=== PATIENT | female | born 1950 | race Caucasian/White ===

== ENCOUNTER → 2019-11-25 07:38 | Outpatient (BNVA) | payer MEDICARE, OTHER, SELFPAY | PROVIDERS: Visit Provider Nurse Practitioner Family | DX: R53.83 Other fatigue (principal); Z13.6 Encounter for screening for cardiovascular disorders | CPT/HCPCS: 80053; 80061; 82306; 82607; 84443; 85025 ==

== ENCOUNTER 2020-08-31 10:32 | Outpatient (CLI) | payer MEDICARE, OTHER, SELFPAY ==
--- NOTE | 2020-08-31 10:40 | MM_ITS ---
WS: [id number] Exam: [id number] Date/Time of Exam: 08/31/2020 10:48 AM Reason For Exam: SCREENING VIEWS: MLO and CC views both breasts. Comparison made with prior exam of 09/28/2016. Findings: There was no sign of mass, architectural distortion or suspicious calcification in either breast. 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
== END 2020-08-31 10:33 | disposition home or self-care (01) ==
LOC: RADSHAW 10:38
PROVIDERS: Visit Provider Nurse Practitioner Family
DX: Z12.31 Encounter for screening mammogram for malignant neoplasm of breast (principal)
CPT/HCPCS: 77067

== ENCOUNTER → 2020-12-23 08:35 | Outpatient (BNVA) | payer MEDICARE, OTHER, SELFPAY | PROVIDERS: PCP Nurse Practitioner Family; Visit Provider Nurse Practitioner Family | DX: I10 Essential (primary) hypertension (principal); E55.9 Vitamin D deficiency, unspecified | CPT/HCPCS: 80053; 80061; 82306; 82607; 84443; 85025 ==

== ENCOUNTER → 2021-08-30 15:38 | Outpatient (BNVA) | payer MEDICARE, OTHER, SELFPAY | PROVIDERS: PCP Family Medicine; Visit Provider Family Medicine | DX: M79.642 Pain in left hand (principal); R22.32 Localized swelling, mass and lump, left upper limb | CPT/HCPCS: 73120 ==

== ENCOUNTER → 2021-09-28 11:15 | Outpatient (BNVA) | payer MEDICARE, OTHER, SELFPAY | PROVIDERS: PCP Family Medicine; Visit Provider Nurse Practitioner Family | DX: Z20.822 Contact with and (suspected) exposure to COVID-19 (principal) | CPT/HCPCS: 87635 ==

== ENCOUNTER 2021-10-04 18:04 | Inpatient (IN) | payer MEDICARE, OTHER, SELFPAY ==
[2021-10-04 19:20] VITALS: BP 145/84; PULSE 60; RESP 24; TEMP 36.3; O2SAT 96; BMI 31.7
--- NOTE | 2021-10-04 19:29 | XRR_ITS ---
PROCEDURE INFORMATION: Exam: XR Chest Exam date and time: 10/04/2021 7:29 PM Age: 70 years old Clinical indication: Shortness of breath; Additional info: Syncope TECHNIQUE: Imaging protocol: XR of the chest. Views: 1 view. COMPARISON: CR Chest 1 [place] [id number] 02/27/2017 9:49 AM FINDINGS: Lungs: Unremarkable. No consolidation. Pleural spaces: Unremarkable. No pleural effusion. No pneumothorax. Heart/Mediastinum: Unremarkable. No cardiomegaly. Bones/joints: Unremarkable. XR/XR chest 1V portable [id number] IMPRESSION: No acute findings.
--- NOTE | 2021-10-04 19:29 | CTR_ITS ---
PROCEDURE INFORMATION: Exam: CT Head Without Contrast Exam date and time: 10/04/2021 7:29 PM Age: 70 years old Clinical indication: Syncope and collapse TECHNIQUE: Imaging protocol: Computed tomography of the head without contrast. Radiation optimization: All CT scans at this facility use at least one of these dose optimization techniques: automated exposure control; mA and/or kV adjustment per patient size (includes targeted exams where dose is matched to clinical indication); or iterative reconstruction. COMPARISON: No relevant prior studies available. RADIATION DOSE METRICS: Total DLP (mGy-cm): 904.66 FINDINGS: Brain: No hemorrhage. Mild diffuse cerebral atrophy and sequela of chronic small vessel ischemic disease. No mass effect. Cerebral ventricles: No ventriculomegaly. Paranasal sinuses: Mucosal retention cyst in the left frontal sinus. The rest of the paranasal sinuses are well pneumatized. Mastoid air cells: Visualized mastoid air cells are well aerated. Bones/joints: Unremarkable. No acute fracture. Soft tissues: Unremarkable. CT/CT head wo con* [id number] IMPRESSION: No acute intracranial abnormality.
--- NOTE | 2021-10-04 19:30 | ECG_ITS ---
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 Measurements Intervals [place] Rate: 71 P: 58 AL: 169 QRS: -35 QRSD: 86 T: 30 QT: 396 QTc: 431 Interpretive Statements SINUS RHYTHM LEFT AXIS DEVIATION [QRS AXIS < -30] LOW QRS VOLTAGE IN PRECORDIAL LEADS [QRS DEFLECTION < 1.0 mV IN CHEST LEADS] Compared to ECG 02/27/2017 09:52:45 Left-axis deviation now present Low QRS voltage now present Sinus bradycardia no longer present Electronically Signed On 10-05-2021 17:10:41 HEAD OF CYTOGENETICS by Kendal Stack M.D. [id number]
[2021-10-04 22:15] LABS: Basophils % 0.3 %; Eosinophils % 0.3 %; Hematocrit 41.2 % (37.0-47.0); Hemoglobin 14.1 g/dL (11.5-15.3); Lymphocytes # 1.1 10^3/uL (0.8-4.8); Lymphocytes % 15.8 %; Mean Corpuscular HGB Conc 34.2 g/dL (30.0-36.0); Mean Corpuscular Hemoglobin 30.1 pg (28.0-34.0); Mean Corpuscular Volume 87.8 fl (81-99); Mean Platelet Volume 9.1 fL (7.4-10.4); Monocytes # 0.5 10^3/uL (0.2-0.9); Monocytes % 6.7 %; Neutrophils # 5.27 10^3/uL (1.8-7.7); Neutrophils % 76.6 %; Nucleated Red Blood Cells % 0 %; Platelet Count 362 10^3/cmm (130-400); Red Blood Count 4.69 10^6/uL (4.1-5.3); Red Cell Distribution Width 13.7 % (12.1-15.1); White Blood Count 6.9 10^3/uL (4.0-10.0)
[2021-10-04 22:29] LABS: INR 0.89 (0.8-1.2)
[2021-10-04 22:45] VITALS: BP 196/103; PULSE 87; RESP 20; TEMP 36.2; O2SAT 98
[2021-10-04 22:46] LABS: Troponin(5th) Baseline 16 ng/L (0-10)
--- NOTE | 2021-10-04 22:47 | ED_ITS ---
HPI - Fall General: Chief Complaint: Fall Stated Complaint: Covid +,Passed out going down stairs Time Seen by Provider: 10/04/21 22:33 History of Present Illness: Patient is a 70-year-old female who comes to the ED after having a fall. Fall occurred just prior to arrival. Patient tested positive for COVID-19 on September 28. She has been having symptoms of nasal congestion for the past 2 to 3 weeks. She is also had a sore throat. Over the past several days she reports having more shortness of breath upon exertion and feeling lightheaded or about to pass out. Denies any cough or vomiting. Today she was walking out of her house to get into her car and she had to stop several times and sit down because she felt like she was about to pass out. When going down steps from her front porch she got to the final step and sat down for a minute. She then got up and states she had a syncopal episode and fell. She fell from the bottom step and landed on concrete patio. She has an abrasion to her forehead. Denies any neurological symptoms such as vision changes, numbness tingling to face or one side of her body. Denies any weakness to extremities. She is complaining of acid reflux epigastric pain. says she has had this kind of pain before and she has been given GI cocktails in the past that has helped. She does endorse having a decreased appetite for the past 3 days or so. She says she is only eaten crackers for the past several days. She has received 2 doses of the Moderna COVID-19 vaccine but has not got the booster yet. She reports having a lot of swelling to her arms and legs bilaterally that started within the last couple weeks. She states she does not normally have any edema in her lower legs. Associated symptoms-after fall: Reports lightheadedness; Denies abdominal pain, chest pain, headache(s), hematuria or neck pain Review of Systems Const: Reports: change in weight (Put on 20 pounds over the past couple weeks.), fatigue and malaise (especially upon exertion); Denies: fever(s) or chills Eyes: Denies: change in vision or eye discomfort ENMT: Reports: throat pain and nasal congestion; Denies: odynophagia or nasal discharge Card: Reports: edema (bilateral lower extremity edema), lightheadedness, pre- syncope and dyspnea on exertion; Denies: chest pain, palpitations, swelling of feet/ankles or orthopnea Resp: Denies: dyspnea, productive cough or non-productive cough GI: Reports: heartburn and constipation; Denies: abdominal pain, nausea, vomiting, diarrhea or hematochezia : Denies: flank pain, dysuria or hematuria Musc: Denies: neck pain, back pain or extremity swelling Skin/Breast: Denies: rash or new lesions Neuro: Denies: headache(s), numbness in extremities or weakness in extremities PFSH ED PFSH: Medical History Anemia Anxiety and depression Esophageal dysmotility Polycystic kidney Family History Father Cancer lung Sister Cancer 2 sisters; breast Mother Hypertension Social History Smoking and tobacco status: never smoked Second hand smoke exposure: No Alcohol intake: never Lives independently: Yes Household members: spouse Marital status: Current occupational status: retired History of recent travel: No Current gender identity: Female Physical Exam Const: COMMON NORMALS: patient oriented x3 and alert GENERAL APPEARANCE: cooperative and comfortable HENMT: COMMON NORMALS: normocephalic HEAD & SCALP: normocephalic, abrasion right frontal Head abrasion size: 0.5 cm and contusion right frontal Head contusion size: 1 cm; no Panda's sign and no raccoon eyes MOUTH: Normal oral and palatal mucosa present THROAT: posterior oropharynx normal and uvula midline Eye: COMMON NORMALS: Equal, round and reactive pupils present, EOMs intact bilaterally and conjunctivae normal CONJUNCTIVA: Yes conjunctivae normal PUPIL: Yes Equal, round and reactive pupils present Neck/C-Spine: COMMON NORMALS: supple GENERAL: Yes normal visual inspection Resp: COMMON NORMALS: normal respiratory effort, No retractions, No use of accessory muscles and clear to auscultation bilaterally AUSCULTATION: clear to auscultation bilaterally Cardio: COMMON NORMALS: regular rate, regular rhythm, S1 normal heart sound present, S2 normal heart sound present, No gallops present (Cardio), No clicks present (Cardio), No murmurs present (Cardio) and Peripheral pulses 2+ throughout RATE: regular rate RHYTHM: regular rhythm HEART SOUNDS: S1 normal heart sound present and S2 normal heart sound present PERIPHERAL PULSES: Peripheral pulses 2+ throughout GI: COMMON NORMALS: Normal to inspection, nondistended, normoactive bowel sounds present, Soft to palpation, non-tender and no masses PALPATION: Yes Soft to palpation : COMMON NORMALS: Yes no CVA tenderness BLADDER/KIDNEY EXAM: Yes no CVA tenderness Back/Pelvis: COMMON NORMALS: no CVA tenderness Extremity: GENERAL: Yes edema (Bilateral 1+ pitting edema to lower extremities) Neuro: COMMON NORMALS: patient oriented x3, CN's II-XII intact bilaterally, moves all extremities, no focal motor deficits and no sensory deficits noted SENSORIUM/ORIENTATION: Yes alert SENSORY EXAM: Yes extremities (intact) MOTOR EXAM: 5/5 motor strength present throughout Skin: GENERAL SKIN EXAM: dry skin Course Vital Signs: Vital signs: Vital Signs Temperature 97.2 F L 10/04/21 22:45 Pulse Rate 74 10/05/21 01:30 Respiratory Rate 20 H 10/04/21 22:45 Blood Pressure 147/86 10/05/21 01:30 Pulse Oximetry 98 10/04/21 22:45 MDM - Fall Medical Decision Making Patient is a 70-year-old female that comes to the ED after having a fall. Patient had a syncopal episode that caused fall. Patient was diagnosed with COVID-19. On September 28 but she has been having symptoms of nasal congestion for over 2 weeks. She says for the past 3 days she is had nausea, decreased appetite. For the past 3 days she is only eaten crackers. Says whenever she gets up and moves around she feels nauseous, weak and feels like she is going to pass out. Today she had a syncopal episode and she fell and hit pavement. She has an abrasion with contusion on her forehead. She has increased respirations here in the ED at 24/min but rest of vitals are stable. Physical exam including a neuro exam was benign. Sodium level was 117. Chest x-ray showed no acute findings. EKG showed normal sinus rhythm with no ST segment elevation or depression seen. Troponins negative. CT of head showed no acute findings. Due to patient's low sodium levels I talked with Dr. Montenegro about patient case and he recommended patient be admitted. Patient was started on a 0.5L IV NS while here in the ED. Dr. Conley was notified and patient was admitted. Lab Data I reviewed the patient's lab results. : 10/04/21 22:05 10/04/21 22:05 Radiology Impressions Chest X-Ray 10/04/21:29 IMPRESSION: No acute findings. Head CT 10/04/21:29 IMPRESSION: No acute intracranial abnormality. Laboratory Results WBC 6.9 10^3/uL (4.0-10.0) 10/04/21 22:05 RBC 4.69 10^6/uL (4.1-5.3) 10/04/21 22:05 Hgb 14.1 g/dL (11.5-15.3) 10/04/21 22:05 Hct 41.2 % (37.0-47.0) 10/04/21 22:05 MCV 87.8 fl (81-99) 10/04/21 22:05 MCH 30.1 pg (28.0-34.0) 10/04/21 22:05 MCHC 34.2 g/dL (30.0-36.0) 10/04/21 22:05 RDW 13.7 % (12.1-15.1) 10/04/21 22:05 Plt Count 362 10^3/cmm (130-400) 10/04/21 22:05 MPV 9.1 fL (7.4-10.4) 10/04/21 22:05 Neut % (Auto) 76.6 % 10/04/21 22: Lymph % (Auto) 15.8 % 10/04/21 22:05 [place] % (Auto) 6.7 % 10/04/21 22:05 Eos % (Auto) 0.3 % 10/04/21 22:05 Baso % (Auto) 0.3 % 10/04/21 22:05 Neut # (Auto) 5.27 10^3/uL (1.8-7.7) 10/04/21 22:05 Lymph # (Auto) 1.1 10^3/uL (0.8-4.8) 10/04/21 22:05 [place] # (Auto) 0.5 10^3/uL (0.2-0.9) 10/04/21 22:05 Eos # (Auto) 0.0 10^3/uL (0.0-0.8) 10/04/21 22:05 Baso # (Auto) 0.0 10^3/uL (0.0-0.1) 10/04/21 22:05 Nucleated RBC % (auto) 0 % 10/04/21 22:05 Nucleated RBCs # 0.0 /100WBC 10/04/21 22:05 PT 12.30 SECONDS (12.1-14.9) 10/04/21 22:05 INR 0.89 (0.8-1.2) 10/04/21 22:05 Sodium 117 mmol/L (136-145) L* 10/04/21 22:05 Potassium 4.7 mmol/L (3.5-5.1) 10/04/21 22:05 Chloride 88 mmol/L (98-107) L 10/04/21 22:05 Carbon Dioxide 23 mmol/L (22-29) 10/04/21 22:05 Anion Gap 10.7 (5-19) 10/04/21 22:05 BUN 8 mg/dL (8-23) 10/04/21 22:05 Creatinine 0.6 mg/dL (0.5-0.9) 10/04/21 22:05 GFR Calculation 98.8 mL/min (90-130) 10/04/21 22:05 Glucose 106 mg/dL (65-115) 10/04/21 22:05 Calculated Osmolality 243 mOsm/kg (285-295) L 10/04/21 22:05 Calcium 7.7 mg/dL (8.5-10.5) L 10/04/21 22:05 Total Bilirubin 0.3 mg/dL (0.15-1.2) 10/04/21 22:05 AST 30 U/L (0-32) 10/04/21 22:05 ALT 12 U/L (0-33) 10/04/21 22:05 Alkaline Phosphatase 136 IU/L (35-105) H 10/04/21 22:05 Troponin T Baseline 16 ng/L (0-10) H 10/04/21 22:05 Troponin T 120 Minute 14.50 ng/L (0-10) H 10/04/21 23:45 Delta Troponin T -1.50 ABS# (0-10) L 10/04/21 23:45 NT-Pro-B Natriuret Pep 656 pg/mL (0-125) H 10/04/21 22:05 Total Protein 4.8 g/dL (6.6-8.7) L 10/04/21 22:05 Albumin 2.2 g/dL (3.5-5.2) L 10/04/21 22:05 Globulin 2.6 g/dL (1.3-4.6) 10/04/21 22:05 Random Cortisol 15.92 ug/dL (2.47-19.5) 10/05/21 01:30 EKG Data EKG 1: EKG interpretation date: 10/04/21 Interpretation: Normal sinus rhythm, no ST segment elevation or depression seen. 71 bpm. Discharge Plan Discharge Clinical Impression: Hyponatremia Condition: Stable Prescriptions: No Action sucralfate 1 gram tablet See Rx Instructions .ROUTE .COMPLEX Qty: 270 3RF Dose Instruction: TAKE 1 TABLET BY MOUTH EVERY FOUR HOURS Rx Instructions: TAKE 1 TABLET BY MOUTH EVERY FOUR HOURS Dexilant 60 mg capsule,biphase delayed releas 60 mg PO DAILY 90 Days Qty: 90 3RF fluticasone propionate [Flonase Allergy Relief] 50 mcg/actuation spray,suspension 2 spray INTRANASAL DAILY Qty: 15.8 0RF Rx Instructions: administer into each nostril lactulose 10 gram/15 mL solution See Rx Instructions .ROUTE .COMPLEX Qty: 8100 3RF Dose Instruction: TAKE 20 GM (30 ML) THREE TIMES DAILY Rx Instructions: TAKE 20 GM (30 ML) THREE TIMES DAILY venlafaxine 150 mg capsule,extended release 24hr See Rx Instructions .ROUTE .COMPLEX Qty: 90 3RF Dose Instruction: TAKE 1 CAPSULE BY MOUTH EVERY DAY WITH THE 75MG (TOTAL OF 225MG) Rx Instructions: TAKE 1 CAPSULE BY MOUTH EVERY DAY WITH THE 75MG (TOTAL OF 225MG) venlafaxine 75 mg capsule,extended release 24hr See Rx Instructions .ROUTE .COMPLEX Qty: 90 3RF Dose Instruction: TAKE 1 CAPSULE BY MOUTH EVERY DAY WITH THE 150MG FOR A TOTAL OF 225MG DAILY Rx Instructions: TAKE 1 CAPSULE BY MOUTH EVERY DAY WITH THE 150MG FOR A TOTAL OF 225MG DAILY Referrals: Rajiv Francis DO [Primary Care Provider] - Coding Level of Care Code ED Outside Energy Sales Representatives for Chg 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
--- NOTE | 2021-10-04 22:47 | PC.NURSE ---
Addendum entered by Jessica Sheldon RN 10/04/21 23:59: noted with abrasions to forehead, nose, and left cheek. Original Note: patient received with c/o falling from standing today, states got a warm feeling and became light headed with exertion. states this feeling started 3 days ago and worse today. reports history of reflux that has been worse for 3 days. states congestion started 3 weeks ago and feels like there is phlegm that won't come up. speech clear sentences complete. states COVID test on Monday with recieved results on .
[2021-10-04 22:51] LABS: Alanine Aminotransferase 12 U/L (0-33); Albumin Level 2.2 g/dL (3.5-5.2); Alkaline Phosphatase 136 IU/L (35-105); Aspartate Amino Transferase 30 U/L (0-32); Blood Urea Nitrogen 8 mg/dL (8-23); Calcium 7.7 mg/dL (8.5-10.5); Carbon Dioxide 23 mmol/L (22-29); Chloride 88 mmol/L (98-107); Creatinine Clr Calc Pharmacy 68.5758; Globulin 2.6 g/dL (1.3-4.6); Glomerular Filtration Rate 98.8 mL/min (90-130); Glucose 106 mg/dL (65-115); NT Pro B Type Natriuretic Pept 656 pg/mL (0-125); Osmolality Calculated 243 mOsm/kg (285-295); Total Bilirubin 0.3 mg/dL (0.15-1.2); Total Protein 4.8 g/dL (6.6-8.7)
[2021-10-04 22:52] LABS: Anion Gap 10.7 (5-19); Potassium 4.7 mmol/L (3.5-5.1); Sodium 117 mmol/L (136-145)
[2021-10-04] MEDS: lidocaine 2% viscous 15 ML, aluminum-mag hydrox-simethicon 30 ML, sucralfate oral liq 1 GM PO (22:54)
[2021-10-04] MEDS: sodium chloride 0.9% 500 ML 999 ML IV (23:47)
[2021-10-05] VITALS (9 sets, daily range): BP systolic 112–170; BP diastolic 68–97; PULSE 60–90; RESP 16–20; TEMP 36.2–36.9; O2SAT 93–99; BMI 31.7
--- NOTE | 2021-10-05 00:32 | P.HP_ITS ---
Providers/Chief Complaint Primary Care Provider: Rajiv Francis DO Chief Complaint: Covid +,Passed out going down stairs History of Present Illness Nati Eli is a 70 year old female has medical history of GERD, esophageal dysmotility, anxiety and depression Came in with chief complaint of nasal congestion 2 to 3 weeks, sore throat throat, shortness of breath on exertion, As well as lightheadedness , epigastric abdominal tenderness, which she attributes to her chronic acid reflux problem. she also experienced fall today on her way to the hospital, she says that she felt lightheaded she was walking out of her house to get into her car and she had to stop several times and sit down because she felt like she was about to pass out.? When going down steps from her front porch she got to the final step and sat down for a mi nute.? She then got up and states she had a syncopal episode and fell.?She fell from the bottom step and landed on concrete patio.? She has an abrasion to her forehead.? Denies any neurological symptoms such as vision changes, numbness tingling to face or one side of her body.?Denies any weakness to extremities.?She reports having a lot of swelling to her arms and legs bilaterally that started within the last couple weeks. She was diagnosed with COVID-19 on September 28. She has received 2 doses of the Moderna COVID-19 vaccine but has not got the booster yet.? Upon arrival in the ER she was worked up for above-mentioned complaint. Pertinent imaging studies: CT head without contrast: No acute intracranial abnormality. XR chest: No acute findings. EKG : Sinus rhythm , borderline left axis deviation Review of Systems General: Reports: 10 or more systems reviewed and unremarkable except in HPI and below Narrative: 68-year-old currently not in acute distress being admitted for chest pain evaluation Const: Denies: diaphoresis Card: Denies: palpitations, edema, swelling of feet/ankles or leg pain with exertion Resp: Denies: productive cough, wheezing or pain on inspiration GI: Denies: diarrhea or constipation : Denies: flank pain Musc: Denies: back pain, extremity pain or extremity swelling Neuro: Reports: headache(s); Denies: difficulty walking or confusion Medications/Allergies Home Medications Medication Instructions Recorded Confirmed Last Taken Type fluticasone propionate 50 2 spray INTRANASAL DAILY #15.8 ml 07/01/20 09/28/21 Unknown Rx mcg/actuation nasal spray,suspension (Flonase Allergy Relief) lactulose 10 gram/15 mL oral See Rx Instructions .ROUTE 11/04/20 09/28/21 Unknown Rx solution .COMPLEX #8100 ml venlafaxine 150 mg See Rx Instructions .ROUTE 11/04/20 09/28/21 Unknown Rx capsule,extended release 24 hr .COMPLEX #90 cap venlafaxine 75 mg capsule,extended See Rx Instructions .ROUTE 11/04/20 09/28/21 Unknown Rx release 24 hr .COMPLEX #90 cap dexlansoprazole 60 mg 60 mg PO DAILY 90 Days #90 cap 06/21/21 09/28/21 Unknown Rx capsule,biphase delayed release (Dexilant) sucralfate 1 gram tablet See Rx Instructions .ROUTE 06/21/21 09/28/21 Unknown Rx .COMPLEX #270 tab Allergies Allergy/AdvReac Type Severity Reaction Status Date / Time iodine Allergy Unknown Unknown Verified 09/28/21 09:11 shellfish derived Allergy Unknown Unknown Verified 09/28/21 09:11 lisinopril AdvReac Intermediate COUGH Verified 09/28/21 09:11 PFSH Acute PFSH: Medical History Anemia Anxiety and depression Esophageal dysmotility Polycystic kidney Family History Father Cancer lung Sister Cancer 2 sisters; breast Mother Hypertension Social History Smoking and tobacco status: never smoked Second hand smoke exposure: No Alcohol intake: never Lives independently: Yes Household members: spouse Marital status: Current occupational status: retired History of recent travel: No Current gender identity: Female Vitals/I&O/Wt Last Vital Signs Temp 97.2 F L 10/04/21 22:45 Pulse 87 10/04/21 22:45 Resp 20 H 10/04/21 22:45 BP 196/103 10/04/21 22:45 Pulse Ox 98 10/04/21 22:45 Weight last 48 hrs Weight 83.915 kg Physical Exam Const: COMMON NORMALS: patient oriented x3 HENMT: COMMON NORMALS: hearing grossly normal bilaterally and external ears normal EXTERNAL EAR: Yes external ears normal Eye: COMMON NORMALS: no scleral icterus GENERAL EYE: appearance normal, both eyes and all related structures Chest: COMMONS NORMALS: normal inspection of the chest and normal palpation of entire chest wall CHEST: Yes Symmetrical chest wall rise Resp: COMMON NORMALS: normal respiratory effort, No retractions, No use of accessory muscles and clear to auscultation bilaterally EFFORT & INSPECTION: Yes symmetric chest movement AUSCULTATION: clear to auscultation bilaterally Cardio: COMMON NORMALS: regular rate, regular rhythm, S1 normal heart sound present, S2 normal heart sound present, No gallops present (Cardio), No murmurs present (Cardio), No rub (Cardio) and Peripheral pulses 2+ throughout RATE: regular rate RHYTHM: regular rhythm HEART SOUNDS: S1 normal heart sound present and S2 normal heart sound present PERIPHERAL PULSES: Peripheral pulses 2+ throughout GI: COMMON NORMALS: Normal to inspection, nondistended, normoactive bowel sounds present, Soft to palpation, non-tender, No hepatosplenomegaly present and no masses AUSCULTATION: Yes normoactive bowel sounds PALPATION: Yes Soft to palpation and Yes No hepatosplenomegaly present RECTAL EXAM: deferred Extremity: COMMON NORMALS: no clubbing, cyanosis or edema and no pedal edema Neuro: COMMON NORMALS: patient oriented x3 Data : 10/05/21 03:40 10/05/21 03:40 A&P Assessment and plan (1) Hyponatremia: Status: Acute (2) Chronic constipation: Status: Acute (3) Generalized anxiety disorder: Status: Acute (4) GERD with esophagitis: Status: Acute (5) Hypertension: Status: Acute Qualifiers: Hypertension type: essential hypertension Qualified Code(s): I10 - Esse ntial (primary) hypertension (6) Syncope: Status: Acute (7) COVID-19: Status: Acute Plan Assessment: Hyponatremia likely hypovolemic hyponatremia COVID-19 Hypertension Syncope secondary to positive orthostatic hypotension GERD with esophagitis GABE PLAN : Follow TSH, random cortisol, urinalysis, lipid panel, urine and serum osmolality. Continue IV hydration with normal saline at 125 cc an hour Monitor BMP every 4 hours Orthostatic vital check every 6 hours Fall precaution Continue Protonix Continue sucralfate Continue Zofran Lovenox for DVT prophylaxis I will continue to monitor for possible Covid pneumonia, currently she is saturating well on room air X-ray chest has failed to show any infiltrates. I will hold on remdesivir and dexamethasone. Consider 2D echo Continue telemetry monitoring Attestations Medical Necessity Statement*: Patient needs to be in hospital for management of symptomatic hyponatremia, syncope, COVID-19. Anticipated length of stay greater than 2 midnights Coding Level of Care Code Acute Human Resources Professional for [facility] 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 Diagnoses Hyponatremia E87.1 Chronic constipation K59.09 Generalized anxiety disorder F41.1 GERD with esophagitis K21.00 Hypertension I10 Hypertension type: essential hypertension Syncope R55 COVID-19 U07.1
--- NOTE | 2021-10-05 01:30 | ECG_ITS ---
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 Measurements Intervals [place] Rate: 66 P: 61 PA: 164 QRS: -30 QRSD: 90 T: 45 QT: 418 QTc: 439 Interpretive Statements SINUS RHYTHM BORDERLINE LEFT AXIS DEVIATION [QRS AXIS < -20] LOW QRS VOLTAGE IN PRECORDIAL LEADS [QRS DEFLECTION < 1.0 mV IN CHEST LEADS] Compared to ECG 10/04/2021 22:00:52 No significant changes Electronically Signed On 10-05-2021 17:13:05 MEDIA LAW FACULTY MEMBER by Kendal Stack M.D. [id number]
[2021-10-05 02:21] LABS: Cortisol Random 15.92 ug/dL (2.47-19.5)
[2021-10-05] MEDS: enoxaparin 40 mg/0.4 mL Syringe SUBCUT (03:34)
[2021-10-05 04:52] LABS: Basophils % 0.6 %; Eosinophils % 0.6 %; Hematocrit 37.5 % (37.0-47.0); Hemoglobin 12.8 g/dL (11.5-15.3); Lymphocytes # 1.2 10^3/uL (0.8-4.8); Lymphocytes % 21.4 %; Mean Corpuscular HGB Conc 34.1 g/dL (30.0-36.0); Mean Corpuscular Hemoglobin 30.1 pg (28.0-34.0); Mean Corpuscular Volume 88.2 fl (81-99); Mean Platelet Volume 12.1 fL (7.4-10.4); Monocytes # 0.5 10^3/uL (0.2-0.9); Monocytes % 9.6 %; Neutrophils # 3.66 10^3/uL (1.8-7.7); Neutrophils % 67.6 %; Nucleated Red Blood Cells % 0 %; Platelet Count 257 10^3/cmm (130-400); Red Blood Count 4.25 10^6/uL (4.1-5.3); Red Cell Distribution Width 13.8 % (12.1-15.1); White Blood Count 5.4 10^3/uL (4.0-10.0)
[2021-10-05 05:06] LABS: Blood Urea Nitrogen 9 mg/dL (8-23); Calcium 7.4 mg/dL (8.5-10.5); Carbon Dioxide 24 mmol/L (22-29); Chloride 90 mmol/L (98-107); Creatinine Clr Calc Pharmacy 68.5758; Glomerular Filtration Rate 98.8 mL/min (90-130); Glucose 121 mg/dL (65-115); Osmolality Calculated 246 mOsm/kg (285-295)
[2021-10-05 05:10] LABS: Anion Gap 8.6 (5-19); Potassium 4.6 mmol/L (3.5-5.1)
[2021-10-05 05:11] LABS: Sodium 118 mmol/L (136-145)
[2021-10-05] MEDS: sodium chloride 0.9% 1,000 ML 125 ML IV ×2 (05:11→13:22)
[2021-10-05] MEDS: sucralfate 1 gm/10 mL Oral Liq UDC PO (05:11)
[2021-10-05] MEDS: hyDRALAzine 25 mg Tablet 50 MG PO (05:39)
[2021-10-05 08:46] LABS: Sodium 121 mmol/L (136-145)
[2021-10-05] MEDS: pantoprazole 40 mg SDV IVP ×2 (09:56→21:12)
[2021-10-05] MEDS: acetaminophen 325 mg Tablet 650 MG PO (09:57)
[2021-10-05] MEDS: ondansetron 2 mg/ML SDV 2 mL 4 MG IVP (13:23)
[2021-10-05 14:45] LABS: Sodium 117 mmol/L (136-145)
--- NOTE | 2021-10-05 16:37 | PM.PN ---
Subjective Subjective: Interval history: Nauseated. Having upper abdominal discomfort, dyspepsia. At home takes PPI as well as sucralfate. Has had very poor oral intake for several days. Denies diarrhea. No trouble breathing. Vitals/I&O/Wt Last Vital Signs Temp 98.1 F 10/05/21 16:00 Pulse 79 10/05/21 16:00 Resp 16 10/05/21 16:00 BP 132/74 10/05/21 16:00 Pulse Ox 94 10/05/21 16:00 10/05/21 10/05/21 10/05/21 06:59 14:59 22:59 Intake Total 1740 / 1740 Balance 1740 / 1740 Weight last 48 hrs Weight 83.915 kg Weight 83.915 kg Physical Exam Const: COMMON NORMALS: no acute distress and patient oriented x3 HENMT: COMMON NORMALS: oropharynx normal Neck/C-Spine: COMMON NORMALS: no JVD Resp: COMMON NORMALS: normal respiratory effort and clear to auscultation bilaterally AUSCULTATION: clear to auscultation bilaterally Cardio: COMMON NORMALS: no JVD, regular rhythm, S1 normal heart sound present, S2 normal heart sound present and No murmurs present (Cardio) RHYTHM: regular rhythm HEART SOUNDS: S1 normal heart sound present and S2 normal heart sound present GI: COMMON NORMALS: Normal to inspection, nondistended, normoactive bowel sounds present and Soft to palpation PALPATION: Yes Soft to palpation and Yes Tenderness to palpation present (GI) Details: other (upper) Extremity: COMMON NORMALS: no joint enlargement and no pedal edema Neuro: COMMON NORMALS: patient oriented x3 and moves all extremities Skin: COMMON NORMALS: no rashes or lesions noted GENERAL SKIN EXAM: no rashes or lesions noted Data : 10/05/21 03:40 10/05/21 12:11 A&P Assessment and plan (1) Abdominal pain: Nausea and upper abdominal pain with long history of GERD, at home on Protonix, sucralfate. Schedule sucralfate. Increase Protonix to twice daily. Check lipase. Status: Acute (2) Hyponatremia: Suspected hypovolemic hyponatremia due to poor oral intake recently, her, lack of improvement with IV hydration. Stop sodium chloride infusion. Regular diet. Check urine studies. Check TSH. Serum cortisol checked, somewhat soft at 15.9. Cosyntropin stim test. Status: Acute (3) Chronic constipation: Status: Acute (4) Generalized anxiety disorder: Status: Acute (5) GERD with esophagitis: Status: Acute (6) Hypertension: Status: Acute Qualifiers: Hypertension type: essential hypertension Qualified Code(s): I10 - Essential (primary) hypertension (7) Syncope: Status: Acute (8) COVID-19: Status: Acute Attestations Medical Necessity Statement*: Continue admission for assessment management of persistent dyspepsia, nausea, poor oral intake, moderate COVID-19. Coding Level of Care Code Acute Department [employer] for g Fwd Diagnoses Hyponatremia E87.1 Chronic constipation K59.09 Generalized anxiety disorder F41.1 GERD with esophagitis K21.00 Hypertension I10 Hypertension type: essential hypertension Syncope R55 COVID-19 U07.1 Abdominal pain R10.9
[2021-10-05 18:12] LABS: Lipase 34 U/L (13-60)
[2021-10-05 18:24] LABS: Sodium 119 mmol/L (136-145)
[2021-10-05 18:25] LABS: Thyroid Stimulating Hormone 3.19 uIU/mL (0.27-4.20)
[2021-10-05] MEDS: sucralfate 1 gm Tablet PO ×2 (18:35→21:12)
[2021-10-05] MEDS: cosyntropin 0.25 mg SDV IVP (18:35)
[2021-10-05 20:30] LABS: Cosyntropin 30 Minute 19.39 mcg/dL
[2021-10-05 20:31] LABS: Cosyntropin Baseline 7.04 mcg/dL
[2021-10-05 20:40] LABS: Cosyntropin 1 Hour 21.73 mcg/dL
[2021-10-05 21:31] LABS: Sodium 118 mmol/L (136-145)
[2021-10-05] MEDS: diphenhydrAMINE 25 mg Capsule PO (21:58)
[2021-10-06] VITALS (8 sets, daily range): BP systolic 158–179; BP diastolic 74–96; PULSE 53–86; RESP 17–22; TEMP 36.4–36.6; O2SAT 96–98
[2021-10-06] MEDS: enoxaparin 40 mg/0.4 mL Syringe SUBCUT (03:44)
[2021-10-06 04:18] LABS: Urine Random Sodium < 10 mmol/L
[2021-10-06 06:04] LABS: Basophils % 0.5 %; Eosinophils % 0.5 %; Hematocrit 36.2 % (37.0-47.0); Hemoglobin 12.5 g/dL (11.5-15.3); Lymphocytes # 1.8 10^3/uL (0.8-4.8); Lymphocytes % 27.8 %; Mean Corpuscular HGB Conc 34.5 g/dL (30.0-36.0); Mean Corpuscular Hemoglobin 30.7 pg (28.0-34.0); Mean Corpuscular Volume 88.9 fl (81-99); Monocytes # 0.8 10^3/uL (0.2-0.9); Neutrophils # 3.89 10^3/uL (1.8-7.7); Nucleated Red Blood Cells % 0 %; Platelet Count 277 10^3/cmm (130-400); Red Blood Count 4.07 10^6/uL (4.1-5.3); Red Cell Distribution Width 13.8 % (12.1-15.1); White Blood Count 6.6 10^3/uL (4.0-10.0)
[2021-10-06] MEDS: sucralfate 1 gm Tablet PO ×4 (06:24→20:25)
[2021-10-06 06:39] LABS: Blood Urea Nitrogen 12 mg/dL (8-23); Carbon Dioxide 18 mmol/L (22-29); Chloride 93 mmol/L (98-107); Creatinine Clr Calc Pharmacy 68.5758; Glomerular Filtration Rate 98.8 mL/min (90-130); Glucose 101 mg/dL (65-115); Magnesium 2.3 mg/dL (1.7-2.3); Osmolality Calculated 244 mOsm/kg (285-295); Thyroid Stimulating Hormone 2.32 uIU/mL (0.27-4.20)
[2021-10-06 07:41] LABS: Sodium 117 mmol/L (136-145)
[2021-10-06 07:43] LABS: Anion Gap 11.3 (5-19); Potassium 5.3 mmol/L (3.5-5.1)
[2021-10-06] MEDS: pantoprazole 40 mg SDV IVP ×2 (09:45→21:59)
[2021-10-06] MEDS: sennosides-docusate Tablet 1 TAB PO (09:45)
[2021-10-06] MEDS: venlafaxine ER (24HR) 75 mg Capsule PO (09:45)
[2021-10-06] MEDS: venlafaxine ER (24HR) 150 mg Capsule PO (09:45)
[2021-10-06 11:05] LABS: Blood Urea Nitrogen 12 mg/dL (8-23); Calcium 8.2 mg/dL (8.5-10.5); Carbon Dioxide 21 mmol/L (22-29); Chloride 88 mmol/L (98-107); Creatinine Clr Calc Pharmacy 68.5758; Glomerular Filtration Rate 82.7 mL/min (90-130); Glucose 99 mg/dL (65-115); Osmolality Calculated 242 mOsm/kg (285-295)
[2021-10-06 11:09] LABS: Anion Gap 11.7 (5-19); Potassium 4.7 mmol/L (3.5-5.1)
[2021-10-06 11:10] LABS: Sodium 116 mmol/L (136-145)
[2021-10-06] MEDS: sodium chloride 3% 500 ML 10 ML IV (11:24)
[2021-10-06 11:43] LABS: Add Urine Microscopic? YES; Bilirubin Urine Neg (Negative); Blood Urine 2+ (Negative); Glucose Urine UA Norm (Normal); Ketones Urine Negative (Negative); Leukocyte Esterase Urine Negative (Negative); Nitrate Urine Negative (Negative); Protein Urine 3+ (Negative); Specific Gravity, Urine 1.015 (1.005-1.030); Urine Appearance Clear (CLEAR); Urine Color Dark Yellow (Yellow); Urobilinogen Urine Neg (Negative); pH Urine 5 (5-7)
[2021-10-06 11:45] LABS: Add Urine Culture? No; Amorphous Sediment Urine TRACE /hpf; Bacteria Urine TRACE /hpf; RBC Urine 0-4 /hpf (0-2); Renal Epithelial Cells Urine 2 /hpf; Squamous Epithelial Cell Urine 0-4 /hpf (0-5); WBC Urine RARE /hpf (0-5)
[2021-10-06] MEDS: ondansetron 2 mg/ML SDV 2 mL 4 MG IVP (12:40)
--- NOTE | 2021-10-06 14:01 | PM.PN ---
Subjective Subjective: Interval history: Having chills, malaise. No further vomiting. Not good appetite/oral intake. No diarrhea. He is not short of breath. Having some swelling on the exterior left side of her neck she can feel with her hand. Denies food sticking in her throat. Vitals/I&O/Wt Last Vital Signs Temp 97.9 F 10/06/21 12:00 Pulse 86 10/06/21 12:02 Resp 17 10/06/21 07:50 BP 177/89 10/06/21 12:00 Pulse Ox 98 10/06/21 12:02 10/05/21 10/06/21 10/06/21 22:59 06:59 14:59 Intake Total 960 / 2700 Output Total 200 / 200 Balance 960 / 2700 -200 / 2500 Weight last 48 hrs Weight 83.915 kg Weight 83.915 kg Physical Exam Const: COMMON NORMALS: no acute distress and patient oriented x3 HENMT: COMMON NORMALS: oropharynx normal Neck/C-Spine: COMMON NORMALS: no JVD OTHER: Possible mild lymphadenopathy anterolateral left neck. Do not appreciate mass or significant swelling. No stridor. Resp: COMMON NORMALS: normal respiratory effort and clear to auscultation bilaterally AUSCULTATION: clear to auscultation bilaterally Cardio: COMMON NORMALS: no JVD, regular rhythm, S1 normal heart sound present, S2 normal heart sound present and No murmurs present (Cardio) RHYTHM: regular rhythm HEART SOUNDS: S1 normal heart sound present and S2 normal heart sound present GI: COMMON NORMALS: Normal to inspection, nondistended, normoactive bowel sounds present and Soft to palpation PALPATION: Yes Soft to palpation and Yes Tenderness to palpation present (GI) Extremity: COMMON NORMALS: no joint enlargement and no pedal edema Neuro: COMMON NORMALS: patient oriented x3 and moves all extremities Skin: COMMON NORMALS: no rashes or lesions noted GENERAL SKIN EXAM: no rashes or lesions noted Data : 10/06/21 05:45 10/06/21 13:55 A&P Assessment and plan (1) Abdominal pain: So far no further vomiting. Poor oral intake. Persistent hyponatremia. Continue PPI. Sucralfate. Nausea and upper abdominal pain with long history of GERD, at home on Protonix, sucralfate. Lipase was normal. Status: Acute (2) Hyponatremia: Persistent severe hyponatremia. Start 3% saline at low rate. Follow levels. Despite initiation of 3% saline sodium with further decrease. Will request nephrology assistance. Suspected hypovolemic hyponatremia due to poor oral intake recently, her, lack of improvement with IV hydration. Stop sodium chloride infusion. Regular diet. Check urine studies. Normal TSH. Serum cortisol checked, somewhat soft at 15.9. Baseline cortisol with cosyntropin low at 7.4, but adequate response with rise up to 21. Status: Acute (3) Chronic constipation: Status: Acute (4) Generalized anxiety disorder: Status: Acute (5) GERD with esophagitis: Status: Acute (6) Hypertension: Status: Acute Qualifiers: Hypertension type: essential hypertension Qualified Code(s): I10 - Essential (primary) hypertension (7) Syncope: Status: Acute (8) COVID-19: Status: Acute Attestations Medical Necessity Statement*: Continue admission for assessment management of severe hyponatremia. 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
[2021-10-06 14:37] LABS: Blood Urea Nitrogen 13 mg/dL (8-23); Calcium 7.9 mg/dL (8.5-10.5); Carbon Dioxide 19 mmol/L (22-29); Chloride 92 mmol/L (98-107); Creatinine Clr Calc Pharmacy 68.5758; Glomerular Filtration Rate 98.8 mL/min (90-130); Glucose 126 mg/dL (65-115); Osmolality Calculated 246 mOsm/kg (285-295)
[2021-10-06 14:38] LABS: Anion Gap 10.4 (5-19); Potassium 4.4 mmol/L (3.5-5.1)
[2021-10-06 14:39] LABS: Sodium 117 mmol/L (136-145)
[2021-10-06 15:17] LABS: Osmolality Serum 257 mOsm/kg (278-305)
[2021-10-06 19:28] LABS: Anion Gap 11.5 (5-19); Blood Urea Nitrogen 14 mg/dL (8-23); Calcium 8.1 mg/dL (8.5-10.5); Carbon Dioxide 20 mmol/L (22-29); Chloride 88 mmol/L (98-107); Creatinine Clr Calc Pharmacy 68.5758; Glomerular Filtration Rate 82.7 mL/min (90-130); Glucose 97 mg/dL (65-115); Osmolality Calculated 240 mOsm/kg (285-295); Potassium 4.5 mmol/L (3.5-5.1)
[2021-10-06 19:30] LABS: Sodium 115 mmol/L (136-145)
[2021-10-06] MEDS: FUROsemide 40 mg Tablet PO (20:25)
--- NOTE | 2021-10-06 21:34 | P.CONIM_ITS ---
Providers/Reason For Consult Consulting Physician/Specialty*: clemencia lucero md / telenephrology Reason for Consult*: hyponatremia Requesting Physician: Dr. Jaramillo Attending Physician: Brett Engel Primary Care Provider: Rajiv Francis DO History of Present Illness History of Present Illness Nati Eli is a 70 year old female w/ COVID-19 PNA- feeling symptoms of cough, fevers, weakness for 3 weeks. DX COVID-19 + on 09-28-21. Admitted on 10-04-21 w/ pre-syncope. on admission found to have a na of 118 - started on ns at 125 ml/ hr. she did not improve and then started 3% saline at alow rate and lasix and renal; is called to consult. Review of Systems Narrative: weak lethargic, nausea. starting to drink urine. headaches, cough. no sob, + nausea, no abd pain, no diarrhea. develoiped some edema Medications/Allergies Home Medications Medication Instructions Recorded Confirmed Last Taken Type fluticasone propionate 50 2 spray INTRANASAL DAILY #15.8 ml 07/01/20 10/05/21 Unknown Rx mcg/actuation nasal spray,suspension (Flonase Allergy Relief) lactulose 10 gram/15 mL oral See Rx Instructions .ROUTE 11/04/20 10/05/21 Unknown Rx solution .COMPLEX #8100 ml venlafaxine 150 mg See Rx Instructions .ROUTE 11/04/20 10/05/21 Unknown Rx capsule,extended release 24 hr .COMPLEX #90 cap venlafaxine 75 mg capsule,extended See Rx Instructions .ROUTE 11/04/20 10/05/21 Unknown Rx release 24 hr .COMPLEX #90 cap dexlansoprazole 60 mg 60 mg PO DAILY 90 Days #90 cap 06/21/21 10/05/21 Unknown Rx capsule,biphase delayed release (Dexilant) docusate sodium 100 mg capsule 100 mg PO DAILY 10/05/21 10/05/21 Unknown History sucralfate 1 gram tablet 1 g PO Q6H PRN 10/05/21 10/05/21 Unknown History Allergies Allergy/AdvReac Type Severity Reaction Status Date / Time iodine Allergy Unknown Unknown Verified 09/28/21 09:11 shellfish derived Allergy Unknown Unknown Verified 09/28/21 09:11 lisinopril AdvReac Intermediate COUGH Verified 09/28/21 09:11 Current Medications Generic Name Dose Route Start Last Admin Trade Name Freq PRN Reason Stop Dose Admin Acetaminophen 650 mg 10/05/21 05:34 10/05/21 09:57 Acetaminophen 325 Mg Tablet PO 650 mg Q6H PRN Administration Mild/Mod Pain Or Temp >/= 101 Diphenhydramine HCl 25 mg 10/05/21 16:35 10/05/21 21:58 Diphenhydramine 25 Mg Capsule PO 25 mg Q6H PRN Administration ALLERGIES Enoxaparin Sodium 40 mg 10/05/21 00:30 10/06/21 03:44 Enoxaparin 40 Mg/0.4 Ml Syringe SUBCUT 40 mg Q24H SUNSHINE Administration Sodium Chloride 500 mls @ 10 mls/hr 10/06/21 08:30 10/06/21 11:24 Sodium Chloride 3% IV 10/08/21 10:29 10 mls/hr .Q24H SUNSHINE Administration Ondansetron HCl 4 mg 10/05/21 00:27 10/06/21 12:40 Ondansetron 2 Mg/Ml Sdv 2 Ml IVP 4 mg Q8H PRN Administration vomiting, or N/V if npo Pantoprazole Sodium 40 mg 10/05/21 21:00 10/06/21 09:45 Pantoprazole 40 Mg Sdv IVP 40 mg Q12H SUNSHINE Administration Senna/Docusate Sodium 1 tab 10/05/21 09:00 10/06/21 09:45 Sennosides-Docusate Tablet PO 1 tab DAILY SUNSHINE Administration Sucralfate 1 gm 10/05/21 04:31 10/05/21 05:11 Sucralfate 1 Gm/10 Ml Oral Liq Udc PO 1 gm Q4H PRN Administration episagtric pain Sucralfate 1 gm 10/05/21 17:00 10/06/21 20:25 Sucralfate 1 Gm Tablet PO 1 gm AC&BEDTIME SUNSHINE Administration Venlafaxine HCl 75 mg 10/06/21 09:00 10/06/21 09:45 Venlafaxine Er (24hr) 75 Mg Capsule PO 75 mg QD SUNSHINE Administration Venlafaxine HCl 150 mg 10/06/21 09:00 10/06/21 09:45 Venlafaxine Er (24hr) 150 Mg Capsule PO 150 mg QD SUNSHINE Administration PFSH Acute PFSH: Medical History Anemia Anxiety and depression Esophageal dysmotility Polycystic kidney Family History Father Cancer lung Sister Cancer 2 sisters; breast Mother Hypertension Social History Smoking and tobacco status: never smoked Second hand smoke exposure: No Alcohol intake: never Lives independently: Yes Household members: spouse Marital status: Current occupational status: retired History of recent travel: No Current gender identity: Female Vitals/I&O/Wt Last Vital Signs Temp 97.8 F 10/06/21 16:00 Pulse 62 10/06/21 16:00 Resp 22 H 10/06/21 16:00 BP 179/96 10/06/21 16:00 Pulse Ox 98 10/06/21 17:57 10/06/21 10/06/21 10/06/21 06:59 14:59 22:59 Intake Total 0 / 0 Output Total 200 / 200 Balance -200 / 2500 0 / 0 Weight last 48 hrs Weight 83.915 kg Physical Exam Narrative: EXAM NARRATIVE: bp elevated comfortable in bed, NARD heent- nc/at, eomi, anicteric neck supple lungs clear b/l heart - reg abd soft, nt, nd, + bs ext ankle edema neuro- a,a, o x 3 Data : 10/06/21 05:45 10/06/21 18:45 A&P Assessment and plan (1) Hyponatremia: 70 yr old female depression, GERD, htn 1. covid- 19 2. hyponatremia- low ur na- goes against SIADH -will repeat urine electrolytes -free water restrict -ns ivf -nl tsh and cosyntropin stim test -effexor can cause SIADH physiology -covid pna can cause hyponatremia pt was seen and examine dw/ RN- telehealth visit informed consent for telehealth visit obtained Status: Acute Plan as above Consult Attestations Medical Necessity Statement: covid-19, hyponatremia Time Spent in Patient Care: Greater than 35 minutes (>than 50% of time spent in counselling and/or direct pt care on unit) . 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
[2021-10-06] MEDS: sodium chloride 0.9% 1,000 ML 125 ML IV (22:33)
[2021-10-06 23:45] LABS: Potassium, Radom Urine 15 mmol/L
[2021-10-06 23:47] LABS: Uric Acid 4.2 mg/dL (2.4-5.7)
[2021-10-06 23:53] LABS: Urine Random Chloride 16 mmol/L; Urine Random Sodium < 10 mmol/L
[2021-10-07] VITALS (7 sets, daily range): BP systolic 129–219; BP diastolic 79–94; PULSE 59–71; RESP 16–20; TEMP 36.4–36.8; O2SAT 95–98
[2021-10-07 00:34] LABS: Alanine Aminotransferase 17 U/L (0-33); Albumin Level 1.9 g/dL (3.5-5.2); Alkaline Phosphatase 115 IU/L (35-105); Aspartate Amino Transferase 30 U/L (0-32); Blood Urea Nitrogen 16 mg/dL (8-23); Calcium 7.4 mg/dL (8.5-10.5); Carbon Dioxide 20 mmol/L (22-29); Chloride 88 mmol/L (98-107); Creatinine Clr Calc Pharmacy 68.5758; Globulin 2.4 g/dL (1.3-4.6); Glomerular Filtration Rate 82.7 mL/min (90-130); Glucose 97 mg/dL (65-115); Potassium 4.9 mmol/L (3.5-5.1); Total Bilirubin 0.2 mg/dL (0.15-1.2); Total Protein 4.3 g/dL (6.6-8.7)
[2021-10-07 00:45] LABS: Anion Gap 11.9 (5-19); Osmolality Calculated 241 mOsm/kg (285-295); Sodium 115 mmol/L (136-145)
[2021-10-07] MEDS: enoxaparin 40 mg/0.4 mL Syringe SUBCUT (00:55)
[2021-10-07] MEDS: hyDRALAzine 50 mg Tablet PO (04:09)
[2021-10-07 04:26] LABS: Basophils % 0.6 %; Eosinophils # 0.1 10^3/uL (0.0-0.8); Eosinophils % 1.7 %; Hematocrit 38.4 % (37.0-47.0); Hemoglobin 12.9 g/dL (11.5-15.3); Lymphocytes # 2.2 10^3/uL (0.8-4.8); Lymphocytes % 34.4 %; Mean Corpuscular HGB Conc 33.6 g/dL (30.0-36.0); Mean Corpuscular Hemoglobin 30.3 pg (28.0-34.0); Mean Corpuscular Volume 90.1 fl (81-99); Mean Platelet Volume 9.2 fL (7.4-10.4); Monocytes # 0.8 10^3/uL (0.2-0.9); Monocytes % 12.9 %; Neutrophils # 3.16 10^3/uL (1.8-7.7); Neutrophils % 50.2 %; Nucleated Red Blood Cells % 0 %; Platelet Count 267 10^3/cmm (130-400); Red Blood Count 4.26 10^6/uL (4.1-5.3); Red Cell Distribution Width 13.8 % (12.1-15.1); White Blood Count 6.3 10^3/uL (4.0-10.0)
[2021-10-07 04:57] LABS: Alanine Aminotransferase 19 U/L (0-33); Albumin Level 1.7 g/dL (3.5-5.2); Alkaline Phosphatase 109 IU/L (35-105); Anion Gap 12.5 (5-19); Aspartate Amino Transferase 30 U/L (0-32); Blood Urea Nitrogen 14 mg/dL (8-23); Carbon Dioxide 18 mmol/L (22-29); Chloride 89 mmol/L (98-107); Creatinine Clr Calc Pharmacy 68.5758; Globulin 3.1 g/dL (1.3-4.6); Glomerular Filtration Rate 82.7 mL/min (90-130); Glucose 82 mg/dL (65-115); Osmolality Calculated 240 mOsm/kg (285-295); Potassium 4.5 mmol/L (3.5-5.1); Total Bilirubin 0.2 mg/dL (0.15-1.2); Total Protein 4.8 g/dL (6.6-8.7)
[2021-10-07 04:59] LABS: Sodium 115 mmol/L (136-145)
[2021-10-07] MEDS: FUROsemide 10 mg/mL SDV 2mL 25 MG IVP (05:36)
[2021-10-07] MEDS: sucralfate 1 gm Tablet PO ×4 (06:40→21:41)
[2021-10-07] MEDS: sodium chloride 0.9% 1,000 ML 125 ML IV (06:43)
[2021-10-07 07:06] LABS: Urine Creatinine 59 mg/dL (28-217)
[2021-10-07] MEDS: venlafaxine ER (24HR) 150 mg Capsule PO (08:52)
[2021-10-07] MEDS: pantoprazole 40 mg SDV IVP ×2 (08:52→22:01)
[2021-10-07] MEDS: sennosides-docusate Tablet 1 TAB PO (08:52)
[2021-10-07] MEDS: venlafaxine ER (24HR) 75 mg Capsule PO (08:52)
--- NOTE | 2021-10-07 09:38 | PM.PN ---
Subjective Subjective: Interval history: feels better. improved MS. no n/v/f/c/laboy/d/sob Medications: Reviewed: Yes Medication Review Details: Current Medications Acetaminophen (Acetaminophen 325 Mg Tablet) 650 mg PO Q6H PRN PRN Reason: Mild/Mod Pain Or Temp >/= 101 Last Admin: 10/05/21 09:57 Dose: 650 mg Documented by: Diphenhydramine HCl (Diphenhydramine 25 Mg Capsule) 25 mg PO Q6H PRN PRN Reason: ALLERGIES Last Admin: 10/05/21 21:58 Dose: 25 mg Documented by: Enoxaparin Sodium (Enoxaparin 40 Mg/0.4 Ml Syringe) 40 mg SUBCUT Q24H [facility] Last Admin: 10/07/21 00:55 Dose: 40 mg Documented by: Sodium Chloride (Sodium Chloride 3%) 500 mls @ 50 mls/hr IV .Q10H [facility] Stop: 10/07/21 13:41 Last Admin: 10/06/21 11:24 Dose: 10 mls/hr Documented by: Ondansetron HCl (Ondansetron 2 Mg/Ml Sdv 2 Ml) 4 mg IVP Q8H PRN PRN Reason: vomiting, or N/V if npo Last Admin: 10/06/21 12:40 Dose: 4 mg Documented by: Pantoprazole Sodium (Pantoprazole 40 Mg Sdv) 40 mg IVP Q12H [facility] Last Admin: 10/07/21 08:52 Dose: 40 mg Documented by: Senna/Docusate Sodium (Sennosides-Docusate Tablet) 1 tab PO DAILY [facility] Last Admin: 10/07/21 08:52 Dose: 1 tab Documented by: Sucralfate (Sucralfate 1 Gm/10 Ml Oral Liq Udc) 1 gm PO Q4H PRN PRN Reason: episagtric pain Last Admin: 10/05/21 05:11 Dose: 1 gm Documented by: Sucralfate (Sucralfate 1 Gm Tablet) 1 gm PO AC&BEDTIME [facility] Last Admin: 10/07/21 06:40 Dose: 1 gm Documented by: Venlafaxine HCl (Venlafaxine Er (24hr) 75 Mg Capsule) 75 mg PO QD [facility] Last Admin: 10/07/21 08:52 Dose: 75 mg Documented by: Venlafaxine HCl (Venlafaxine Er (24hr) 150 Mg Capsule) 150 mg PO QD SUNSHINE Last Admin: 10/07/21 08:52 Dose: 150 mg Documented by: Vitals/I&O/Wt Last Vital Signs Temp 97.5 F L 10/07/21 07:48 Pulse 66 10/07/21 07:48 Resp 16 10/07/21 07:48 BP 166/83 10/07/21 07:48 Pulse Ox 96 10/07/21 07:48 10/06/21 10/07/21 10/07/21 22:59 06:59 14:59 Intake Total 180 / 180 1060 / 1240 200 / 200 Output Total 600 / 600 100 / 700 Balance -420 / -420 960 / 540 200 / 200 Physical Exam Narrative: EXAM NARRATIVE: bp elevated -improving comfortable in bed, NARD heent- nc/at, eomi, anicteric neck supple lungs clear b/l heart - reg abd soft, nt, nd, + bs ext ankle edema neuro- a,a, o x 3 Data : 10/07/21 04:14 10/07/21 04:14 A&P Assessment and plan (1) Hyponatremia: 70 yr old female depression, GERD, htn 1. covid- 19 2. hyponatremia- low ur na- goes against SIADH -free water restrict -her na is not improving w/ ns ivf -nl tsh and cosyntropin stim test -effexor can cause SIADH physiology -covid pna can cause hyponatremia -however, she has a low ur na -will give a few hrs 3% saline then ns ivf pt was seen and examine dw/ RN- telehealth visit time spent 30 min Status: Acute Plan as above Attestations Medical Necessity Statement*: hyponatremia Time Spent in Patient Care: 16 - 35 minutes (>than 50% of time spent in counselling and/or direct pt care on unit). Coding Level of Care Code Acute Instrument Designer for [facility] Diagnoses Hyponatremia E87.1
[2021-10-07 10:43] LABS: Add Urine Microscopic? YES; Bilirubin Urine Neg (Negative); Blood Urine 2+ (Negative); Glucose Urine UA Norm (Normal); Ketones Urine Negative (Negative); Leukocyte Esterase Urine Negative (Negative); Nitrate Urine Negative (Negative); Protein Urine 3+ (Negative); Urine Appearance Clear (CLEAR); Urine Color Yellow (Yellow); Urobilinogen Urine Norm (Negative); pH Urine 5 (5-7)
[2021-10-07 10:55] LABS: Add Urine Culture? No; Bacteria Urine TRACE /hpf; Hyaline Casts Urine 0-4 /lpf; Mucus Urine 1+ /hpf; RBC Urine 0-4 /hpf (0-2); Squamous Epithelial Cell Urine 0-4 /hpf (0-5); Triple Phosphate Crystal Urine 0-4 /hpf
[2021-10-07 13:04] LABS: Alanine Aminotransferase 21 U/L (0-33); Albumin Level 1.7 g/dL (3.5-5.2); Alkaline Phosphatase 109 IU/L (35-105); Anion Gap 10.8 (5-19); Aspartate Amino Transferase 39 U/L (0-32); Blood Urea Nitrogen 15 mg/dL (8-23); Calcium 7.3 mg/dL (8.5-10.5); Carbon Dioxide 22 mmol/L (22-29); Chloride 91 mmol/L (98-107); Creatinine Clr Calc Pharmacy 68.5758; Globulin 2.5 g/dL (1.3-4.6); Glomerular Filtration Rate 82.7 mL/min (90-130); Glucose 87 mg/dL (65-115); Osmolality Calculated 248 mOsm/kg (285-295); Potassium 4.8 mmol/L (3.5-5.1); Total Bilirubin 0.2 mg/dL (0.15-1.2); Total Protein 4.2 g/dL (6.6-8.7)
[2021-10-07 13:08] LABS: Sodium 119 mmol/L (136-145)
--- NOTE | 2021-10-07 18:10 | PM.PN ---
Subjective Subjective: Interval history: Today she reports no further nausea, no vomiting. Epigastric discomfort/pain. No trouble breathing. No chest pain or pressure. Vitals/I&O/Wt Last Vital Signs Temp 98.2 F 10/07/21 16:00 Pulse 71 10/07/21 16:00 Resp 16 10/07/21 16:00 BP 129/81 10/07/21 16:00 Pulse Ox 98 10/07/21 16:00 10/07/21 10/07/21 10/07/21 06:59 14:59 22:59 Intake Total 1060 / 1240 803.5 / 803.5 Output Total 100 / 700 100 / 100 Balance 960 / 540 703.5 / 703.5 Physical Exam Const: COMMON NORMALS: no acute distress and patient oriented x3 HENMT: COMMON NORMALS: oropharynx normal Neck/C-Spine: COMMON NORMALS: no JVD Resp: COMMON NORMALS: normal respiratory effort and clear to auscultation bilaterally AUSCULTATION: clear to auscultation bilaterally Cardio: COMMON NORMALS: no JVD, regular rhythm, S1 normal heart sound present, S2 normal heart sound present and No murmurs present (Cardio) RHYTHM: regular rhythm HEART SOUNDS: S1 normal heart sound present and S2 normal heart sound present GI: COMMON NORMALS: Normal to inspection, nondistended, normoactive bowel sounds present and Soft to palpation PALPATION: Yes Soft to palpation and Yes Tenderness to palpation present (GI) Extremity: COMMON NORMALS: no joint enlargement and no pedal edema Neuro: COMMON NORMALS: patient oriented x3 and moves all extremities Skin: COMMON NORMALS: no rashes or lesions noted GENERAL SKIN EXAM: no rashes or lesions noted Data : 10/07/21 04:14 10/07/21 12:17 A&P Assessment and plan (1) Hyponatremia: Appreciate nephrology assistance. Sodium initially and improving, this afternoon up to 119. For now holding off additional infusion. Discussed with her decrease in venlafaxine dose, she request to decrease to 150 mg. Reports this was an dose she was on in the past, did not do well below this dose. Dose decreased. Normal TSH. Serum cortisol checked, somewhat soft at 15.9. Baseline cortisol with cosyntropin low at 7.4, but adequate response with rise up to 21. Status: Acute (2) Abdominal pain: Vomiting, nausea resolved. Epigastric discomfort, discussed with her possible gastritis, PUD. Has had prior EGD. Reports persistent PAD. Discussed with her consideration of follow-up with gastroenterology to further assess for possible hypersecretion/ZE syndrome. Continue PPI. Sucralfate. Lipase was normal. Status: Acute (3) Chronic constipation: Status: Acute (4) Generalized anxiety disorder: Status: Acute (5) GERD with esophagitis: Status: Acute (6) Hypertension: Status: Acute Qualifiers: Hypertension type: essential hypertension Qualified Code(s): I10 - Essential (primary) hypertension (7) Syncope: Status: Acute (8) COVID-19: Nausea, vomiting resolved. No diarrhea. No respiratory complaints. Doing well on room air. Status: Acute Attestations Medical Necessity Statement*: Continue admission for assessment and management of severe hyponatremia. Coding Level of Care Code Acute Last Model Department Supervisor for [facility] Fwd Diagnoses Abdominal pain R10.9 Hyponatremia E87.1 Chronic constipation K59.09 Generalized anxiety disorder F41.1 GERD with esophagitis K21.00 Hypertension I10 Hypertension type: essential hypertension Syncope R55 COVID-19 U07.1
[2021-10-07 18:51] LABS: Alanine Aminotransferase 27 U/L (0-33); Alkaline Phosphatase 107 IU/L (35-105); Anion Gap 12.4 (5-19); Aspartate Amino Transferase 48 U/L (0-32); Blood Urea Nitrogen 16 mg/dL (8-23); Carbon Dioxide 21 mmol/L (22-29); Chloride 89 mmol/L (98-107); Creatinine Clr Calc Pharmacy 68.5758; Globulin 2.6 g/dL (1.3-4.6); Glomerular Filtration Rate 82.7 mL/min (90-130); Glucose 108 mg/dL (65-115); Osmolality Calculated 248 mOsm/kg (285-295); Potassium 4.4 mmol/L (3.5-5.1); Total Bilirubin 0.2 mg/dL (0.15-1.2); Total Protein 4.6 g/dL (6.6-8.7)
[2021-10-07 18:58] LABS: Sodium 118 mmol/L (136-145)
[2021-10-07] MEDS: sodium chloride 0.9% 1,000 ML 75 ML IV (20:39)
[2021-10-07] MEDS: cetirizine 10 mg Tablet PO (21:41)
[2021-10-08] VITALS (7 sets, daily range): BP systolic 127–179; BP diastolic 80–96; PULSE 58–73; RESP 16–19; TEMP 36.4–37.1; O2SAT 96–99
[2021-10-08] MEDS: enoxaparin 40 mg/0.4 mL Syringe SUBCUT (00:08)
[2021-10-08] MEDS: FUROsemide 10 mg/mL SDV 2mL 20 MG IVP ×2 (00:44→10:44)
[2021-10-08 01:04] LABS: Alanine Aminotransferase 28 U/L (0-33); Albumin Level 1.8 g/dL (3.5-5.2); Alkaline Phosphatase 108 IU/L (35-105); Anion Gap 9.5 (5-19); Aspartate Amino Transferase 47 U/L (0-32); Blood Urea Nitrogen 17 mg/dL (8-23); Calcium 7.2 mg/dL (8.5-10.5); Carbon Dioxide 21 mmol/L (22-29); Chloride 91 mmol/L (98-107); Creatinine Clr Calc Pharmacy 68.5758; Globulin 2.3 g/dL (1.3-4.6); Glomerular Filtration Rate 82.7 mL/min (90-130); Glucose 94 mg/dL (65-115); Osmolality Calculated 245 mOsm/kg (285-295); Potassium 4.5 mmol/L (3.5-5.1); Total Bilirubin 0.2 mg/dL (0.15-1.2); Total Protein 4.1 g/dL (6.6-8.7)
[2021-10-08 01:06] LABS: Sodium 117 mmol/L (136-145)
[2021-10-08] MEDS: sodium chloride 1 gm Tablet 2 GM PO ×4 (02:09→21:16)
[2021-10-08 03:51] LABS: Basophils % 0.7 %; Eosinophils # 0.2 10^3/uL (0.0-0.8); Eosinophils % 3.7 %; Hematocrit 39.7 % (37.0-47.0); Hemoglobin 13.4 g/dL (11.5-15.3); Lymphocytes # 1.8 10^3/uL (0.8-4.8); Lymphocytes % 31.6 %; Mean Corpuscular HGB Conc 33.8 g/dL (30.0-36.0); Mean Corpuscular Hemoglobin 30.5 pg (28.0-34.0); Mean Corpuscular Volume 90.4 fl (81-99); Mean Platelet Volume 9.2 fL (7.4-10.4); Monocytes # 0.7 10^3/uL (0.2-0.9); Monocytes % 12.4 %; Neutrophils # 2.91 10^3/uL (1.8-7.7); Neutrophils % 51.4 %; Nucleated Red Blood Cells % 0 %; Platelet Count 260 10^3/cmm (130-400); Red Blood Count 4.39 10^6/uL (4.1-5.3); Red Cell Distribution Width 13.9 % (12.1-15.1); White Blood Count 5.7 10^3/uL (4.0-10.0)
[2021-10-08 04:08] LABS: Alanine Aminotransferase 30 U/L (0-33); Alkaline Phosphatase 117 IU/L (35-105); Anion Gap 10.3 (5-19); Aspartate Amino Transferase 50 U/L (0-32); Blood Urea Nitrogen 16 mg/dL (8-23); Calcium 7.4 mg/dL (8.5-10.5); Carbon Dioxide 22 mmol/L (22-29); Chloride 93 mmol/L (98-107); Creatinine Clr Calc Pharmacy 68.5758; Globulin 2.5 g/dL (1.3-4.6); Glomerular Filtration Rate 82.7 mL/min (90-130); Glucose 92 mg/dL (65-115); Osmolality Calculated 253 mOsm/kg (285-295); Potassium 4.3 mmol/L (3.5-5.1); Sodium 121 mmol/L (136-145); Total Bilirubin 0.2 mg/dL (0.15-1.2); Total Protein 4.5 g/dL (6.6-8.7)
[2021-10-08] MEDS: sucralfate 1 gm Tablet PO ×4 (06:07→21:17)
[2021-10-08 08:57] LABS: Alanine Aminotransferase 28 U/L (0-33); Albumin Level 1.6 g/dL (3.5-5.2); Alkaline Phosphatase 95 IU/L (35-105); Aspartate Amino Transferase 42 U/L (0-32); Blood Urea Nitrogen 15 mg/dL (8-23); Carbon Dioxide 20 mmol/L (22-29); Chloride 93 mmol/L (98-107); Globulin 2.5 g/dL (1.3-4.6); Glomerular Filtration Rate 98.8 mL/min (90-130); Glucose 89 mg/dL (65-115); Osmolality Calculated 252 mOsm/kg (285-295); Sodium 121 mmol/L (136-145); Total Bilirubin 0.2 mg/dL (0.15-1.2); Total Protein 4.1 g/dL (6.6-8.7)
[2021-10-08 09:05] LABS: Anion Gap 12.6 (5-19); Potassium 4.6 mmol/L (3.5-5.1)
--- NOTE | 2021-10-08 10:02 | PM.PN ---
Subjective Subjective: Interval history: Ms. Eli feels relatively well today. No acute issues. Eating and drinking reasonably well. Initially presented with reflux. Also experienced a fall. Also had syncopal symptoms. Noted to be hyponatremic, sodium levels now slowly improving, did need 3% saline as well as Lasix. Currently on salt tablets. No extremity edema. On a fluid restriction of 1400 mL which she is adhering to, oral intake of solute be reasonable. Vitals/I&O/Wt Last Vital Signs Temp 97.5 F L 10/08/21 08:00 Pulse 72 10/08/21 08:00 Resp 18 10/08/21 08:00 BP 127/80 10/08/21 08:00 Pulse Ox 97 10/08/21 08:00 10/07/21 10/08/21 10/08/21 22:59 06:59 14:59 Intake Total 100 / 903.5 520 / 1423.5 600 / 600 Output Total 2100 / 2200 Balance 100 / 803.5 -1580 / -776.5 600 / 600 Weight last 48 hrs Weight 95.799 kg Physical Exam Narrative: EXAM NARRATIVE: Constitutional: Awake, comfortable HEENT: Wet mucosa, no jvp, non icteric Lungs: Bilaterally clear without discernible wheeze or rales in all lung zones CVS: S1 S2, no murmurs Abdo: Soft, BS ok Ext 4: Minimal edema, peripheral perfusion with no cyanosis Neurological: Grossly non-focal Data : 10/08/21 03:38 10/08/21 08:00 A&P Assessment and plan (1) Hyponatremia: Status: Acute Plan 1. Euvolemic hyponatremia Although urinary sodium is low, urine osmolality is likely to be isotonic/slightly hypotonic given the specific gravity levels that we see on basic urinalysis. Urine osmolality is formally pending. Likely to be dominantly secondary to the effects of causing SIADH. I have had a discussion with her, will switch Effexor for mirtazapine to see if this has a less contributing affect. Unfortunately all antidepressants are associated with hyponatremia, and we may have to taper this off slowly if hyponatremia becomes recalcitrant to therapy. Continue free water restriction Solute intake including high-protein diet is encouraged Continue to monitor sodium levels every 8 hours 2. Abdominal pain Symptoms seem to be resolving, on PPI, sucralfate, follow-up with GI. 3. Disposition She will be okay for discharge with a sodium level is in the high 120 range. Thank you for consultation, it is a pleasure to follow these cases with you Exam and interview performed with aid of bedside RN using telemedicine Time spent 20 min inc > 50% of time in face to face counseling Demarcus Gross MD [facility] [phone] Attestations Medical Necessity Statement*: Eval for electrolyte disorder Coding Level of Care Code Acute Time Clock Inspector for Ch[facility] Fwd Diagnoses Hyponatremia E87.1
[2021-10-08] MEDS: pantoprazole 40 mg SDV IVP ×2 (10:43→21:31)
[2021-10-08] MEDS: sennosides-docusate Tablet 1 TAB PO (10:45)
--- NOTE | 2021-10-08 13:28 | PC.SOCIAL ---
Pg 2 IMM Explained to pt Pg 2 IMM, via phone. No questions voiced. Provided pt a copy. Initialed, dated, & timed a copy & placed in chart.
[2021-10-08 14:10] LABS: Alanine Aminotransferase 39 U/L (0-33); Albumin Level 2.1 g/dL (3.5-5.2); Alkaline Phosphatase 118 IU/L (35-105); Blood Urea Nitrogen 17 mg/dL (8-23); Calcium 8.4 mg/dL (8.5-10.5); Carbon Dioxide 21 mmol/L (22-29); Chloride 91 mmol/L (98-107); Glomerular Filtration Rate 98.8 mL/min (90-130); Glucose 86 mg/dL (65-115); Osmolality Calculated 253 mOsm/kg (285-295); Sodium 121 mmol/L (136-145); Total Bilirubin 0.2 mg/dL (0.15-1.2); Total Protein 5.1 g/dL (6.6-8.7)
[2021-10-08 14:13] LABS: Anion Gap 13.9 (5-19); Aspartate Amino Transferase 57 U/L (0-32); Potassium 4.9 mmol/L (3.5-5.1)
[2021-10-08 17:58] LABS: Alanine Aminotransferase 33 U/L (0-33); Albumin Level 1.9 g/dL (3.5-5.2); Alkaline Phosphatase 108 IU/L (35-105); Anion Gap 11.7 (5-19); Aspartate Amino Transferase 52 U/L (0-32); Blood Urea Nitrogen 19 mg/dL (8-23); Calcium 7.3 mg/dL (8.5-10.5); Carbon Dioxide 22 mmol/L (22-29); Chloride 94 mmol/L (98-107); Globulin 2.2 g/dL (1.3-4.6); Glomerular Filtration Rate 82.7 mL/min (90-130); Glucose 106 mg/dL (65-115); Osmolality Calculated 259 mOsm/kg (285-295); Potassium 4.7 mmol/L (3.5-5.1); Sodium 123 mmol/L (136-145); Total Bilirubin 0.2 mg/dL (0.15-1.2); Total Protein 4.1 g/dL (6.6-8.7)
[2021-10-08] MEDS: mirtazapine 15 mg Tablet PO (21:16)
[2021-10-08] MEDS: cetirizine 10 mg Tablet PO (21:16)
--- NOTE | 2021-10-08 21:23 | P.PN_ITS ---
Subjective Subjective: Interval history: Denies nausea vomiting. Mild loose stool. Denies trouble breathing. No chest pain or pressure. Vitals/I&O/Wt Last Vital Signs Temp 97.7 F 10/08/21 20:00 Pulse 72 10/08/21 20:00 Resp 18 10/08/21 20:00 BP 138/83 10/08/21 20:00 Pulse Ox 96 10/08/21 20:00 10/08/21 10/08/21 10/08/21 06:59 14:59 22:59 Intake Total 520 / 1423.5 720 / 720 Output Total 2100 / 2200 450 / 450 350 / 800 Balance -1580 / -776.5 270 / 270 -350 / -80 Weight last 48 hrs Weight 95.799 kg Physical Exam Const: COMMON NORMALS: no acute distress and patient oriented x3 HENMT: COMMON NORMALS: oropharynx normal Neck/C-Spine: COMMON NORMALS: no JVD OTHER: Possible mild lymphadenopathy anterolateral left neck. Do not appreciate mass or significant swelling. No stridor. Resp: COMMON NORMALS: normal respiratory effort and clear to auscultation bilaterally AUSCULTATION: clear to auscultation bilaterally Cardio: COMMON NORMALS: no JVD, regular rhythm, S1 normal heart sound present, S2 normal heart sound present and No murmurs present (Cardio) RHYTHM: regular rhythm HEART SOUNDS: S1 normal heart sound present and S2 normal heart sound present GI: COMMON NORMALS: Normal to inspection, nondistended, normoactive bowel sounds present and Soft to palpation PALPATION: Yes Soft to palpation and Yes Tenderness to palpation present (GI) Extremity: COMMON NORMALS: no joint enlargement and no pedal edema Neuro: COMMON NORMALS: patient oriented x3 and moves all extremities Skin: COMMON NORMALS: no rashes or lesions noted GENERAL SKIN EXAM: no rashes or lesions noted Data : 10/08/21 03:38 10/08/21 17:16 A&P Assessment and plan (1) Hyponatremia: Hyponatremia gradually improving. Appreciate nephrology recommendations. Continue salt tablets. Water restriction. Regular diet. Mirtazapine substituted for venlafaxine. Continue to monitor sodium. Status: Acute (2) Abdominal pain: Vomiting, nausea resolved. Epigastric discomfort, discussed with her possible gastritis, PUD. Has had prior EGD. Reports persistent PAD. Discussed with her consideration of follow-up with gastroenterology to further assess for possible hypersecretion/ZE syndrome. Continue PPI. Sucralfate. Lipase was normal. Status: Acute (3) Chronic constipation: Status: Acute (4) Generalized anxiety disorder: Status: Acute (5) GERD with esophagitis: Status: Acute (6) Hypertension: Status: Acute Qualifiers: Hypertension type: essential hypertension Qualified Code(s): I10 - Essential (primary) hypertension (7) Syncope: Status: Acute (8) COVID-19: Nausea, vomiting resolved. No diarrhea. No respiratory complaints. Doing well on room air. Status: Acute Attestations Medical Necessity Statement*: Continue admission for assessment management of hyponatremia. Coding Level of Care Code Acute Supervisor [facility] for [facility] Diagnoses Hyponatremia E87.1 Abdominal pain R10.9 Chronic constipation K59.09 Generalized anxiety disorder F41.1 GERD with esophagitis K21.00 Hypertension I10 Hypertension type: essential hypertension Syncope R55 COVID-19 U07.1
[2021-10-08 22:53] LABS: Sodium 122 mmol/L (136-145)
[2021-10-09] VITALS (10 sets, daily range): BP systolic 117–179; BP diastolic 77–92; PULSE 50–76; RESP 16–20; TEMP 36.4–37; O2SAT 94–98
[2021-10-09] MEDS: enoxaparin 40 mg/0.4 mL Syringe SUBCUT (00:45)
[2021-10-09] MEDS: sucralfate 1 gm Tablet PO ×4 (06:40→20:35)
[2021-10-09 07:01] LABS: Alanine Aminotransferase 30 U/L (0-33); Albumin Level 1.7 g/dL (3.5-5.2); Alkaline Phosphatase 93 IU/L (35-105); Aspartate Amino Transferase 35 U/L (0-32); Blood Urea Nitrogen 17 mg/dL (8-23); Calcium 7.9 mg/dL (8.5-10.5); Carbon Dioxide 20 mmol/L (22-29); Chloride 98 mmol/L (98-107); Globulin 2.3 g/dL (1.3-4.6); Glomerular Filtration Rate 98.8 mL/min (90-130); Glucose 79 mg/dL (65-115); Osmolality Calculated 262 mOsm/kg (285-295); Sodium 126 mmol/L (136-145); Total Bilirubin 0.2 mg/dL (0.15-1.2)
[2021-10-09 07:26] LABS: Anion Gap 12.6 (5-19)
[2021-10-09 07:27] LABS: Potassium 4.6 mmol/L (3.5-5.1)
[2021-10-09] MEDS: pantoprazole 40 mg SDV IVP ×2 (08:18→22:06)
[2021-10-09] MEDS: sennosides-docusate Tablet 1 TAB PO (08:18)
[2021-10-09] MEDS: sodium chloride 1 gm Tablet 2 GM PO ×3 (08:18→20:35)
[2021-10-09] MEDS: FUROsemide 20 mg Tablet PO (10:16)
--- NOTE | 2021-10-09 10:57 | P.PN_ITS ---
Subjective Subjective: Interval history: Ms. Eli feels okay today, she is a little bit groggy. I gave her mirtazapine for the first time yesterday evening, and replacement of her Effexor well. No other acute issues. Eating and drinking okay. Tolerating the food, tolerating the fluid restriction. Did receive Lasix and salt tablets yesterday. Sodium noted to be increased to 126 this morning. Medications: Reviewed: Yes Medication Review Details: Current Medications Acetaminophen (Acetaminophen 325 Mg Tablet) 650 mg PO Q6H PRN PRN Reason: Mild/Mod Pain Or Temp >/= 101 Last Admin: 10/05/21 09:57 Dose: 650 mg Documented by: Diphenhydramine HCl (Diphenhydramine 25 Mg Capsule) 25 mg PO Q6H PRN PRN Reason: ALLERGIES Last Admin: 10/05/21 21:58 Dose: 25 mg Documented by: Enoxaparin Sodium (Enoxaparin 40 Mg/0.4 Ml Syringe) 40 mg SUBCUT Q24H [facility] Last Admin: 10/07/21 00:55 Dose: 40 mg Documented by: Sodium Chloride (Sodium Chloride 3%) 500 mls @ 50 mls/hr IV .Q10H [facility] Stop: 10/07/21 13:41 Last Admin: 10/06/21 11:24 Dose: 10 mls/hr Documented by: Ondansetron HCl (Ondansetron 2 Mg/Ml Sdv 2 Ml) 4 mg IVP Q8H PRN PRN Reason: vomiting, or N/V if npo Last Admin: 10/06/21 12:40 Dose: 4 mg Documented by: Pantoprazole Sodium (Pantoprazole 40 Mg Sdv) 40 mg IVP Q12H [facility] Last Admin: 10/07/21 08:52 Dose: 40 mg Documented by: Senna/Docusate Sodium (Sennosides-Docusate Tablet) 1 tab PO DAILY [facility] Last Admin: 10/07/21 08:52 Dose: 1 tab Documented by: Sucralfate (Sucralfate 1 Gm/10 Ml Oral Liq Udc) 1 gm PO Q4H PRN PRN Reason: episagtric pain Last Admin: 10/05/21 05:11 Dose: 1 gm Documented by: Sucralfate (Sucralfate 1 Gm Tablet) 1 gm PO AC&BEDTIME [facility] Last Admin: 10/07/21 06:40 Dose: 1 gm Documented by: Venlafaxine HCl (Venlafaxine Er (24hr) 75 Mg Capsule) 75 mg PO QD [facility] Last Admin: 10/07/21 08:52 Dose: 75 mg Documented by: Venlafaxine HCl (Venlafaxine Er (24hr) 150 Mg Capsule) 150 mg PO QD [facility] Last Admin: 10/07/21 08:52 Dose: 150 mg Documented by: Vitals/I&O/Wt Last Vital Signs Temp 98 F 10/09/21 08:00 Pulse 76 10/09/21 08:36 Resp 18 10/09/21 08:00 BP 163/92 10/09/21 08:00 Pulse Ox 94 10/09/21 08:36 10/08/21 10/09/21 10/09/21 22:59 06:59 14:59 Intake Total 360 / 1080 0 / 1080 Output Total 850 / 1300 900 / 2200 Balance -490 / -220 -900 / -1120 Weight last 48 hrs Weight 95.799 kg Physical Exam Narrative: EXAM NARRATIVE: Constitutional: Awake, comfortable HEENT: Wet mucosa, no jvp, non icteric Lungs: Bilaterally clear without discernible wheeze or rales in all lung zones CVS: S1 S2, no murmurs Abdo: Soft, BS ok Ext 4: Minimal edema, peripheral perfusion with no cyanosis Neurological: Grossly non-focal Data : 10/08/21 03:38 10/09/21 05:43 A&P Assessment and plan (1) Hyponatremia: Status: Acute Plan 1. Euvolemic hyponatremia Although urinary sodium is low, urine osmolality is likely to be isotonic/slightly hypotonic given the specific gravity levels that we see on basic urinalysis. 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 Effexor switched to Mirtazipine. Unfortunately all antidepressants are associated with hyponatremia, and we may have to taper this off slowly if hyponatremia becomes recalcitrant to therapy. Continue free water restriction Solute intake including high-protein diet is encouraged Cont salt tabs and daily lasix 2. Abdominal pain Symptoms seem to be resolving, on PPI, sucralfate, follow-up with GI. 3. 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
[2021-10-09 15:14] LABS: Sodium 126 mmol/L (136-145)
--- NOTE | 2021-10-09 18:01 | PM.PN ---
Subjective Subjective: Interval history: Denies headache or dizziness. No chest pain or pressure. No shortness of breath. No nausea or vomiting. Epigastric discomfort has resolved. Vitals/I&O/Wt Last Vital Signs Temp 98.1 F 10/09/21 15:14 Pulse 69 10/09/21 15:14 Resp 16 10/09/21 15:14 BP 117/80 10/09/21 15:14 Pulse Ox 97 10/09/21 15:14 10/09/21 10/09/21 10/09/21 06:59 14:59 22:59 Intake Total 0 / 1080 360 / 360 Output Total 900 / 2200 700 / 700 Balance -900 / -1120 -700 / -700 360 / -340 Weight last 48 hrs Weight 95.799 kg Physical Exam Const: COMMON NORMALS: no acute distress and patient oriented x3 HENMT: COMMON NORMALS: oropharynx normal Neck/C-Spine: COMMON NORMALS: no JVD OTHER: Possible mild lymphadenopathy anterolateral left neck. Do not appreciate mass or significant swelling. No stridor. Resp: COMMON NORMALS: normal respiratory effort and clear to auscultation bilaterally AUSCULTATION: clear to auscultation bilaterally Cardio: COMMON NORMALS: no JVD, regular rhythm, S1 normal heart sound present, S2 normal heart sound present and No murmurs present (Cardio) RHYTHM: regular rhythm HEART SOUNDS: S1 normal heart sound present and S2 normal heart sound present GI: COMMON NORMALS: Normal to inspection, nondistended, normoactive bowel sounds present and Soft to palpation PALPATION: Yes Soft to palpation and Yes Tenderness to palpation present (GI) Extremity: COMMON NORMALS: no joint enlargement and no pedal edema Neuro: COMMON NORMALS: patient oriented x3 and moves all extremities Skin: COMMON NORMALS: no rashes or lesions noted GENERAL SKIN EXAM: no rashes or lesions noted Data : 10/08/21 03:38 10/09/21 14:40 A&P Assessment and plan (1) Hyponatremia: Sodium gradually improving, but again 126. If improving further, may be able to discharge home. Was transitioned over to mirtazapine. Continue salt tablets. Discussed with her to continue water restriction as well. Reassess sodium. Regular diet. Status: Acute (2) Abdominal pain: Now resolved. Vomiting, nausea resolved. Epigastric discomfort, discussed with her possible gastritis, PUD. Has had prior EGD. Reports persistent PAD. Discussed with her consideration of follow-up with gastroenterology to further assess for possible hypersecretion/ZE syndrome. Continue PPI. Sucralfate. Lipase was normal. Status: Acute (3) Chronic constipation: Status: Acute (4) Generalized anxiety disorder: Status: Acute (5) GERD with esophagitis: Status: Acute (6) Hypertension: Status: Acute Qualifiers: Hypertension type: essential hypertension Qualified Code(s): I10 - Essential (primary) hypertension (7) Syncope: Status: Acute (8) COVID-19: Nausea, vomiting resolved. No diarrhea. No respiratory complaints. Doing well on room air. Status: Acute Attestations Medical Necessity Statement*: Continue admission for cyst management of hyponatremia. 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
[2021-10-09] MEDS: mirtazapine 15 mg Tablet 7.5 MG PO (20:35)
[2021-10-09] MEDS: cetirizine 10 mg Tablet PO (20:35)
[2021-10-09 22:14] LABS: Sodium 124 mmol/L (136-145)
[2021-10-10] VITALS: BP 143/73; PULSE 72; RESP 16; TEMP 36.8; O2SAT 98
[2021-10-10] MEDS: enoxaparin 40 mg/0.4 mL Syringe SUBCUT (00:25)
[2021-10-10 04:00] VITALS: BP 162/76; PULSE 54; RESP 16; TEMP 36.8; O2SAT 94
[2021-10-10 05:47] LABS: Alanine Aminotransferase 22 U/L (0-33); Albumin Level 1.6 g/dL (3.5-5.2); Alkaline Phosphatase 91 IU/L (35-105); Aspartate Amino Transferase 27 U/L (0-32); Blood Urea Nitrogen 24 mg/dL (8-23); Calcium 7.4 mg/dL (8.5-10.5); Carbon Dioxide 22 mmol/L (22-29); Chloride 101 mmol/L (98-107); Globulin 2.1 g/dL (1.3-4.6); Glomerular Filtration Rate 70.9 mL/min (90-130); Glucose 122 mg/dL (65-115); Osmolality Calculated 275 mOsm/kg (285-295); Sodium 130 mmol/L (136-145); Total Bilirubin 0.2 mg/dL (0.15-1.2); Total Protein 3.7 g/dL (6.6-8.7)
[2021-10-10 06:00] VITALS: PULSE 57
[2021-10-10] MEDS: sucralfate 1 gm Tablet PO (06:24)
[2021-10-10 08:00] VITALS: BP 172/92; PULSE 52; RESP 16; TEMP 36.6; O2SAT 98
[2021-10-10] MEDS: sodium chloride 1 gm Tablet 2 GM PO (08:24)
[2021-10-10] MEDS: FUROsemide 20 mg Tablet PO (08:24)
[2021-10-10] MEDS: sennosides-docusate Tablet 1 TAB PO (08:24)
[2021-10-10] MEDS: pantoprazole DR 40 mg Tablet PO (08:25)
--- NOTE | 2021-10-10 08:28 | PM.PN ---
Subjective Subjective: Interval history: Feels ok today with no acute issues. Sodium levels dipped last night but look good today. Mirtazipine worked well last night and she has minimal grogginess today Medications: Reviewed: Yes Medication Review Details: Current Medications Acetaminophen (Acetaminophen 325 Mg Tablet) 650 mg PO Q6H PRN PRN Reason: Mild/Mod Pain Or Temp >/= 101 Last Admin: 10/05/21 09:57 Dose: 650 mg Documented by: Diphenhydramine HCl (Diphenhydramine 25 Mg Capsule) 25 mg PO Q6H PRN PRN Reason: ALLERGIES Last Admin: 10/05/21 21:58 Dose: 25 mg Documented by: Enoxaparin Sodium (Enoxaparin 40 Mg/0.4 Ml Syringe) 40 mg SUBCUT Q24H [facility] Last Admin: 10/07/21 00:55 Dose: 40 mg Documented by: Sodium Chloride (Sodium Chloride 3%) 500 mls @ 50 mls/hr IV .Q10H [facility] Stop: 10/07/21 13:41 Last Admin: 10/06/21 11:24 Dose: 10 mls/hr Documented by: Ondansetron HCl (Ondansetron 2 Mg/Ml Sdv 2 Ml) 4 mg IVP Q8H PRN PRN Reason: vomiting, or N/V if npo Last Admin: 10/06/21 12:40 Dose: 4 mg Documented by: Pantoprazole Sodium (Pantoprazole 40 Mg Sdv) 40 mg IVP Q12H [facility] Last Admin: 10/07/21 08:52 Dose: 40 mg Documented by: Senna/Docusate Sodium (Sennosides-Docusate Tablet) 1 tab PO DAILY [facility] Last Admin: 10/07/21 08:52 Dose: 1 tab Documented by: Sucralfate (Sucralfate 1 Gm/10 Ml Oral Liq Udc) 1 gm PO Q4H PRN PRN Reason: episagtric pain Last Admin: 10/05/21 05:11 Dose: 1 gm Documented by: Sucralfate (Sucralfate 1 Gm Tablet) 1 gm PO AC&BEDTIME [facility] Last Admin: 10/07/21 06:40 Dose: 1 gm Documented by: Venlafaxine HCl (Venlafaxine Er (24hr) 75 Mg Capsule) 75 mg PO QD [facility] Last Admin: 10/07/21 08:52 Dose: 75 mg Documented by: Venlafaxine HCl (Venlafaxine Er (24hr) 150 Mg Capsule) 150 mg PO QD [facility] Last Admin: 10/07/21 08:52 Dose: 150 mg Documented by: Vitals/I&O/Wt Last Vital Signs Temp 97.8 F 10/10/21 08:00 Pulse 52 L 10/10/21 08:00 Resp 16 10/10/21 08:00 BP 172/92 10/10/21 08:00 Pulse Ox 98 10/10/21 08:00 10/09/21 10/10/21 10/10/21 22:59 06:59 14:59 Intake Total 480 / 480 360 / 840 Output Total 800 / 1500 Balance 480 / -220 -440 / -660 Physical Exam Narrative: EXAM NARRATIVE: Constitutional: Awake, comfortable HEENT: Wet mucosa, no jvp, non icteric Lungs: Bilaterally clear without discernible wheeze or rales in all lung zones CVS: S1 S2, no murmurs Abdo: Soft, BS ok Ext 4: Minimal edema, peripheral perfusion with no cyanosis Neurological: Grossly non-focal Data : 10/08/21 03:38 10/10/21 04:57 A&P Assessment and plan (1) Hyponatremia: Status: Acute Plan 1. Euvolemic hyponatremia Although urinary sodium is low, urine osmolality is likely to be isotonic/slightly hypotonic given the specific gravity levels that we see on basic urinalysis. 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 Effexor switched to Mirtazipine. Unfortunately all antidepressants are associated with hyponatremia, and we may have to taper this off slowly if hyponatremia becomes recalcitrant to therapy. Sodium levels ok for DC Cont to restrict fluids at home, salt tabs 2g tid, lasix daily, follow up labs in 1-[address] Woodall 2. Abdominal pain Symptoms seem to be resolving, on PPI, sucralfate, follow-up with GI. 3. 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
--- NOTE | 2021-10-10 11:05 | PC.SOCIAL ---
IMM update IMM updated with with patient. Verbalized an understanding. Initialled, dated, timed, and placed in chart.
[2021-10-10 12:00] VITALS: BP 163/99; PULSE 69; RESP 16; TEMP 36.9; O2SAT 99
--- NOTE | 2021-10-10 13:47 | P.DS_ITS ---
Discharge Providers Date of Admission: 10/05/21 06:09 Date of Discharge: October 10, 2021 Attending Provider at Admission: Jose Conley MD Attending Provider at Discharge: Brett Engel Primary Care Provider: Rajiv Francis DO Diagnoses at Discharge Discharge Diagnosis (1) Hyponatremia: Status: Acute Reason for Visit Reason for Visit: Covid +,Passed out going down stairs Hospital Course Hospital Course Neurology for history of PCKD, esophageal dysmotility, anemia, anxiety, depression, GERD, who was admitted for assessment management of severe hyponatremia, recently diagnosed with COVID-19 on 09/28, on presentation frequent and persistent nausea, epigastric pain, nasal congestion reporting also a syncopal episode preadmission. Troponin and EKG series were not suggestive of acute MT. Blood pressures initially orthostatic with more than 20 point decrease in systolic blood pressure, likely hypovolemic with poor oral intake. Sodium on presentation was 118. Initially suspected hypovolemic due to poor oral intake, nausea, epigastric pain. Possible gastritis, PUD, treated with Protonix, sucralfate, initially bowel rest, IV hydration. Sodium initially showing improvement, then will stop progression worsening of sodium down as low as 115. Transiently treated with 3% sodium, and transition to fluid restriction, sodium chloride tablets, with suspected SIADH component. Possibly SIADH secondary to venlafaxine, which she is switched over to mirtazapine at this time, however, if hyponatremia persists, may need to be tapered off antidepressants. Her oxygenation remained good, she is been doing well on room air entry with her breathing. She was ambulating in the room without any further issues with improving sodium and oral intake, with syncopal event most likely due to orthostatic blood pressure decline. Her nausea gradually resolved, epigastric discomfort is resolved. She continues on PPI, sucralfate. Please refer for endoscopic assessment once recovers from acute illness and COVID-19. Please follow-up sodium in office. She is asked to continue sodium chloride tablets, fluid restriction, and is referred for follow-up with nephrology. Subjective sensation of mild swelling on anterior left side of neck, possibly due to lymphadenopathy with acute viral illness. Please follow-up for resolution. Physical Exam Const: COMMON NORMALS: no acute distress and patient oriented x3 HENMT: COMMON NORMALS: oropharynx normal Neck/C-Spine: COMMON NORMALS: no JVD OTHER: Possible mild lymphadenopathy anterolateral left neck. Do not appreciate mass or significant swelling. No stridor. Resp: COMMON NORMALS: normal respiratory effort and clear to auscultation bilaterally AUSCULTATION: clear to auscultation bilaterally Cardio: COMMON NORMALS: no JVD, regular rhythm, S1 normal heart sound present, S2 normal heart sound present and No murmurs present (Cardio) RHYTHM: regular rhythm HEART SOUNDS: S1 normal heart sound present and S2 normal heart sound present GI: COMMON NORMALS: Normal to inspection, nondistended, normoactive bowel sounds present and Soft to palpation PALPATION: Yes Soft to palpation and Yes Tenderness to palpation present (GI) Extremity: COMMON NORMALS: no joint enlargement and no pedal edema Neuro: COMMON NORMALS: patient oriented x3 and moves all extremities Skin: COMMON NORMALS: no rashes or lesions noted GENERAL SKIN EXAM: no rashes or lesions noted Discharge Data Studies Completed and Pending Completed Studies During Hospitalization Category Date Time Status CT head wo con* [id number] Urgent Cat Scan 10/04/21 19:29 Completed XR chest 1V portable [id number] Urgent Exams 10/04/21 19:29 Completed Pending at discharge Category Date Time Status Comprehensive Metabolic Panel AM LABS Lab 10/11/21 04:00 Ordered Osmolality Urine Routine Lab 10/05/21 11:10 Received Osmolality Urine Routine Lab 10/07/21 10:00 Received Osmolality Urine Urgent Lab 10/06/21 23:15 Received Sodium Q8HWA Lab 10/10/21 14:00 Ordered Sodium Q8HWA Lab 10/10/21 22:00 Ordered Radiology Impressions Chest X-Ray 10/04/21 19:29 IMPRESSION: No acute findings. Head CT 10/04/21 19:29 IMPRESSION: No acute intracranial abnormality. Laboratory Results WBC 5.7 10^3/uL (4.0-10.0) 10/08/21 03:38 RBC 4.39 10^6/uL (4.1-5.3) 10/08/21 03:38 Hgb 13.4 g/dL (11.5-15.3) 10/08/21 03:38 Hct 39.7 % (37.0-47.0) 10/08/21 03:38 MCV 90.4 fl (81-99) 10/08/21 03:38 MCH 30.5 pg (28.0-34.0) 10/08/21 03:38 MCHC 33.8 g/dL (30.0-36.0) 10/08/21 03:38 RDW 13.9 % (12.1-15.1) 10/08/21 03:38 Plt Count 260 10^3/cmm (130-400) 10/08/21 03:38 MPV 9.2 fL (7.4-10.4) 10/08/21 03:38 Neut % (Auto) 51.4 % 10/08/21 03:38 Lymph % (Auto) 31.6 % 10/08/21 03:38 [place] % (Auto) 12.4 % 10/08/21 03:38 Eos % (Auto) 3.7 % 10/08/21 03:38 Baso % (Auto) 0.7 % 10/08/21 03:38 Neut # (Auto) 2.91 10^3/uL (1.8-7.7) 10/08/21 03:38 Lymph # (Auto) 1.8 10^3/uL (0.8-4.8) 10/08/21 03:38 [place] # (Auto) 0.7 10^3/uL (0.2-0.9) 10/08/21 03:38 Eos # (Auto) 0.2 10^3/uL (0.0-0.8) 10/08/21 03:38 Baso # (Auto) 0.0 10^3/uL (0.0-0.1) 10/08/21 03:38 Nucleated RBC % (auto) 0 % 10/08/21 03:38 Nucleated RBCs # 0.0 /100WBC 10/08/21 03:38 PT 12.30 SECONDS (12.1-14.9) 10/04/21 22:05 INR 0.89 (0.8-1.2) 10/04/21 22:05 Sodium 130 mmol/L (136-145) L 10/10/21 04:57 Potassium 5.0 mmol/L (3.5-5.1) 10/10/21 04:57 Chloride 101 mmol/L (98-107) 10/10/21 04:57 Carbon Dioxide 22 mmol/L (22-29) 10/10/21 04:57 Anion Gap 12.0 (5-19) 10/10/21 04:57 BUN 24 mg/dL (8-23) H 10/10/21 04:57 Creatinine 0.8 mg/dL (0.5-0.9) 10/10/21 04:57 GFR Calculation 70.9 mL/min (90-130) L 10/10/21 04:57 Glucose 122 mg/dL (65-115) H 10/10/21 04:57 Serum Osmolality 257 mOsm/kg (278-305) L 10/05/21 01:30 Calculated Osmolality 275 mOsm/kg (285-295) L 10/10/21 04:57 Uric Acid 4.2 mg/dL (2.4-5.7) 10/06/21 23:07 Uric Acid Cancelled 10/06/21 23:07 Calcium 7.4 mg/dL (8.5-10.5) L 10/10/21 04:57 Magnesium 2.3 mg/dL (1.7-2.3) 10/06/21 05:45 Total Bilirubin 0.2 mg/dL (0.15-1.2) 10/10/21 04:57 AST 27 U/L (0-32) 10/10/21 04:57 ALT 22 U/L (0-33) 10/10/21 04:57 Alkaline Phosphatase 91 IU/L (35-105) 10/10/21 04:57 Troponin T Baseline 16 ng/L (0-10) H 10/04/21 22:05 Troponin T 120 Minute 14.50 ng/L (0-10) H 10/04/21 23:45 Delta Troponin T -1.50 ABS# (0-10) L 10/04/21 23:45 Troponin T Hi Sens 6Hr 14.00 ng/L (0-10) H 10/05/21 03:40 Troponin T Hi Sens 6Hr Delta -2.00 ng/L (0-12) L 10/05/21 03:40 NT-Pro-B Natriuret Pep 656 pg/mL (0-125) H 10/04/21 22:05 Total Protein 3.7 g/dL (6.6-8.7) L 10/10/21 04:57 Albumin 1.6 g/dL (3.5-5.2) L 10/10/21 04:57 Globulin 2.1 g/dL (1.3-4.6) 10/10/21 04:57 Lipase 34 U/L (13-60) 10/05/21 16:34 TSH 2.32 uIU/mL (0.27-4.20) 10/06/21 05:45 Random Cortisol 15.92 ug/dL (2.47-19.5) 10/05/21 01:30 Cortisol Response 10/05/21 17:35 Urine Color Yellow (Yellow) 10/07/21 10:00 Urine Appearance Clear (CLEAR) 10/07/21 10:00 Urine pH 5 (5-7) 10/07/21 10:00 Ur Specific [place] 1.010 (1.005-1.030) 10/07/21 10:00 Urine Protein 3+ (Negative) H 10/07/21 10:00 Urine Glucose (UA) Norm (Normal) 10/07/21 10:00 Urine Ketones Negative (Negative) 10/07/21 10:00 Urine Blood 2+ (Negative) H 10/07/21 10:00 Urine Nitrate Negative (Negative) 10/07/21 10:00 Urine Bilirubin Neg (Negative) 10/07/21 10:00 Urine Urobilinogen Norm mg/dL (Negative) 10/07/21 10:00 Ur Leukocyte Esterase Negative (Negative) 10/07/21 10:00 Urine RBC 0-4 /hpf (0-2) H 10/07/21 10:00 Urine WBC None /hpf (0-5) 10/07/21 10:00 Ur Squamous Epith Cells 0-4 /hpf (0-5) H 10/07/21 10:00 Ur Renal Epithelial Cell 2 /hpf 10/06/21 11:10 Triple Phos Crystals 0-4 /hpf H 10/07/21 10:00 Amorphous Sediment Not Reportable 10/07/21 10:00 Urine Bacteria Trace /hpf (NONE) 10/07/21 10:00 Hyaline Casts 0-4 /lpf H 10/07/21 10:00 Fine Granular Casts 5-10 /lpf H 10/06/21 11:10 Urine Mucus 1+ /hpf 10/07/21 10:00 Ur Random Sodium < 10 mmol/L 10/06/21 23:15 Ur Random Potassium 15 mmol/L 10/06/21 23:15 Ur Random Chloride 16 mmol/L 10/06/21 23:15 Urine Creatinine 59 mg/dL (28-217) 10/06/21 23:15 Vitals Last Vital Signs Temp 98.5 F 10/10/21 12:00 Pulse 69 10/10/21 12:00 Resp 16 10/10/21 12:00 BP 163/99 10/10/21 12:00 Pulse Ox 99 10/10/21 12:00 Discharge Plan Discharge Patient Disposition: Home Condition: Stable Prescriptions: New sodium chloride 1 gram Tablet 2 g PO TID Qty: 90 0RF mirtazapine 15 mg Tablet 7.5 mg PO BEDTIME Qty: 45 0RF furosemide 20 mg Tablet 20 mg PO DAILY@0800 Qty: 30 0RF Continued Dexilant 60 mg capsule,biphase delayed releas 60 mg PO DAILY 90 Days Qty: 90 3RF fluticasone propionate [Flonase Allergy Relief] 50 mcg/actuation spray,suspension 2 spray INTRANASAL DAILY Qty: 15.8 0RF Rx Instructions: administer into each nostril lactulose 10 gram/15 mL solution See Rx Instructions .ROUTE .COMPLEX Qty: 8100 3RF Dose Instruction: TAKE 20 GM (30 ML) THREE TIMES DAILY Rx Instructions: TAKE 20 GM (30 ML) THREE TIMES DAILY sucralfate 1 gram tablet 1 g PO Q6H PRN (Reason: Stomach Upset) 0RF docusate sodium 100 mg Capsule 100 mg PO DAILY 0RF Discontinued venlafaxine 150 mg capsule,extended release 24hr See Rx Instructions .ROUTE .COMPLEX Qty: 90 3RF Dose Instruction: TAKE 1 CAPSULE BY MOUTH EVERY DAY WITH THE 75MG (TOTAL OF 225MG) Rx Instructions: TAKE 1 CAPSULE BY MOUTH EVERY DAY WITH THE 75MG (TOTAL OF 225MG) venlafaxine 75 mg capsule,extended release 24hr See Rx Instructions .ROUTE .COMPLEX Qty: 90 3RF Dose Instruction: TAKE 1 CAPSULE BY MOUTH EVERY DAY WITH THE 150MG FOR A TOTAL OF 225MG DAILY Rx Instructions: TAKE 1 CAPSULE BY MOUTH EVERY DAY WITH THE 150MG FOR A TOTAL OF 225MG DAILY Discharge Orders: Discharge Order (Routine); Ordered 10/10/21 Ordered By: Brett Engel Referrals: Rajiv Francis, DO [Primary Care Provider] - 4-7 days (Please call Dr. 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 Limit fluid to less than 1400 mL per 24 hours. Follow-up with your primary doctor as well as with the security intelligence analyst to reassess your sodium level and adjust treatment accordingly. Discussed with your primary doctor regarding persistent discomfort in your upper abdomen, discuss arrangement for upper endoscopic assessment to exclude malignancy and other more dangerous causes once you recover from COVID-19. Discussed with your primary doctor that your antidepressant medication was switched to mirtazapine with possibility that venlafaxine was contributing to low sodium. All antidepressants may contribute to low sodium, and so if low sodium is persistent, mirtazapine may need to be slowly weaned off as well. Discharge Attestations Time Spent in Discharge Care*: greater than 30 min Quality Metrics Clinical Quality Measures [ No reported AMI, CVA or VTE this stay] Coding Level of Care Code Acute [facility] [place] note Diagnoses Hyponatremia E87.1
[2021-10-10 15:32] VITALS: BP 163/99; PULSE 69; RESP 16; TEMP 36.9; O2SAT 99
[2021-10-11 14:39] LABS: Osmolality Urine 545 mOsm/kg (50-1200)
[2021-10-11 14:39] LABS: Osmolality Urine 554 mOsm/kg (50-1200)
[2021-10-11 14:39] LABS: Osmolality Urine 275 mOsm/kg (50-1200)
== END 2021-10-10 12:55 | disposition home or self-care (01) | DRG 643 ==
LOC: ER 10-05 03:58 → ER IP 10-05 06:09 → MEDSURG 10-05 06:50
PROVIDERS: Internal Medicine Nephrology; Admitting Provider Internal Medicine; Emergency Provider Emergency Medicine; PCP Family Medicine; Visit Provider Internal Medicine
DX: E22.2 Syndrome of inappropriate secretion of antidiuretic hormone (principal); U07.1 COVID-19; Q61.3 Polycystic kidney, unspecified; I95.1 Orthostatic hypotension; K22.4 Dyskinesia of esophagus; K59.09 Other constipation; K21.00 Gastro-esophageal reflux disease with esophagitis, without bleeding; K27.9 Peptic ulcer, site unspecified, unspecified as acute or chronic, without hemorrhage or perforation; F41.1 Generalized anxiety disorder; F32.A Depression, unspecified; I10 Essential (primary) hypertension; T43.215A Adverse effect of selective serotonin and norepinephrine reuptake inhibitors, initial encounter; Z91.81 History of falling; Z79.899 Other long term (current) drug therapy
CPT/HCPCS: 36415; 70450; 71045; 80048; 80053; 81001; 82436; 82533; 82570; 83690; 83735; 83880; 83930; 83935; 84133; 84295; 84300; 84443; 84484; 84550; 85025; 85610; 93005; 96361; 96372; 96374; 99285; C9113; J0834; J1650; J1940; J2405; J7030; J7040; J7131; Q3014

== ENCOUNTER 2021-10-17 11:43 | Inpatient (IN) | payer MEDICARE, OTHER, SELFPAY ==
[2021-10-17] VITALS (7 sets, daily range): BP systolic 138–153; BP diastolic 76–95; PULSE 64–79; RESP 16–18; TEMP 36.7–37.1; O2SAT 95–98; BMI 37.8
--- NOTE | 2021-10-17 11:47 | XRR_ITS ---
PROCEDURE INFORMATION: Exam: XR Chest Exam date and time: 10/17/2021 11:47 AM Age: 70 years old Clinical indication: Shortness of breath; Additional info: SOB TECHNIQUE: Imaging protocol: XR of the chest. Views: 1 view. COMPARISON: CR (CHEST, ) 10/04/2021 7:41 PM FINDINGS: Lungs: Unremarkable. No consolidation. Pleural spaces: Unremarkable. No pleural effusion. No pneumothorax. Heart/Mediastinum: Unremarkable. No cardiomegaly. Bones/joints: Unremarkable. XR/XR chest 1V portable [id number] IMPRESSION: No acute findings.
--- NOTE | 2021-10-17 11:49 | ED_ITS ---
HPI - General Adult General: Chief complaint: Urogenital-Female Stated complaint: DIFFICULTY URINATING Time Seen by Provider: 10/17/21 11:43 Source: patient and EMS Mode of arrival: EMS Limitations: no limitations History of Present Illness: 70-year-old female who was recently admitted here for hyponatremia she states she is started on Lasix and some fluid restriction. Patient was discharged last week she states that since then she feels like she is retaining fluid again and is concerned that her sodium is getting low. She denies any vomiting or diarrhea she denies any chest pain. States she saw her PCP a few days ago and increased her Lasix from 20 to 40 mg. She also feels like she has not been urinating much. Associated symptoms: Deny chest pain, dyspnea, headache(s), nausea, rash or vomiting Review of Systems Const: Denies: fever(s), chills, body aches or change in appetite Eyes: Denies: blurry vision or eye discomfort ENMT: Denies: throat pain or dental pain Card: Denies: chest pain Resp: Denies: dyspnea GI: Denies: abdominal pain, nausea, vomiting or diarrhea : Reports: difficulty voiding; Denies: dysuria Musc: Reports: extremity swelling; Denies: neck pain or back pain Skin/Breast: Denies: rash Neuro: Denies: headache(s) Psych: Denies: depression Jeffery/Lymph: Denies: easy bruising All/Imm: Denies: urticaria PFSH ED PFSH: Medical History Anemia Anxiety and depression Esophageal dysmotility Polycystic kidney Family History Father Cancer lung Sister Cancer 2 sisters; breast Mother Hypertension Social History Smoking and tobacco status: never smoked Second hand smoke exposure: No Alcohol intake: never Lives independently: Yes Household members: spouse Marital status: Current occupational status: retired History of recent travel: No Current gender identity: Female Physical Exam Const: COMMON NORMALS: no acute distress, patient oriented x3 and healthy appearing HENMT: COMMON NORMALS: normocephalic and atraumatic HEAD & SCALP: normocephalic and atraumatic Eye: COMMON NORMALS: Equal, round and reactive pupils present and EOMs intact bilaterally PUPIL: Yes Equal, round and reactive pupils present Neck/C-Spine: COMMON NORMALS: full ROM and supple Chest: COMMONS NORMALS: normal inspection of the chest and normal palpation of entire chest wall Resp: COMMON NORMALS: normal respiratory effort, No retractions, No use of accessory muscles and clear to auscultation bilaterally AUSCULTATION: clear to auscultation bilaterally Cardio: COMMON NORMALS: regular rate, regular rhythm and No murmurs present (Cardio) RATE: regular rate RHYTHM: regular rhythm GI: COMMON NORMALS: Normal to inspection, nondistended, normoactive bowel sounds present, Soft to palpation, non-tender and no masses PALPATION: Yes Soft to palpation Extremity: COMMON NORMALS: full ROM NARRATIVE EXTREMITY EXAM: 2+ edema Neuro: COMMON NORMALS: patient oriented x3, moves all extremities and no focal motor deficits Psych: COMMON NORMALS: mental status grossly normal, Normal thought process present and cooperative THOUGHT PROCESS: Normal thought process present Skin: COMMON NORMALS: no rashes or lesions noted and no wounds GENERAL SKIN EXAM: no rashes or lesions noted Course 2 Vital Signs: Vital signs: Vital Signs Pulse Rate 79 10/17/21 11:45 Respiratory Rate 18 10/17/21 11:45 Blood Pressure 138/95 10/17/21 11:45 Pulse Oximetry 97 10/17/21 11:45 [facility] - General Adult Medical Decision Making Patient presents here with increased edema she is also hyponatremic which is worsening from when she had her labs checked 1 week ago. Patient also has elevated creatinine currently from her baseline with acute kidney injury spoke to hospitalist and will admit at this time. Lab Data : 10/17/21 13:06 10/17/21 13:06 Radiology Impressions Chest X-Ray 10/17/21 11:47 IMPRESSION: No acute findings. Laboratory Results WBC 5.7 10^3/uL (4.0-10.0) 10/17/21 13:06 RBC 4.06 10^6/uL (4.1-5.3) L 10/17/21 13:06 Hgb 12.5 g/dL (11.5-15.3) 10/17/21 13:06 Hct 38.1 % (37.0-47.0) 10/17/21 13:06 MCV 93.8 fl (81-99) 10/17/21 13:06 MCH 30.8 pg (28.0-34.0) 10/17/21 13:06 MCHC 32.8 g/dL (30.0-36.0) 10/17/21 13:06 RDW 14.6 % (12.1-15.1) 10/17/21 13:06 Plt Count 293 10^3/cmm (130-400) 10/17/21 13:06 MPV 9.2 fL (7.4-10.4) 10/17/21 13:06 Neut % (Auto) 71.9 % 10/17/21 13:06 Lymph % (Auto) 20.3 % 10/17/21 13:06 [place] % (Auto) 5.7 % 10/17/21 13:06 Eos % (Auto) 1.2 % 10/17/21 13:06 Baso % (Auto) 0.7 % 10/17/21 13:06 Neut # (Auto) 4.07 10^3/uL (1.8-7.7) 10/17/21 13:06 Lymph # (Auto) 1.2 10^3/uL (0.8-4.8) 10/17/21 13:06 [place] # (Auto) 0.3 10^3/uL (0.2-0.9) 10/17/21 13:06 Eos # (Auto) 0.1 10^3/uL (0.0-0.8) 10/17/21 13:06 Baso # (Auto) 0.0 10^3/uL (0.0-0.1) 10/17/21 13:06 Nucleated RBC % (auto) 0 % 10/17/21 13:06 Nucleated RBCs # 0.0 /100WBC 10/17/21 13:06 Sodium 125 mmol/L (136-145) L 10/17/21 13:06 Potassium 4.8 mmol/L (3.5-5.1) 10/17/21 13:06 Chloride 99 mmol/L (98-107) 10/17/21 13:06 Carbon Dioxide 18 mmol/L (22-29) L 10/17/21 13:06 Anion Gap 12.8 (5-19) 10/17/21 13:06 BUN 51 mg/dL (8-23) H 10/17/21 13:06 Creatinine 2.4 mg/dL (0.5-0.9) H 10/17/21 13:06 GFR Calculation 20.0 mL/min (90-130) L 10/17/21 13:06 Glucose 92 mg/dL (65-115) 10/17/21 13:06 Calculated Osmolality 273 mOsm/kg (285-295) L 10/17/21 13:06 Calcium 8.3 mg/dL (8.5-10.5) L 10/17/21 13:06 Total Bilirubin 0.2 mg/dL (0.15-1.2) 10/17/21 13:06 AST 33 U/L (0-32) H 10/17/21 13:06 ALT 22 U/L (0-33) 10/17/21 13:06 Alkaline Phosphatase 103 IU/L (35-105) 10/17/21 13:06 NT-Pro-B Natriuret Pep 2335 pg/mL (0-125) H 10/17/21 13:06 Total Protein 5.3 g/dL (6.6-8.7) L 10/17/21 13:06 Albumin 1.9 g/dL (3.5-5.2) L 10/17/21 13:06 Globulin 3.4 g/dL (1.3-4.6) 10/17/21 13:06 Discharge Plan Discharge Patient Disposition: Admitted As Inpatient Clinical Impression: Hyponatremia, Acute kidney injury, Edema Condition: Stable Coding Level of Care Code 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
[2021-10-17 13:12] LABS: Basophils % 0.7 %; Eosinophils # 0.1 10^3/uL (0.0-0.8); Eosinophils % 1.2 %; Hematocrit 38.1 % (37.0-47.0); Hemoglobin 12.5 g/dL (11.5-15.3); Lymphocytes # 1.2 10^3/uL (0.8-4.8); Lymphocytes % 20.3 %; Mean Corpuscular HGB Conc 32.8 g/dL (30.0-36.0); Mean Corpuscular Hemoglobin 30.8 pg (28.0-34.0); Mean Corpuscular Volume 93.8 fl (81-99); Mean Platelet Volume 9.2 fL (7.4-10.4); Monocytes # 0.3 10^3/uL (0.2-0.9); Monocytes % 5.7 %; Neutrophils # 4.07 10^3/uL (1.8-7.7); Neutrophils % 71.9 %; Nucleated Red Blood Cells % 0 %; Platelet Count 293 10^3/cmm (130-400); Red Blood Count 4.06 10^6/uL (4.1-5.3); Red Cell Distribution Width 14.6 % (12.1-15.1); White Blood Count 5.7 10^3/uL (4.0-10.0)
[2021-10-17 13:44] LABS: Alanine Aminotransferase 22 U/L (0-33); Albumin Level 1.9 g/dL (3.5-5.2); Alkaline Phosphatase 103 IU/L (35-105); Anion Gap 12.8 (5-19); Aspartate Amino Transferase 33 U/L (0-32); Blood Urea Nitrogen 51 mg/dL (8-23); Calcium 8.3 mg/dL (8.5-10.5); Carbon Dioxide 18 mmol/L (22-29); Chloride 99 mmol/L (98-107); Globulin 3.4 g/dL (1.3-4.6); Glucose 92 mg/dL (65-115); NT Pro B Type Natriuretic Pept 2335 pg/mL (0-125); Osmolality Calculated 273 mOsm/kg (285-295); Potassium 4.8 mmol/L (3.5-5.1); Sodium 125 mmol/L (136-145); Total Bilirubin 0.2 mg/dL (0.15-1.2); Total Protein 5.3 g/dL (6.6-8.7)
--- NOTE | 2021-10-17 17:38 | CTR_ITS ---
PROCEDURE INFORMATION: Exam: CT Chest Without Contrast; Diagnostic Exam date and time: 10/17/2021 5:38 PM Age: 70 years old Clinical indication: Abdominal pain; Generalized; On breathing; Additional info: Arf, anasarca TECHNIQUE: Imaging protocol: Diagnostic computed tomography of the chest without contrast. Radiation optimization: All CT scans at this facility use at least one of these dose optimization techniques: automated exposure control; mA and/or kV adjustment per patient size (includes targeted exams where dose is matched to clinical indication); or iterative reconstruction. COMPARISON: CR (CHEST, ) 10/17/2021 12:05 PM RADIATION DOSE METRICS: Total DLP (mGy-cm): 2302.88 FINDINGS: Lungs: There is compressive atelectasis in the dependent portions of the lower lobes bilaterally. There is no consolidation. Pleural spaces: Moderate size simple bilateral dependent pleural effusions. Heart: There is mild coronary artery calcification. Heart size is normal. There is no pericardial effusion. Mediastinal space: The esophagus is distended above the hiatal hernia. Aorta: There is mild aortic atherosclerotic disease. Lymph nodes: There is no mediastinal or hilar lymphadenopathy. Diaphragm: There is a large sliding-type hiatal hernia. Bones/joints: Bones are unremarkable. Soft tissues: There is diffuse subcutaneous edema in the chest wall. PROCEDURE INFORMATION: Exam: CT Abdomen And Pelvis Without Contrast Exam date and time: 10/17/2021 5:38 PM Age: 70 years old Clinical indication: Abdominal pain; Generalized; On breathing; Additional info: Arf, anasarca TECHNIQUE: Imaging protocol: Computed tomography of the abdomen and pelvis without contrast. Radiation optimization: All CT scans at this facility use at least one of these dose optimization techniques: automated exposure control; mA and/or kV adjustment per patient size (includes targeted exams where dose is matched to clinical indication); or iterative reconstruction. COMPARISON: 1. CR (CHEST, ) 10/17/2021 12:[address] abdomen pelvis wo con [id number] 04/22/2016 10:53 AM RADIATION DOSE METRICS: Total DLP (mGy-cm): 2302.88 FINDINGS: Liver: The liver is normal. Gallbladder and bile ducts: The gallbladder is absent. Pancreas: There is marked atrophy of the pancreas. Spleen: The spleen is unremarkable. Adrenal glands: The adrenal glands are unremarkable. Kidneys and ureters: There are simple cysts in both kidneys. There is no hydronephrosis or stones. Stomach and bowel: The stomach is decompressed, preventing meaningful evaluation of wall thickness. The small bowel is nondilated. The colon is unremarkable. Appendix: The appendix is not visible. Intraperitoneal space: There is no intraperitoneal free air. Mild ascites. Vasculature: There is moderate aortic atherosclerotic disease. Lymph nodes: There is no lymphadenopathy in the retroperitoneum, mesentery, pelvis or inguinal regions. Urinary bladder: The urinary bladder is unremarkable. Reproductive: The uterus is unremarkable. There is no adnexal mass or large cyst. Bones/joints: There is mild degenerative disease in the lumbar spine. The pelvis and proximal femora are intact. Soft tissues: There is diffuse subcutaneous edema in the abdominal wall. There is a small multifocal fat containing ventral hernia. CT/CT chest abd pel wo con IMPRESSION: 1. Moderate size bilateral pleural effusions. 2. Anasarca. 3. Large hiatal hernia. IMPRESSION: 1. Mild ascites 2. Anasarca. 3. Incidental findings above. COMMENTS: Consistent with the [employer]'s Incidental Findings Committee white paper (J Am Eh Radiol 2018): Any incidental renal lesion less than 1 cm or classified as too small to characterize, or any incidental cystic renal lesion characterized as simple-appearing, is likely benign. No follow-up imaging is recommended for these lesions per consensus recommendations based on imaging criteria.
--- NOTE | 2021-10-17 17:46 | P.HP_ITS ---
Providers/Chief Complaint Admitting Physician: Gurmeet Brady MD Primary Care Provider: Rajiv Francis DO Chief Complaint: DIFFICULTY URINATING History of Present Illness Nati Eli is a 70 year old female with past medical history of CKD, esophageal dysmotility, anemia, anxiety, depression, GERD, recent COVID-19 on 09/28 who was last discharged from the hospital on 10/10 when she was diagnosed of SIADH and discharged on oral Lasix 20 mg along with salt tablets presented to the ER today because of feeling worse. Patient states since discharge she has been taking her medications as prescribed but she has been getting weak for the last 2 or 3 days along with no urine output for last 2 days. She states sometimes for 7 to 8 hours she goes through her day without being more than half a cup. States her appetite is poor and everything in the food tastes nasty. States last time some of her home medications were stopped and changed. She states Effexor was stopped and changed to mirtazapine. Has not been taking medicines as was told not to. Review of Systems General: Reports: 10 or more systems reviewed and unremarkable except in HPI and below Const: Denies: fever(s), chills, body aches, change in appetite, change in weight, malaise, night sweats, diaphoresis, change in sleep pattern, daytime sleepiness or snoring Eyes: Denies: change in vision, blurry vision, photophobia, eye discomfort or eye discharge ENMT: Denies: throat pain, enlarged tonsils, hoarseness, mouth pain, oral sores, dry mouth, tinnitus, nasal congestion or post nasal drip Card: Denies: chest pain, palpitations, irregular heart rhythm, edema, swelling of feet/ankles, lightheadedness, syncope, pre-syncope, dyspnea on exertion, orthopnea, leg pain with exertion or acrocyanosis Resp: Denies: dyspnea, productive cough, non-productive cough, wheezing, strid or, pain on inspiration, change in phlegm color, hemoptysis or chest congestion GI: Denies: abdominal pain, nausea, vomiting, hematemesis, coffee ground emesis, dysphagia, heartburn, diarrhea, constipation, bloating, GI cramping, change in bowel habits, pain on defecation, hematochezia or melena : Denies: flank pain, dysuria, urinary frequency, urinary urgency, urinary hesitancy, nocturia or hematuria Musc: Denies: neck pain, back pain, extremity pain, joint pain, joint swelling, joint redness, joint stiffness or limited range of motion Neuro: Denies: headache(s), numbness in extremities, weakness in extremities, sensory changes, lack of coordination, difficulty walking, frequent falls, dizziness, vertigo, confusion, Slurred speech present, difficulty communicating thoughts or seizure-like activity Psych: Denies: anxiety, depression, mood swings, panic attacks, hopelessness or irritability Endo: Denies: polyuria, polydipsia, tired all the time, cold intolerance, excessive sweating, flushing or heat intolerance Jeffery/Lymph: Denies: easy bruising or easy bleeding All/Imm: Denies: tongue swelling, facial swelling or acute wheezing Medications/Allergies Home Medications Medication Instructions Recorded Confirmed Last Taken Type lactulose 10 gram/15 mL oral See Rx Instructions .ROUTE 11/04/20 10/15/21 Unknown Rx solution .COMPLEX #8100 ml dexlansoprazole 60 mg 60 mg PO DAILY 90 Days #90 cap 06/21/21 10/15/21 Unknown Rx capsule,biphase delayed release (Dexilant) docusate sodium 100 mg capsule 100 mg PO DAILY 10/05/21 10/15/21 Unknown History sucralfate 1 gram tablet 1 g PO Q6H PRN 10/05/21 10/15/21 Unknown History mirtazapine 15 mg tablet 7.5 mg PO BEDTIME #45 tab 10/09/21 10/15/21 Unknown Rx sodium chloride 1 gram tablet 2 g PO TID #90 tab 10/09/21 10/15/21 Unknown Rx amoxicillin 875 mg-potassium 1 tab PO BID 7 Days #14 tab 10/13/21 10/15/21 Unknown Rx clavulanate 125 mg tablet (Augmentin) fluticasone propionate 50 2 spray INTRANASAL DAILY #15.8 ml 10/13/21 10/15/21 Unknown Rx mcg/actuation nasal spray,suspension (Flonase Allergy Relief) furosemide 20 mg tablet 40 mg PO DAILY@0800 #60 tab 10/15/21 10/15/21 Unknown Rx Allergies Allergy/AdvReac Type Severity Reaction Status Date / Time iodine Allergy Unknown Unknown Verified 10/15/21 09:53 shellfish derived Allergy Unknown Unknown Verified 10/15/21 09:53 lisinopril AdvReac Intermediate COUGH Verified 10/15/21 09:53 PFSH Acute PFSH: Medical History (Updated 10/17/21 @ 17:52 by Gurmeet Brady MD) Anemia Anxiety and depression Chronic constipation COVID-19 Esophageal dysmotility Generalized anxiety disorder GERD with esophagitis Hypertension Hyponatremia Polycystic kidney Family History Father Cancer lung Sister Cancer 2 sisters; breast Mother Hypertension Social History Smoking and tobacco status: never smoked Second hand smoke exposure: No Alcohol intake: never Lives independently: Yes Household members: spouse Marital status: Current occupational status: retired History of recent travel: No Current gender identity: Female Vitals/I&O/Wt Last Vital Signs Temp 98.8 F 10/17/21 15:01 Pulse 71 10/17/21 15:01 Resp 18 10/17/21 15:01 BP 138/95 10/17/21 15:01 Pulse Ox 98 10/17/21 15:01 Weight last 48 hrs Weight 99.79 kg Physical Exam Narrative: General: No acute distress, AO x3, pleasant, on room air HEENT: PERRLA, pupils bilaterally equal and reactive Chest: Bilateral bronchial breath sounds present, rhonchi all over the lung childers, equal good air entry bilaterally CVS: S1-S2 regular, no murmurs, no tachycardia, no gallops, no rubs Abdomen: Soft, nontender, no organomegaly, bowel sounds present Neuro: No focal deficits, no facial deformity, AO x3, power 5/5 in all limbs Data : 10/17/21 13:06 10/17/21 13:06 A&P Assessment and plan (1) Hyponatremia: Status: Acute (2) Acute kidney injury: Status: Acute (3) Anasarca: Status: Acute (4) Hypoalbuminemia: Status: Acute (5) Edema: Status: Acute (6) Anxiety and depression: Status: Acute Plan Hyponatremia: Was recently discharged 2 weeks ago with a diagnosis of SIADH secondary to medicine for anxiety and depression. Effexor was stopped. Continues to take oral salt tablets at home along with Lasix. Currently looks like a combination of SIADH along with dehydration. Check urine lites, urine creatinine, urine eosinophils, urinalysis. Normal saline at 75 cc/h. BMP every 6 hour. Cortez catheter. Acute kidney injury: Baseline creatinine normal. Currently 2.4. Patient is complaining of oliguria. Check CT chest abdomen pelvis without contrast. BMP and catheter as above. Urine studies as above. Edema/anasarca: Patient has hypoalbuminemia. Not sure of the cause. CT abdomen pelvis as above to look for liver pathology. Hepatitis panel. Anxiety and depression: Continue mirtazapine for now. GERD: Continue with Protonix and Carafate. CODE STATUS: Full code. Heparin for DVT prophylaxis. Regular diet with protein supplements. Attestations Medical Necessity Statement*: Admission for more than 2 midnights for management of hyponatremia, acute kidney injury Time Spent in Patient Care: Greater than 35 minutes Coding Level of Care Code Acute Director Of Consumer Marketing for [facility] Jeanine Diagnoses Hyponatremia E87.1 Acute kidney injury N17.9 Edema R60.9 Anxiety and depression F41.9; F32.9 Anasarca R60.1 Hypoalbuminemia E88.09
[2021-10-17 18:44] LABS: Hepatitis A Antibody IgM Non-Reactive (Nonreactive); Hepatitis B Core AB, Total Non-Reactive (Nonreactive); Hepatitis B Surface AB 4.7 (11.5-1000); Hepatitis B Surface Antigen Non-Reactive (Nonreactive); Hepatitis C Virus Antibody Non-Reactive (Nonreactive)
--- NOTE | 2021-10-17 19:39 | PC.NURSE ---
Called BP of 202/[address] Bee. Discussed 3+ pitting edema everywhere. New orders hold IV fluids for now. Labatelol 10mg IVP X's 1 now. Recheck BP in 30 minutes.
[2021-10-17] MEDS: labetalol 5 mg/mL SDV 20mL 10 MG IVP (19:47)
[2021-10-17] MEDS: famotidine 20 mg/2 mL INJ IVP (19:47)
[2021-10-17] MEDS: heparin 5,000 unit/mL INJ 1 mL 5000 UNIT SUBCUT (19:47)
[2021-10-17] MEDS: ferrous gluconate 324 mg Tablet PO (19:48)
[2021-10-17] MEDS: fluticasone nasal spray 16gm Btl 1 SPRAY NASAL (19:48)
[2021-10-17 19:56] LABS: Anion Gap 17.7 (5-19); Blood Urea Nitrogen 48 mg/dL (8-23); Calcium 7.4 mg/dL (8.5-10.5); Carbon Dioxide 16 mmol/L (22-29); Chloride 99 mmol/L (98-107); Glomerular Filtration Rate 16.7 mL/min (90-130); Glucose 88 mg/dL (65-115); Osmolality Calculated 278 mOsm/kg (285-295); Potassium 4.7 mmol/L (3.5-5.1); Sodium 128 mmol/L (136-145)
[2021-10-17] MEDS: sodium chloride 1 gm Tablet 2 GM PO (20:02)
[2021-10-17] MEDS: mirtazapine 15 mg Tablet 7.5 MG PO (20:02)
[2021-10-17] MEDS: sucralfate 1 gm/10 mL Oral Liq UDC PO (20:02)
--- NOTE | 2021-10-17 20:31 | PC.NURSE ---
Repeat BP after IVP Labatelol 153/[address] Bee. No new orders at this time.
[2021-10-17 20:57] LABS: Iron 53 ug/dL (37-145); Percent Saturation 59.5 % (20-50); Total Iron Binding Capacity 89 mcg/dl; Unsaturated Iron Binding 36 ug/dL (112-347)
[2021-10-17 21:00] LABS: Potassium, Radom Urine 34 mmol/L; Urine Creatinine 131 mg/dL (28-217)
[2021-10-17 21:04] LABS: Urine Random Chloride 13 mmol/L; Urine Random Sodium 14 mmol/L
[2021-10-17 21:11] LABS: Add Urine Microscopic? YES; Bilirubin Urine Neg (Negative); Blood Urine 2+ (Negative); Glucose Urine UA Norm (Normal); Ketones Urine Negative (Negative); Leukocyte Esterase Urine Negative (Negative); Nitrate Urine Negative (Negative); Protein Urine 3+ (Negative); Specific Gravity, Urine 1.015 (1.005-1.030); Urine Appearance Clear (CLEAR); Urine Color Yellow (Yellow); Urobilinogen Urine Norm (Negative); pH Urine 5 (5-7)
[2021-10-17 21:12] LABS: Add Urine Culture? No; Amorphous Sediment Urine 1+ /hpf; Bacteria Urine TRACE /hpf; Hyaline Casts Urine 0-4 /lpf; RBC Urine 0-4 /hpf (0-2); Squamous Epithelial Cell Urine 0-4 /hpf (0-5)
[2021-10-17 23:15] LABS: Eosinophil Urine No Eosinophils Seen; Urine Eosinophil Count 0 (0-0)
[2021-10-17 23:49] LABS: Anion Gap 13.7 (5-19); Blood Urea Nitrogen 54 mg/dL (8-23); Calcium 7.8 mg/dL (8.5-10.5); Carbon Dioxide 16 mmol/L (22-29); Chloride 102 mmol/L (98-107); Glomerular Filtration Rate 17.4 mL/min (90-130); Glucose 92 mg/dL (65-115); Osmolality Calculated 278 mOsm/kg (285-295); Potassium 4.7 mmol/L (3.5-5.1); Sodium 127 mmol/L (136-145)
[2021-10-18 04:00] VITALS: BP 146/72; PULSE 60; RESP 17; TEMP 36.7; O2SAT 93
[2021-10-18 06:00] LABS: Basophils % 0.7 %; Eosinophils # 0.1 10^3/uL (0.0-0.8); Eosinophils % 2.5 %; Hematocrit 32.6 % (37.0-47.0); Hemoglobin 10.6 g/dL (11.5-15.3); Lymphocytes # 1.6 10^3/uL (0.8-4.8); Lymphocytes % 29.1 %; Mean Corpuscular HGB Conc 32.5 g/dL (30.0-36.0); Mean Corpuscular Hemoglobin 30.5 pg (28.0-34.0); Mean Corpuscular Volume 93.7 fl (81-99); Mean Platelet Volume 10.2 fL (7.4-10.4); Monocytes # 0.5 10^3/uL (0.2-0.9); Monocytes % 9.8 %; Neutrophils # 3.16 10^3/uL (1.8-7.7); Neutrophils % 57.5 %; Nucleated Red Blood Cells % 0 %; Platelet Count 273 10^3/cmm (130-400); Red Blood Count 3.48 10^6/uL (4.1-5.3); Red Cell Distribution Width 14.8 % (12.1-15.1); White Blood Count 5.5 10^3/uL (4.0-10.0)
[2021-10-18 06:06] VITALS: PULSE 62
[2021-10-18] MEDS: famotidine 20 mg/2 mL INJ IVP ×2 (06:10→19:15)
[2021-10-18] MEDS: sucralfate 1 gm/10 mL Oral Liq UDC PO ×4 (06:10→22:38)
[2021-10-18] MEDS: heparin 5,000 unit/mL INJ 1 mL 5000 UNIT SUBCUT ×2 (06:10→17:29)
[2021-10-18 06:27] LABS: Alanine Aminotransferase 18 U/L (0-33); Albumin Level 1.7 g/dL (3.5-5.2); Alkaline Phosphatase 84 IU/L (35-105); Anion Gap 13.6 (5-19); Aspartate Amino Transferase 24 U/L (0-32); Blood Urea Nitrogen 54 mg/dL (8-23); Carbon Dioxide 17 mmol/L (22-29); Chloride 102 mmol/L (98-107); Chol HDL Ratio 7.07 mg/dL (0.0-4.40); Cholesterol 290 mg/dL (0-200); Globulin 2.6 g/dL (1.3-4.6); Glomerular Filtration Rate 16.7 mL/min (90-130); Glucose 79 mg/dL (65-115); HDL Cholesterol 41 mg/dL (60-100); LDL Cholesterol Calculated 215 mg/dL (50-129); Magnesium 2.6 mg/dL (1.7-2.3); Osmolality Calculated 280 mOsm/kg (285-295); Phosphorus 5.1 mg/dL (2.5-4.5); Potassium 4.6 mmol/L (3.5-5.1); Sodium 128 mmol/L (136-145); Total Bilirubin 0.2 mg/dL (0.15-1.2); Total Protein 4.3 g/dL (6.6-8.7); Triglycerides 172 mg/dL (0-150); VLDL Cholestrol Calculation 34 mg/dL (0-30)
[2021-10-18 06:29] LABS: Estmated Average Glucose 120; Hemoglobin A1C 5.8 % (4.0-6.0)
[2021-10-18 07:12] VITALS: BP 184/72; PULSE 62; RESP 14; TEMP 37.2; O2SAT 97
[2021-10-18 07:36] LABS: Slide Review Slide Review Perform
[2021-10-18] MEDS: sodium chloride 1 gm Tablet 2 GM PO ×2 (10:31→15:05)
[2021-10-18] MEDS: fluticasone nasal spray 16gm Btl 1 SPRAY NASAL ×2 (10:31→17:29)
[2021-10-18] MEDS: ferrous gluconate 324 mg Tablet PO ×2 (10:31→17:29)
--- NOTE | 2021-10-18 10:43 | PC.CHAP ---
Pastoral Care Encounter/Spiritual Assessment Type of Contact [] Declined fruit washer visit [] Patient/Family/Request visit [] Outpatient visit [] Follow-up visit [] Physician referral [] Code/Alert [x] Routine visit [] Staff referral [] Actively dying [x] Patient sleeping [] Family support [] [] Out of room [] Palliative care [] [] Receiving care in room [] Pre-surgical visit [] Trauma [] Long length of stay [] ICU visit [] Other: Relational/Emotional Strength [] Patient feels connected with others/family/visitors/staff [] Distress [] Loneliness/isolation [] Abandonment Spirituality of Patient [] Person of Padmini [] Attends Advent of their Padmini [] Believes in Prayer [] Reads Bible or Hoahaoism materials [] There are Spiritual issues to be addressed Meteorology Instructor Interventions [] Prayer [] Active listening [] Non-anxious presence [] Spiritual/emotional support [] Crisis/trauma care [] Spiritual counseling [] Bereavement support [] Provided bereavement packet [] Provided Bible/devotional materials [] Provided toy/stuffed animal, coloring book to patient or family member [] Provided Communion [] Anointing/[place] [] Salvation [] Completed spiritual assessment [] Other: Impact on Illness or Injury [] Angry [] Fearful [] Anxious [] Often cries [] Exhaustion [] Unable to work [] Unable to attend hinduism [] Unable to walk/stand [] Unable to read [] Unable to drive [] Unable to eat/drink [] Unable to sleep [] Unable to be with family [] Patient intubated [] Other: Summary Time spent with patient
[2021-10-18 12:00] VITALS: BP 136/81; PULSE 71; RESP 13; TEMP 36.6; O2SAT 96
[2021-10-18 12:04] LABS: Blood Urea Nitrogen 50 mg/dL (8-23); Calcium 7.4 mg/dL (8.5-10.5); Carbon Dioxide 18 mmol/L (22-29); Chloride 100 mmol/L (98-107); Glomerular Filtration Rate 15.4 mL/min (90-130); Glucose 98 mg/dL (65-115); Osmolality Calculated 281 mOsm/kg (285-295); Sodium 129 mmol/L (136-145)
[2021-10-18 12:06] LABS: Anion Gap 15.8 (5-19); Potassium 4.8 mmol/L (3.5-5.1)
--- NOTE | 2021-10-18 14:50 | PM.PN ---
Subjective Subjective: Has been feeling very tired. Continue taking medications including salt tablets and Lasix. Despite that had swelled up. Followed up with her primary provider with recommendation to increase Lasix dose as well as increase oral fluid intake. Reports edema of both upper and lower extremities. Very easy fatigability. Vitals/I&O/Wt Last Vital Signs Temp 97.9 F 10/18/21 12:00 Pulse 71 10/18/21 12:00 Resp 13 10/18/21 12:00 BP 136/81 10/18/21 12:00 Pulse Ox 96 10/18/21 12:00 10/17/21 10/18/21 10/18/21 22:59 06:59 14:59 Output Total 220 / 220 Balance -220 / -220 Weight last 48 hrs Weight 108.272 kg Weight 99.79 kg Physical Exam Const: COMMON NORMALS: no acute distress and patient oriented x3 OTHER: Appears to be lacking energy. HENMT: COMMON NORMALS: oropharynx normal Neck/C-Spine: COMMON NORMALS: no JVD Resp: COMMON NORMALS: normal respiratory effort and clear to auscultation bilaterally AUSCULTATION: clear to auscultation bilaterally Cardio: COMMON NORMALS: no JVD, regular rhythm, S1 normal heart sound present, S2 normal heart sound present and No murmurs present (Cardio) RHYTHM: regular rhythm HEART SOUNDS: S1 normal heart sound present and S2 normal heart sound present GI: COMMON NORMALS: Normal to inspection, nondistended, normoactive bowel sounds present, Soft to palpation and non-tender PALPATION: Yes Soft to palpation Extremity: COMMON NORMALS: no joint enlargement GENERAL: Yes edema (2+) Neuro: COMMON NORMALS: patient oriented x3 and moves all extremities Skin: COMMON NORMALS: no rashes or lesions noted GENERAL SKIN EXAM: no rashes or lesions noted Urinary Catheter Management: Cortez: Cath Placed During This Visit: yes Reason for Continuing Indwelling Catheter: Acute Urinary Retention or Obstruction Urinary Catheter Date of Insertion: 10/17/21 Urinary Catheter Time of Insertion: 18:30 Data : 10/18/21 05:11 10/18/21 11:25 A&P Assessment and plan (1) Acute kidney injury: Worsening renal function, creatinine up to 3. Also with concomitant anasarca. Recent COVID-19. Follow-up TTE due to concern for cardiomyopathy/CHF. No obstructive uropathy noted on CT. We will reenlist help of nephrology given complicated presentation. Urine studies were requested, but would be affected by diuretic, and urine urea. Unclear etiology. Has had recent COVID-19. Does not appear to have had any contrast imaging studies. Status: Acute (2) Anasarca: Follow-up TTE due to concern for cardiomyopathy due to anasarca despite continued diuretic, with new ALONSO Status: Acute (3) Hyponatremia: With mild gradual improvement, sodium up to 129. Continue regular diet, sodium chloride tablets. Lasix on hold for now. Status: Acute (4) Hypoalbuminemia: Status: Acute (5) Edema: Status: Acute (6) Anxiety and depression: On low-dose mirtazapine, continue for now. Status: Acute Plan GERD: Continue with Protonix and Carafate. CODE STATUS: Full code. Heparin for DVT prophylaxis. Regular diet with protein supplements. Attestations Medical Necessity Statement*: Continue admission for assessment management of worsening ALONSO, anasarca, persistent hyponatremia with recent COVID-19. Coding Level of Care Code Acute Lorry Weigher for Chg Fwd Diagnoses Hyponatremia E87.1 Acute kidney injury N17.9 Anasarca R60.1 Hypoalbuminemia E88.09 Edema R60.9 Anxiety and depression F41.9; F32.9
--- NOTE | 2021-10-18 15:19 | P.CONIM_ITS ---
Providers/Reason For Consult Consulting Physician/Specialty*: clemencia lucero, vidhya / telenephrology Reason for Consult*: ALONSO and hyponatremia Requesting Physician: Dr. Huang Attending Physician: Brett Engel Primary Care Provider: Rajiv Francis DO History of Present Illness History of Present Illness Nati Eli is a 70 year old female w/ recent admission w/ covid-19 pna and Hyponatremia. She was given saline and then 3% saline w/ lasix. she had a low ur na. it was felt that she had euvolemic hyponatremia- from covid and effexor. Her effexor was changed to mirtazapine. She was d/c home on lasix and salt tabs. Pt was admitted again yesterday w/ dec uop, alonso, weakness. Recently she was told to inc fluids and lasix. when i see her she c/o edema, SARGENT, orthopnea, weakness, edema, and dec uop. Review of Systems Narrative: weak, anxious, edema, sob, orthopnea. SARGENT Medications/Allergies Home Medications Medication Instructions Recorded Confirmed Last Taken Type dexlansoprazole 60 mg 60 mg PO DAILY 90 Days #90 cap 06/21/21 10/18/21 Unknown Rx capsule,biphase delayed release (Dexilant) docusate sodium 100 mg capsule 100 mg PO DAILY 10/05/21 10/18/21 Unknown History sucralfate 1 gram tablet 1 g PO Q6H PRN 10/05/21 10/18/21 Unknown History mirtazapine 15 mg tablet 7.5 mg PO BEDTIME #45 tab 10/09/21 10/18/21 Unknown Rx sodium chloride 1 gram tablet 2 g PO TID #90 tab 10/09/21 10/18/21 Unknown Rx amoxicillin 875 mg-potassium 1 tab PO BID 7 Days #14 tab 10/13/21 10/18/21 Unknown Rx clavulanate 125 mg tablet (Augmentin) fluticasone propionate 50 2 spray INTRANASAL DAILY #15.8 ml 10/13/21 10/18/21 Unknown Rx mcg/actuation nasal spray,suspension (Flonase Allergy Relief) furosemide 20 mg tablet 40 mg PO DAILY@0800 #60 tab 10/15/21 10/18/21 Unknown Rx lactulose 10 gram/15 mL oral 30 ml PO TID PRN 10/18/21 10/18/21 Unknown History solution Allergies Allergy/AdvReac Type Severity Reaction Status Date / Time iodine Allergy Unknown Unknown Verified 10/15/21 09:53 shellfish derived Allergy Unknown Unknown Verified 10/15/21 09:53 lisinopril AdvReac Intermediate COUGH Verified 10/15/21 09:53 Current Medications Generic Name Dose Route Start Last Admin Trade Name Freq PRN Reason Stop Dose Admin Famotidine 20 mg 10/17/21 18:00 10/18/21 06:10 Famotidine 20 Mg/2 Ml Inj IVP 20 mg Q12H SUNSHINE Administration Ferrous Gluconate 324 mg 10/17/21 18:00 10/18/21 10:31 Ferrous Gluconate 324 Mg Tablet PO 324 mg BIDWM SUNSHINE Administration Fluticasone Propionate 1 spray 10/17/21 18:00 10/18/21 10:31 Fluticasone Nasal [place] 16gm Btl NASAL 1 spray BID SUNSHINE Administration Heparin Sodium (Porcine) 5,000 unit 10/17/21 18:00 10/18/21 06:10 Heparin 5,000 Unit/Ml Inj 1 Ml SUBCUT 5,000 unit Q12H SUNSHINE Administration Lactulose 10 gm 10/18/21 09:00 10/18/21 10:35 Lactulose Oral Liq 20 Gm/30 Ml Udc PO Not Given DAILY SUNSHINE Protocol Mirtazapine 7.5 mg 10/17/21 21:00 10/17/21 20:02 Mirtazapine 15 Mg Tablet PO 7.5 mg BEDTIME SUNSHINE Administration Sodium Chloride 2 gm 10/17/21 21:00 10/18/21 15:05 Sodium Chloride 1 Gm Tablet PO 2 gm TID SUNSHINE Administration Sucralfate 1 gm 10/17/21 21:00 10/18/21 10:52 Sucralfate 1 Gm/10 Ml Oral Liq Udc PO 1 gm AC&BEDTIME SUNSHINE Administration PFSH Acute PFSH: Medical History (Updated 10/17/21 @ 17:52 by Gurmeet Brady MD) Anemia Anxiety and depression Chronic constipation COVID-19 Esophageal dysmotility Generalized anxiety disorder GERD with esophagitis Hypertension Hyponatremia Polycystic kidney Family History Father Cancer lung Sister Cancer 2 sisters; breast Mother Hypertension Social History Smoking and tobacco status: never smoked Second hand smoke exposure: No Alcohol intake: never Lives independently: Yes Household members: spouse Marital status: Current occupational status: retired History of recent travel: No Current gender identity: Female Vitals/I&O/Wt Last Vital Signs Temp 97.9 F 10/18/21 12:00 Pulse 71 10/18/21 12:00 Resp 13 10/18/21 12:00 BP 136/81 10/18/21 12:00 Pulse Ox 96 10/18/21 12:00 10/18/21 10/18/21 10/18/21 06:59 14:59 22:59 Output Total 220 / 220 Balance -220 / -220 Weight last 48 hrs Weight 108.272 kg Weight 99.79 kg Physical Exam Narrative: swollen in bed, NAD heent- nc/at, eomi, anicteric neck supple lungs dull bases b/l heart reg abd soft, nt, + ascites ext b/l edfema neuro- a,a, o x 3 Urinary Catheter Management: Cortez: Cath Placed During This Visit: yes Reason for Continuing Indwelling Catheter: Acute Urinary Retention or Obstruction Urinary Catheter Date of Insertion: 10/17/21 Urinary Catheter Time of Insertion: 18:30 Data : 10/18/21 05:11 10/18/21 11:25 A&P Assessment and plan (1) Acute kidney injury: 70 yr old female recent COVID-19, hyponatremia. pt now here w/ edema and ALONSO 1. ALONSO - no hydronephrosis on CT scan -u.a w/ 3+ protein, 5-10 granular casts -send renal-pulm serologies SIFE/ UIFE -quantify proteinuria -start lasix -check tsh 2. chronic hyponatremia- ur na remains low at 14. ur osm was 275 on 10/07/21- i am concerned for CRS -check echo -d/c salt tabs -free water restrict 3. Pleural effusions- may benefit from thoracentesis seen and examined w/ RN- telehealth visit time spent 50 + minutes Status: Acute Plan as above- diuresis Consult Attestations Time Spent in Patient Care: Greater than 35 minutes (>than 50% of time spent in counselling and/or direct pt care on unit) . 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
--- NOTE | 2021-10-18 15:31 | USCV_ITS ---
Nati Eli Age: 70 Gender: F : 1950 Exam Date: 10/18/2021 16:03 Ordering Phys: Iglesia Colbert MD Technologist: PATRICA [place] [facility] [place]: BILATERAL lower extremity edema. No hx DVT. HISTORY: BILATERAL lower extremity edema. No hx DVT. PROCEDURES: The venous duplex Doppler examination of both lower extremities was performed in the standard fashion. The following venous structures were evaluated: common femoral vein, profunda vein, proximal portion of the greater saphenous vein, superficial femoral vein, and the popliteal vein. In addition, the posterior tibial veins and the peroneal veins were evaluated. Serial compression, augmentation maneuvers, and spectral FINDINGS: Normal 2-D Doppler and augmentation and compressibility throughout the lower extremity venous structures. Additional imaging through the proximal calf veins also reveals no thrombus. Limited evaluation of the greater saphenous vein is patent with no thrombus. CONCLUSIONS No DVT bilateral lower extremities. Dr. Zuri Mcgill DO (Electronically Signed) Final Date: 19 October 2021 07:43 S
[2021-10-18] MEDS: FUROsemide 10 mg/mL SDV 4mL 40 MG IVP (16:56)
[2021-10-18 17:03] LABS: Anion Gap 17.3 (5-19); Blood Urea Nitrogen 51 mg/dL (8-23); Calcium 7.1 mg/dL (8.5-10.5); Carbon Dioxide 14 mmol/L (22-29); Chloride 99 mmol/L (98-107); Glomerular Filtration Rate 14.3 mL/min (90-130); Glucose 97 mg/dL (65-115); Osmolality Calculated 274 mOsm/kg (285-295); Potassium 5.3 mmol/L (3.5-5.1); Sodium 125 mmol/L (136-145)
[2021-10-18 17:34] LABS: Complement C3 114 mg/dL (90-180)
--- NOTE | 2021-10-18 17:38 | USCV_ITS ---
Nati Eli Age: 70 Gender: F : 1950 Exam Date: 10/18/2021 06:19 Ordering Phys: Gurmeet Brady MD Technologist: Exam Location: [facility] – [place] Indication: CHF BP: 142 / 73 HR: 64 Rhythm: Sinus Technical Quality: Adequate MEASUREMENTS (Male / Female) Normal Values 2D ECHO LV Diastolic Diameter PLAX 3.6 cm 4.2 - 5.9 / 3.9 - 5.3 cm LV Systolic Diameter PLAX 2.1 cm IVS Diastolic Thickness 1.1 cm 0.6 - 1.0 / 0.6 - 0.9 cm IVS Systolic Thickness 2.0 cm LVPW Diastolic Thickness 1.1 cm 0.6 - 1.0 / 0.6 - 0.9 cm LVPW Systolic Thickness 1.8 cm LVOT Diameter 2.0 cm LV Ejection Fraction 2D Teich 73.4 % LV Ejection Fraction MOD 2C 74.1 % LV Ejection Fraction 2C AL 74.7 % LA Diameter 3.6 cm LA Width 5.9 cm LA Height 5.6 cm RA Width 4.6 cm RA Height 5.0 cm Aorta at Sinotubular Diameter 2.6 cm M-MODE LV Diastolic Diameter MM 5.3 cm 4.2 - 5.9 / 3.9 - 5.3 cm LV Systolic Diameter MM 3.6 cm LV Ejection Fraction MM Teich 59.4 % IVS Diastolic Thickness MM 1.3 cm 0.6 - 1.0 / 0.6 - 0.9 cm IVS Systolic Thickness MM 1.9 cm LVPW Diastolic Thickness MM 1.1 cm 0.6 - 1.0 / 0.6 - 0.9 cm LVPW Systolic Thickness MM 2.0 cm RV Diastolic Diameter MM 0.8 cm Aortic Annulus Diameter 3.6 cm LA Ao Ratio MM 1.2 MV E Point Septal Separation 0.8 cm DOPPLER AV Peak Velocity 140.0 cm/s LVOT Peak Velocity 119.0 cm/s AV Area Cont Eq vti 2.3 cm squared AV Area Cont Eq pk 2.8 cm squared MV Area PHT 2.8 cm squared Mitral E to A Ratio 0.6 MV E' Velocity 50.6 cm/s Mitral E to MV E' Ratio 10.9 Mitral E to LV E' Lateral Ratio 11.4 Mitral E to LV E' Septal Ratio 10.6 TR Peak Velocity 181.3 cm/s TR Peak Gradient 13.1 mmHg TV Peak E Velocity 73.0 cm/s Right Atrial Pressure 3.0 mmHg Pulmonary Artery Systolic Pressu 16.1 mmHg FINDINGS Left Ventricle Normal left ventricular size and systolic function with no regional wall motion abnormalities. Left ventricular ejection fraction is estimated at 70-75 %. Grade I diastolic dysfunction (abnormal relaxation filling pattern), normal to mildly elevated filling pressures. Right Ventricle Normal right ventricular size and systolic function. Right ventricular systolic pressure 20 mmHg. Right Atrium Normal right atrial size. Left Atrium Mildly increased left atrial size. Mitral Valve Mild mitral annular calcification. No mitral valve stenosis. No mitral valve regurgitation. Aortic Valve Aortic valve not well visualized. No aortic valve stenosis. No aortic valve regurgitation. Tricuspid Valve Tricuspid valve not well visualized. Pulmonic Valve Pulmonic valve not well visualized. Trace pulmonary valve regurgitation. Pericardium No pericardial effusion. Aorta Normal size aortic root. CONCLUSIONS 1. Normal left ventricular size and systolic function with no regional wall motion abnormalities. Left ventricular ejection fraction is estimated at 70-75 %. Grade I diastolic dysfunction (abnormal relaxation filling pattern), normal to mildly elevated filling pressures. 2. Mildly increased left atrial size. 3. No significant valvular abnormality. 4. No prior similar studies to compare. Kendal Stack MD (Electronically Signed) Final Date: 18 October 2021 19:11 S
[2021-10-18 18:11] LABS: Thyroid Stimulating Hormone 1.96 uIU/mL (0.27-4.20)
[2021-10-18 19:12] LABS: Uric Acid 7.9 mg/dL (2.4-5.7)
[2021-10-18 19:13] LABS: Creatine Phosphokinase 168 U/L (26-192)
[2021-10-18 20:00] VITALS: BP 162/86; PULSE 72; RESP 17; TEMP 37.6; O2SAT 96
[2021-10-18] MEDS: mirtazapine 15 mg Tablet 7.5 MG PO (22:38)
[2021-10-18 23:40] LABS: Anion Gap 14.9 (5-19); Blood Urea Nitrogen 52 mg/dL (8-23); Calcium 7.1 mg/dL (8.5-10.5); Carbon Dioxide 17 mmol/L (22-29); Chloride 102 mmol/L (98-107); Glomerular Filtration Rate 14.3 mL/min (90-130); Glucose 102 mg/dL (65-115); Osmolality Calculated 282 mOsm/kg (285-295); Potassium 4.9 mmol/L (3.5-5.1); Sodium 129 mmol/L (136-145)
[2021-10-19] VITALS (10 sets, daily range): BP systolic 134–190; BP diastolic 75–102; PULSE 61–84; RESP 16–18; TEMP 36.4–37.2; O2SAT 94–97
[2021-10-19] MEDS: heparin 5,000 unit/mL INJ 1 mL 5000 UNIT SUBCUT ×2 (05:20→18:24)
[2021-10-19] MEDS: famotidine 20 mg/2 mL INJ IVP ×2 (05:20→18:27)
[2021-10-19 06:33] LABS: Basophils % 0.7 %; Eosinophils # 0.3 10^3/uL (0.0-0.8); Eosinophils % 5.9 %; Hematocrit 33.8 % (37.0-47.0); Hemoglobin 10.4 g/dL (11.5-15.3); Lymphocytes # 1.8 10^3/uL (0.8-4.8); Lymphocytes % 31.1 %; Mean Corpuscular HGB Conc 30.8 g/dL (30.0-36.0); Mean Corpuscular Hemoglobin 30.1 pg (28.0-34.0); Mean Platelet Volume 9.3 fL (7.4-10.4); Monocytes # 0.5 10^3/uL (0.2-0.9); Monocytes % 9.4 %; Neutrophils # 2.97 10^3/uL (1.8-7.7); Neutrophils % 52.7 %; Nucleated Red Blood Cells % 0 %; Platelet Count 292 10^3/cmm (130-400); Red Blood Count 3.45 10^6/uL (4.1-5.3); Red Cell Distribution Width 14.9 % (12.1-15.1); White Blood Count 5.6 10^3/uL (4.0-10.0)
[2021-10-19 06:48] LABS: Alanine Aminotransferase 15 U/L (0-33); Albumin Level 1.7 g/dL (3.5-5.2); Alkaline Phosphatase 76 IU/L (35-105); Anion Gap 14.8 (5-19); Aspartate Amino Transferase 19 U/L (0-32); Blood Urea Nitrogen 52 mg/dL (8-23); Calcium 7.1 mg/dL (8.5-10.5); Carbon Dioxide 17 mmol/L (22-29); Chloride 102 mmol/L (98-107); Globulin 2.5 g/dL (1.3-4.6); Glomerular Filtration Rate 13.8 mL/min (90-130); Glucose 91 mg/dL (65-115); Magnesium 2.8 mg/dL (1.7-2.3); Osmolality Calculated 282 mOsm/kg (285-295); Phosphorus 5.6 mg/dL (2.5-4.5); Potassium 4.8 mmol/L (3.5-5.1); Sodium 129 mmol/L (136-145); Total Bilirubin 0.2 mg/dL (0.15-1.2); Total Protein 4.2 g/dL (6.6-8.7)
[2021-10-19 06:56] LABS: Creatinine Clr Calc Pharmacy 18.8144
[2021-10-19 07:49] LABS: Slide Review Slide Review Perform
[2021-10-19] MEDS: sucralfate 1 gm/10 mL Oral Liq UDC PO ×4 (08:07→20:44)
[2021-10-19] MEDS: ferrous gluconate 324 mg Tablet PO ×2 (08:07→18:24)
[2021-10-19] MEDS: fluticasone nasal spray 16gm Btl 1 SPRAY NASAL ×2 (08:07→18:24)
--- NOTE | 2021-10-19 09:02 | PM.PN ---
Subjective Subjective: cough, dec edema, + sob. no n/v/f/c/laboy/d Medications: Reviewed: Yes Medication Review Details: Current Medications Acetaminophen (Acetaminophen 325 Mg Tablet) 650 mg PO Q6H PRN PRN Reason: Mild/Mod Pain Or Temp >/= 101 Bisacodyl (Bisacodyl 10 Mg Supp) 10 mg [place] ONCE PRN; Protocol PRN Reason: Constipation (see protocol) Calcium Carbonate (Calcium Carbonate 500 Mg Chew Tablet) 1,000 mg PO Q4H PRN PRN Reason: DYSPEPSI Famotidine (Famotidine 20 Mg/2 Ml Inj) 20 mg IVP Q12H SUNSHINE Last Admin: 10/19/21 05:20 Dose: 20 mg Documented by: Ferrous Gluconate (Ferrous Gluconate 324 Mg Tablet) 324 mg PO BIDWM SUNSHINE Last Admin: 10/19/21 08:07 Dose: 324 mg Documented by: Fluticasone Propionate (Fluticasone Nasal [place] 16gm Btl) 1 spray NASAL BID SUNSHINE Last Admin: 10/19/21 08:07 Dose: 1 spray Documented by: Furosemide (Furosemide 10 Mg/Ml Sdv 10ml) 60 mg IVP Q12H SUNSHINE Heparin Sodium (Porcine) (Heparin 5,000 Unit/Ml Inj 1 Ml) 5,000 unit SUBCUT Q12H SUNSHINE Last Admin: 10/19/21 05:20 Dose: 5,000 unit Documented by: Lactulose (Lactulose Oral Liq 20 Gm/30 Ml Udc) 10 gm PO DAILY SUNSHINE; Protocol Last Admin: 10/19/21 08:14 Dose: Not Given Documented by: Magnesium Hydroxide (Magnesium Hydroxide 30 Ml Udc) 30 ml PO DAILY PRN; Protocol PRN Reason: Constipation (see protocol) Mirtazapine (Mirtazapine 15 Mg Tablet) 7.5 mg PO BEDTIME SUNSHINE Last Admin: 10/18/21 22:38 Dose: 7.5 mg Documented by: Ondansetron HCl (Ondansetron 2 Mg/Ml Sdv 2 Ml) 4 mg IVP Q8H PRN PRN Reason: vomiting, or N/V if npo Sucralfate (Sucralfate 1 Gm/10 Ml Oral Liq Udc) 1 gm PO AC&BEDTIME SUNSHINE Last Admin: 10/19/21 08:07 Dose: 1 gm Documented by: Vitals/I&O/Wt Last Vital Signs Temp 98.1 F 10/19/21 08:00 Pulse 68 10/19/21 08:00 Resp 18 10/19/21 08:00 BP 186/93 10/19/21 08:00 Pulse Ox 97 10/19/21 08:00 Weight last 48 hrs Weight 105.778 kg Weight 108.272 kg Weight 99.79 kg Physical Exam Narrative: swollen in bed, sob bp elevated heent- nc/at, eomi, anicteric neck supple lungs dull bases, wheezes and crackles b/l heart reg abd soft, nt, + ascites ext b/l edema neuro- a,a, o x 3 Urinary Catheter Management: Cortez: Cath Placed During This Visit: yes Reason for Continuing Indwelling Catheter: Acute Urinary Retention or Obstruction Urinary Catheter Date of Insertion: 10/17/21 Urinary Catheter Time of Insertion: 18:30 Data : 10/19/21 06:21 10/19/21 06:21 A&P Assessment and plan (1) Acute kidney injury: 70 yr old female recent COVID-19, hyponatremia. pt now here w/ edema and ALONSO 1. ALONSO - no hydronephrosis on CT scan -u.a w/ 3+ protein, 5-10 granular casts -cr stabilized -send renal-pulm serologies SIFE/ UIFE -quantify proteinuria -inc lasix to bid -check tsh -albumin 1.7. ldl 215, 3+ proteinuria -likely nephrotic -echo does not explain edema -may benefit from a renal bx 2. chronic hyponatremia- ur na remains low at 14. ur osm was 275 on 10/07/21- i am concerned for CRS -free water restrict 3. Pleural effusions- may benefit from thoracentesis 4. echo- EF 70-65%, grade 1 diastolic dysfunction RVSP 20 5. met acidosis- monitor w/ lasix seen and examined w/ RN- telehealth visit 6, hypocalcemia- check vit d time spent 30 minutes Status: Acute Plan as above- diuresis Attestations Medical Necessity Statement*: alonso, nephrotic syndrome Time Spent in Patient Care: 16 - 35 minutes (>than 50% of time spent in counselling and/or direct pt care on unit). 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
[2021-10-19] MEDS: FUROsemide 10 mg/mL SDV 10mL 60 MG IVP ×2 (10:26→20:56)
--- NOTE | 2021-10-19 17:29 | P.PN_ITS ---
Subjective Subjective: Feeling generally weak and rundown. Today having some cough. Vitals/I&O/Wt Last Vital Signs Temp 98.0 F 10/19/21 15:30 Pulse 65 10/19/21 15:30 Resp 16 10/19/21 15:30 BP 178/89 10/19/21 15:30 Pulse Ox 94 10/19/21 15:30 10/19/21 10/19/21 10/19/21 06:59 14:59 22:59 Intake Total 600 / 600 Balance 600 / 600 Weight last 48 hrs Weight 105.778 kg Weight 108.272 kg Physical Exam Const: COMMON NORMALS: no acute distress and patient oriented x3 OTHER: Appears to be lacking energy. HENMT: COMMON NORMALS: oropharynx normal Neck/C-Spine: COMMON NORMALS: no JVD Resp: COMMON NORMALS: normal respiratory effort and clear to auscultation bilaterally AUSCULTATION: clear to auscultation bilaterally Cardio: COMMON NORMALS: no JVD, regular rhythm, S1 normal heart sound present, S2 normal heart sound present and No murmurs present (Cardio) RHYTHM: regular rhythm HEART SOUNDS: S1 normal heart sound present and S2 normal heart sound present GI: COMMON NORMALS: Normal to inspection, nondistended, normoactive bowel sounds present, Soft to palpation and non-tender PALPATION: Yes Soft to palpation Extremity: COMMON NORMALS: no joint enlargement and no pedal edema GENERAL: Yes edema (2+) Neuro: COMMON NORMALS: patient oriented x3 and moves all extremities Skin: COMMON NORMALS: no rashes or lesions noted GENERAL SKIN EXAM: no rashes or lesions noted Urinary Catheter Management: Cortez: Cath Placed During This Visit: yes Reason for Continuing Indwelling Catheter: Acute Urinary Retention or Obstruction Urinary Catheter Date of Insertion: 10/17/21 Urinary Catheter Time of Insertion: 18:30 Data : 10/19/21 06:21 10/19/21 06:21 A&P Assessment and plan (1) Acute kidney injury: Creatinine without improvement. Appreciate nephrology assessment. Reassess renal function. Diuretic challenge in progress. Nephrology considering renal biopsy. TTE with normal EF. No obstructive uropathy noted on CT. Urine studies were requested, but would be affected by diuretic, and urine urea. Unclear etiology. Has had recent COVID-19. Does not appear to have had any contrast imaging studies. Status: Acute (2) Anasarca: Follow-up TTE due to concern for cardiomyopathy due to anasarca despite continued diuretic, with new ALONSO Status: Acute (3) Hyponatremia: With mild gradual improvement, sodium up to 129. Diuretic challenge. Continue regular diet. Status: Acute (4) Hypoalbuminemia: Encourage oral intake. Regular diet. Add protein shakes. Status: Acute (5) Edema: Anasarca. Diuretic challenge. Fluid restriction. Normal ejection fraction on TTE. Nephro work-up as above. Status: Acute (6) Anxiety and depression: On low-dose mirtazapine, continue for now. Status: Acute Plan GERD: Continue with Protonix and Carafate. CODE STATUS: Full code. Heparin for DVT prophylaxis. Regular diet with protein supplements. Attestations Medical Necessity Statement*: Continue admission for assessment management of acute kidney injury, anasarca, hyponatremia. 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
[2021-10-19 19:04] LABS: Total Volume Urine 725 ml
[2021-10-19 19:05] LABS: Creatinine 24 Hour Urine 623.5 mg/dL (601-1689); Urine Creatinine 86 mg/dL (28-217)
[2021-10-19 19:36] LABS: Urea Nitrogen,Urine Random 349 mg/dL
[2021-10-19] MEDS: ipratropium-albuterol 3 mL Neb INHALATION (20:20)
[2021-10-19] MEDS: mirtazapine 15 mg Tablet 7.5 MG PO (20:44)
[2021-10-20] VITALS (7 sets, daily range): BP systolic 159–210; BP diastolic 75–100; PULSE 61–80; RESP 13–18; TEMP 36.6–37.1; O2SAT 93–97
[2021-10-20 05:14] LABS: Basophils # 0.1 10^3/uL (0.0-0.1); Eosinophils # 0.3 10^3/uL (0.0-0.8); Eosinophils % 5.3 %; Hematocrit 34.1 % (37.0-47.0); Hemoglobin 10.6 g/dL (11.5-15.3); Lymphocytes # 1.8 10^3/uL (0.8-4.8); Lymphocytes % 28.1 %; Mean Corpuscular HGB Conc 31.1 g/dL (30.0-36.0); Mean Corpuscular Hemoglobin 30.1 pg (28.0-34.0); Mean Corpuscular Volume 96.9 fl (81-99); Mean Platelet Volume 9.5 fL (7.4-10.4); Monocytes # 0.6 10^3/uL (0.2-0.9); Monocytes % 9.1 %; Neutrophils # 3.53 10^3/uL (1.8-7.7); Neutrophils % 56.2 %; Nucleated Red Blood Cells % 0 %; Platelet Count 330 10^3/cmm (130-400); Red Blood Count 3.52 10^6/uL (4.1-5.3); Red Cell Distribution Width 14.9 % (12.1-15.1); White Blood Count 6.3 10^3/uL (4.0-10.0)
[2021-10-20 05:33] LABS: Alanine Aminotransferase 14 U/L (0-33); Albumin Level 1.6 g/dL (3.5-5.2); Alkaline Phosphatase 79 IU/L (35-105); Anion Gap 13.7 (5-19); Aspartate Amino Transferase 17 U/L (0-32); Blood Urea Nitrogen 60 mg/dL (8-23); Calcium 7.8 mg/dL (8.5-10.5); Carbon Dioxide 17 mmol/L (22-29); Chloride 102 mmol/L (98-107); Globulin 2.7 g/dL (1.3-4.6); Glomerular Filtration Rate 12.5 mL/min (90-130); Glucose 95 mg/dL (65-115); Magnesium 2.8 mg/dL (1.7-2.3); Osmolality Calculated 283 mOsm/kg (285-295); Potassium 4.7 mmol/L (3.5-5.1); Sodium 128 mmol/L (136-145); Total Bilirubin 0.2 mg/dL (0.15-1.2); Total Protein 4.3 g/dL (6.6-8.7)
[2021-10-20 05:35] LABS: Slide Review Slide Review Perform
[2021-10-20] MEDS: heparin 5,000 unit/mL INJ 1 mL 5000 UNIT SUBCUT (05:40)
[2021-10-20] MEDS: famotidine 20 mg/2 mL INJ IVP (05:42)
[2021-10-20] MEDS: sucralfate 1 gm/10 mL Oral Liq UDC PO (06:25)
[2021-10-20] MEDS: ferrous gluconate 324 mg Tablet PO (08:18)
[2021-10-20] MEDS: FUROsemide 10 mg/mL SDV 10mL 60 MG IVP (08:19)
[2021-10-20] MEDS: fluticasone nasal spray 16gm Btl 1 SPRAY NASAL (08:20)
--- NOTE | 2021-10-20 08:34 | PC.NURSE ---
Dr. Engel notified of BP.
[2021-10-20] MEDS: ipratropium-albuterol 3 mL Neb INHALATION (08:47)
--- NOTE | 2021-10-20 09:06 | P.PN_ITS ---
Subjective Subjective: feels better. still has edema. breathing improved. no n/v/f/c/laboy/d Medications: Reviewed: Yes Medication Review Details: Current Medications Acetaminophen (Acetaminophen 325 Mg Tablet) 650 mg PO Q6H PRN PRN Reason: Mild/Mod Pain Or Temp >/= 101 Albuterol/Ipratropium (Ipratropium-Albuterol 3 Ml Neb) 3 ml INHALATION Q6H.RESPIRATORY [facility] Last Admin: 10/20/21 08:47 Dose: 3 ml Documented by: Albuterol/Ipratropium (Ipratropium-Albuterol 3 Ml Neb) 3 ml INHALATION Q4H PRN PRN Reason: SHORTNESS OF BREATH Bisacodyl (Bisacodyl 10 Mg Supp) 10 mg [place] ONCE PRN; Protocol PRN Reason: Constipation (see protocol) Calcium Carbonate (Calcium Carbonate 500 Mg Chew Tablet) 1,000 mg PO Q4H PRN PRN Reason: DYSPEPSI Famotidine (Famotidine 20 Mg Tablet) 20 mg PO BID [facility] Ferrous Gluconate (Ferrous Gluconate 324 Mg Tablet) 324 mg PO BIDWM [facility] Last Admin: 10/20/21 08:18 Dose: 324 mg Documented by: Fluticasone Propionate (Fluticasone Nasal [place] 16gm Btl) 1 spray NASAL BID [facility] Last Admin: 10/20/21 08:20 Dose: 1 spray Documented by: Furosemide (Furosemide 10 Mg/Ml Sdv 10ml) 60 mg IVP DAILY [facility] Last Admin: 10/20/21 08:19 Dose: 60 mg Documented by: Heparin Sodium (Porcine) (Heparin 5,000 Unit/Ml Inj 1 Ml) 5,000 unit SUBCUT Q12H [facility]SHINE Last Admin: 10/20/21 05:40 Dose: 5,000 unit Documented by: Lactulose (Lactulose Oral Liq 20 Gm/30 Ml Udc) 10 gm PO DAILY SUNSHINE; Protocol Last Admin: 10/20/21 08:19 Dose: Not Given Documented by: Magnesium Hydroxide (Magnesium Hydroxide 30 Ml Udc) 30 ml PO DAILY PRN; Protocol PRN Reason: Constipation (see protocol) Mirtazapine (Mirtazapine 15 Mg Tablet) 7.5 mg PO BEDTIME [facility] Last Admin: 10/19/21 20:44 Dose: 7.5 mg Documented by: Ondansetron HCl (Ondansetron 2 Mg/Ml Sdv 2 Ml) 4 mg IVP Q8H PRN PRN Reason: vomiting, or N/V if npo Sucralfate (Sucralfate 1 Gm/10 Ml Oral Liq Udc) 1 gm PO AC&BEDTIME SUNSHINE Last Admin: 10/20/21 06:25 Dose: 1 gm Documented by: Vitals/I&O/Wt Last Vital Signs Temp 98.4 F 10/20/21 08:00 Pulse 80 10/20/21 08:47 Resp 18 10/20/21 08:47 BP 210/100 10/20/21 08:00 Pulse Ox 93 10/20/21 08:47 10/19/21 10/20/21 10/20/21 22:59 06:59 14:59 Intake Total 240 / 840 480 / 1320 Output Total 800 / 800 450 / 1250 Balance -560 / 40 30 / 70 Weight last 48 hrs Weight 105.959 kg Weight 105.778 kg Physical Exam Narrative: comfortable in bed, NARD bp elevated heent- nc/at, eomi, anicteric neck supple lungs dull bases, wheezes and crackles b/l heart reg abd soft, nt, + ascites ext b/l edema neuro- a,a, o x 3 Urinary Catheter Management: [place]ez: Cath Placed During This Visit: yes Reason for Continuing Indwelling Catheter: Acute Urinary Retention or Obstruction Urinary Catheter Date of Insertion: 10/17/21 Urinary Catheter Time of Insertion: 18:30 Data : 10/20/21 04:06 10/20/21 04:06 A&P Assessment and plan (1) Acute kidney injury: 70 yr old female recent COVID-19, hyponatremia. pt now here w/ edema and ALONSO 1. ALONSO - no hydronephrosis on CT scan -u.a w/ 3+ protein, 5-10 granular casts -cr anselmo w/ diuresis- dec lasix to daily -send renal-pulm serologies SIFE/ UIFE -quantify proteinuria - normal tsh -albumin 1.7. ldl 215, 3+ proteinuria -likely nephrotic -echo does not explain edema -would arrange a renal bx if possible - I spoke to Dr. Woodall who agrees that she would benefit from a renal biopsy- He rounds at [facility] -start solumedrol 500 mgm iv d x 3 -pcp prophylaxis w/ bactrim -GI prophyaxis- protonix 2. chronic hyponatremia- ur na remains low at 14. ur osm was 275 on 10/07/21- i am concerned for CRS -free water restrict 3. Pleural effusions- may benefit from thoracentesis 4. echo- EF 70%, grade 1 diastolic dysfunction RVSP 20 5. met acidosis- monitor w/ lasix seen and examined w/ RN- telehealth visit 6, hypocalcemia- check vit d time spent >30 minutes Status: Acute Plan as above- diuresis and steroids- consider transfer Attestations Medical Necessity Statement*: lasix, steroids, protonix Time Spent in Patient Care: 16 - 35 minutes (>than 50% of time spent in counselling and/or direct pt care on unit) . Coding Level of Care Code Acute Bottom Liner for Amira Solorzano Diagnoses Acute kidney injury N17.9
[2021-10-20 10:57] LABS: Total Volume, Urine 725 mL
[2021-10-20] MEDS: hyDRALAzine 20 mg/mL INJ 1 mL 5 MG IVP (11:51)
[2021-10-20] MEDS: pantoprazole DR 40 mg Tablet PO (11:51)
[2021-10-20 12:20] LABS: Urine Total Protein > 200.0 mg/24HR (0-150)
--- NOTE | 2021-10-20 12:29 | PC.SOCIAL ---
IMM Update pg 2 of IMM updated and refused w/ patient. Copy provided and Copy placed in chart.
[2021-10-20 12:46] LABS: SARS Covid-2 Antigen Negative (Negative)
--- NOTE | 2021-10-20 13:21 | PM.TDS ---
Transfer Summary Providers Date of Admission: 10/17/21 13:54 Date of Discharge/Transfer: 10/20/21 Attending Provider at Admission: Gurmeet Brady MD Attending Provider at Transfer: Brett Engel Primary Care Provider: Rajiv Francis DO Transfer Plans: Anticipated date of transfer: 10/20/21. Diagnoses at Discharge Discharge Diagnosis (1) Acute kidney injury: Status: Acute (2) Anasarca: Status: Acute (3) Hyponatremia: Status: Acute (4) Hypoalbuminemia: Status: Acute (5) Edema: Status: Acute (6) Anxiety and depression: Status: Acute Reason for Visit Reason for Visit DIFFICULTY URINATING Hospital Course Hospital Course Pleasant 70-year-old lady with history of CKD, esophageal dysmotility, anemia, anxiety and depression, GERD, recent COVID-19 on 09/28, hospitalized recently 10/05-10/10 due to nausea, epigastric pain, hyponatremia with sodium as low as 115, gradually improved to 130 at discharge, 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 Dyspepsia improved with PPI, antiemetics, sucralfate. Was tolerating oral intake. Asked to follow-up with primary provider for arrangements for upper endoscopy. Sodium improved with p.o. sodium chloride, Lasix, fluid restriction, referred for follow-up with nephrology, however, return to the hospital on 10/17 with persistent malaise, generalized weakness, with new ALONSO, creatinine 2.4, with some worsening and hyponatremia again down to 125. After discharge she was developing progressive edema/anasarca for which Lasix dose was increased on visit to primary provider's office. Since admission creatinine has been worsening progressively, today up to 3.6. Sluggish response to diuretics. So far etiology of the worsening renal function has been unclear. No obstructive uropathy noted on noncontrast CT on presentation. Echocardiogram with normal ejection fraction, grade 1 diastolic dysfunction. No DVT on duplex of lower extremities. Seen by nephrology, noted with 3+ protein in urine, 5-10 granular casts. With likely nephrotic proteinuria. SPEP and UPEP were requested. As our free light chains. Complement. Anti-GBM antibodies and anti-ADELINE 2R antibodies requested as well. Kidney biopsy is recommended by nephrology. This is not available at this facility, and so arrangements are made for transfer for additional assessment and management. She is currently accepted at in [place] after discussion with hospitalist there. Physical Exam Const: COMMON NORMALS: no acute distress and patient oriented x3 OTHER: Appears to be lacking energy. HENMT: COMMON NORMALS: oropharynx normal Neck/C-Spine: COMMON NORMALS: no JVD Resp: COMMON NORMALS: normal respiratory effort and clear to auscultation bilaterally AUSCULTATION: clear to auscultation bilaterally Cardio: COMMON NORMALS: no JVD, regular rhythm, S1 normal heart sound present, S2 normal heart sound present and No murmurs present (Cardio) RHYTHM: regular rhythm HEART SOUNDS: S1 normal heart sound present and S2 normal heart sound present GI: COMMON NORMALS: Normal to inspection, nondistended, normoactive bowel sounds present, Soft to palpation and non-tender PALPATION: Yes Soft to palpation Extremity: COMMON NORMALS: no joint enlargement and no pedal edema GENERAL: Yes edema (2+) Neuro: COMMON NORMALS: patient oriented x3 and moves all extremities Skin: COMMON NORMALS: no rashes or lesions noted GENERAL SKIN EXAM: no rashes or lesions noted Urinary Catheter Management: [place]: Cath Placed During This Visit: yes Reason for Continuing Indwelling Catheter: Acute Urinary Retention or Obstruction Urinary Catheter Date of Insertion: 10/17/21 Urinary Catheter Time of Insertion: 18:30 TS Data Studies Completed and Pending Pending at discharge Category Date Time Status ALCIDES Screen w/ Reflex Routine Lab 10/18/21 16:23 Received ANCA [Anti-Neutrophil Cytoplasmic AB] Routine Lab 10/18/21 16:23 Received Complete Blood Count w/Auto AM LABS Lab 10/21/21 04:00 Ordered Comprehensive Metabolic Panel AM LABS Lab 10/21/21 04:00 Ordered Glomerular Basement AB IGG Routine Lab 10/18/21 16:23 Received KAPPA/LAMBDA LIGHT FREE SERUM Routine Lab 10/18/21 16:23 Received Magnesium AM LABS Lab 10/21/21 04:00 Ordered Miscellaneous Test Routine Lab 10/20/21 11:25 Ordered Phosphorus AM LABS Lab 10/21/21 04:00 Ordered Protein Electrophoresis, 24 HR Routine Lab 10/19/21 18:00 Received Total Protein Electrophoresis Routine Lab 10/18/21 16:23 Received Urine Protein Electrop Random Routine Lab 10/19/21 18:00 Received Vitamin D 1,25 Dihydroxy Routine Lab 10/19/21 09:13 Received Labs from last 24 hours 10/20/21 10/20/21 10/20/21 12:05 04:06 04:06 WBC 6.3 RBC 3.52 L Hgb 10.6 L Hct 34.1 L MCV 96.9 MCH 30.1 MCHC 31.1 RDW 14.9 Plt Count 330 MPV 9.5 Neut % (Auto) 56.2 Lymph % (Auto) 28.1 [place] % (Auto) 9.1 Eos % (Auto) 5.3 Baso % (Auto) 1.0 Neut # (Auto) 3.53 Lymph # (Auto) 1.8 [place] # (Auto) 0.6 Eos # (Auto) 0.3 Baso # (Auto) 0.1 Nucleated RBC % (auto) 0 Nucleated RBCs # 0.0 Sodium 128 L Potassium 4.7 Chloride 102 Carbon Dioxide 17 L Anion Gap 13.7 BUN 60 H Creatinine 3.6 H GFR Calculation 12.5 L Glucose 95 Calculated Osmolality 283 L Calcium 7.8 L Phosphorus 5.0 H Magnesium 2.8 H Total Bilirubin 0.2 AST 17 ALT 14 Alkaline Phosphatase 79 Total Protein 4.3 L Albumin 1.6 L Globulin 2.7 Fmhwv-8-Nom[place]osns Ldkak-7-Ycfovxltb Beta Globulins Gamma Globulins Ur Random Creatinine Ur Random Albumin U Random Total Protein Ur Random Urea Nitrogn Urine Total Volume Urine Creatinine Ur Creatinine 24 Hour Ur Total Protein 24 Hr Protein/Creatinin Ratio Protein/Creat Ratio 24h Urine Total Protein Urine Albumin U Random d-2-Btmevhrp % U Random f-1-Twqfdcrp % U Random Beta Globulin U Random Gamma Glob U Abnormal Prot Band 1 U Abnormal Prot Band 2 U Abnormal Prot Band 3 Urine PEP Interpret SARS-CoV-2 Ag (Rapid) Negative 10/19/21 10/19/21 10/19/21 18:00 18:00 18:00 WBC RBC Hgb Hct MCV MCH MCHC RDW Plt Count MPV Neut % (Auto) Lymph % (Auto) [place] % (Auto) Eos % (Auto) Baso % (Auto) Neut # (Auto) Lymph # (Auto) [place] # (Auto) Eos # (Auto) Baso # (Auto) Nucleated RBC % (auto) Nucleated RBCs # Sodium Potassium Chloride Carbon Dioxide Anion Gap BUN Creatinine GFR Calculation Glucose Calculated Osmolality Calcium Phosphorus Magnesium Total Bilirubin AST ALT Alkaline Phosphatase Total Protein Albumin Globulin Qoyti-0-Wzarnsyup Pending Ewqqs-3-Jrgqtjrqt Pending Beta Globulins Pending Gamma Globulins Pending Ur Random Creatinine Pending Ur Random Albumin Pending U Random Total Protein Pending Ur Random Urea Nitrogn Urine Total Volume 725 Urine Creatinine Ur Creatinine 24 Hour Pending Ur Total Protein 24 Hr Pending 1450.0 H Protein/Creatinin Ratio Pending Pending Protein/Creat Ratio 24h Pending Pending Urine Total Protein > 200.0 H Urine Albumin Pending U Random j-2-Fxzgumdd % Pending U Random r-2-Yuqagben % Pending U Random Beta Globulin Pending U Random Gamma Glob Pending U Abnormal Prot Band 1 Pending Pending U Abnormal Prot Band 2 Pending Pending U Abnormal Prot Band 3 Pending Pending Urine PEP Interpret Pending Pending SARS-CoV-2 Ag (Rapid) 10/19/21 10/19/21 18:00 18:00 WBC RBC Hgb Hct MCV MCH MCHC RDW Plt Count MPV Neut % (Auto) Lymph % (Auto) [place] % (Auto) Eos % (Auto) Baso % (Auto) Neut # (Auto) Lymph # (Auto) [place] # (Auto) Eos # (Auto) Baso # (Auto) Nucleated RBC % (auto) Nucleated RBCs # Sodium Potassium Chloride Carbon Dioxide Anion Gap BUN Creatinine GFR Calculation Glucose Calculated Osmolality Calcium Phosphorus Magnesium Total Bilirubin AST ALT Alkaline Phosphatase Total Protein Albumin Globulin Jhgqv-0-Llhmdpprg Tvmbn-9-Fmkhzwewj Beta Globulins Gamma Globulins Ur Random Creatinine Ur Random Albumin U Random Total Protein Ur Random Urea Nitrogn 349 Urine Total Volume 725 Urine Creatinine 86 Ur Creatinine 24 Hour 623.5 Ur Total Protein 24 Hr Protein/Creatinin Ratio Protein/Creat Ratio 24h Urine Total Protein Urine Albumin U Random e-7-Nlcjtxzi % U Random p-8-Fmhltctk % U Random Beta Globulin U Random Gamma Glob U Abnormal Prot Band 1 U Abnormal Prot Band 2 U Abnormal Prot Band 3 Urine PEP Interpret SARS-CoV-2 Ag (Rapid) Completed Studies During Hospitalization Category Date Time Status CT chest abd pel wo con Stat Cat Scan 10/17/21 17:38 Completed XR chest 1V portable [id number] Urgent Exams 10/17/21 11:47 [place] [id number] Urgent Ultrasound 10/18/21 15:31 Completed CV. echo complete* [id number] Routine Ultrasound 10/18/21 17:38 Completed Laboratory Last Values WBC 6.3 10^3/uL (4.0-10.0) 10/20/21 04:06 RBC 3.52 10^6/uL (4.1-5.3) L 10/20/21 04:06 Hgb 10.6 g/dL (11.5-15.3) L 10/20/21 04:06 Hct 34.1 % (37.0-47.0) L 10/20/21 04:06 MCV 96.9 fl (81-99) 10/20/21 04:06 MCH 30.1 pg (28.0-34.0) 10/20/21 04:06 MCHC 31.1 g/dL (30.0-36.0) 10/20/21 04:06 RDW 14.9 % (12.1-15.1) 10/20/21 04:06 Plt Count 330 10^3/cmm (130-400) 10/20/21 04:06 MPV 9.5 fL (7.4-10.4) 10/20/21 04:06 Neut % (Auto) 56.2 % 10/20/21 04:06 Lymph % (Auto) 28.1 % 10/20/21 04:06 [place] % (Auto) 9.1 % 10/20/21 04:06 Eos % (Auto) 5.3 % 10/20/21 04:06 Baso % (Auto) 1.0 % 10/20/21 04:06 Neut # (Auto) 3.53 10^3/uL (1.8-7.7) 10/20/21 04:06 Lymph # (Auto) 1.8 10^3/uL (0.8-4.8) 10/20/21 04:06 [place] # (Auto) 0.6 10^3/uL (0.2-0.9) 10/20/21 04:06 Eos # (Auto) 0.3 10^3/uL (0.0-0.8) 10/20/21 04:06 Baso # (Auto) 0.1 10^3/uL (0.0-0.1) 10/20/21 04:06 Nucleated RBC % (auto) 0 % 10/20/21 04:06 Nucleated RBCs # 0.0 /100WBC 10/20/21 04:06 Sodium 128 mmol/L (136-145) L 10/20/21 04:06 Potassium 4.7 mmol/L (3.5-5.1) 10/20/21 04:06 Chloride 102 mmol/L (98-107) 10/20/21 04:06 Carbon Dioxide 17 mmol/L (22-29) L 10/20/21 04:06 Anion Gap 13.7 (5-19) 10/20/21 04:06 BUN 60 mg/dL (8-23) H 10/20/21 04:06 Creatinine 3.6 mg/dL (0.5-0.9) H 10/20/21 04:06 GFR Calculation 12.5 mL/min (90-130) L 10/20/21 04:06 Glucose 95 mg/dL (65-115) 10/20/21 04:06 Estimat Average Glucose 120 10/18/21 05:11 Hemoglobin A1c 5.8 % (4.0-6.0) 10/18/21 05:11 Calculated Osmolality 283 mOsm/kg (285-295) L 10/20/21 04:06 Uric Acid 7.9 mg/dL (2.4-5.7) H 10/18/21 16:23 Calcium 7.8 mg/dL (8.5-10.5) L 10/20/21 04:06 Phosphorus 5.0 mg/dL (2.5-4.5) H 10/20/21 04:06 Magnesium 2.8 mg/dL (1.7-2.3) H 10/20/21 04:06 Iron 53 ug/dL (37-145) 10/17/21 19:23 TIBC 89 mcg/dl 10/17/21 19:23 % Saturation 59.5 % (20-50) H 10/17/21 19:23 Unsat Iron Binding 36 ug/dL (112-347) L 10/17/21 19:23 Total Bilirubin 0.2 mg/dL (0.15-1.2) 10/20/21 04:06 AST 17 U/L (0-32) 10/20/21 04:06 ALT 14 U/L (0-33) 10/20/21 04:06 Alkaline Phosphatase 79 IU/L (35-105) 10/20/21 04:06 Creatine Kinase 168 U/L (26-192) 10/18/21 16:23 NT-Pro-B Natriuret Pep 2335 pg/mL (0-125) H 10/17/21 13:06 Total Protein 4.3 g/dL (6.6-8.7) L 10/20/21 04:06 Albumin 1.6 g/dL (3.5-5.2) L 10/20/21 04:06 Globulin 2.7 g/dL (1.3-4.6) 10/20/21 04:06 Triglycerides 172 mg/dL (0-150) H 10/18/21 05:11 Cholesterol 290 mg/dL (0-200) H 10/18/21 05:11 LDL Cholesterol, Calc 215 mg/dL (50-129) H 10/18/21 05:11 Total VLDL Cholesterol 34 mg/dL (0-30) H 10/18/21 05:11 HDL Cholesterol 41 mg/dL (60-100) L 10/18/21 05:11 Cholesterol/HDL Ratio 7.07 mg/dL (0.0-4.40) H 10/18/21 05:11 TSH 1.96 uIU/mL (0.27-4.20) 10/18/21 16:23 Urine Color Yellow (Yellow) 10/17/21 20:10 Urine Appearance Clear (CLEAR) 10/17/21 20:10 Urine pH 5 (5-7) 10/17/21 20:10 Ur Specific Adolphus 1.015 (1.005-1.030) 10/17/21 20:10 Urine Protein 3+ (Negative) H 10/17/21 20:10 Urine Glucose (UA) Norm (Normal) 10/17/21 20:10 Urine Ketones Negative (Negative) 10/17/21 20:10 Urine Blood 2+ (Negative) H 10/17/21 20:10 Urine Nitrate Negative (Negative) 10/17/21 20:10 Urine Bilirubin Neg (Negative) 10/17/21 20:10 Urine Urobilinogen Norm mg/dL (Negative) 10/17/21 20:10 Ur Leukocyte Esterase Negative (Negative) 10/17/21 20:10 Urine RBC 0-4 /hpf (0-2) H 10/17/21 20:10 Urine WBC 5-10 /hpf (0-5) H 10/17/21 20:10 Ur Eosinophil Smear 0 (0-0) 10/17/21 20:10 Ur Squamous Epith Cells 0-4 /hpf (0-5) H 10/17/21 20:10 Amorphous Sediment 1+ /hpf 10/17/21 20:10 Urine Bacteria Trace /hpf (NONE) 10/17/21 20:10 Hyaline Casts 0-4 /lpf H 10/17/21 20:10 Fine Granular Casts 5-10 /lpf H 10/17/21 20:10 Urine Eosinophils No eosinophils seen 10/17/21 20:10 Ur Random Sodium 14 mmol/L 10/17/21 20:10 Ur Random Potassium 34 mmol/L 10/17/21 20:10 Ur Random Chloride 13 mmol/L 10/17/21 20:10 Ur Random Urea Nitrogn 349 mg/dL 10/19/21 18:00 Urine Total Volume 725 mL 10/19/21 18:00 Urine Total Volume 725 ml 10/19/21 18:00 Urine Creatinine 86 mg/dL (28-217) 10/19/21 18:00 Ur Creatinine 24 Hour 623.5 mg/dL (601-1689) 10/19/21 18:00 Ur Total Protein 24 Hr 1450.0 mg/dL (0-150) H 10/19/21 18:00 Urine Total Protein > 200.0 mg/24HR (0-150) H 10/19/21 18:00 Complement C3 114 mg/dL (90-180) 10/18/21 16:23 Complement C4 25 mg/dL (10-40) 10/18/21 16:23 Hepatitis A IgM Ab Non-reactive (Nonreactive) 10/17/21 13:06 Hep Bs Antigen Non-reactive (Nonreactive) 10/17/21 13:06 Hep Bs Antibody 4.7 (11.5-1000) L 10/17/21 13:06 Hep B Core Total Ab Non-reactive (Nonreactive) 10/17/21 13:06 Hepatitis C Antibody Non-reactive (Nonreactive) 10/17/21 13:06 SARS-CoV-2 Ag (Rapid) Negative (Negative) 10/20/21 12:05 Radiology Impressions Chest X-Ray 10/17/21 11:47 IMPRESSION: No acute findings. Chest/Abdomen/Pelvis CT 10/17/21 17:38 IMPRESSION: 1. Moderate size bilateral pleural effusions. 2. Anasarca. 3. Large hiatal hernia. IMPRESSION: 1. Mild ascites 2. Anasarca. 3. Incidental findings above. COMMENTS: Consistent with the [place] [employer]'s Incidental Findings Committee white paper (J Am Eh Radiol 2018): Any incidental renal lesion less than 1 cm or classified as too small to characterize, or any incidental cystic renal lesion characterized as simple-appearing, is likely benign. No follow-up imaging is recommended for these lesions per consensus recommendations based on imaging criteria. Recent Clincial Data Last Vital Signs Temp 98.7 F 10/20/21 11:50 Pulse 66 10/20/21 11:50 Resp 18 10/20/21 11:50 BP 174/85 10/20/21 11:50 Pulse Ox 96 10/20/21 11:50 Vital Signs Temp Pulse Resp BP Pulse Ox 10/20/21 11:50 98.7 F 66 18 174/85 96 10/20/21 08:47 80 18 93 10/20/21 08:00 98.4 F 69 13 210/100 93 10/20/21 04:00 98.4 F 65 18 180/79 96 Intake & Output/Weight 10/18/21 10/19/21 10/20/21 10/21/21 06:59 06:59 06:59 06:59 Intake Total 1320 / 1320 258 / 258 Output Total 220 / 220 1250 / 1250 Balance -220 / -220 70 / 70 258 / 258 Weight 108.272 kg 105.778 kg 105.959 kg Vitals Last Vital Signs Temp 98.7 F 10/20/21 11:50 Pulse 66 10/20/21 11:50 Resp 18 10/20/21 11:50 BP 174/85 10/20/21 11:50 Pulse Ox 96 10/20/21 11:50 TS Medications Medications Acetaminophen (Acetaminophen 325 Mg Tablet) 650 mg PO Q6H PRN PRN Reason: Mild/Mod Pain Or Temp >/= 101 Albuterol/Ipratropium (Ipratropium-Albuterol 3 Ml Neb) 3 ml INHALATION Q6H.RESPIRATORY SUNSHINE Last Admin: 10/20/21 08:47 Dose: 3 ml Documented by: Albuterol/Ipratropium (Ipratropium-Albuterol 3 Ml Neb) 3 ml INHALATION Q4H PRN PRN Reason: SHORTNESS OF BREATH Bisacodyl (Bisacodyl 10 Mg Supp) 10 mg LA ONCE PRN; Protocol PRN Reason: Constipation (see protocol) Calcium Carbonate (Calcium Carbonate 500 Mg Chew Tablet) 1,000 mg PO Q4H PRN PRN Reason: DYSPEPSI Ferrous Gluconate (Ferrous Gluconate 324 Mg Tablet) 324 mg PO BIDWM SUNSHINE Last Admin: 10/20/21 08:18 Dose: 324 mg Documented by: Fluticasone Propionate (Fluticasone Nasal [place] 16gm Btl) 1 spray NASAL BID [facility] Last Admin: 10/20/21 08:20 Dose: 1 spray Documented by: Furosemide (Furosemide 10 Mg/Ml Sdv 10ml) 60 mg IVP DAILY [facility] Last Admin: 10/20/21 08:19 Dose: 60 mg Documented by: Heparin Sodium (Porcine) (Heparin 5,000 Unit/Ml Inj 1 Ml) 5,000 unit SUBCUT Q12H [facility] Last Admin: 10/20/21 05:40 Dose: 5,000 unit Documented by: Methylprednisolone Sodium Succinate 500 mg/ Sodium Chloride 258 mls @ 258 mls/hr IV DAILY SUNSHINE Stop: 10/22/21 10:29 Last Infusion: 10/20/21 12:58 Dose: Infused Documented by: Lactulose (Lactulose Oral Liq 20 Gm/30 Ml Udc) 10 gm PO DAILY SUNSHINE; Protocol Last Admin: 10/20/21 08:19 Dose: Not Given Documented by: Magnesium Hydroxide (Magnesium Hydroxide 30 Ml Udc) 30 ml PO DAILY PRN; Protocol PRN Reason: Constipation (see protocol) Mirtazapine (Mirtazapine 15 Mg Tablet) 7.5 mg PO BEDTIME SUNSHINE Last Admin: 10/19/21 20:44 Dose: 7.5 mg Documented by: Ondansetron HCl (Ondansetron 2 Mg/Ml Sdv 2 Ml) 4 mg IVP Q8H PRN PRN Reason: vomiting, or N/V if npo Pantoprazole Sodium (Pantoprazole Dr 40 Mg Tablet) 40 mg PO DAILY SUNSHINE Last Admin: 10/20/21 11:51 Dose: 40 mg Documented by: Trimethoprim/Sulfamethoxazole (Sulfamethoxazole-Trimeth Ds 160-800 Mg Tablet) 1 tab PO QMWF SUNSHINE; Protocol Discontinued Medications Famotidine (Famotidine 20 Mg/2 Ml Inj) 20 mg IVP Q12H [facility] Last Admin: 10/20/21 05:42 Dose: 20 mg Documented by: Famotidine (Famotidine 20 Mg Tablet) 20 mg PO BID SUNSHINE Furosemide (Furosemide 10 Mg/Ml Sdv 4ml) 40 mg IVP Q24H [facility] Last Admin: 10/18/21 16:56 Dose: 40 mg Documented by: Furosemide (Furosemide 10 Mg/Ml Sdv 10ml) 60 mg IVP Q12H [facility] Last Admin: 10/19/21 20:56 Dose: 60 mg Documented by: Hydralazine HCl (Hydralazine 20 Mg/Ml Inj 1 Ml) 5 mg IVP ONCE ONE Stop: 10/20/21 10:30 Last Admin: 10/20/21 11:51 Dose: 5 mg Documented by: Sodium Chloride (Sodium Chloride 0.9%) 1,000 mls @ 75 mls/hr IV .[id number] [facility] Last Admin: 10/17/21 19:41 Dose: Not Given Documented by: Labetalol HCl (Labetalol 5 Mg/Ml Sdv 20ml) 10 mg IVP ONCE ONE Stop: 10/17/21 19:38 Last Admin: 10/17/21 19:47 Dose: 10 mg Documented by: Sodium Chloride (Sodium Chloride 1 Gm Tablet) 2 gm PO TID [facility] Last Admin: 10/18/21 15:05 Dose: 2 gm Documented by: Sucralfate (Sucralfate 1 Gm/10 Ml Oral Liq Udc) 1 gm PO AC&BEDTIME [facility] Last Admin: 10/20/21 06:25 Dose: 1 gm Documented by: Allergies iodine Allergy (Unknown, Verified 10/15/21 09:53) Unknown shellfish derived Allergy (Unknown, Verified 10/15/21 09:53) Unknown lisinopril Adverse Reaction (Intermediate, Verified 10/15/21 09:53) COUGH Home Medications dexlansoprazole 60 mg capsule,biphase delayed release (Dexilant) 60 mg PO DAILY 90 Days #90 cap 06/21/21 [Rx Confirmed 10/18/21] docusate sodium 100 mg capsule 100 mg PO DAILY 10/05/21 [History Confirmed 10/18/21] sucralfate 1 gram tablet 1 g PO Q6H PRN 10/05/21 [History Confirmed 10/18/21] mirtazapine 15 mg tablet 7.5 mg PO BEDTIME #45 tab 10/09/21 [Rx Confirmed 10/18/21] sodium chloride 1 gram tablet 2 g PO TID #90 tab 10/09/21 [Rx Confirmed 10/18/21] amoxicillin 875 mg-potassium clavulanate 125 mg tablet (Augmentin) 1 tab PO BID 7 Days #14 tab 10/13/21 [Rx Confirmed 10/18/21] fluticasone propionate 50 mcg/actuation nasal spray,suspension (Flonase Allergy Relief) 2 spray INTRANASAL DAILY #15.8 ml 10/13/21 [Rx Confirmed 10/18/21] furosemide 20 mg tablet 40 mg PO DAILY@0800 #60 tab 10/15/21 [Rx Confirmed 10/18/21] lactulose 10 gram/15 mL oral solution 30 ml PO TID PRN 10/18/21 [History Confirmed 10/18/21] Discharge Plan Discharge Patient Disposition: Xfer Short-Term Hosp Condition: Stable Prescriptions: No Action Dexilant 60 mg capsule,biphase delayed releas 60 mg PO DAILY 90 Days Qty: 90 3RF furosemide 20 mg tablet 40 mg PO DAILY@0800 Qty: 60 0RF fluticasone propionate [Flonase Allergy Relief] 50 mcg/actuation spray,suspension 2 spray INTRANASAL DAILY Qty: 15.8 0RF Rx Instructions: administer into each nostril amoxicillin-pot clavulanate [Augmentin] 875-125 mg tablet 1 tab PO BID 7 Days Qty: 14 0RF sucralfate 1 gram tablet 1 g PO Q6H PRN (Reason: Stomach Upset) 0RF docusate sodium 100 mg Capsule 100 mg PO DAILY 0RF sodium chloride 1 gram Tablet 2 g PO TID Qty: 90 0RF mirtazapine 15 mg Tablet 7.5 mg PO BEDTIME Qty: 45 0RF lactulose 10 gram/15 mL solution 30 ml PO TID PRN (Reason: Constipation) 0RF Referrals: Rajiv Francis DO [Primary Care Provider] - Transfer Attestations Time Spent in Transfer Care: other Quality Metrics Clinical Quality Measures [ No reported AMI, CVA or VTE this stay] Coding Level of Care Code Acute Store Stock Associate for Chg Fwd Diagnoses Acute kidney injury N17.9 Anasarca R60.1 Hyponatremia E87.1 Hypoalbuminemia E88.09 Edema R60.9 Anxiety and depression F41.9; F32.9
--- NOTE | 2021-10-20 13:22 | PC.NURSE ---
Report called to [facility] at [facility].
[2021-10-20 15:37] LABS: KAPPA LIGHT CHAIN, FREE, SERUM 140.1 mg/L (3.3-19.4); KAPPA/LAMBDA LIGHT CHAINS FREE 1.37 (0.26-1.65); LAMBDA LIGHT CHAIN, FREE, SERU 102.1 mg/L (5.7-26.3)
[2021-10-20 15:52] LABS: Anti-Nuclear Antibody Screen NEGATIVE (NEGATIVE)
[2021-10-21 02:17] LABS: PROTEIN, TOTAL 3.8 g/dL (6.1-8.1)
[2021-10-21 12:08] LABS: ALBUMIN 1.7 g/dL (3.8-4.8); ALPHA 1 GLOBULIN 0.3 g/dL (0.2-0.3); ALPHA 2 GLOBULIN 0.8 g/dL (0.5-0.9); BETA 1 GLOBULIN 0.2 g/dL (0.4-0.6); BETA 2 GLOBULIN 0.3 g/dL (0.2-0.5); GAMMA GLOBULIN 0.6 g/dL (0.8-1.7)
[2021-10-21 16:38] LABS: Creatinine, Random Urine 62 mg/dL (20-275); Protein, Total, Random 796 mg/dL (5-24); Protein/Creatinine Ratio 12.839 (0.021-0.161); Protein/Creatinine Ratio 12839 mg/g creat (21-161)
[2021-10-22 09:18] LABS: Vit D 1,25 (Oh)2, Total 11 pg/mL (18-72); Vit D2 1,25 (Oh)2 <8 pg/mL; Vit D3 1,25 (Oh)2 11 pg/mL
[2021-10-22 13:18] LABS: Albumin,Urine Random 45 %; Alpha-1-Globulins Urine Random 15 %; Alpha-2-Globulins Urine Random 10 %; Beta-Globulin,Urine Random 16 %; Gamma Globulin,Urine Random 14 %
[2021-10-22 16:04] LABS: PROTEIN, TOTAL, 24 HR UR 7062 mg/24 h (<150); Protein/Creatinine Ratio 11.735 (< OR = 0.114); Protein/Creatinine Ratio 11735 mg/g creat (< OR = 114)
[2021-10-23 13:03] LABS: Glomerular Bsmt Membrane IGG <1.0 AI
[2021-10-25 16:23] LABS: ALBUMIN 50 %; ALPHA-1-GLOBULINS 8 %; ALPHA-2-GLOBULINS 12 %; BETA GLOBULINS 15 %; GAMMA GLOBULINS 15 %
[2021-10-26 14:52] LABS: ANCA Screen NEGATIVE (NEGATIVE)
== END 2021-10-20 14:33 | disposition short-term general hospital (02) | DRG 683 ==
LOC: ER 13:55 → ER IP 14:07 → MEDSURG 16:39
PROVIDERS: Internal Medicine Nephrology; Admitting Provider Student in an Organized Health Care Education/Training Program; Emergency Provider Emergency Medicine; PCP Family Medicine; Visit Provider Internal Medicine
DX: N17.9 Acute kidney failure, unspecified (principal); Q61.3 Polycystic kidney, unspecified; I42.9 Cardiomyopathy, unspecified; D63.1 Anemia in chronic kidney disease; N18.9 Chronic kidney disease, unspecified; F41.8 Other specified anxiety disorders; K22.4 Dyskinesia of esophagus; K21.9 Gastro-esophageal reflux disease without esophagitis; Z86.16 Personal history of COVID-19; E86.0 Dehydration; Z87.01 Personal history of pneumonia (recurrent); R80.9 Proteinuria, unspecified
CPT/HCPCS: 36415; 51702; 71045; 71250; 74176; 80048; 80053; 80061; 81001; 82436; 82550; 82570; 82652; 83036; 83516; 83520; 83540; 83550; 83735; 83880; 83883; 84100; 84133; 84155; 84156; 84165; 84166; 84300; 84443; 84540; 84550; 85025; 85999; 86038; 86160; 86705; 86706; 86709; 86803; 87340; 87426; 93306; 93970; 94640; 94664; 96372; 96374; 99285; J0360; J1644; J1940; J2930; J3490; J7050; Q3014

== ENCOUNTER 2021-11-29 13:47 | Observation (INO) | payer MEDICARE, OTHER, SELFPAY ==
[2021-11-29 14:15] VITALS: BP 101/69; PULSE 78; RESP 18; TEMP 37.1; O2SAT 99; BMI 33.7
--- NOTE | 2021-11-29 14:52 | ED_ITS ---
HPI - Recheck/Abnormal Lab/Rx General: Chief Complaint: Recheck/Abnormal Lab/Rx Stated Complaint: Dr. Francis sent pt over Time Seen by Provider: 11/29/21 14:20 PFSH ED PFSH: Medical History (Updated 10/21/21 @ 00:01 by ) Anemia Anxiety and depression Chronic constipation COVID-19 Esophageal dysmotility Generalized anxiety disorder GERD with esophagitis Hypertension Hyponatremia Polycystic kidney Family History Father Cancer lung Sister Cancer 2 sisters; breast Mother Hypertension Social History Smoking and tobacco status: never smoked Second hand smoke exposure: No Alcohol intake: never Lives independently: Yes Household members: spouse Marital status: Current occupational status: retired History of recent travel: No Current gender identity: Female Course Vital Signs: Vital signs: Vital Signs Temperature 98.8 F 11/29/21 14:15 Pulse Rate 78 11/29/21 14:15 Respiratory Rate 18 11/29/21 14:15 Blood Pressure 101/69 11/29/21 14:15 Pulse Oximetry 99 11/29/21 14:15 Discharge Plan Discharge Condition: Stable Prescriptions: No Action Dexilant 60 mg capsule,biphase delayed releas 60 mg PO DAILY 90 Days Qty: 90 3RF furosemide 20 mg tablet 40 mg PO DAILY@0800 Qty: 60 0RF fluticasone propionate [Flonase Allergy Relief] 50 mcg/actuation spray,suspension 2 spray INTRANASAL DAILY Qty: 15.8 0RF Rx Instructions: administer into each nostril amoxicillin-pot clavulanate [Augmentin] 875-125 mg tablet 1 tab PO BID 7 Days Qty: 14 0RF sucralfate 1 gram tablet 1 g PO Q6H PRN (Reason: Stomach Upset) 0RF docusate sodium 100 mg Capsule 100 mg PO DAILY 0RF sodium chloride 1 gram Tablet 2 g PO TID Qty: 90 0RF mirtazapine 15 mg Tablet 7.5 mg PO BEDTIME Qty: 45 0RF lactulose 10 gram/15 mL solution 30 ml PO TID PRN (Reason: Constipation) 0RF Referrals: Rajiv Francis DO [Primary Care Provider] - Coding Level of Care Code ED Painting Machine Operator for Chg Fwd
--- NOTE | 2021-11-29 14:53 | ED_ITS ---
HPI - General Adult General: Chief complaint: Recheck/Abnormal Lab/Rx Stated complaint: Dr. Francis sent pt over Time Seen by Provider: 11/29/21 14:20 History of Present Illness: Patient is a 71-year-old female with a history of COVID pneumonia, recent CKD currently on Bumex 6 mg daily presenting to the emergency room for concerns of hypokalemia from routine blood work. Patient was seen and evaluated by Dr. Francis recently for routine outpatient blood work. Patient was found to have a potassium of 2.0 was told to come to the emergency room. Patient tells me that since her bout with COVID in September, patient has had kidney injury. At the [facility], patient was started on 6 mg of Bumex daily for significant weight gain. Over the last week weeks, patient has lost about 40 pounds. Patient is currently taking 60 mg of prednisone daily. Patient reports mild shortness of breath and mild abdominal distention. Patient tells me that her legs are still swollen. Patient is able to urinate without any difficulty. Onset: Unknown Duration: ongoing Location:home Severity:moderate Associated symptoms: Reports dyspnea; Deny chest pain, nausea, rash, palpitations or vomiting Review of Systems Const: Denies: fever(s) or chills Eyes: Denies: change in vision ENMT: Denies: mouth pain Card: Denies: chest pain or palpitations Resp: Reports: dyspnea; Denies: non-productive cough GI: Denies: abdominal pain, nausea, vomiting or diarrhea : Denies: dysuria Musc: Reports: other (+leg swelling b/l); Denies: extremity pain Skin/Breast: Denies: rash or new lesions Neuro: Denies: weakness in extremities Psych: Reports: other (Normal mood) Jeffery/Lymph: Denies: easy bruising PFSH ED PFSH: Medical History Anemia Anxiety and depression Chronic constipation COVID-19 Esophageal dysmotility Generalized anxiety disorder GERD with esophagitis Hypertension Hyponatremia Polycystic kidney Family History Father Cancer lung Sister Cancer 2 sisters; breast Mother Hypertension Social History Smoking and tobacco status: never smoked Second hand smoke exposure: No Alcohol intake: never Lives independently: Yes Household members: spouse Marital status: Current occupational status: retired History of recent travel: No Current gender identity: Female Physical Exam Const: COMMON NORMALS: alert HENMT: COMMON NORMALS: atraumatic HEAD & SCALP: atraumatic MOUTH: moist mucous membranes not abnormal Eye: COMMON NORMALS: EOMs intact bilaterally and conjunctivae normal CONJUNCTIVA: Yes conjunctivae normal Neck/C-Spine: COMMON NORMALS: full ROM and supple Resp: COMMON NORMALS: normal respiratory effort and clear to auscultation bilaterally AUSCULTATION: clear to auscultation bilaterally Cardio: COMMON NORMALS: regular rate RATE: regular rate GI: COMMON NORMALS: Soft to palpation and non-tender PALPATION: Yes Soft to palpation OTHER: +Abdominal distension, no focal TTP. NO guarding rebound, guarding, rigidity. No CVA tenderness to percussion. Neg Hearn/Neg McBurney's point tenderness, no suprabupic tenderness to palpation. Extremity: COMMON NORMALS: full ROM OTHER: 3+ lower extremity swellings Neuro: SENSORIUM/ORIENTATION: Yes alert MOTOR EXAM: No Abnormal motor s trength present and Other motor observations present (no focal motor deficits) Psych: COMMON NORMALS: speech normal SPEECH: Yes normal speech MOOD & AFFECT: Yes euthymic mood Course Vital Signs: Vital signs: Vital Signs Temperature 98.8 F 11/29/21 14:15 Pulse Rate 65 11/29/21 17:47 Respiratory Rate 18 11/29/21 17:47 Blood Pressure 142/77 11/29/21 17:47 Pulse Oximetry 93 11/29/21 17:47 [facility] - General Adult Medical Decision Making 71-year-old female with history chronic kidney issues on Bumex 6 mg daily presenting to the emergency room for evaluation of hypokalemia. On exam, patient is noted to have abdominal stage, 3+ lower extremity edema. Creatinine 1.5 which is an improvement from baseline of 2.8. Patient is found to have a potassium of 2.3 initially. After 40 mEq p.o. potassium x2, 20 mEq IV, patient continues to have a potassium 2.7. Magnesium noted to be 1.6, s/p 2g of magnesium sulfate. Patient will be admitted to hospital for management of hypokalemia secondary to bumex use. Disposition: admission Lab Data : 11/29/21 15:15 11/29/21 17:22 Laboratory Results WBC 10.2 10^3/uL (4.0-10.0) H 11/29/21 15:15 RBC 3.33 10^6/uL (4.1-5.3) L 11/29/21 15:15 Hgb 10.2 g/dL (11.5-15.3) L 11/29/21 15:15 Hct 31.3 % (37.0-47.0) L 11/29/21 15:15 MCV 94.0 fl (81-99) 11/29/21 15:15 MCH 30.6 pg (28.0-34.0) 11/29/21 15:15 MCHC 32.6 g/dL (30.0-36.0) 11/29/21 15:15 RDW 15.3 % (12.1-15.1) H 11/29/21 15:15 Plt Count 135 10^3/cmm (130-400) 11/29/21 15:15 MPV 9.8 fL (7.4-10.4) 11/29/21 15:15 Neut % (Auto) 68.9 % 11/29/21 15:15 Lymph % (Auto) 22.9 % 11/29/21 15:15 [place] % (Auto) 7.4 % 11/29/21 15:15 Eos % (Auto) 0.2 % 11/29/21 15:15 Baso % (Auto) 0.2 % 11/29/21 15:15 Neut # (Auto) 7.03 10^3/uL (1.8-7.7) 11/29/21 15:15 Lymph # (Auto) 2.3 10^3/uL (0.8-4.8) 11/29/21 15:15 [place] # (Auto) 0.8 10^3/uL (0.2-0.9) 11/29/21 15:15 Eos # (Auto) 0.0 10^3/uL (0.0-0.8) 11/29/21 15:15 Baso # (Auto) 0.0 10^3/uL (0.0-0.1) 11/29/21 15:15 Nucleated RBC % (auto) 0 % 11/29/21 15:15 Nucleated RBCs # 0.0 /100WBC 11/29/21 15:15 Sodium 130 mmol/L (136-145) L 11/29/21 17:22 Potassium 2.7 mmol/L (3.5-5.1) L* 11/29/21 17:22 Chloride 86 mmol/L (98-107) L 11/29/21 17:22 Carbon Dioxide 39 mmol/L (22-29) H 11/29/21 17:22 Anion Gap 7.7 (5-19) 11/29/21 17:22 BUN 13 mg/dL (8-23) 11/29/21 17:22 Creatinine 0.9 mg/dL (0.5-0.9) 11/29/21 17:22 GFR Calculation Not Reportable 11/29/21 17:22 Glucose 90 mg/dL (65-115) 11/29/21 17:22 Calculated Osmolality 270 mOsm/kg (285-295) L 11/29/21 17:22 Calcium 8.1 mg/dL (8.5-10.5) L 11/29/21 17:22 Magnesium 1.5 mg/dL (1.7-2.3) L 11/29/21 15:15 Total Bilirubin 0.3 mg/dL (0.15-1.2) 11/29/21 15:15 AST 15 U/L (0-32) 11/29/21 15:15 ALT 16 U/L (0-33) 11/29/21 15:15 Alkaline Phosphatase 87 IU/L (35-105) 11/29/21 15:15 Total Protein 4.7 g/dL (6.6-8.7) L 11/29/21 15:15 Albumin 2.4 g/dL (3.5-5.2) L 11/29/21 15:15 Globulin 2.3 g/dL (1.3-4.6) 11/29/21 15:15 Lipase 40 U/L (13-60) 11/29/21 15:15 Discharge Plan Discharge Clinical Impression: Hypokalemia, Hypomagnesemia Condition: Stable Prescriptions: No Action sucralfate 1 gram tablet 1 g PO QID 0RF docusate sodium 100 mg Capsule 100 mg PO BID 0RF lactulose 10 gram/15 mL solution 30 ml PO BID 0RF prednisone 20 mg tablet 60 mg PO DAILY@12 0RF Tylenol Ex Str Rapid Release 500 mg Tablet 500 mg PO Q6H PRN (Reason: Pain) 0RF bumetanide 1 mg tablet 3 mg PO BID 0RF Flonase Allergy Relief 50 mcg/actuation spray,suspension 2 spray INTRANASAL DAILY PRN (Reason: Allergy Symptoms) 0RF Rx Instructions: administer into each nostril Dexilant 60 mg capsule,biphase delayed releas 60 mg PO QAM 0RF Referrals: Rajiv Francis DO [Primary Care Provider] - Discharge Diet: Advance as tolerated Discharge Activity: Increase activity as tolerated Coding Level of Care Code ED Risk Management Internship for Chg 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
--- NOTE | 2021-11-29 14:59 | ECG_ITS ---
[facility] Test Date: 2021-11-29 Pat Name: Nati Eli Department: Room: Gender: Female Sales Order Clerk: : 1950 Requested By: Milagros Doan Order Number: [id number] Lars MD: Matthew Kinsey M.D. Measurements Intervals [place] Rate: 72 P: 42 KS: 133 QRS: 10 QRSD: 94 T: 71 QT: 383 QTc: 421 Interpretive Statements SINUS RHYTHM WITH OCCASIONAL ECTOPIC PREMATURE COMPLEXES MODERATE ST DEPRESSION [0.05+ mV ST DEPRESSION] Compared to ECG 10/05/2021 01:21:22 ST (T wave) deviation now present Electronically Signed On 11-29-2021 22:01:37 CDT by Matthew Kinsey M.D. [email or web address]
--- NOTE | 2021-11-29 15:03 | PC.PHAR ---
pt states she takes care of her own medications-pt states she dced mirtazapine 15mg take 7.5mg hs ext med history shows last filled 10/10/21 90d/s-pt states she is not taking nifedipine er 60mg bid ext med history shows last filled 11/08/21 30d/s pt states she doesnt need that medication states her bp since being out of the hospital has been low-pt states she is still taking bumetanide 1mg take 3mg po bid rx filled on 11/03/21 3d/s-pt states she is no longer taking lasix-notes are made in the pharmacy comments-
[2021-11-29 15:26] LABS: Basophils % 0.2 %; Eosinophils % 0.2 %; Hematocrit 31.3 % (37.0-47.0); Hemoglobin 10.2 g/dL (11.5-15.3); Lymphocytes # 2.3 10^3/uL (0.8-4.8); Lymphocytes % 22.9 %; Mean Corpuscular HGB Conc 32.6 g/dL (30.0-36.0); Mean Corpuscular Hemoglobin 30.6 pg (28.0-34.0); Mean Platelet Volume 9.8 fL (7.4-10.4); Monocytes # 0.8 10^3/uL (0.2-0.9); Monocytes % 7.4 %; Neutrophils # 7.03 10^3/uL (1.8-7.7); Neutrophils % 68.9 %; Nucleated Red Blood Cells % 0 %; Platelet Count 135 10^3/cmm (130-400); Red Blood Count 3.33 10^6/uL (4.1-5.3); Red Cell Distribution Width 15.3 % (12.1-15.1); White Blood Count 10.2 10^3/uL (4.0-10.0)
[2021-11-29 15:45] LABS: Alanine Aminotransferase 16 U/L (0-33); Albumin Level 2.4 g/dL (3.5-5.2); Alkaline Phosphatase 87 IU/L (35-105); Anion Gap 11.3 (5-19); Aspartate Amino Transferase 15 U/L (0-32); Blood Urea Nitrogen 12 mg/dL (8-23); Calcium 8.3 mg/dL (8.5-10.5); Carbon Dioxide 37 mmol/L (22-29); Chloride 85 mmol/L (98-107); Globulin 2.3 g/dL (1.3-4.6); Glucose 92 mg/dL (65-115); Lipase 40 U/L (13-60); Magnesium 1.5 mg/dL (1.7-2.3); Osmolality Calculated 271 mOsm/kg (285-295); Sodium 131 mmol/L (136-145); Total Bilirubin 0.3 mg/dL (0.15-1.2); Total Protein 4.7 g/dL (6.6-8.7)
[2021-11-29 15:53] LABS: Potassium 2.3 mmol/L (3.5-5.1)
[2021-11-29] MEDS: magnesium sulfate premix 2 GM/50 ML PIGGYBACK IV ×2 (16:24→23:20)
[2021-11-29] MEDS: potassium chloride ER 20 mEq Tablet 40 MEQ PO ×2 (16:24)
[2021-11-29 17:47] VITALS: BP 142/77; PULSE 65; RESP 18; O2SAT 93
[2021-11-29 18:04] LABS: Anion Gap 7.7 (5-19); Blood Urea Nitrogen 13 mg/dL (8-23); Calcium 8.1 mg/dL (8.5-10.5); Carbon Dioxide 39 mmol/L (22-29); Chloride 86 mmol/L (98-107); Glucose 90 mg/dL (65-115); Osmolality Calculated 270 mOsm/kg (285-295); Sodium 130 mmol/L (136-145)
[2021-11-29 18:07] LABS: Potassium 2.7 mmol/L (3.5-5.1)
[2021-11-29 19:33] VITALS: BP 155/89; PULSE 73; RESP 21; O2SAT 96
--- NOTE | 2021-11-29 20:27 | PM.HP ---
Providers/Chief Complaint Admitting Physician: Brett Engel Primary Care Provider: Rajiv Francis DO Chief Complaint: Dr. Francis sent pt over History of Present Illness Pleasant 71-year-old lady directed to the hospital from primary care provider's office due to hyperkalemia. With recent admission here in transfer to [facility] on 10/20, at that time was admitted due to COVID-19, also with hyponatremia, as well as diffuse edema, and new ALONSO, with progressive anasarca, with no obstructive uropathy noted on CT, normal ejection fraction, with noted proteinuria, thought to be nephrotic, was transferred for additional assessment to [facility], , where she states was additionally assessed and monitored. She states acute injury attributed to COVID-19, was started on Bumex, prednisone 60 mg daily, and states that her edema has been gradually improving. In ER today she is found to have potassium as low as 2.3, hypomagnesemia, with hypokalemia persistent despite attempted replacement with IV infusion of potassium, as well as 80 mg by mouth. Magnesium was replaced as well. Recheck potassium was 2.7. Observation hospital was requested for additional electrolyte replacement and reassessment. She reports otherwise been doing well, although has been having some heartburn. She states her daughter noticed that she was having a midline hernia, which she feels may have contributed to her symptoms. He states at times hernia would become swollen and hard. She denies vomiting. She has been having constipation, last bowel movement last week, although says that is not unusual for her. Review of Systems Const: Denies: fever(s), chills, body aches or malaise Eyes: Denies: change in vision or eye redness ENMT: Denies: throat pain, oral sores or ear or mastoid pain Card: Reports: edema; Denies: chest pain, pre-syncope or dyspnea on exertion Resp: Denies: dyspnea, productive cough, change in phlegm color or hemoptysis GI: Reports: heartburn and constipation; Denies: abdominal pain, nausea, vomiting, diarrhea, hematochezia or melena : Denies: flank pain, urinary frequency or hematuria Musc: Denies: back pain, joint swelling or joint redness Skin/Breast: Denies: rash, sores or new lesions Neuro: Denies: headache(s), numbness in extremities, weakness in extremities, dizziness, confusion or seizure-like activity Endo: Denies: polyuria or polydipsia Jeffery/Lymph: Denies: easy bleeding or purpura All/Imm: Denies: urticaria, throat swelling or tongue swelling Medications/Allergies Home Medications Medication Instructions Recorded Confirmed Last Taken Type docusate sodium 100 mg capsule 100 mg PO BID 10/05/21 11/29/21 11/29/21 09:00 History sucralfate 1 gram tablet 1 g PO QID 10/05/21 11/29/21 11/29/21 09:00 History lactulose 10 gram/15 mL oral 30 ml PO BID 10/18/21 11/29/21 11/29/21 09:00 History solution acetaminophen 500 mg tablet 500 mg PO Q6H PRN 11/29/21 11/29/21 11/29/21 10:30 History bumetanide 1 mg tablet 3 mg PO BID 11/29/21 11/29/21 11/29/21 09:30 History dexlansoprazole 60 mg 60 mg PO QAM 11/29/21 11/29/21 11/29/21 09:00 History capsule,biphase delayed release (Dexilant) fluticasone propionate 50 2 spray INTRANASAL DAILY PRN 11/29/21 11/29/21 Unknown History mcg/actuation nasal spray,suspension (Flonase Allergy Relief) prednisone 20 mg tablet 60 mg PO DAILY@12 11/29/21 11/29/21 11/28/21 History Allergies Allergy/AdvReac Type Severity Reaction Status Date / Time iodine Allergy Unknown Unknown Verified 11/29/21 15:07 shellfish derived Allergy Unknown Unknown Verified 11/29/21 15:07 NSAIDS (Non-Steroidal Allergy Unknown Verified 11/29/21 15:07 Anti-Inflamma lisinopril AdvReac Intermediate COUGH Verified 11/29/21 15:07 PFSH Acute PFSH: Medical History Anemia Anxiety and depression Chronic constipation COVID-19 Esophageal dysmotility Generalized anxiety disorder GERD with esophagitis Hypertension Hyponatremia Polycystic kidney Family History Father Cancer lung Sister Cancer 2 sisters; breast Mother Hypertension Social History Smoking and tobacco status: never smoked Second hand smoke exposure: No Alcohol intake: never Lives independently: Yes Household members: spouse Marital status: Current occupational status: retired History of recent travel: No Current gender identity: Female Vitals/I&O/Wt Last Vital Signs Temp 98.8 F 11/29/21 14:15 Pulse 73 11/29/21 19:33 Resp 21 H 11/29/21 19:33 BP 155/89 11/29/21 19:33 Pulse Ox 96 11/29/21 19:33 Weight last 48 hrs Weight 86.545 kg Physical Exam Const: COMMON NORMALS: no acute distress and patient oriented x3 HENMT: COMMON NORMALS: oropharynx normal Neck/C-Spine: COMMON NORMALS: no JVD Resp: COMMON NORMALS: normal respiratory effort and clear to auscultation bilaterally AUSCULTATION: clear to auscultation bilaterally Cardio: COMMON NORMALS: no JVD, regular rhythm, S1 normal heart sound present, S2 normal heart sound present and No murmurs present (Cardio) RHYTHM: regular rhythm HEART SOUNDS: S1 normal heart sound present and S2 normal heart sound present GI: COMMON NORMALS: Normal to inspection, nondistended, normoactive bowel sounds present, Soft to palpation and non-tender PALPATION: Yes Soft to palpation and Yes Other GI palpation findings present (If midline hearnia was present it has become reduced) Extremity: COMMON NORMALS: no joint enlargement GENERAL: Yes edema (3+) Neuro: COMMON NORMALS: patient oriented x3 and moves all extremities Skin: COMMON NORMALS: no rashes or lesions noted GENERAL SKIN EXAM: no rashes or lesions noted Data : 11/29/21 15:15 11/29/21 17:22 A&P Assessment and plan (1) Hypokalemia: Received a dose of IV potassium chloride as well as 80 mEq of oral potassium. Recheck potassium was 2.7. Will recheck potassium and magnesium later tonight, and in the morning. Would benefit from continued potassium replacement with Bumex at discharge. Follow-up levels with PCP as well. Status: Acute (2) Hypomagnesemia: Received replacement. Recheck. Status: Acute (3) Anasarca: She reports gradual improvement with Bumex with diuresis. Status: Acute (4) Acute kidney injury: Recently acute kidney injury for which was transferred over to [facility], but in order to request records. She states she was told kidney injury was induced by Covid, was not sure about the details. Was started on prednisone and Bumex. Continue. Status: Acute (5) Abdominal hernia: States that she sometimes gets midline abdominal hernia which becomes swollen hard. Recently has been having indigestion, and states her daughter felt a hernia. On palpation I cannot appreciate any incarcerated hernia, if she did have 1 it may have reduced. She will let us know if her changes in symptoms. Consider follow-up with surgery. Status: Acute Plan Recent COVID-19 Recent hyponatremia History of esophageal dysmotility GERD Anxiety and depression HTN Attestations Medical Necessity Statement*: Place in observation for assessment management of electrolyte abnormalities, additional replacement and reassessment. Coding Level of Care Code Acute Fish Hatchery Worker for Amira Solorzano Diagnoses Hypokalemia E87.6 Hypomagnesemia E83.42 Anasarca R60.1 Acute kidney injury N17.9 Abdominal hernia K46.9
[2021-11-29 20:35] VITALS: BP 151/78; PULSE 68; RESP 16; O2SAT 97
[2021-11-29 20:50] VITALS: BP 122/73; PULSE 75; RESP 18; TEMP 36.7; O2SAT 95
[2021-11-29] MEDS: heparin 5,000 unit/mL INJ 1 mL 5000 UNIT SUBCUT (22:18)
[2021-11-29] MEDS: sucralfate 1 gm Tablet PO (22:18)
[2021-11-29 22:19] LABS: Magnesium 1.7 mg/dL (1.7-2.3)
[2021-11-29 22:25] LABS: Potassium 2.9 mmol/L (3.5-5.1)
[2021-11-29 22:43] VITALS: BMI 32.7
[2021-11-29 23:18] VITALS: BP 106/74; PULSE 70; RESP 17; TEMP 36.4; O2SAT 97
[2021-11-30] MEDS: efferdent effervescent 1 EACH DENTAL (00:13)
[2021-11-30 03:22] VITALS: BP 138/80; PULSE 80; RESP 17; TEMP 37.1; O2SAT 94
[2021-11-30 05:47] LABS: Basophils % 0.3 %; Eosinophils % 0.1 %; Hematocrit 32.8 % (37.0-47.0); Hemoglobin 10.8 g/dL (11.5-15.3); Lymphocytes # 2.5 10^3/uL (0.8-4.8); Lymphocytes % 24.1 %; Mean Corpuscular HGB Conc 32.9 g/dL (30.0-36.0); Mean Corpuscular Hemoglobin 31.3 pg (28.0-34.0); Mean Corpuscular Volume 95.1 fl (81-99); Mean Platelet Volume 9.4 fL (7.4-10.4); Monocytes # 0.8 10^3/uL (0.2-0.9); Monocytes % 7.9 %; Neutrophils # 6.95 10^3/uL (1.8-7.7); Neutrophils % 67.1 %; Nucleated Red Blood Cells % 0 %; Platelet Count 126 10^3/cmm (130-400); Red Blood Count 3.45 10^6/uL (4.1-5.3); Red Cell Distribution Width 15.9 % (12.1-15.1); White Blood Count 10.4 10^3/uL (4.0-10.0)
[2021-11-30 06:12] LABS: Anion Gap 13.1 (5-19); Blood Urea Nitrogen 12 mg/dL (8-23); Calcium 8.4 mg/dL (8.5-10.5); Carbon Dioxide 32 mmol/L (22-29); Chloride 91 mmol/L (98-107); Glucose 85 mg/dL (65-115); Magnesium 2.1 mg/dL (1.7-2.3); Osmolality Calculated 275 mOsm/kg (285-295); Potassium 3.1 mmol/L (3.5-5.1); Sodium 133 mmol/L (136-145)
[2021-11-30] MEDS: heparin 5,000 unit/mL INJ 1 mL 5000 UNIT SUBCUT ×2 (06:21→12:24)
[2021-11-30] MEDS: lactulose oral liq 20 gm/30 mL UDC 30 GM PO (07:59)
[2021-11-30 08:00] VITALS: BP 104/70; PULSE 84; RESP 16; TEMP 37.4; O2SAT 94
[2021-11-30] MEDS: docusate sodium 100 mg Capsule PO (08:00)
[2021-11-30] MEDS: sucralfate 1 gm Tablet PO ×3 (08:01→17:34)
[2021-11-30] MEDS: bumetanide 1 mg Tablet 3 MG PO (09:30)
--- NOTE | 2021-11-30 09:44 | PC.NURSE ---
0910: Dr. Hua rounded on patient and discussed plan of care. Bumex 3 mg was held this am d/t BP of 104/70 during medication administration. Discussed with Dr. Hua at bedside to recheck BP manually and administer Bumex if indicated and start Potassium, give Potassium PO, and potential d/c this afternoon. Patient verbalizes understanding. I elevated BLE in an attempt to alleviate 4+ pitting edema to BLE. I instructed patient to call if she was needing to get up and it was difficult to get out of bed. She verbalizes understanding. 0925: Manual BP 122/70. Checked with Dr. Hua and he gave the okay to administer 3 mg of Bumex as ordered. Bumex and Potassium administered. Will continue to assess BLE edema and fluid/electrolyte status.
--- NOTE | 2021-11-30 09:58 | PC.CHAP ---
Pastoral Care Encounter/Spiritual Assessment Type of Contact [] Declined edge grinder machine visit [] Patient/Family/Request visit [] Outpatient visit [] Follow-up visit [] Physician referral [] Code/Alert [x] Routine visit [] Staff referral [] Actively dying [] Patient sleeping [] Family support [] [] Out of room [] Palliative care [] [] Receiving care in room [] Pre-surgical visit [] Trauma [] Long length of stay [] ICU visit [] Other: Relational/Emotional Strength [x] Patient feels connected with others/family/visitors/staff [] Distress [] Loneliness/isolation [] Abandonment Spirituality of Patient [x] Person of Padmini [x] Attends Scientology of their Padmini [x] Believes in Prayer [] Reads Bible or Orthodoxy materials [] There are Spiritual issues to be addressed Tilting Saw Operator Interventions [x] Prayer [x] Active listening [x] Non-anxious presence [x] Spiritual/emotional support [] Crisis/trauma care [] Spiritual counseling [] Bereavement support [] Provided bereavement packet [] Provided Bible/devotional materials [] Provided toy/stuffed animal, coloring book to patient or family member [] Provided Communion [] Anointing/[place] [] Salvation [x] Completed spiritual assessment [] Other: Impact on Illness or Injury [] Angry [] Fearful [] Anxious [] Often cries [] Exhaustion [] Unable to work [] Unable to attend pentecostalism [] Unable to walk/stand [] Unable to read [] Unable to drive [] Unable to eat/drink [] Unable to sleep [] Unable to be with family [] Patient intubated [] Other: Summary Nurse was in room changing IV bag but instructed Tilting Saw Operator to go ahead with visit. Pt views self as having a second opportunity at life. Recently she had to go to [facility] and she did not believe she would be coming home. She did, believing God gave her additional time. This currently hospital stays she views as a temporary set back. She has several children, four grandchildren and 4 great grandchildren. She has a varied Zoroastrianism background but is currently attending a Taoism orthodoxy in [place]. Time spent with patient 15m
--- NOTE | 2021-11-30 11:33 | PC.NURSE ---
1100: I was informed by housekeeping that a bed bug was discovered in patient's room. Kimberly Wong CNA and I presented to the patient's room and I informed her of the discovery. She verbalizes understanding and denies every knowingly having bed bugs and denies the presence of bites. We assisted her to the bathroom and started a shower for her per protocol, removed all clothing and double-bagged it, removed all bedding and double-bagged it in yellow bags, and housekeeping cleaned the bed. I spoke with patient about moving to a different room, and she declines at this time since she will be d/c'ing from here later today. Spoke with Nolan Chiu with [facility] and informed him and he verbalizes understanding. Room will be closed after patient is d/c'd for further decontamination.
[2021-11-30] MEDS: potassium chloride ER 20 mEq Tablet 40 MEQ PO ×2 (12:22→17:33)
[2021-11-30] MEDS: predniSONE 20 mg Tablet 60 MG PO (12:24)
--- NOTE | 2021-11-30 12:46 | PM.DCS ---
Discharge Providers Date of Admission: 11/29/21 18:23 Date of Discharge: November 30, 2021 Attending Provider at Admission: Brett Engel Attending Provider at Discharge: Lee Hua MD Primary Care Provider: Rajiv Francis DO Diagnoses at Discharge Discharge Diagnosis (1) Hypokalemia: Status: Acute (2) Hypomagnesemia: Status: Acute (3) Anasarca: Status: Acute (4) Acute kidney injury: Status: Acute (5) Abdominal hernia: Status: Acute Reason for Visit Reason for Visit: Dr. Francis sent pt over Hospital Course Hospital Course Pleasant 71-year-old lady directed to the hospital from primary care provider's office due to hyperkalemia.? With recent admission here in transfer to [facility] on 10/20, at that time was admitted due to COVID-19, also with hyponatremia, as well as diffuse edema, and new ALONSO, with progressive anasarca, with no obstructive uropathy noted on CT, normal ejection fraction, with noted proteinuria, thought to be nephrotic, was transferred for additional assessment to [facility], where she states was additionally assessed and monitored.? She states acute injury attributed to COVID-19, was started on Bumex, prednisone 60 mg daily, and states that her edema has been gradually improving. She was sent in by Dr. Can's office due to concerns for hypokalemia In ER today she is found to have potassium as low as 2.3, hypomagnesemia. Patient received several IV and oral courses of potassium placement along with magnesium replacement. The morning of 11/30/2021, her potassium was 3.1, she was given another 40 mEq of IV KCl, along with 40 mg p.o. with her Bumex. I have discharged her on Klor-Con 40 mEq twice daily along with her home Bumex therapy. Follow-up with primary care provider 48 hours for recheck potassium levels. In addition I have discharged her on Mag-Tab once a day, recheck magnesium levels in 48 hours. She continues to have bilateral lower extremity edema, 2+ pitting edema, however significantly improved, she tells me she lost over 40 pounds in the last few months due to significant diuresis, continue home Bumex follow-up with primary care provider in 48 hours recheck creatinine Physical Exam Const: COMMON NORMALS: no acute distress and patient oriented x3 Resp: COMMON NORMALS: normal respiratory effort, No retractions, No use of accessory muscles and clear to auscultation bilaterally AUSCULTATION: clear to auscultation bilaterally Cardio: COMMON NORMALS: regular rate, regular rhythm, S1 normal heart sound present and S2 normal heart sound present RATE: regular rate RHYTHM: regular rhythm HEART SOUNDS: S1 normal heart sound present and S2 normal heart sound present GI: COMMON NORMALS: Normal to inspection, nondistended, normoactive bowel sounds present, Soft to palpation, non-tender and No hepatosplenomegaly present PALPATION: Yes Soft to palpation and Yes No hepatosplenomegaly present Extremity: COMMON NORMALS: no pedal edema Neuro: COMMON NORMALS: patient oriented x3 Psych: COMMON NORMALS: mental status grossly normal Discharge Data Studies Completed and Pending Pending at discharge Category Date Time Status Basic Metabolic Panel AM LABS Lab 12/01/21 04:00 Ordered Basic Metabolic Panel AM LABS Lab 12/02/21 04:00 Ordered Complete Blood Count w/Auto AM LABS Lab 12/01/21 04:00 Ordered Complete Blood Count w/Auto AM LABS Lab 12/02/21 04:00 Ordered Laboratory Results WBC 10.4 10^3/uL (4.0-10.0) H 11/30/21 05:38 RBC 3.45 10^6/uL (4.1-5.3) L 11/30/21 05:38 Hgb 10.8 g/dL (11.5-15.3) L 11/30/21 05:38 Hct 32.8 % (37.0-47.0) L 11/30/21 05:38 MCV 95.1 fl (81-99) 11/30/21 05:38 MCH 31.3 pg (28.0-34.0) 11/30/21 05:38 MCHC 32.9 g/dL (30.0-36.0) 11/30/21 05:38 RDW 15.9 % (12.1-15.1) H 11/30/21 05:38 Plt Count 126 10^3/cmm (130-400) L 11/30/21 05:38 MPV 9.4 fL (7.4-10.4) 11/30/21 05:38 Neut % (Auto) 67.1 % 11/30/21 05:38 Lymph % (Auto) 24.1 % 11/30/21 05:38 [place] % (Auto) 7.9 % 11/30/21 05:38 Eos % (Auto) 0.1 % 11/30/21 05:38 Baso % (Auto) 0.3 % 11/30/21 05:38 Neut # (Auto) 6.95 10^3/uL (1.8-7.7) 11/30/21 05:38 Lymph # (Auto) 2.5 10^3/uL (0.8-4.8) 11/30/21 05:38 [place] # (Auto) 0.8 10^3/uL (0.2-0.9) 11/30/21 05:38 Eos # (Auto) 0.0 10^3/uL (0.0-0.8) 11/30/21 05:38 Baso # (Auto) 0.0 10^3/uL (0.0-0.1) 11/30/21 05:38 Nucleated RBC % (auto) 0 % 11/30/21 05:38 Nucleated RBCs # 0.0 /100WBC 11/30/21 05:38 Sodium 133 mmol/L (136-145) L 11/30/21 05:38 Potassium 3.1 mmol/L (3.5-5.1) L 11/30/21 05:38 Chloride 91 mmol/L (98-107) L 11/30/21 05:38 Carbon Dioxide 32 mmol/L (22-29) H 11/30/21 05:38 Anion Gap 13.1 (5-19) 11/30/21 05:38 BUN 12 mg/dL (8-23) 11/30/21 05:38 Creatinine 0.9 mg/dL (0.5-0.9) 11/30/21 05:38 GFR Calculation Not Reportable 11/30/21 05:38 Glucose 85 mg/dL (65-115) 11/30/21 05:38 Calculated Osmolality 275 mOsm/kg (285-295) L 11/30/21 05:38 Calcium 8.4 mg/dL (8.5-10.5) L 11/30/21 05:38 Magnesium 2.1 mg/dL (1.7-2.3) 11/30/21 05:38 Total Bilirubin 0.3 mg/dL (0.15-1.2) 11/29/21 15:15 AST 15 U/L (0-32) 11/29/21 15:15 ALT 16 U/L (0-33) 11/29/21 15:15 Alkaline Phosphatase 87 IU/L (35-105) 11/29/21 15:15 Total Protein 4.7 g/dL (6.6-8.7) L 11/29/21 15:15 Albumin 2.4 g/dL (3.5-5.2) L 11/29/21 15:15 Globulin 2.3 g/dL (1.3-4.6) 11/29/21 15:15 Lipase 40 U/L (13-60) 11/29/21 15:15 Vitals Last Vital Signs Temp 99.3 F 11/30/21 08:00 Pulse 84 11/30/21 08:00 Resp 16 11/30/21 08:00 BP 104/70 11/30/21 08:00 Pulse Ox 94 11/30/21 08:00 Discharge Plan Discharge Patient Disposition: Home Condition: Stable Prescriptions: New magnesium L-lactate [Magtab] 84 mg tablet extended release 84 mg PO DAILY 30 Days Qty: 30 0RF potassium chloride [Klor-Con M20] 20 mEq tablet,ER particles/crystals 40 meq PO BID 30 Days Qty: 120 0RF Rx Instructions: with bumex Continued sucralfate 1 gram tablet 1 g PO QID 0RF docusate sodium 100 mg Capsule 100 mg PO BID 0RF lactulose 10 gram/15 mL solution 30 ml PO BID 0RF prednisone 20 mg tablet 60 mg PO DAILY@12 0RF Tylenol Ex Str Rapid Release 500 mg Tablet 500 mg PO Q6H PRN (Reason: Pain) 0RF bumetanide 1 mg tablet 3 mg PO BID 0RF Flonase Allergy Relief 50 mcg/actuation spray,suspension 2 spray INTRANASAL DAILY PRN (Reason: Allergy Symptoms) 0RF Rx Instructions: administer into each nostril Dexilant 60 mg capsule,biphase delayed releas 60 mg PO QAM 0RF Discharge Orders: Discharge Order (Routine); Ordered 11/30/21 Ordered By: Lee Hua Referrals: Rajiv Francis, [Primary Care Provider] - Discharge Diet: Advance as tolerated Discharge Activity: Increase activity as tolerated Patient Instructions: Opioid Safety Activity Restrictions/Additional Instructions: -Please take potassium replacement 40 mEq twice daily with Bumex -Continue to restrict fluid intake to less than 1200 mL -Follow-up with primary care provider in 48 hours for recheck potassium levels Discharge Attestations Time Spent in Discharge Care*: less than 30 min Quality Metrics Clinical Quality Measures [ No reported AMI, CVA or VTE this stay] Coding Level of Care Code Acute Chg [facility] note Diagnoses Hypokalemia E87.6 Hypomagnesemia E83.42 Anasarca R60.1 Acute kidney injury N17.9 Abdominal hernia K46.9
[2021-11-30 16:06] LABS: Alanine Aminotransferase 14 U/L (0-33); Albumin Level 2.2 g/dL (3.5-5.2); Alkaline Phosphatase 95 IU/L (35-105); Blood Urea Nitrogen 12 mg/dL (8-23); Calcium 8.1 mg/dL (8.5-10.5); Carbon Dioxide 29 mmol/L (22-29); Chloride 88 mmol/L (98-107); Globulin 2.5 g/dL (1.3-4.6); Glucose 223 mg/dL (65-115); Magnesium 1.8 mg/dL (1.7-2.3); Osmolality Calculated 279 mOsm/kg (285-295); Sodium 131 mmol/L (136-145); Total Bilirubin 0.4 mg/dL (0.15-1.2); Total Protein 4.7 g/dL (6.6-8.7)
[2021-11-30 16:26] LABS: Anion Gap 17.4 (5-19); Aspartate Amino Transferase 14 U/L (0-32); Potassium 3.4 mmol/L (3.5-5.1)
[2021-11-30] MEDS: magnesium lactate 84 mg Tablet PO (17:34)
[2021-11-30 18:38] VITALS: BP 104/70; PULSE 84; RESP 16; TEMP 37.4; O2SAT 94
== END 2021-11-30 18:05 | disposition home or self-care (01) ==
LOC: ER 18:36 → ER IP 19:07 → MEDSURG 20:19
PROVIDERS: Admitting Provider Internal Medicine; Emergency Provider Emergency Medicine; PCP Family Medicine; Visit Provider Family Medicine
DX: E87.6 Hypokalemia (principal); E83.42 Hypomagnesemia; R60.1 Generalized edema; N17.9 Acute kidney failure, unspecified; K46.9 Unspecified abdominal hernia without obstruction or gangrene; Z86.16 Personal history of COVID-19; Z79.52 Long term (current) use of systemic steroids
CPT/HCPCS: 36415; 80048; 80053; 83690; 83735; 84132; 85025; 93005; 96365; 96366; 96367; 96372; 99285; G0378; J1644; J3475; J3480; J7512

== ENCOUNTER → 2021-12-07 10:53 | Outpatient (BNVA) | payer MEDICARE, OTHER, SELFPAY | PROVIDERS: PCP Family Medicine; Visit Provider Family Medicine | DX: N05.0 Unspecified nephritic syndrome with minor glomerular abnormality (principal); R60.1 Generalized edema; E87.1 Hypo-osmolality and hyponatremia; R60.9 Edema, unspecified; E88.09 Other disorders of plasma-protein metabolism, not elsewhere classified | CPT/HCPCS: 80048; 83735 ==

== ENCOUNTER → 2021-12-20 11:30 | Outpatient (BNVA) | payer MEDICARE, OTHER, SELFPAY | PROVIDERS: PCP Family Medicine; Visit Provider Family Medicine | DX: E87.1 Hypo-osmolality and hyponatremia (principal); E87.6 Hypokalemia; N05.0 Unspecified nephritic syndrome with minor glomerular abnormality | CPT/HCPCS: 80048 ==

== ENCOUNTER 2021-12-28 13:51 | Outpatient (CLI) | payer MEDICARE, OTHER, SELFPAY ==
[2021-11-29 10:25] LABS: Anion Gap 10.5 (5-19); Blood Urea Nitrogen 13 mg/dL (8-23); Calcium 8.2 mg/dL (8.5-10.5); Carbon Dioxide 37 mmol/L (22-29); Chloride 89 mmol/L (98-107); Glucose 92 mg/dL (65-115); Osmolality Calculated 278 mOsm/kg (285-295); Sodium 134 mmol/L (136-145)
[2021-11-29 12:55] LABS: Potassium 2.5 mmol/L (3.5-5.1)
[2021-12-28 15:29] LABS: Albumin Level 3.4 g/dL (3.5-5.2); Anion Gap 16.1 (5-19); Blood Urea Nitrogen 13 mg/dL (8-23); Calcium 8.6 mg/dL (8.5-10.5); Carbon Dioxide 25 mmol/L (22-29); Chloride 96 mmol/L (98-107); Glucose 182 mg/dL (65-115); Phosphorus 3.6 mg/dL (2.5-4.5); Potassium 4.1 mmol/L (3.5-5.1); Sodium 133 mmol/L (136-145)
[2021-12-28 15:45] LABS: Urine Creatinine 16 mg/dL (28-217)
[2021-12-28 15:51] LABS: Total Protein, Random Urine 14.5 mg/dL (0.0-20.0)
== END 2021-12-28 13:52 | disposition home or self-care (01) ==
LOC: LAB 13:54
PROVIDERS: Family Medicine Adult Medicine; PCP Family Medicine; Visit Provider Family Medicine
DX: N17.0 Acute kidney failure with tubular necrosis (principal)
CPT/HCPCS: 36415; 80048; 80069; 82570; 84156

== ENCOUNTER 2022-01-26 09:42 | Outpatient (CLI) | payer MEDICARE, OTHER, SELFPAY ==
[2022-01-26 11:05] LABS: Albumin Level 3.4 g/dL (3.5-5.2); Anion Gap 14.5 (5-19); Blood Urea Nitrogen 11 mg/dL (8-23); Calcium 9.2 mg/dL (8.5-10.5); Carbon Dioxide 26 mmol/L (22-29); Chloride 95 mmol/L (98-107); Glucose 84 mg/dL (65-115); Phosphorus 3.3 mg/dL (2.5-4.5); Potassium 4.5 mmol/L (3.5-5.1); Sodium 131 mmol/L (136-145)
[2022-01-26 12:09] LABS: Creatinine Urine, Random 40 mg/dL (28-217)
== END 2022-01-26 09:43 | disposition home or self-care (01) ==
LOC: LAB 09:48
PROVIDERS: PCP Family Medicine; Visit Provider Nurse Practitioner Family
DX: N05.0 Unspecified nephritic syndrome with minor glomerular abnormality (principal)
CPT/HCPCS: 80069; 82575

== ENCOUNTER 2022-02-08 10:07 | Outpatient (CLI) | payer MEDICARE, OTHER, SELFPAY ==
[2022-02-08 11:06] LABS: Urine Creatinine 7 mg/dL (28-217)
[2022-02-08 11:12] LABS: Total Protein, Random Urine 49.2 mg/dL (0.0-20.0)
== END 2022-02-08 10:08 | disposition home or self-care (01) ==
PROVIDERS: PCP Family Medicine; Visit Provider Nurse Practitioner Family
DX: N05.0 Unspecified nephritic syndrome with minor glomerular abnormality (principal)
CPT/HCPCS: 82570; 84156

== ENCOUNTER 2022-03-08 11:27 | Outpatient (CLI) | payer MEDICARE, OTHER, MEDICAID, SELFPAY ==
[2022-03-08 12:46] LABS: Urine Creatinine 9 mg/dL (28-217); Urine Protein Random 11 mg/dL
== END 2022-03-08 11:28 | disposition home or self-care (01) ==
LOC: LAB 11:41
PROVIDERS: PCP Family Medicine; Visit Provider Nurse Practitioner Family
DX: N05.0 Unspecified nephritic syndrome with minor glomerular abnormality (principal)
CPT/HCPCS: 82570; 84156

== ENCOUNTER 2022-03-29 10:08 | Outpatient (RCR) | payer MEDICARE, MEDICAID, SELFPAY ==
[2022-03-15 10:37] LABS: Urine Creatinine 54 mg/dL (28-217)
[2022-03-15 10:43] LABS: Total Protein, Random Urine 22.8 mg/dL (0.0-20.0)
[2022-03-22 10:29] LABS: Creatinine Urine, Random 68 mg/dL (28-217); Microalbum Creatinine Ratio Ur 162 mg/dL (0-20); Microalbumin Random Urine 11 ug/dL (0-20)
[2022-03-29 10:52] LABS: Urine Creatinine 100 mg/dL (28-217)
[2022-03-29 10:58] LABS: Total Protein, Random Urine 37.8 mg/dL (0.0-20.0)
== END 2022-04-03 23:59 | disposition home or self-care (01) ==
LOC: LAB 10:08
PROVIDERS: PCP Family Medicine; Visit Provider Nurse Practitioner Family
DX: N05.0 Unspecified nephritic syndrome with minor glomerular abnormality (principal)
CPT/HCPCS: 82044; 82570; 84156

== ENCOUNTER 2022-04-05 11:49 | Outpatient (CLI) | payer MEDICARE, MEDICAID, SELFPAY ==
[2022-04-05 12:47] LABS: Creatinine Urine, Random 204 mg/dL (28-217)
== END 2022-04-05 11:50 | disposition home or self-care (01) ==
LOC: LAB 11:51
PROVIDERS: PCP Family Medicine; Visit Provider Nurse Practitioner Family
DX: N05.0 Unspecified nephritic syndrome with minor glomerular abnormality (principal)
CPT/HCPCS: 82575; 84156

== ENCOUNTER → 2022-04-07 13:59 | Outpatient (BNVA) | payer MEDICARE, MEDICAID, SELFPAY | PROVIDERS: PCP Family Medicine; Visit Provider Family Medicine | DX: N05.0 Unspecified nephritic syndrome with minor glomerular abnormality (principal); E83.42 Hypomagnesemia; E87.6 Hypokalemia; E87.1 Hypo-osmolality and hyponatremia | CPT/HCPCS: 80053; 83735 ==

== ENCOUNTER 2022-04-12 10:22 | Outpatient (CLI) | payer MEDICARE, MEDICAID, SELFPAY ==
[2022-04-12 11:39] LABS: Creatinine Urine, Random 25 mg/dL (28-217); Microalbumin Random Urine 29 ug/dL (0-20)
[2022-04-12 11:41] LABS: Microalbum Creatinine Ratio Ur 1160 mg/dL (0-20)
== END 2022-04-12 10:23 | disposition home or self-care (01) ==
PROVIDERS: PCP Family Medicine; Visit Provider Nurse Practitioner Family
DX: N05.0 Unspecified nephritic syndrome with minor glomerular abnormality (principal)
CPT/HCPCS: 82044

== ENCOUNTER 2022-05-03 10:32 | Outpatient (RCR) | payer MEDICARE, MEDICAID, SELFPAY ==
[2022-04-19 12:07] LABS: Urine Creatinine 27 mg/dL (28-217)
[2022-04-19 12:12] LABS: Total Protein, Random Urine 20.3 mg/dL (0.0-20.0)
[2022-04-26 14:00] LABS: Creatinine Urine, Random 35 mg/dL (28-217)
[2022-04-26 14:05] LABS: Urine Creatinine 35 mg/dL (28-217)
[2022-04-26 14:07] LABS: Urine Protein Random 28 mg/dL
[2022-05-03 11:17] LABS: Urine Creatinine 15 mg/dL (28-217)
== END 2022-05-04 23:59 | disposition home or self-care (01) ==
LOC: LAB 10:32
PROVIDERS: PCP Family Medicine; Visit Provider Nurse Practitioner Family
DX: N05.0 Unspecified nephritic syndrome with minor glomerular abnormality (principal)
CPT/HCPCS: 36415; 82570; 82575; 84156

== ENCOUNTER 2022-05-17 11:06 | Outpatient (RCR) | payer MEDICARE, MEDICAID, SELFPAY ==
[2022-05-10 12:16] LABS: Creatinine Urine, Random 32 mg/dL (28-217)
[2022-05-17 12:12] LABS: Creatinine Urine, Random 39 mg/dL (28-217)
== END 2022-06-03 23:59 | disposition home or self-care (01) ==
LOC: LAB 11:06
PROVIDERS: PCP Family Medicine; Visit Provider Nurse Practitioner Family
DX: N05.0 Unspecified nephritic syndrome with minor glomerular abnormality (principal)
CPT/HCPCS: 82575

== ENCOUNTER 2022-06-10 12:42 | Outpatient (RCR) | payer MEDICARE, MEDICAID, SELFPAY ==
[2022-06-10 13:44] LABS: Urine Creatinine 30 mg/dL (28-217)
[2022-06-10 13:50] LABS: Total Protein, Random Urine 140.4 mg/dL (0.0-20.0)
[2022-06-10 14:21] LABS: Albumin Level 2.8 g/dL (3.5-5.2); Anion Gap 14.8 (5-19); Blood Urea Nitrogen 14 mg/dL (8-23); Calcium 8.6 mg/dL (8.5-10.5); Carbon Dioxide 27 mmol/L (22-29); Chloride 95 mmol/L (98-107); Glucose 140 mg/dL (65-115); Phosphorus 3.4 mg/dL (2.5-4.5); Potassium 4.8 mmol/L (3.5-5.1); Sodium 132 mmol/L (136-145)
== END 2022-07-04 23:59 | disposition home or self-care (01) ==
LOC: LAB 12:42
PROVIDERS: PCP Family Medicine; Visit Provider Nurse Practitioner Family
DX: N05.0 Unspecified nephritic syndrome with minor glomerular abnormality (principal)
CPT/HCPCS: 80069; 82570; 84156

== ENCOUNTER 2022-08-19 12:09 | Outpatient (CLI) | payer MEDICARE, MEDICAID, SELFPAY ==
[2022-08-19 13:40] LABS: Creatinine Urine, Random 93 mg/dL (28-217); Total Protein, Random Urine 18.5 mg/dL (0.0-20.0)
== END 2022-08-19 12:10 | disposition home or self-care (01) ==
LOC: LAB 12:15
PROVIDERS: PCP Family Medicine; Visit Provider Nurse Practitioner Family
DX: N05.0 Unspecified nephritic syndrome with minor glomerular abnormality (principal)
CPT/HCPCS: 82575; 84156

== ENCOUNTER 2022-08-20 09:47 | Inpatient (IN) | payer MEDICARE, MEDICAID, SELFPAY ==
[2022-08-20] VITALS (18 sets, daily range): BP systolic 86–206; BP diastolic 51–99; PULSE 41–72; RESP 13–23; TEMP 36.5–36.8; O2SAT 94–99; BMI 29.7
--- NOTE | 2022-08-20 10:04 | XRR_ITS ---
PROCEDURE INFORMATION: Exam: XR Chest Exam date and time: 08/20/2022 10:08 AM Age: 71 years old Clinical indication: Cough and dyspnea; Additional info: Dyspnea/cough TECHNIQUE: Imaging protocol: Radiologic exam of the chest. Views: 1 view. COMPARISON: [place] [id number] 10/17/2021 6:01 PM FINDINGS: Lungs: See Heart/Mediastinum finding. Pleural spaces: Unremarkable. No pleural effusion. No pneumothorax. Heart/Mediastinum: Heart is significantly enlarged and increased in size from previous exam. There is pulmonary vascular redistribution indicating elevated central venous pressure. There is a large retrocardiac masslike density presumed represent a large hiatal hernia that is increased in size from previous exam. Bones/joints: Unremarkable for age. XR/XR chest 1V portable [id number] IMPRESSION: 1. Cardiomegaly with elevated central venous pressure progressed from earlier study. 2. Enlarging retrocardiac mass presumed part due to large hiatal hernia.
--- NOTE | 2022-08-20 10:04 | ECG_ITS ---
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1950 Requested By: Saurabh Cid Order Number: [id number] Reading MD: Gabriel Darling Measurements Intervals [place] Rate: 52 P: 19 OK: 140 QRS: -16 QRSD: 97 T: -6 QT: 418 QTc: 392 Interpretive Statements SINUS BRADYCARDIA LEFT VENTRICULAR HYPERTROPHY AND ST-T CHANGE [VOLTAGE CRITERIA PLUS ST/T ABNORMALITY] ANTERIOR MYOCARDIAL INFARCTION , PROBABLY RECENT [40+ ms Q WAVE AND/OR ST/T ABNORMALITY IN V3/V4] AMI Compared to ECG 08/20/2022 10:07:03 No significant changes Electronically Signed On 08-21-2022 15:27:09 PAPER BAG MAKER by Gabriel Darling [id number]
--- NOTE | 2022-08-20 10:07 | ECG_ITS ---
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1950 Requested By: Saurabh Cid Order Number: [id number] Reading MD: Gabriel Darling Measurements Intervals [place] Rate: 46 P: 51 VT: 139 QRS: -24 QRSD: 89 T: -10 QT: 423 QTc: 373 Interpretive Statements SINUS BRADYCARDIA LOW QRS VOLTAGE IN PRECORDIAL LEADS [QRS DEFLECTION < 1.0 mV IN CHEST LEADS] LEFT VENTRICULAR HYPERTROPHY AND ST-T CHANGE [VOLTAGE CRITERIA PLUS ST/T ABNORMALITY] ANTERIOR MYOCARDIAL INFARCTION , PROBABLY RECENT [40+ ms Q WAVE AND/OR ST/T ABNORMALITY IN V3/V4] ACUTE AL Compared to ECG 11/29/2021 15:14:48 Low QRS voltage now present Left ventricular hypertrophy now present Myocardial infarct finding now present Electronically Signed On 08-21-2022 15:28:14 CHAR DUST CLEANER AND SALVAGER by Gabriel Darling [id number]
--- NOTE | 2022-08-20 10:07 | ED_ITS ---
HPI - Chest Pain General: Chief Complaint: Chest Pain Stated Complaint: chest discomfort Time Seen by Provider: 08/20/22 10:03 Source: patient Mode of arrival: ambulatory History of Present Illness: 71-year-old female presents emergency room with a history of chest pain. She has had chest pain since yesterday afternoon. In talking to her she focuses on her reflux symptoms. She has no history of known coronary disease no previous evaluation angiography or stress testing. She did have an echocardiogram done over the unremarkable. She states she has had this in the past has used GI cocktails to get relief but also at other times has had discomfort that she is taken nitro for with relief of chest pain. The pain has been continuous since yesterday and radiates into her left arm she has not noticed anything that makes it better or worse at this time she has not used any nitro or GI cocktail she did use Carafate and omeprazole in addition to the Dexilant she takes daily she had no relief with that. He denies any associated shortness of breath with it addition to the radiation to the arm she has some radiation into her back. MD complaint: chest pain Onset (ago): day(s) (1) Timing of current episode: constant Prior episodes: Yes Onset: during rest Pain location: substernal Pain radiation: left arm and back Severity: mild Quality: tightness, aching and heaviness Relieving factors: nothing Exacerbating factors: nothing Associated symptoms: Deny abdominal pain, dyspnea, fever(s), nausea or vomiting Treatment prior to arrival: other (Carafate) Review of Systems Const: Denies: fever(s), chills, body aches, change in appetite, fatigue or malaise ENMT: Denies: throat pain, ear or mastoid pain, nasal discharge or nasal congestion Card: Denies: chest pain, edema, dyspnea on exertion or orthopnea Resp: Denies: dyspnea, productive cough or non-productive cough GI: Denies: abdominal pain, nausea, vomiting, hematemesis, coffee ground emesis, diarrhea, constipation, bloating, hematochezia or melena : Denies: flank pain, difficulty voiding, dysuria, urinary frequency or urinary urgency Skin/Breast: Denies: rash or pruritus PFS ED PFSH: Medical History Anemia Anxiety and depression Chronic constipation COVID-19 Esophageal dysmotility Generalized anxiety disorder GERD with esophagitis Hypertension Hyponatremia Polycystic kidney Uncontrolled hypertension Family History Father Cancer lung Sister Cancer 2 sisters; breast Mother Hypertension Social History Smoking and tobacco status: never smoked Second hand smoke exposure: No Alcohol intake: never Lives independently: Yes Household members: spouse Marital status: Current occupational status: retired History of recent travel: No Current gender identity: Female Female Reproductive History: Spontaneous abortions: No Physical Exam Const: GENERAL APPEARANCE: cooperative and comfortable ORIENTATION/CONSCIOU SNESS: Yes awake, Yes oriented to person, Yes oriented to place and Yes oriented to time HENMT: COMMON NORMALS: normocephalic, atraumatic and hearing grossly normal bilaterally HEAD & SCALP: normocephalic and atraumatic Resp: COMMON NORMALS: normal respiratory effort, No retractions, No use of accessory muscles and clear to auscultation bilaterally AUSCULTATION: clear to auscultation bilaterally Cardio: COMMON NORMALS: regular rate, regular rhythm and No murmurs present (Cardio) RATE: regular rate RHYTHM: regular rhythm GI: COMMON NORMALS: Soft to palpation and No hepatosplenomegaly present AUSCULTATION: Yes normoactive bowel sounds PALPATION: Yes Soft to palpation, No Tenderness to palpation present (GI), No Guarding due to palpation present (GI) and Yes No hepatosplenomegaly present Extremity: COMMON NORMALS: normal to inspection, capillary refill normal, no clubbing, cyanosis or edema, no calf tenderness and no pedal edema Neuro: SENSORIUM/ORIENTATION: Yes oriented to person, Yes oriented to place and Yes oriented to time Skin: COMMON NORMALS: no rashes or lesions noted GENERAL SKIN EXAM: no rashes or lesions noted Course Vital Signs: Vital signs: Vital Signs Temperature 97.7 F 08/20/22 13:59 Pulse Rate 53 L 08/20/22 15:07 Respiratory Rate 16 08/20/22 13:59 Blood Pressure 124/99 08/20/22 13:59 Pulse Oximetry 97 08/20/22 15:07 Oxygen Delivery Me thod 08/20/22 15:07 MDM - Chest Pain Medical Decision Making EKG shows changes from EKG in October of this year there is T wave inversion in V3 through 6. There is no ST depression. There are some slight ST elevation in 3 and aVF. There is also inversion of T waves in 3 and aVF that is new. T wave in lead II is still upright. After reviewing EKG and talking to the patient presented the EKG to on-call cardiology he felt that may possibly represent a STEMI and recommended that we make it a STEMI alert which was done. Patient was given Plavix heparin and aspirin. He also been given a GI cocktail and reports improvement of symptoms. Patient given Plavix heparin and aspirin. First troponin is in excess of 3000. Patient care transferred to Dr. Lorin Lujan who is taking her to the [facility]. Medical Records I reviewed the patient's medical records. Lab Data I reviewed the patient's lab results. 08/20/22 10:40 08/20/22 10:40 Radiology Impressions Chest X-Ray 08/20/22 10:04 IMPRESSION: 1. Cardiomegaly with elevated central venous pressure progressed from earlier study. 2. Enlarging retrocardiac mass presumed part due to large hiatal hernia. Laboratory Results WBC 10.4 10^3/uL (4.0-10.0) H 08/20/22 10:40 RBC 4.29 10^6/uL (4.1-5.3) 08/20/22 10:40 Hgb 11.5 g/dL (11.5-15.3) 08/20/22 10:40 Hct 36.8 % (37.0-47.0) L 08/20/22 10:40 MCV 85.8 fl (81-99) 08/20/22 10:40 MCH 26.8 pg (28.0-34.0) L 08/20/22 10:40 MCHC 31.3 g/dL (30.0-36.0) 08/20/22 10:40 RDW 16.3 % (12.1-15.1) H 08/20/22 10:40 Plt Count 266 10^3/cmm (130-400) 08/20/22 10:40 MPV 9.1 fL (7.4-10.4) 08/20/22 10:40 Neut % (Auto) 60.6 % 08/20/22 10:40 Lymph % (Auto) 28.3 % 08/20/22 10:40 [place] % (Auto) 9.3 % 08/20/22 10:40 Eos % (Auto) 0.8 % 08/20/22 10:40 Baso % (Auto) 0.4 % 08/20/22 10:40 Neut # (Auto) 6.29 10^3/uL (1.8-7.7) 08/20/22 10:40 Lymph # (Auto) 2.9 10^3/uL (0.8-4.8) 08/20/22 10:40 [place] # (Auto) 1.0 10^3/uL (0.2-0.9) H 08/20/22 10:40 Eos # (Auto) 0.1 10^3/uL (0.0-0.8) 08/20/22 10:40 Baso # (Auto) 0.0 10^3/uL (0.0-0.1) 08/20/22 10:40 Nucleated RBC % (auto) 0 % 08/20/22 10:40 Nucleated RBCs # 0.0 /100WBC 08/20/22 10:40 Sodium 133 mmol/L (136-145) L 08/20/22 10:40 Potassium 4.2 mmol/L (3.5-5.1) 08/20/22 10:40 Chloride 99 mmol/L (98-107) 08/20/22 10:40 Carbon Dioxide 27 mmol/L (22-29) 08/20/22 10:40 Anion Gap 13.2 (5-19) 08/20/22 10:40 BUN 13 mg/dL (8-23) 08/20/22 10:40 Creatinine 0.9 mg/dL (0.5-0.9) 08/20/22 10:40 GFR Calculation Not Reportable 08/20/22 10:40 Glucose 87 mg/dL (65-115) 08/20/22 10:40 Calculated Osmolality 275 mOsm/kg (285-295) L 08/20/22 10:40 Calcium 9.8 mg/dL (8.5-10.5) 08/20/22 10:40 Total Bilirubin 0.4 mg/dL (0.15-1.2) 08/20/22 10:40 AST 101 U/L (0-32) H 08/20/22 10:40 ALT 20 U/L (0-33) 08/20/22 10:40 Alkaline Phosphatase 61 U/L (35-105) 08/20/22 10:40 Troponin T Baseline 3230 ng/L (0-10) H* 08/20/22 10:40 Total Protein 7.0 g/dL (6.6-8.7) 08/20/22 10:40 Albumin 4.1 g/dL (3.5-5.2) 08/20/22 10:40 Globulin 3.2 g/dL (1.3-4.6) 08/20/22 10:40 Discharge Plan Discharge Patient Disposition: Admitted As Inpatient Admit Provider: Gabriel Darling Clinical Impression: ST elevation myocardial infarction (STEMI) Condition: Stable Coding Level of Care Code ED Hydroelectric Component Machinist for Amira Solorzano
[2022-08-20] MEDS: lidocaine 2% viscous 15 ML, aluminum-mag hydrox-simethicon 30 ML, sucralfate oral liq 1 GM PO (10:20)
--- NOTE | 2022-08-20 10:25 | XACV_ITS ---
Exam Room: [facility] Ht: 163 cm Wt: 79 kg BSA: 1.91 m2 Gender: Female : 1950 Exam Priority: Routine Procedure(s): Procedure Description: Diagnostic procedure Procedure Description: PCI procedure Procedure Description: Left Heart Catheterization Procedure Description: Left ventriculography Procedure Description: Drug Eluting Coronary Stent Procedure Description: PTCA Procedure Description: Coronary Angiography Diagnostic Cath Status: Emergency Diagnostic Findings * Acute inferior ST elevation myocardial infarction with Q waves present symptoms onset greater than 24 hours. * Mildly dilated left ventricle with severe inferior wall hypokinesis. Visually estimated ejection fraction 50 to 55%. * Left main 10 to 20% luminal irregularities gives rise to the LAD and the circumflex. Normal anatomic takeoff engaged using a NanoPack 4 diagnostic catheter. * LAD with proximal and mid 30-40%. Diagonal branch #1 moderate size vessel with mid to distal 60 to 70% stenosis. Small caliber vessel in this location not ideal for considerations of revascularization. * Circumflex with 20 to 30% luminal irregularities. * RCA with proximal 30 to 40% disease. Mid severely calcified 60 to 70% stenosis. Mid to distal hazy luminal filling defect consistent with potential ruptured plaque and thrombus nonocclusive. PDA with ostial and proximal 90% disease. ADELINE with mid 30 to 40% disease. Large dominant vessel engaged using a TIG 4 diagnostic catheter.. PCI Status: Emergency PCI Indication: STEMI - Stable (> 12 hrs Sx) Interventional Findings * Percutaneous intervention of the RCA PDA ostial and proximal 90% calcified stenosis was performed with a 6 Uzbek JR4 guide, 0.014 inch run-through wire, balloon angioplasty with 2.0 x 20 mm balloon, stenting with 2.25 x 22 mm resolute drug-eluting stent. The ostium of the PDA was slightly missed by the drug-eluting stent however there was less than 30% residual stenosis PETROS-3 flow no evidence of complication dissection perforation or distal embolization. No further intervention of the PDA was performed at this setting. * Percutaneous intervention of the distal RCA calcified ruptured plaque with luminal filling defect and thrombus was performed with the same equipment as noted above and placement of a 3.5 x 38 mm resolute drug-eluting stent. Completion angiography revealed less than 10 to 20% residual stenosis no evidence of complication dissection perforation or distal embolization. No further intervention of the RCA was performed at this time. Proximal and mid RCA disease was left untreated at this time. If the patient remains symptomatic consider staged intervention at a later date. Recommendations * Uninterrupted dual antiplatelet therapy minimum 3 months post drug-eluting stent placement. The patient remains symptomatic consider staged intervention of the 60 to 70% calcified mid RCA disease. * Referred to cardiac rehab. Interventional RX Recommendation: medical therapy and/or counseling Diagnostic RX Recommendation: PCI w/o planned CABG Anticoagulation: Heparin Pressures Phase:Rest AO : 223 / 79 ( 127 ) @ 11:13:00 AM 225 / 80 ( 127 ) @ 11:14:00 AM 124 / 62 ( 87 ) @ 11:15:00 AM 138 / 69 ( 98 ) @ 11:21:00 AM 141 / 69 ( 99 ) @ 11:21:00 AM 161 / 75 ( 110 ) @ 11:28:00 AM LV : 126 / -1 / 62 @ 11:19:00 AM 148 / -6 / 16 @ 11:20:00 AM 160 / -10 / 19 @ 11:21:00 AM Valves Phase:DefaultPhase AV : 20.0 @ 12:38:28 PM AV Mean Gradient: 20.0 @ 12:38:28 PM Clinical Evaluation EBL: 5mL-10mL Procedural Details Identified patient by full name and date of as verbalized by the patient/guarantor. Admit Source: Emergency department. Immediate Pre-Procedure Time Out. Procedure started. Lidocaine 1% infiltrated to the right radial. Arterial access obtained. Does the consent match the physician's order: N/A Emergent; Informed Consent not obtained due to time critical life threat. Accurate & Complete Informed Consent: N/A Emergent; Informed Consent not obtained due to time critical life threat. Inpatient/Outpatient History & Physical on Chart: N/A Emergent; Informed Consent not obtained due to time critical life threat. If H&P is completed, is and addenduem needed: N/A Emergent; Informed Consent not obtained due to time critical life threat; If yes, is the addendum complete: N/A Emergent; Informed Consent not obtained due to time critical life threat. Visualize and Verify Site with Patient/Guarantor: N/A. Relevant Radiology Images available: N/A Emergent; Informed Consent not obtained due to time critical life threat. Pre-op teaching completed and patient verbalized understanding. The risks, benefits, and alternatives of sedation and/or procedure were discussed by physician. The patient agrees to continue. A 5 comoran JL3.5 catheter in over wire. Multiple views taken of left coronary artery. Catheter removed over the standard wire. A 5 comoran JL5 catheter in over wire. EDP Sample taken: LV 126/-2,62; HR: 68 BPM; SpO2: 100%. EDP Sample taken: LV 148/-7,16; HR: 60 BPM; SpO2: 100%. Pullback taken: LV Off; AO Off; Mean: , Peak to Peak: , SEP: ; HR: 54 BPM; SpO2: 100%. ACT drawn. Results 108 seconds. Therapeutic limits - pre-heparin administration 90-150 seconds and monitoring heparin during a vascular procedure >250 seconds. Aortogram performed in [place] @ 12 mL/second for a total of 25 mL. Pullback taken: LV 160/-11,19; AO 138/69(98); Mean: 20mmHg, Peak to Peak: 20mmHg, SEP: 21sec/min; HR: 63 BPM; SpO2: 100%. Catheter removed over the standard wire. 6 comoran JR 5 guide catheter was inserted over the wire. Multiple views taken of right coronary artery. Runthrough guidewire was advanced through the guide catheter to lesion in the PDA. Inflation number : 1 A AB MINI TREK 2.00X20 RX BALLOON was prepped and advanced across the R PDA , then inflated to 0 FERCHO for 0:07 seconds. ABORTED. Inflation number: 2 The AB MINI TREK 2.00X20 RX BALLOON was reinflated across the R PDA, to 11 FERCHO for 0:30 seconds. Results checked. Balloon out. Inflation Number : 3 A MDT R JEFF 2.25X22 ERNIE -Lot Number# [id number] exp thad 12/17/2024 was prepped and advanced across the R PDA. The stent was deployed at 13 FERCHO for 1:31 seconds. Stent balloon out over wire. Results checked. [place] [address] [place] Darling notified with no further orders. Intact stent out over the wire. Guidliner inserted. Stent inserted to lesion in the distal RCA. Stent inserted to lesion in the distal RCA. Inflation Number : 1 A MDT R JEFF 3.5X38 ERNIE -Lot Number# [id number] exp date 03/07/2025was prepped and advanced across the Dist RCA. The stent was deployed at 13 FERCHO for 1:31 seconds. Results checked. Stent balloon and wire out. Guide catheter out. Results checked. ACT drawn. Results 132 seconds. Therapeutic limits - pre-heparin administration 90-150 seconds and monitoring heparin during a vascular procedure >250 seconds. A TR Band was successful obtaining hemostatsis at the Right Radial artery insertion site. Non system delay. Contrast Allergy and pt decison to use restroom first. Post Procedure: Pulses reassessed and unchanged. PERRLA. Strong, equal hand manager mutual fund bilaterally. No VTE prophylaxis required. Medication's Wasted: Lidocaine 1% = 3 mL. Medication's Wasted: Nitro = 49.6 mg. Medication's Wasted: Other = fentanyl 5 mcg. Medication's Wasted: Heparin = 1000 units. Total IV fluids: 60 mL. Post-op diagnosis: stemi. Complications: none. Estimated blood loss: 5mL-10mL. Responsiveness - Normal response to verbal stimuli; alert and oriented, PERRLA. Airway - Unaffected, no intervention required; spontaneous ventilation. Circulation: W/N/L, pulses unchanged. Nausea/Vomiting: No. Procedure completed. Patient transferred by bed to E.D. Patient transferred by wheelchair to ICU. Vital chart was stopped. Access Site Site: Right Radial artery Sheath Size: 6 Fr Hemostasis Method: TR Band Hemostasis Success: Successful Procedure Medications Start: 11:10 AM Stop: 11:10 AM Medication: Versed 1 mg and Fentanyl 25 mcg Amount: 1 Route: I.V. Start: 11:14 AM Stop: 11:14 AM Medication: Verapamil Amount: 2.5 mg Route: I.A. Start: 11:14 AM Stop: 11:14 AM Medication: Nitrogylcerin Amount: 400 mcg Route: I.A. Start: 11:14 AM Stop: :14 AM Medication: Versed 1 mg and Fentanyl 25 mcg Amount: 1 Route: I.V. Start: 11:22 AM Stop: 11:22 AM Medication: Heparin Amount: 3000 units Route: I.V. Start: 11:55 AM Stop: 11:55 AM Medication: Nitrogylcerin Amount: 200 mcg Route: I.A. Start: 11:55 AM Stop: 11:55 AM Medication: Heparin Amount: 2000 units Route: I.V. I, the attending physician, have reviewed and verified all procedure medications. Yes, all medications given per verbal order Cardiac Arrest: No Report Signatures Finalized by Gabriel Darling MD on 08/21/2022 12:42 PM
[2022-08-20] MEDS: aspirin 81 mg Chew Tablet 324 MG PO (10:28)
[2022-08-20] MEDS: nitroglycerin 1 gm/inch oint Pkt 1 INCH TOPICAL (10:28)
[2022-08-20] MEDS: heparin 5,000 unit/mL INJ 1 mL 4000 UNIT IVP (10:32)
[2022-08-20] MEDS: clopidogrel 300 mg Tablet 600 MG PO (10:32)
[2022-08-20 10:46] LABS: Basophils % 0.4 %; Eosinophils # 0.1 10^3/uL (0.0-0.8); Eosinophils % 0.8 %; Hematocrit 36.8 % (37.0-47.0); Hemoglobin 11.5 g/dL (11.5-15.3); Lymphocytes # 2.9 10^3/uL (0.8-4.8); Lymphocytes % 28.3 %; Mean Corpuscular HGB Conc 31.3 g/dL (30.0-36.0); Mean Corpuscular Hemoglobin 26.8 pg (28.0-34.0); Mean Corpuscular Volume 85.8 fl (81-99); Mean Platelet Volume 9.1 fL (7.4-10.4); Monocytes % 9.3 %; Neutrophils # 6.29 10^3/uL (1.8-7.7); Neutrophils % 60.6 %; Nucleated Red Blood Cells % 0 %; Platelet Count 266 10^3/cmm (130-400); Red Blood Count 4.29 10^6/uL (4.1-5.3); Red Cell Distribution Width 16.3 % (12.1-15.1); White Blood Count 10.4 10^3/uL (4.0-10.0)
[2022-08-20 11:07] LABS: Albumin Level 4.1 g/dL (3.5-5.2); Alkaline Phosphatase 61 U/L (35-105); Potassium 4.2 mmol/L (3.5-5.1); Sodium 133 mmol/L (136-145)
[2022-08-20 11:19] LABS: Troponin(5th) Baseline 3230 ng/L (0-10)
[2022-08-20 11:20] LABS: Alanine Aminotransferase 20 U/L (0-33); Anion Gap 13.2 (5-19); Aspartate Amino Transferase 101 U/L (0-32); Blood Urea Nitrogen 13 mg/dL (8-23); Calcium 9.8 mg/dL (8.5-10.5); Carbon Dioxide 27 mmol/L (22-29); Chloride 99 mmol/L (98-107); Globulin 3.2 g/dL (1.3-4.6); Glucose 87 mg/dL (65-115); Total Bilirubin 0.4 mg/dL (0.15-1.2)
[2022-08-20 11:26] LABS: Osmolality Calculated 275 mOsm/kg (285-295)
--- NOTE | 2022-08-20 12:07 | PM.HP ---
Providers/Chief Complaint Admitting Physician: Phong/Cardiology Primary Care Provider: Rajiv Francis DO Chief Complaint: chest discomfort History of Present Illness Nati Eli is a 71 year old female no prior cardiac history. Has been experience a lot of indigestion as of lately. For least 24 hours prior to admission she had been experiencing indigestion symptoms along with substernal chest discomfort ever in the right side radiating to her back. She presented to the emergency room for evaluation. There was a delay in receiving care as the patient is a lengthy historian. EKG suggestive of an acute inferior myocardial infarction. This was confirmed with the cardiology review. STEMI protocol was activated. Patient was brought to the cardiac Bonderizer Operator. On route she mentioned she had a shellfish allergy. This caused a nonsystem delay in her care. IV Solu-Medrol and Benadryl were administered. Additionally the patient stated she had to go to the bathroom. This caused another delay in receiving care. Review of Systems Const: Denies: fever(s), chills or body aches Eyes: Denies: blurry vision or eye discomfort ENMT: Reports: nasal discharge, post nasal drip and sinus pain; Denies: throat pain, ear or mastoid pain or nasal congestion Card: Reports: chest pain; Denies: syncope Resp: Denies: dyspnea, productive cough, non-productive cough or wheezing GI: Denies: abdominal pain, nausea, vomiting or diarrhea Skin/Breast: Denies: rash, pruritus or sores Medications/Allergies Home Medications Medication Instructions Recorded Confirmed Last Taken Type docusate sodium 100 mg capsule 100 mg PO BID 10/05/21 07/25/22 11/29/21 09:00 History acetaminophen 500 mg tablet 500 mg PO Q6H PRN Pain 11/29/21 07/25/22 11/29/21 10:30 History fluticasone propionate 50 2 spray intranasal DAILY PRN 11/29/21 07/25/22 Unknown History mcg/actuation nasal Allergy Symptoms spray,suspension (Flonase Allergy Relief) clonidine HCl 0.1 mg tablet 0.05 mg PO BID #60 tabs 05/31/22 07/25/22 Unknown Rx magnesium L-lactate 84 mg See Rx Instructions .Route 06/30/22 07/25/22 Unknown Rx tablet,extended release (Magtab) .COMPLEX #30 tabs bumetanide 1 mg tablet 1 mg PO DAILY #90 tabs 07/06/22 07/25/22 Unknown Rx sucralfate 1 gram tablet 1 g PO QID #360 tabs 07/06/22 07/25/22 Unknown Rx lactulose 10 gram/15 mL oral See Rx Instructions .Route 07/11/22 07/25/22 Unknown Rx solution .COMPLEX #237 mL doxycycline hyclate 100 mg capsule 100 mg PO BID 5 days #10 caps 07/23/22 07/25/22 Unknown Rx prednisone 20 mg tablet 55 mg PO DAILY 07/23/22 07/25/22 Unknown History azithromycin 250 mg tablet See Rx Instructions PO .COMPLEX #6 07/25/22 07/25/22 Unknown Rx tabs dexlansoprazole 60 mg 60 mg PO QAM #30 caps 08/01/22 Unknown Rx capsule,biphase delayed release (Dexilant) losartan 50 mg tablet See Rx Instructions .Route 08/01/22 Unknown Rx .COMPLEX #30 tabs potassium chloride 20 mEq 20 meq PO DAILY #90 tabs 08/01/22 Unknown Rx tablet,extended release(part/cryst) (Klor-Con M) Allergies Allergy/AdvReac Type Severity Reaction Status Date / Time iodine Allergy Unknown Unknown Verified 07/25/22 11:32 Iodine and Iodide Containing Allergy Unknown ALGY-Hives Unverified 07/25/22 11:32 Produc [Iodine and Iodide Containing Products] shellfish derived Allergy Unknown Unknown Verified 07/25/22 11:32 doxycycline Allergy severe Verified 07/25/22 11:37 dizziness NSAIDS (Non-Steroidal Allergy Unknown Verified 07/25/22 11:32 Anti-Inflamma lisinopril AdvReac Intermediate COUGH Verified 07/25/22 11:32 PFSH Acute PFSH: Medical History Anemia Anxiety and depression Chronic constipation COVID-19 Esophageal dysmotility Generalized anxiety disorder GERD with esophagitis Hypertension Hyponatremia Polycystic kidney Uncontrolled hypertension Family History Father Cancer lung Sister Cancer 2 sisters; breast Mother Hypertension Social History Smoking and tobacco status: never smoked Second hand smoke exposure: No Alcohol intake: never Lives independently: Yes Household members: spouse Marital status: Current occupational status: retired History of recent travel: No Current gender identity: Female Female Reproductive History: Spontaneous abortions: No Vitals/I&O/Wt Last Vital Signs Temp 98.0 F 08/20/22 09:51 Pulse 56 L 08/20/22 10:16 Resp 16 08/20/22 10:16 BP 155/77 08/20/22 10:16 Pulse Ox 99 08/20/22 10:16 O2 Del Method 08/20/22 09:51 Weight last 48 hrs Weight 173 lb 3.2 oz Physical Exam Const: COMMON NORMALS: no acute distress and patient oriented x3 Resp: COMMON NORMALS: normal respiratory effort, No retractions, No use of accessory muscles and clear to auscultation bilaterally AUSCULTATION: clear to auscultation bilaterally Cardio: COMMON NORMALS: regular rate, regular rhythm, S1 normal heart sound present and S2 normal heart sound present RATE: regular rate RHYTHM: regular rhythm HEART SOUNDS: S1 normal heart sound present and S2 normal heart sound present GI: COMMON NORMALS: Normal to inspection, nondistended, normoactive bowel sounds present, Soft to palpation, non-tender and No hepatosplenomegaly present PALPATION: Yes Soft to palpation and Yes No hepatosplenomegaly present Extremity: NARRATIVE EXTREMITY EXAM: Below the knee edema Neuro: COMMON NORMALS: patient oriented x3 Psych: COMMON NORMALS: mental status grossly normal Data 08/20/22 10:40 08/20/22 10:40 A&P Assessment and plan (1) Acute inferior myocardial infarction: Plan Patient is agreeable with recommendation to proceed with emergent cardiac catheterization and possible percutaneous revascularization. She accepts the periprocedural 1 to 3% risk of bleeding infection stroke heart attack renal failure need for emergent surgery and and is aware backup cardiothoracic surgery nephrology and vascular surgery either in [place] or [place] or [place]. Based on results further recommendations will be made. Attestations Medical Necessity Statement*: Patient is being admitted for an acute inferior myocardial infarction as an inpatient. Expectation is for 2 midnight stay. However for recovery is accelerated she may be able to be discharged after 1 midnight stay. Coding Level of Care Code Acute Ssrs Report Developer for Amira Solorzano Diagnoses Acute inferior myocardial infarction I21.19
[2022-08-20] MEDS: sodium chloride 0.9% 1,000 ML 100 ML IV ×2 (12:40→21:31)
[2022-08-20 13:37] LABS: Troponin 5 2HR 3416 ng/L (0-10); Troponin 5 2HR Delta 186 ABS# (0-10)
--- NOTE | 2022-08-20 14:39 | ECG_ITS ---
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: : 1950 Requested By: Saurabh Cid Order Number: [id number] Reading MD: Gabriel Darling Measurements Intervals [place] Rate: 51 P: 23 [place]: 150 QRS: -26 QRSD: 94 T: -37 QT: 462 QTc: 428 Interpretive Statements SINUS BRADYCARDIA POSSIBLE LEFT ATRIAL ENLARGEMENT [-0.1mV P-WAVE IN V1/V2] POSSIBLE LEFT VENTRICULAR HYPERTROPHY [VOLTAGE CRITERIA PLUS LAE OR QRS WIDENING] ANTERIOR MYOCARDIAL INFARCTION , PROBABLY RECENT [40+ ms Q WAVE AND/OR ST/T ABNORMALITY IN V3/V4] Compared to ECG 08/20/2022 10:41:55 Evolutionary changes present for inferior acute MT s/p PCI RCA Electronically Signed On 08-21-2022 15:48:31 CHARRER by Gabriel Darling [id number]
--- NOTE | 2022-08-20 16:08 | ECG_ITS ---
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 Compared to ECG 08/20/2022 14:39:59 Myocardial infarct finding no longer present Electronically Signed On 08-21-2022 15:44:19 MICROFILM MACHINE OPERATOR by Gabriel Darling [id number]
[2022-08-20] MEDS: enoxaparin 40 mg/0.4 mL Syringe SUBCUT (16:22)
[2022-08-20 17:14] LABS: Troponin 5 6HR 3552 ng/L (0-10); Troponin 5 6HR Delta 322 ng/L (0-12)
[2022-08-20] MEDS: metoprolol tartrate 50 mg Tablet PO (17:52)
--- NOTE | 2022-08-20 19:03 | PC.NURSE ---
Right TR band removed at 1539 with no complications. Pulses remained throughout placement and are currently 3+. Clear bandage in place with no bleeding noted at this time. Patient remains in SB/SR and continues to deny pain. Dr. Darling notified of home meds via telephone and notes he will address these in the morning.
[2022-08-20] MEDS: alum-mag-hydroxide-sime 30 mL UDC PO ×2 (19:23→23:06)
[2022-08-21] VITALS (14 sets, daily range): BP systolic 110–162; BP diastolic 60–94; PULSE 40–69; RESP 13–21; TEMP 36.6–36.9; O2SAT 94–98
[2022-08-21 04:51] LABS: Basophils % 0.1 %; Hematocrit 30.4 % (37.0-47.0); Hemoglobin 9.5 g/dL (11.5-15.3); Lymphocytes # 2.4 10^3/uL (0.8-4.8); Lymphocytes % 21.8 %; Mean Corpuscular HGB Conc 31.3 g/dL (30.0-36.0); Mean Corpuscular Hemoglobin 26.8 pg (28.0-34.0); Mean Corpuscular Volume 85.6 fl (81-99); Mean Platelet Volume 9.2 fL (7.4-10.4); Monocytes # 0.9 10^3/uL (0.2-0.9); Monocytes % 8.4 %; Neutrophils % 69.1 %; Nucleated Red Blood Cells % 0 %; Platelet Count 235 10^3/cmm (130-400); Red Blood Count 3.55 10^6/uL (4.1-5.3); Red Cell Distribution Width 16.3 % (12.1-15.1)
[2022-08-21 05:17] LABS: Anion Gap 10.3 (5-19); Blood Urea Nitrogen 15 mg/dL (8-23); Calcium 8.5 mg/dL (8.5-10.5); Carbon Dioxide 25 mmol/L (22-29); Chloride 102 mmol/L (98-107); Glucose 82 mg/dL (65-115); Osmolality Calculated 276 mOsm/kg (285-295); Potassium 4.3 mmol/L (3.5-5.1); Sodium 133 mmol/L (136-145)
[2022-08-21] MEDS: sodium chloride 0.9% 1,000 ML 100 ML IV (07:01)
[2022-08-21] MEDS: metoprolol tartrate 50 mg Tablet PO ×2 (08:36→14:05)
[2022-08-21] MEDS: aspirin 81 mg EC Tablet PO (08:36)
[2022-08-21] MEDS: clopidogrel 75 mg Tablet PO (08:36)
--- NOTE | 2022-08-21 10:00 | ECG_ITS ---
[facility] Test Date: 2022-08-21 Pat Name: Nati Eli Department: Room: ICU01 Gender: Female Keyboard Operator: : 1950 Requested By: Gabriel Darling Order Number: [id number] Reading MD: Gabriel Darling Measurements Intervals [place] Rate: 46 P: 58 [place]: 155 QRS: -19 QRSD: 88 T: -49 QT: 476 QTc: 418 Interpretive Statements SINUS BRADYCARDIA MODERATE T-WAVE ABNORMALITY, CONSIDER LATERAL ISCHEMIA [-0.1+ mV T-WAVE IN I/aVL/V5/V6] MODERATE T-WAVE ABNORMALITY, CONSIDER INFERIOR ISCHEMIA [-0.1+ mV T-WAVE IN II/aVF] Inferior infarct with evolutionary changes post cath PCI. Compared to ECG 08/20/2022 17:45:21 Myocardial infarct finding now present. Electronically Signed On 08-21-2022 15:37:59 LAYUP WORKER by Gabriel Darling [id number]
--- NOTE | 2022-08-21 12:45 | PM.DCS ---
Discharge Providers Date of Admission: 08/20/22 12:07 Date of Discharge: August 21, 2022 Attending Provider at Admission: Gabriel Darling MD Attending Provider at Discharge: Gabriel Darling MD Consults: None Primary Care Provider: Rajiv Francis DO Diagnoses at Discharge Discharge Diagnosis (1) Acute inferior myocardial infarction: Details from hospital stay: Patient presented to the emergency room with greater than 24 hours of symptoms of indigestion-like complaints and substernal chest discomfort and back discomfort. EKG showed ST elevation in inferior leads. Patient created a non system delay related to decision making process and desire to utilize the bathroom before getting on the cath table. Diagnostic cardiac cath was performed. PCI of the RCA and the RCA PDA was performed. Following day the patient's symptoms improved significantly with exception of her indigestion-like symptoms which still persist. She states she is feeling much better and wished to go home. She was discharged home in stable condition on medical therapy. She is been instructed to follow-up with cardiology in 2 to 4 weeks. Status: Acute Reason for Visit Reason for Visit: chest discomfort Brief History: See above Hospital Course Hospital Course Uneventful Physical Exam Const: COMMON NORMALS: no acute distress and patient oriented x3 HENMT: COMMON NORMALS: normocephalic HEAD & SCALP: normocephalic Eye: COMMON NORMALS: Equal, round and reactive pupils present PUPIL: Yes Equal, round and reactive pupils present Resp: COMMON NORMALS: normal respiratory effort Cardio: COMMON NORMALS: regular rate RATE: regular rate Extremity: COMMON NORMALS: normal to inspection Neuro: COMMON NORMALS: patient oriented x3, CN's II-XII intact bilaterally, moves all extremities and no focal motor deficits Psych: COMMON NORMALS: mental status grossly normal Skin: NARRATIVE SKIN EXAM: Right radial access site with good hemostasis and no evidence of vascular complication or compromise and palpable pulse Discharge Data Studies Completed and Pending Completed Studies During Hospitalization Category Date Time Status THERAPEUTIC RECREATION ASSISTANT request for service Stat Exams 08/20/22 10:25 Ordered XR chest 1V portable [id number] Stat Exams 08/20/22 10:04 Completed Radiology Impressions Chest X-Ray 08/20/22 10:04 IMPRESSION: 1. Cardiomegaly with elevated central venous pressure progressed from earlier study. 2. Enlarging retrocardiac mass presumed part due to large hiatal hernia. Laboratory Results WBC 11.0 10^3/uL (4.0-10.0) H 08/21/22 04:28 RBC 3.55 10^6/uL (4.1-5.3) L 08/21/22 04:28 Hgb 9.5 g/dL (11.5-15.3) L 08/21/22 04:28 Hct 30.4 % (37.0-47.0) L 08/21/22 04:28 MCV 85.6 fl (81-99) 08/21/22 04:28 MCH 26.8 pg (28.0-34.0) L 08/21/22 04:28 MCHC 31.3 g/dL (30.0-36.0) 08/21/22 04:28 RDW 16.3 % (12.1-15.1) H 08/21/22 04:28 Plt Count 235 10^3/cmm (130-400) 08/21/22 04:28 MPV 9.2 fL (7.4-10.4) 08/21/22 04:28 Neut % (Auto) 69.1 % 08/21/22 04:28 Lymph % (Auto) 21.8 % 08/21/22 04:28 Louisa % (Auto) 8.4 % 08/21/22 04:28 Eos % (Auto) 0.0 % 08/21/22 04:28 Baso % (Auto) 0.1 % 08/21/22 04:28 Neut # (Auto) 7.60 10^3/uL (1.8-7.7) 08/21/22 04:28 Lymph # (Auto) 2.4 10^3/uL (0.8-4.8) 08/21/22 04:28 Louisa # (Auto) 0.9 10^3/uL (0.2-0.9) 08/21/22 04:28 Eos # (Auto) 0.0 10^3/uL (0.0-0.8) 08/21/22 04:28 Baso # (Auto) 0.0 10^3/uL (0.0-0.1) 08/21/22 04:28 Nucleated RBC % (auto) 0 % 08/21/22 04:28 Nucleated RBCs # 0.0 /100WBC 08/21/22 04:28 Sodium 133 mmol/L (136-145) L 08/21/22 04:28 Potassium 4.3 mmol/L (3.5-5.1) 08/21/22 04:28 Chloride 102 mmol/L (98-107) 08/21/22 04:28 Carbon Dioxide 25 mmol/L (22-29) 08/21/22 04:28 Anion Gap 10.3 (5-19) 08/21/22 04:28 BUN 15 mg/dL (8-23) 08/21/22 04:28 Creatinine 0.7 mg/dL (0.5-0.9) 08/21/22 04:28 GFR Calculation Not Reportable 08/21/22 04:28 Glucose 82 mg/dL (65-115) 08/21/22 04:28 Calculated Osmolality 276 mOsm/kg (285-295) L 08/21/22 04:28 Calcium 8.5 mg/dL (8.5-10.5) 08/21/22 04:28 Total Bilirubin 0.4 mg/dL (0.15-1.2) 08/20/22 10:40 AST 101 U/L (0-32) H 08/20/22 10:40 ALT 20 U/L (0-33) 08/20/22 10:40 Alkaline Phosphatase 61 U/L (35-105) 08/20/22 10:40 Troponin T Baseline 3230 ng/L (0-10) H* 08/20/22 10:40 Troponin T 120 Minute 3416 ng/L (0-10) H 08/20/22 12:45 Delta Troponin T 186 ABS# (0-10) H* 08/20/22 12:45 Troponin T Hi Sens 6Hr 3552 ng/L (0-10) H 08/20/22 16:30 Troponin T Hi Sens 6Hr Delta 322 ng/L (0-12) H* 08/20/22 16:30 Total Protein 7.0 g/dL (6.6-8.7) 08/20/22 10:40 Albumin 4.1 g/dL (3.5-5.2) 08/20/22 10:40 Globulin 3.2 g/dL (1.3-4.6) 08/20/22 10:40 Procedures Performed Cardiac cath August 20, 2022. See fully dictated report Vitals Last Vital Signs Temp 97.9 F 08/21/22 08:00 Pulse 51 L 08/21/22 11:00 Resp 17 08/21/22 11:00 BP 119/70 08/21/22 12:00 Pulse Ox 98 08/21/22 11:00 O2 Del Method 08/21/22 09:26 Discharge Plan Discharge Patient Disposition: Home Condition: Stable Prescriptions: New atorvastatin 40 mg Tablet 40 mg PO BEDTIME Qty: 30 11RF clopidogrel 75 mg Tablet 75 mg PO DAILY Qty: 30 11RF metoprolol tartrate 50 mg Tablet 50 mg PO BID Qty: 60 11RF nitroglycerin 0.4 mg Tablet, Sublingual 0.4 mg sublingual Q5M PRN (Reason: Chest Pain) Qty: 25 11RF aspirin [Children's Aspirin] 81 mg tablet,chewable 81 mg PO DAILY Qty: 100 3RF Continued sucralfate 1 gram tablet 1 g PO QID Qty: 360 0RF bumetanide 1 mg tablet 1 mg PO DAILY Qty: 90 2RF prednisone 20 mg tablet 35 mg PO DAILY dexlansoprazole [Dexilant] 60 mg capsule,biphase delayed releas 60 mg PO QAM Qty: 30 3RF Klor-Con M20 20 mEq tablet,ER particles/crystals 20 meq PO DAILY Qty: 90 1RF Rx Instructions: with bumex docusate sodium 100 mg Capsule 100 mg PO BID acetaminophen 500 mg Tablet 500 mg PO Q6H PRN (Reason: Pain) losartan 50 mg tablet 50 mg PO DAILY lactulose 10 gram/15 mL solution 30 ml PO BID PRN (Reason: Constipation) Discharge Orders: Discharge Order (Routine); Ordered 08/21/22 Ordered By: Gabriel Darling Referrals: Rajiv Francis DO [Primary Care Provider] - Patient Instructions: Opioid Safety Discharge Attestations Time Spent in Discharge Care*: greater than 30 min Quality Metrics Clinical Quality Measures [ Acute Myocardial Infaction { Clinical Trial Participant: No; Contraindication to aspirin: None; Aspirin prescribed; Contraindication to statin: None; Statin prescribed;}] Coding Level of Care Code Acute Chg FW DC note Diagnoses Acute inferior myocardial infarction I21.19
[2022-08-21] MEDS: enoxaparin 40 mg/0.4 mL Syringe SUBCUT (14:05)
--- NOTE | 2022-08-21 14:27 | PC.NURSE ---
Pt was discharged to personal vehicle at 1400 via wheelchair on room air. All discharge instructions in hand.
== END 2022-08-21 14:00 | disposition home or self-care (01) | DRG 247 ==
LOC: ER 10:27 → CCL 10:54 → ICU 12:23
PROVIDERS: Admitting Provider Internal Medicine Cardiovascular Disease; Emergency Provider Family Medicine; PCP Family Medicine; Visit Provider Internal Medicine Cardiovascular Disease
PROC: 027135Z Dilation of Coronary Artery, Two Arteries with Two Drug-eluting Intraluminal Devices, Percutaneous Approach (ICD-10-PCS; principal; 2022-08-20 11:00)
PROC: 027135Z Dilation of Coronary Artery, Two Arteries with Two Drug-eluting Intraluminal Devices, Percutaneous Approach (ICD-10-PCS; 2022-08-20 11:00)
DX: I21.19 ST elevation (STEMI) myocardial infarction involving other coronary artery of inferior wall (principal); I25.10 Atherosclerotic heart disease of native coronary artery without angina pectoris; I10 Essential (primary) hypertension; K21.9 Gastro-esophageal reflux disease without esophagitis
CPT/HCPCS: 36415; 71045; 80048; 80053; 82575; 84156; 84484; 85025; 85347; 93005; 93458; 96365; 96372; 96374; 99152; 99153; 99285; C1725; C1769; C1874; C1887; C1894; C9600; J0461; J1200; J1644; J1650; J2250; J2930; J3010; J3490; J7030; Q9967

== ENCOUNTER 2022-08-30 10:34 | Outpatient (CLI) | payer MEDICARE, MEDICAID, SELFPAY ==
[2022-08-30 11:20] LABS: Urine Creatinine 65 mg/dL (28-217)
[2022-08-30 11:25] LABS: Total Protein, Random Urine 16.8 mg/dL (0.0-20.0)
== END 2022-08-30 10:35 | disposition home or self-care (01) ==
LOC: LAB 10:40
PROVIDERS: PCP Family Medicine; Visit Provider Nurse Practitioner Family
DX: N05.0 Unspecified nephritic syndrome with minor glomerular abnormality (principal)
CPT/HCPCS: 82570; 84156

== ENCOUNTER → 2022-09-08 11:40 | Outpatient (BNVA) | payer MEDICARE, MEDICAID, SELFPAY | PROVIDERS: PCP Family Medicine; Visit Provider Family Medicine | DX: N05.0 Unspecified nephritic syndrome with minor glomerular abnormality (principal) | CPT/HCPCS: 82043 ==

== ENCOUNTER → 2022-09-14 11:56 | Outpatient (BNVA) | payer MEDICARE, MEDICAID, SELFPAY | PROVIDERS: PCP Family Medicine; Visit Provider Internal Medicine | DX: I25.10 Atherosclerotic heart disease of native coronary artery without angina pectoris (principal); I10 Essential (primary) hypertension | CPT/HCPCS: 99214 ==

== ENCOUNTER 2022-09-23 02:25 | Emergency (ER) | payer MEDICARE, MEDICAID, SELFPAY ==
--- NOTE | 2022-09-23 02:26 | XRR_ITS ---
PROCEDURE INFORMATION: Exam: XR Chest Exam date and time: 09/23/2022 2:41 AM Age: 71 years old Clinical indication: Chest pressure; Prior surgery; Surgery type: Coronary stents; Patient HX: C/O chest pain; Additional info: Cp TECHNIQUE: Imaging protocol: Radiologic exam of the chest. Views: 1 view. COMPARISON: CR (CHEST, ) 20/08/2022 10:08 FINDINGS: Lungs: Unremarkable. No consolidation. Pleural spaces: Unremarkable. No pleural effusion. No pneumothorax. Heart/Mediastinum: The heart is quite large. Moderate-sized hiatal hernia. Vasculature: Advanced diffuse vascular calcification noted. Bones/joints: Unremarkable. XR/XR chest 1V portable [id number] IMPRESSION: 1. No acute finding. Lung base opacities and effusions have markedly improved from 10/17/2021. 2. Large heart and moderate-sized hiatal hernia.
[2022-09-23 02:27] VITALS: BP 191/91; PULSE 54; TEMP 37.2; O2SAT 96; BMI 29.2
--- NOTE | 2022-09-23 02:31 | ECG_ITS ---
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 Measurements Intervals [place] Rate: 51 P: 44 IN: 176 QRS: 3 QRSD: 90 T: -48 QT: 453 QTc: 419 Interpretive Statements SINUS BRADYCARDIA POSSIBLE LEFT ATRIAL ENLARGEMENT [-0.1mV P-WAVE IN V1/V2] POSSIBLE ANTERIOR MYOCARDIAL INFARCTION , OF INDETERMINATE AGE [30 ms Q WAVE IN V3/V4, OR R < 0.2 mV IN V4] MODERATE T-WAVE ABNORMALITY, CONSIDER LATERAL ISCHEMIA [-0.1+ mV T-WAVE IN I/aVL/V5/V6] MODERATE T-WAVE ABNORMALITY, CONSIDER INFERIOR ISCHEMIA [-0.1+ mV T-WAVE IN II/aVF] Compared to ECG 08/21/2022 09:23:46 No significant changes Electronically Signed On 09-23-2022 14:39:18 PHARMACY TECH CUSTOMER SERVICE by Matthew Kinsey M.D. [email or web address] [email or web address]/store/[id number] f
--- NOTE | 2022-09-23 02:34 | ED_ITS ---
HPI - Chest Pain General: Chief Complaint: Chest Pain Stated Complaint: CP Time Seen by Provider: 09/23/22 02:25 Source: patient and EMS Mode of arrival: EMS Limitations: no limitations History of Present Illness: 71-year-old female has had a history of a heart attack in August she states that tonight she started having some chest pain at midnight states is very sharp pain she took 1 nitro and then the pain is resolved she is been pain-free for roughly an hour denies any pain currently denies any shortness of breath denies any nausea. Associated symptoms: Deny abdominal pain, dyspnea, fever(s), nausea or vomiting Review of Systems Const: Denies: fever(s), chills, body aches or change in appetite Eyes: Denies: blurry vision or eye discomfort ENMT: Denies: throat pain or dental pain Card: Reports: chest pain Resp: Denies: dyspnea GI: Denies: abdominal pain, nausea, vomiting or diarrhea : Denies: dysuria Musc: Denies: neck pain or back pain Skin/Breast: Denies: rash Neuro: Denies: headache(s) Psych: Denies: depression Jeffery/Lymph: Denies: easy bruising All/Imm: Denies: urticaria PFSH ED PFSH: Medical History Anemia Anxiety and depression Chronic constipation COVID-19 Esophageal dysmotility Generalized anxiety disorder GERD with esophagitis Hypertension Hyponatremia Polycystic kidney Uncontrolled hypertension Family History Father Cancer lung Sister Cancer 2 sisters; breast Mother Hypertension Social History Smoking and tobacco status: never smoked Second hand smoke exposure: No Alcohol intake: never Lives independently: Yes Household members: spouse Marital status: Current occupational status: retired History of recent travel: No Current gender identity: Female Female Reproductive History: Spontaneous abortions: No Physical Exam Const: COMMON NORMALS: no acute distress, patient oriented x3 and healthy a ppearing HENMT: COMMON NORMALS: normocephalic and atraumatic HEAD & SCALP: normocephalic and atraumatic Eye: COMMON NORMALS: Equal, round and reactive pupils present and EOMs intact bilaterally PUPIL: Yes Equal, round and reactive pupils present Neck/C-Spine: COMMON NORMALS: full ROM and supple Chest: COMMONS NORMALS: normal inspection of the chest and normal palpation of entire chest wall Resp: COMMON NORMALS: normal respiratory effort, No retractions, No use of accessory muscles and clear to auscultation bilaterally AUSCULTATION: clear to auscultation bilaterally Cardio: COMMON NORMALS: regular rate, regular rhythm and No murmurs present (Cardio) RATE: regular rate RHYTHM: regular rhythm GI: COMMON NORMALS: Normal to inspection, nondistended, normoactive bowel sounds present, Soft to palpation, non-tender and no masses PALPATION: Yes Soft to palpation Extremity: COMMON NORMALS: normal to inspection and full ROM Neuro: COMMON NORMALS: patient oriented x3, moves all extremities and no focal motor deficits Psych: COMMON NORMALS: mental status grossly normal, Normal thought process p resent and cooperative THOUGHT PROCESS: Normal thought process present Skin: COMMON NORMALS: no rashes or lesions noted and no wounds GENERAL SKIN EXAM: no rashes or lesions noted Course Vital Signs: Vital signs: Vital Signs Temperature 99.0 F 09/23/22 02:27 Pulse Rate 54 L 09/23/22 02:27 Blood Pressure 191/91 09/23/22 02:27 Pulse Oximetry 96 09/23/22 02:27 Oxygen Delivery Me thod 09/23/22 02:27 MDM - Chest Pain Medical Decision Making Patient presents with chest pain she has been chest pain-free here her initial repeat troponin here negative will she is stable for discharge has no signs of acute coronary syndrome she is to 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 Lab Data 09/23/22 02:00 09/23/22 02:00 Radiology Impressions Chest X-Ray 09/23/22 02:26 IMPRESSION: 1. No acute finding. Lung base opacities and effusions have markedly improved from 10/17/2021. 2. Large heart and moderate-sized hiatal hernia. Laboratory Results WBC 6.9 10^3/uL (4.0-10.0) 09/23/22 02:00 RBC 3.99 10^6/uL (4.1-5.3) L 09/23/22 02:00 Hgb 10.4 g/dL (11.5-15.3) L 09/23/22 02:00 Hct 32.7 % (37.0-47.0) L 09/23/22 02:00 MCV 82.0 fl (81-99) 09/23/22 02:00 MCH 26.1 pg (28.0-34.0) L 09/23/22 02:00 MCHC 31.8 g/dL (30.0-36.0) 09/23/22 02:00 RDW 15.9 % (12.1-15.1) H 09/23/22 02:00 Plt Count 319 10^3/cmm (130-400) 09/23/22 02:00 MPV 10.9 fL (7.4-10.4) H 09/23/22 02:00 Neut % (Auto) 50.4 % 09/23/22 02:00 Lymph % (Auto) 33.7 % 09/23/22 02:00 Ashley % (Auto) 13.3 % 09/23/22 02:00 Eos % (Auto) 1.6 % 09/23/22 02:00 Baso % (Auto) 0.7 % 09/23/22 02:00 Neut # (Auto) 3.45 10^3/uL (1.8-7.7) 09/23/22 02:00 Lymph # (Auto) 2.3 10^3/uL (0.8-4.8) 09/23/22 02:00 Ashley # (Auto) 0.9 10^3/uL (0.2-0.9) 09/23/22 02:00 Eos # (Auto) 0.1 10^3/uL (0.0-0.8) 09/23/22 02:00 Baso # (Auto) 0.1 10^3/uL (0.0-0.1) 09/23/22 02:00 Nucleated RBC % (auto) 0 % 09/23/22 02:00 Nucleated RBCs # 0.0 /100WBC 09/23/22 02:00 PT 13.30 SECONDS (12.1-14.9) 09/23/22 02:00 INR 0.99 (0.8-1.2) 09/23/22 02:00 Sodium 129 mmol/L (136-145) L 09/23/22 02:00 Potassium 4.4 mmol/L (3.5-5.1) 09/23/22 02:00 Chloride 94 mmol/L (98-107) L 09/23/22 02:00 Carbon Dioxide 25 mmol/L (22-29) 09/23/22 02:00 Anion Gap 14.4 (5-19) 09/23/22 02:00 BUN 13 mg/dL (8-23) 09/23/22 02:00 Creatinine 0.9 mg/dL (0.5-0.9) 09/23/22 02:00 GFR Calculation Not Reportable 09/23/22 02:00 Glucose 100 mg/dL (65-115) 09/23/22 02:00 Calculated Osmolality 268 mOsm/kg (285-295) L 09/23/22 02:00 Calcium 8.8 mg/dL (8.5-10.5) 09/23/22 02:00 Total Bilirubin 0.4 mg/dL (0.15-1.2) 09/23/22 02:00 AST 10 U/L (0-32) 09/23/22 02:00 ALT < 5 U/L (0-33) 09/23/22 02:00 Alkaline Phosphatase 72 U/L (35-105) 09/23/22 02:00 Troponin T Baseline 29 ng/L (0-10) H 09/23/22 02:00 Troponin T 120 Minute 29.78 ng/L (0-10) H 09/23/22 04:09 Delta Troponin T 0.78 ABS# (0-10) 09/23/22 04:09 Total Protein 5.9 g/dL (6.6-8.7) L 09/23/22 02:00 Albumin 3.0 g/dL (3.5-5.2) L 09/23/22 02:00 Globulin 2.9 g/dL (1.3-4.6) 09/23/22 02:00 EKG Data EKG 1: I personally reviewed and interpreted this EKG as follows: EKG interpretation date: 09/23/22 EKG interpretation time: 02:31 Interpretation: sinus zaria hr [address] elevation t wave inversions unchanged from previous ekg EKG 2: I personally reviewed and interpreted this EKG as follows: EKG interpretation date: 09/23/22 EKG interpretation time: 04:12 Interpretation: sinus tach no st or t wave abnormalities qrs 85 qtc 387 Discharge Plan Discharge Patient Disposition: Home Clinical Impression: Chest pain Condition: Stable Prescriptions: No Action prednisone 20 mg tablet 5 mg PO DAILY bumetanide 1 mg tablet 1 mg PO DAILY PRN metoprolol tartrate 50 mg tablet 25 mg PO BID losartan 25 mg tablet 25 mg PO BID Qty: 180 3RF Klor-Con M20 20 mEq tablet,ER particles/crystals 20 meq PO DAILY Qty: 90 1RF Rx Instructions: with bumex docusate sodium 100 mg Capsule 100 mg PO BID acetaminophen 500 mg Tablet 500 mg PO Q6H PRN (Reason: Pain) lactulose 10 gram/15 mL solution 30 ml PO BID PRN (Reason: Constipation) clopidogrel 75 mg Tablet 75 mg PO DAILY Qty: 30 11RF nitroglycerin 0.4 mg Tablet, Sublingual 0.4 mg sublingual Q5M PRN (Reason: Chest Pain) Qty: 25 11RF Children's Aspirin 81 mg tablet,chewable 81 mg PO DAILY Qty: 100 3RF Discharge Orders: Discharge ED (Routine); Ordered 09/23/22 Ordered By: Kailee Montenegro Referrals: Rajiv Francis DO [Primary Care Provider] - Matthew Kinsey M.D [Physician] - 1-3 days Discharge Diet: Advance as tolerated Discharge Activity: Resume usual activity Patient Instructions: Chest Pain (ED) Coding Level of Care Code ED Information Security Engineer for Chg 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
[2022-09-23 02:36] LABS: Basophils # 0.1 10^3/uL (0.0-0.1); Basophils % 0.7 %; Eosinophils # 0.1 10^3/uL (0.0-0.8); Eosinophils % 1.6 %; Hematocrit 32.7 % (37.0-47.0); Hemoglobin 10.4 g/dL (11.5-15.3); Lymphocytes # 2.3 10^3/uL (0.8-4.8); Lymphocytes % 33.7 %; Mean Corpuscular HGB Conc 31.8 g/dL (30.0-36.0); Mean Corpuscular Hemoglobin 26.1 pg (28.0-34.0); Mean Platelet Volume 10.9 fL (7.4-10.4); Monocytes # 0.9 10^3/uL (0.2-0.9); Monocytes % 13.3 %; Neutrophils # 3.45 10^3/uL (1.8-7.7); Neutrophils % 50.4 %; Nucleated Red Blood Cells % 0 %; Platelet Count 319 10^3/cmm (130-400); Red Blood Count 3.99 10^6/uL (4.1-5.3); Red Cell Distribution Width 15.9 % (12.1-15.1); White Blood Count 6.9 10^3/uL (4.0-10.0)
[2022-09-23 02:48] LABS: INR 0.99 (0.8-1.2)
[2022-09-23 02:55] LABS: Alanine Aminotransferase < 5 U/L (0-33); Alkaline Phosphatase 72 U/L (35-105); Anion Gap 14.4 (5-19); Aspartate Amino Transferase 10 U/L (0-32); Blood Urea Nitrogen 13 mg/dL (8-23); Calcium 8.8 mg/dL (8.5-10.5); Carbon Dioxide 25 mmol/L (22-29); Chloride 94 mmol/L (98-107); Globulin 2.9 g/dL (1.3-4.6); Glucose 100 mg/dL (65-115); Osmolality Calculated 268 mOsm/kg (285-295); Potassium 4.4 mmol/L (3.5-5.1); Sodium 129 mmol/L (136-145); Total Bilirubin 0.4 mg/dL (0.15-1.2); Total Protein 5.9 g/dL (6.6-8.7)
[2022-09-23 02:56] LABS: Troponin(5th) Baseline 29 ng/L (0-10)
[2022-09-23 03:02] VITALS: BP 135/72; PULSE 51; RESP 15; O2SAT 96
--- NOTE | 2022-09-23 03:30 | PC.NURSE ---
Pt states that she usually has low heart rate and she takes metoprolol
--- NOTE | 2022-09-23 03:30 | PC.NURSE ---
notified of patient's heart rate. No new orders at this time
[2022-09-23 04:00] VITALS: BP 126/64; PULSE 48; RESP 15; O2SAT 96
--- NOTE | 2022-09-23 04:22 | ECG_ITS ---
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 Measurements Intervals [place] Rate: 44 P: 31 MS: 165 QRS: 5 QRSD: 84 T: -52 QT: 497 QTc: 428 Interpretive Statements SINUS BRADYCARDIA POSSIBLE ANTERIOR MYOCARDIAL INFARCTION , OF INDETERMINATE AGE [30 ms Q WAVE IN V3/V4, OR R < 0.2 mV IN V4] MODERATE T-WAVE ABNORMALITY, CONSIDER LATERAL ISCHEMIA [-0.1+ mV T-WAVE IN I/aVL/V5/V6] MODERATE T-WAVE ABNORMALITY, CONSIDER INFERIOR ISCHEMIA [-0.1+ mV T-WAVE IN II/aVF] Compared to ECG 09/23/2022 02:31:59 No significant changes Electronically Signed On 09-23-2022 14:42:17 CHIEF DEPUTY CORONER by Matthew Kinsey M.D. [id number]
[2022-09-23] MEDS: ondansetron 2 mg/ML SDV 2 mL 4 MG IVP (04:27)
[2022-09-23 04:33] LABS: Troponin 5 2HR 29.78 ng/L (0-10)
[2022-09-23 04:37] LABS: Troponin 5 2HR Delta 0.78 ABS# (0-10)
[2022-09-23 05:02] VITALS: BP 121/66; PULSE 47; RESP 17; O2SAT 95
[2022-09-23 06:22] VITALS: BP 124/63; PULSE 47; RESP 16; O2SAT 94
--- NOTE | 2022-09-23 08:05 | DCPLANNER ---
Addendum entered by Renetta Lamar 11/02/22 07:41: This appointment was rescheduled Addendum entered by Renetta Lamar 09/29/22 13:40: Patient has a follow up appointment scheduled for Tuesday, October 04, 2022 at 9:00 with Kala Hernandez at [facility]. Clinic will call patient with appointment information. Original Note: route sales manager had message to schedule a follow up appointment for patient with cardiology. route sales manager sent patients information to the front office staff at [facility]. Patients information will be printed and reviewed. Clinic will call patient with appointment information.
== END 2022-09-23 06:25 | disposition home or self-care (01) ==
PROVIDERS: Emergency Provider Emergency Medicine; PCP Family Medicine
DX: R07.9 Chest pain, unspecified (principal); Z79.82 Long term (current) use of aspirin; I10 Essential (primary) hypertension
CPT/HCPCS: 71045; 80053; 84484; 85025; 85610; 93005; 96374; 99285; J2405

== ENCOUNTER 2022-09-26 09:38 | Emergency (ER) | payer MEDICARE, MEDICAID, SELFPAY ==
[2022-09-26] VITALS (13 sets, daily range): BP systolic 136–198; BP diastolic 83–104; PULSE 58–73; RESP 12–21; TEMP 35.8; O2SAT 97–98; BMI 29.2
[2022-09-26 11:01] LABS: Basophils % 0.6 %; Eosinophils # 0.1 10^3/uL (0.0-0.8); Eosinophils % 0.7 %; Hematocrit 37.1 % (37.0-47.0); Hemoglobin 11.5 g/dL (11.5-15.3); Lymphocytes # 1.5 10^3/uL (0.8-4.8); Lymphocytes % 20.7 %; Mean Corpuscular Hemoglobin 25.8 pg (28.0-34.0); Mean Corpuscular Volume 83.4 fl (81-99); Mean Platelet Volume 9.2 fL (7.4-10.4); Monocytes # 0.6 10^3/uL (0.2-0.9); Monocytes % 8.7 %; Neutrophils # 4.83 10^3/uL (1.8-7.7); Nucleated Red Blood Cells % 0 %; Platelet Count 387 10^3/cmm (130-400); Red Blood Count 4.45 10^6/uL (4.1-5.3); Red Cell Distribution Width 15.9 % (12.1-15.1)
[2022-09-26 11:31] LABS: Troponin(5th) Baseline 32 ng/L (0-10)
[2022-09-26 11:33] LABS: Alanine Aminotransferase < 5 U/L (0-33); Alkaline Phosphatase 89 U/L (35-105); Anion Gap 13.2 (5-19); Aspartate Amino Transferase 12 U/L (0-32); Blood Urea Nitrogen 13 mg/dL (8-23); Calcium 8.6 mg/dL (8.5-10.5); Carbon Dioxide 24 mmol/L (22-29); Chloride 92 mmol/L (98-107); Globulin 3.2 g/dL (1.3-4.6); Glucose 102 mg/dL (65-115); Lipase 22 U/L (13-60); Osmolality Calculated 260 mOsm/kg (285-295); Potassium 4.2 mmol/L (3.5-5.1); Sodium 125 mmol/L (136-145); Total Bilirubin 0.3 mg/dL (0.15-1.2); Total Protein 6.2 g/dL (6.6-8.7)
--- NOTE | 2022-09-26 12:50 | ED_ITS ---
HPI - Abdominal Pain General: Chief Complaint: Abdominal Pain Stated Complaint: abd pain Time Seen by Provider: 09/26/22 12:43 Source: patient Mode of arrival: ambulatory Limitations: no limitations History of Present Illness: Patient is a 71-year-old female who presents to ED today with a main complaint of diffuse abdominal pains. She states pain has been present over the past few days and describes it as a burning sensation . She states she does have a history of GERD and initially attributed symptoms to this. She takes Dexilant daily. Patient denies vomiting or changes to her bowel movements. Does endorse some nausea. She did notice cloudy urine today. She states I just do not feel good . Patient was seen in the ED 3 days ago for complaints of chest pains. She denies chest pain currently. She is visibly winded from walking from the waiting room to her room. Patient states she has not noticed shortness of breath at home. No fevers. Patient is status post STEMI approximately a month ago. MD elicited complaint: abdominal pain Onset (ago): day(s) Pain Consistency: constant Location: Diffuse Severity: moderate Quality: burning Radiation: none Migration to: no migration Exacerbating factors: nothing Relieving factors: nothing Associated Symptoms: Reports nausea; Denies change in bowel habits, chills, diarrhea, dysuria, fever(s), hematuria, syncope and vomiting Related Data: Patient : No Review of Systems Const: Reports: fatigue and malaise; Denies: fever(s), chills or body aches Card: Reports: dyspnea on exertion; Denies: chest pain, palpitations, irregular heart rhythm, edema, lightheadedne ss, syncope or pre-syncope Resp: Denies: dyspnea, productive cough, non-productive cough, wheezing, hemoptysis or chest congestion GI: Reports: abdominal pain and nausea; Denies: vomiting, diarrhea or change in bowel habits : Reports: other (noticed cloudy urine today); Denies: flank pain, difficulty voiding, dysuria, urinary frequency, urinary urgency, urinary hesitancy or hematuria Musc: Reports: back pain (chronic sciatica ); Denies: neck pain, extremity pain or joint pain Skin/Breast: Denies: rash Neuro: Denies: headache(s), numbness in extremities, weakness in extremities or sensory changes PFS ED PFSH: Medical History Anemia Anxiety and depression Chronic constipation COVID-19 Esophageal dysmotility Generalized anxiety disorder GERD with esophagitis Hypertension Hyponatremia Polycystic kidney Uncontrolled hypertension Family History Father Cancer lung Sister Cancer 2 sisters; breast Mother Hypertension Social History Smoking and tobacco status: never smoked Second hand smoke exposure: No Alcohol intake: never Lives independently: Yes Household members: spouse Marital status: Current occupational status: retired History of recent travel: No Current gender identity: Female Female Reproductive History: Spontaneous abortions: No Physical Exam Const: COMMON NORMALS: no acute distress, average body habitus, patient oriented x3, no limitations, healthy appearing, alert and well nourished GENERAL APPEARANCE: cooperative ORIENTATION/CONSCIOUSNESS: Yes awake, Yes oriented to person, Yes oriented to place and Yes oriented to time OTHER: winded/dyspneic from walking from waiting room to room; this resolved after a few minutes of rest HENMT: COMMON NORMALS: normocephalic and atraumatic HEAD & SCALP: normal to inspection, normocephalic and atraumatic Resp: COMMON NORMALS: normal respiratory effort and clear to auscultation bilaterally AUSCULTATION: clear to auscultation bilaterally Cardio: COMMON NORMALS: regular rate and regular rhythm RATE: regular rate RHYTHM: regular rhythm GI: COMMON NORMALS: Normal to inspection, nondistended, normoactive bowel soun ds present, Soft to palpation, No hepatosplenomegaly present and no masses INSPECTION: Yes normal to inspection PALPATION: Yes Soft to palpation, Yes Tenderness to palpation present (GI) (diffusely but seems moreso to lower abdomen ), No Guarding due to palpation present (GI), No Rigid due to palpation and Yes No hepatosplenomegaly present : COMMON NORMALS: Yes no CVA tenderness BLADDER/KIDNEY EXAM: Yes no CVA tenderness Back/Pelvis: COMMON NORMALS: no CVA tenderness, thoracic and lumbar spine normal to inspection, no thoracic nor lumbar tenderness and thoraco-lumbar ROM normal Extremity: COMMON NORMALS: normal to inspection, capillary refill normal, no clubbing, cyanosis or edema, no calf tenderness and no pedal edema GENERAL: Yes normal exam except as noted Neuro: HUSAM COMA SCALE: document GCS findings Husam coma scale eye opening: Spontaneous [place] coma scale verbal response: Orientated [place] coma scale motor response: Obey commands Husam coma scale total score: 15 COMMON NORMALS: patient oriented x3 and gait normal SENSORIUM/ORIENTATION: Yes alert, Yes oriented to person, Yes oriented to place and Yes oriented to time Skin: COMMON NORMALS: no rashes or lesions noted GENERAL SKIN EXAM: no rashes or lesions noted Course Vital Signs: Vital signs: Vital Signs Temperature 96.5 F L 09/26/22 09:57 Pulse Rate 73 09/26/22 14:00 Respiratory Rate 18 09/26/22 14:00 Blood Pressure 136/84 09/26/22 14:00 Pulse Oximetry 98 09/26/22 13:10 Oxygen Delivery Me thod 09/26/22 09:57 MDM - Abdominal Pain Medical Decision Making Patient is a nice 71-year-old female here for diffuse abdominal pains. Vitals upon arrival are essentially normal. Cardiac work-up initiated due to age, her upper abdominal pains, and previous STEMI a month ago. Troponin 3 days ago during her ED visit was 29. Baseline troponin today is 32 with a nonsignificant delta of 2.58. Her EKG showing no acute changes from EKGs performed on last visit. She is not complaining of any chest pain during her stay. UA showing evidence for acute cystitis with 2+ leuks, too numerous to count WBCs, and 4+ bacteria. This most likely is the etiology for her abdominal pain seeing how she was most tender to her lower abdomen and suprapubically. Patient has no flank pain. No vomiting. No fevers. CT scan showing no acute findings. She does have a large unchanged hiatal hernia. Blood work showing normal white count, chronic hyponatremia, elevated BNP but clinically not fluid overloaded. Patient was given IM Rocephin here and will be discharged home on oral antibiotics. She has follow-up with PCP tomorrow already scheduled. Strict return to ED precautions given. Lab Data 09/26/22 10:53 09/26/22 10:53 Labs/Radiology: Radiology Impressions Chest X-Ray 09/26/22 12:51 IMPRESSION: 1. No acute cardiopulmonary process identified. Abdomen/Pelvis CT 09/26/22 12:55 IMPRESSION: 1. Large esophageal hiatal hernia with partial intrathoracic stomach is unchanged. 2. Prior cholecystectomy. 3. Numerous bilateral renal cysts. No hydronephrosis. 4. Hepatomegaly with diffuse fatty infiltration liver.\ 5. Tiny trace pleural fluid. Subsegmental atelectasis in the lung bases. 6. Small fat-containing umbilical and supraumbilical hernias. No herniated bowel. 7. No acute findings in the abdomen and pelvis. Laboratory Results WBC 7.0 10^3/uL (4.0-10.0) 09/26/22 10:53 RBC 4.45 10^6/uL (4.1-5.3) 09/26/22 10:53 Hgb 11.5 g/dL (11.5-15.3) 09/26/22 10:53 Hct 37.1 % (37.0-47.0) 09/26/22 10:53 MCV 83.4 fl (81-99) 09/26/22 10:53 MCH 25.8 pg (28.0-34.0) L 09/26/22 10:53 MCHC 31.0 g/dL (30.0-36.0) 09/26/22 10:53 RDW 15.9 % (12.1-15.1) H 09/26/22 10:53 Plt Count 387 10^3/cmm (130-400) 09/26/22 10:53 MPV 9.2 fL (7.4-10.4) 09/26/22 10:53 Neut % (Auto) 69.0 % 09/26/22 10:53 Lymph % (Auto) 20.7 % 09/26/22 10:53 Gaston % (Auto) 8.7 % 09/26/22 10:53 Eos % (Auto) 0.7 % 09/26/22 10:53 Baso % (Auto) 0.6 % 09/26/22 10:53 Neut # (Auto) 4.83 10^3/uL (1.8-7.7) 09/26/22 10:53 Lymph # (Auto) 1.5 10^3/uL (0.8-4.8) 09/26/22 10:53 Gaston # (Auto) 0.6 10^3/uL (0.2-0.9) 09/26/22 10:53 Eos # (Auto) 0.1 10^3/uL (0.0-0.8) 09/26/22 10:53 Baso # (Auto) 0.0 10^3/uL (0.0-0.1) 09/26/22 10:53 Nucleated RBC % (auto) 0 % 09/26/22 10:53 Nucleated RBCs # 0.0 /100WBC 09/26/22 10:53 Sodium 125 mmol/L (136-145) L 09/26/22 10:53 Potassium 4.2 mmol/L (3.5-5.1) 09/26/22 10:53 Chloride 92 mmol/L (98-107) L 09/26/22 10:53 Carbon Dioxide 24 mmol/L (22-29) 09/26/22 10:53 Anion Gap 13.2 (5-19) 09/26/22 10:53 BUN 13 mg/dL (8-23) 09/26/22 10:53 Creatinine 0.9 mg/dL (0.5-0.9) 09/26/22 10:53 GFR Calculation Not Reportable 09/26/22 10:53 Glucose 102 mg/dL (65-115) 09/26/22 10:53 Calculated Osmolality 260 mOsm/kg (285-295) L 09/26/22 10:53 Calcium 8.6 mg/dL (8.5-10.5) 09/26/22 10:53 Total Bilirubin 0.3 mg/dL (0.15-1.2) 09/26/22 10:53 AST 12 U/L (0-32) 09/26/22 10:53 ALT < 5 U/L (0-33) 09/26/22 10:53 Alkaline Phosphatase 89 U/L (35-105) 09/26/22 10:53 Troponin T Baseline 32 ng/L (0-10) H 09/26/22 10:53 Troponin T 120 Minute 34.58 ng/L (0-10) H 09/26/22 12:53 Delta Troponin T 2.58 ABS# (0-10) 09/26/22 12:53 NT-Pro-B Natriuret Pep 3014 pg/mL (0-125) H 09/26/22 12:53 Total Protein 6.2 g/dL (6.6-8.7) L 09/26/22 10:53 Albumin 3.0 g/dL (3.5-5.2) L 09/26/22 10:53 Globulin 3.2 g/dL (1.3-4.6) 09/26/22 10:53 Lipase 22 U/L (13-60) 09/26/22 10:53 Urine Color Dark yellow (Yellow) 09/26/22 12:40 Urine Appearance Cloudy (CLEAR) A 09/26/22 12:40 Urine pH 6.5 (5-7) 09/26/22 12:40 Ur Specific Pillager 1.015 (1.005-1.030) 09/26/22 12:40 Urine Protein 3+ (Negative) H 09/26/22 12:40 Urine Glucose (UA) Norm (Normal) 09/26/22 12:40 Urine Ketones 1+ (Negative) H 09/26/22 12:40 Urine Blood 3+ (Negative) H 09/26/22 12:40 Urine Nitrate Negative (Negative) 09/26/22 12:40 Urine Bilirubin Neg (Negative) 09/26/22 12:40 Urine Urobilinogen Norm mg/dL (Negative) 09/26/22 12:40 Ur Leukocyte Esterase 2+ (Negative) H 09/26/22 12:40 Urine RBC 15-25 /hpf (0-2) H 09/26/22 12:40 Urine WBC Too numerous to cnt /hpf (0-5) H 09/26/22 12:40 Ur Squamous Epith Cells None /hpf (0-5) 09/26/22 12:40 Amorphous Sediment Not Reportable 09/26/22 12:40 Urine Bacteria 4+ /hpf (NONE) H 09/26/22 12:40 EKG Data EKG 1: EKG interpretation date: 09/26/22 EKG interpretation time: 12:52 Prior EKG tracings: available for review Interpretation: Sinus rhythm Rate 60 bpm T wave inversion unchanged when compared to EKGs performed on 09/23/2022 and EKG performed on 08/21 Discharge Plan Discharge Patient Disposition: Home Clinical Impression: Acute cystitis Qualifiers: Hematuria presence: with hematuria Qualified Code(s): N30.01 - Acute cystitis with hematuria Condition: Stable Prescriptions: New cefdinir 300 mg capsule 300 mg PO BID 10 Days Qty: 20 0RF No Action prednisone 20 mg tablet 5 mg PO DAILY bumetanide 1 mg tablet 1 mg PO DAILY PRN metoprolol tartrate 50 mg tablet 25 mg PO BID losartan 25 mg tablet 25 mg PO BID Qty: 180 3RF Klor-Con M20 20 mEq tablet,ER particles/crystals 20 meq PO DAILY Qty: 90 1RF Rx Instructions: with bumex docusate sodium 100 mg Capsule 100 mg PO BID acetaminophen 500 mg Tablet 500 mg PO Q6H PRN (Reason: Pain) lactulose 10 gram/15 mL solution 30 ml PO BID PRN (Reason: Constipation) clopidogrel 75 mg Tablet 75 mg PO DAILY Qty: 30 11RF nitroglycerin 0.4 mg Tablet, Sublingual 0.4 mg sublingual Q5M PRN (Reason: Chest Pain) Qty: 25 11RF Children's Aspirin 81 mg tablet,chewable 81 mg PO DAILY Qty: 100 3RF Discharge Orders: Discharge ED (Routine); Ordered 09/26/22 Ordered By: Kaila Spears Referrals: Rajiv Francis DO [Primary Care Provider] - Patient Instructions: Urinary Tract Infection in Older Adults (ED) Coding Level of Care Code ED Blending Tank Helper for Chg 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
--- NOTE | 2022-09-26 12:51 | XR_ITS ---
WS: [id number] Exam: XR chest 1V portable [id number] Date/Time of Exam: 09/26/2022 1:05 PM Reason For Exam: chest pain Comparison 09/23/1932. The lungs are clear and fully inflated. Epicardial fat pad seen along the left heart. No pleural effu sions. Cardiomediastinal structures are unremarkable for technique. Monitoring leads superimpose the chest. Unremarkable bony structures. Probable hiatal hernia. XR/XR chest 1V portable [id number] IMPRESSION: 1. No acute cardiopulmonary process identified.
--- NOTE | 2022-09-26 12:52 | ECG_ITS ---
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 Measurements Intervals [place] Rate: 60 P: 39 TX: 153 QRS: -3 QRSD: 92 T: -46 QT: 433 QTc: 435 Interpretive Statements SINUS RHYTHM WITH SINUS ARRHYTHMIA POSSIBLE LEFT ATRIAL ENLARGEMENT [-0.1mV P-WAVE IN V1/V2] POSSIBLE ANTERIOR MYOCARDIAL INFARCTION , OF INDETERMINATE AGE [30 ms Q WAVE IN V3/V4, OR R < 0.2 mV IN V4] MODERATE T-WAVE ABNORMALITY, CONSIDER LATERAL ISCHEMIA [-0.1+ mV T-WAVE IN I/aVL/V5/V6] MODERATE T-WAVE ABNORMALITY, CONSIDER INFERIOR ISCHEMIA [-0.1+ mV T-WAVE IN II/aVF] Compared to ECG 09/23/2022 04:22:21 Sinus bradycardia no longer present Myocardial infarct finding still present T-wave abnormality still present Possible ischemia still present Electronically Signed On 09-27-2022 7:49:07 CREDIT COLLECTIONS REP by Matthew Kinsey M.D. [email or web address] [id number]
--- NOTE | 2022-09-26 12:55 | CT_ITS ---
WS: [id number] CT ABDOMEN PELVIS TECHNIQUE: Contrast-enhanced CT of the abdomen and pelvis with coronal and sagittal reformatted image s. CLINICAL INFORMATION: abdominal pain COMPARISON: 2021 DLP: 25.[address] scans at [facility] use at least one of these dose optimization techniques: automated e xposure control; mA and/or kV adjustment per patient size (includes targeted exams where dose is matc hed to clinical indication); or iterative reconstruction. FINDINGS: Mild diffuse fatty infiltration liver. Cholecystectomy clips. Large esophageal hiatal hernia with par tial intrathoracic stomach appears unchanged. Normal portal vein and splenic vein. Fatty atrophy of t he pancreas. Tiny trace pleural fluid. Subsegmental atelectasis in the lung bases. Fatty atrophy of the pancreas. Normal portal vein and splenic vein. Normal caliber abdominal aorta. C eliac and SMA are patent. Adrenal glands are normal. Normal renal parenchymal enhancement. No hydrone phrosis. Bilateral renal cortical cysts. Fat-containing umbilical hernia. Slight anterolisthesis L4 on L5 and L5 on S1. Disc bulging worse at L2-L3 and L3-L4. CT/CT abdomen pelvis w con* [id number] IMPRESSION: 1. Large esophageal hiatal hernia with partial intrathoracic stomach is unchan ged. 2. Prior cholecystectomy. 3. Numerous bilateral renal cysts. No hydronephrosis. 4. Hepatomegaly with diffuse fatty infiltration liver.\ 5. Tiny trace pleural fluid. Subsegmental atelectasis in the lung bases. 6. Small fat-containing umbilical and supraumbilical hernias. No herniated bow el. 7. No acute findings in the abdomen and pelvis.
[2022-09-26] MEDS: diphenhydrAMINE 50 mg/mL SDV 1mL IVP (13:38)
[2022-09-26] MEDS: lidocaine 2% viscous 15 ML, aluminum-mag hydrox-simethicon 30 ML, sucralfate oral liq 1 GM PO (13:39)
[2022-09-26 13:47] LABS: Add Urine Microscopic? YES; Bilirubin Urine Neg (Negative); Blood Urine 3+ (Negative); Glucose Urine UA Norm (Normal); Ketones Urine 1+ (Negative); Leukocyte Esterase Urine 2+ (Negative); Nitrate Urine Negative (Negative); Protein Urine 3+ (Negative); Specific Gravity, Urine 1.015 (1.005-1.030); Urine Appearance Cloudy (CLEAR); Urine Color Dark Yellow (Yellow); Urobilinogen Urine Norm (Negative); pH Urine 6.5 (5-7)
[2022-09-26 13:49] LABS: Add Urine Culture? Yes; Bacteria Urine 4+ /hpf; RBC Urine 15-25 /hpf (0-2); WBC Urine TOO NUMEROUS TO CNT /hpf (0-5)
[2022-09-26] MEDS: iohexol 350 mg/mL 500 mL Btl (per mL) IV (14:28)
[2022-09-26 14:35] LABS: NT Pro B Type Natriuretic Pept 3014 pg/mL (0-125)
[2022-09-26 14:43] LABS: Troponin 5 2HR 34.58 ng/L (0-10); Troponin 5 2HR Delta 2.58 ABS# (0-10)
[2022-09-26] MEDS: cefTRIAXone 1,000 MG in water for injection-sterile 2.1 ML 1 MG IM (15:20)
== END 2022-09-26 16:02 | disposition home or self-care (01) ==
PROVIDERS: Emergency Provider Physician Assistant; PCP Family Medicine
DX: N30.01 Acute cystitis with hematuria (principal); Z79.82 Long term (current) use of aspirin; Z79.02 Long term (current) use of antithrombotics/antiplatelets; I10 Essential (primary) hypertension
CPT/HCPCS: 36415; 71045; 74177; 80053; 81001; 83690; 83880; 84484; 85025; 87077; 87086; 87186; 93005; 96372; 96374; 96375; 99285; J0696; J1200; J2920; Q9967

== ENCOUNTER 2022-10-10 15:20 | Outpatient (CLI) | payer MEDICARE, MEDICAID, SELFPAY ==
[2022-10-10 16:56] LABS: Creatinine Urine, Random 297 mg/dL (28-217)
[2022-10-10 17:16] LABS: Microalbum Creatinine Ratio Ur 3209 mg/dL (0-20)
== END 2022-10-10 15:21 | disposition home or self-care (01) ==
PROVIDERS: PCP Family Medicine; Visit Provider Family Medicine
DX: N05.0 Unspecified nephritic syndrome with minor glomerular abnormality (principal)
CPT/HCPCS: 80048; 81003; 82044; 85027; 87086

== ENCOUNTER 2022-10-20 06:16 | Outpatient (CLI) | payer MEDICARE, MEDICAID, SELFPAY ==
--- NOTE | 2022-10-20 06:30 | USCV_ITS ---
Nati Eli Age: 71 Gender: F : 1950 Exam Date: 10/20/2022 06:51 Ordering Phys: Mtathew Kinsey M.D ([email or web address]) Technologist: JOCELIN Exam Location: [facility] – [place], [place] Indication: SHORTNESS OF BREATH BP: 186 / 100 HR: 51 Rhythm: Sinus Technical Quality: Adequate MEASUREMENTS (Male / Female) Normal Values 2D ECHO LVOT Diameter 2.0 cm LV Ejection Fraction MOD 2C 50.7 % LV Ejection Fraction 2C AL 50.0 % LA Diameter 3.5 cm LA Width 3.9 cm LA Height 4.8 cm RA Width 4.0 cm RA Height 4.4 cm Aorta at Sinotubular Diameter 2.3 cm IVC Diameter 1.5 cm M-MODE Aortic Annulus Diameter 3.1 cm LA Ao Ratio MM 1.1 MV E Point Septal Separation 0.6 cm DOPPLER AV Peak Velocity 135.0 cm/s LVOT Peak Velocity 93.0 cm/s AV Area Cont Eq vti 1.9 cm squared AV Area Cont Eq pk 2.2 cm squared MV Peak Velocity 119.0 cm/s MV Area PHT 5.0 cm squared Mitral E to A Ratio 0.8 MV E' Velocity 41.5 cm/s Mitral E to MV E' Ratio 13.2 Mitral E to LV E' Lateral Ratio 15.9 Mitral E to LV E' Septal Ratio 11.3 TR Peak Velocity 168.2 cm/s TR Peak Gradient 11.3 mmHg TR Mean Velocity 140.5 cm/s TR Mean Gradient 8.2 mmHg TR Velocity Time Integral 59.7 cm TV Peak E Velocity 34.0 cm/s Right Atrial Pressure 3.0 mmHg Pulmonary Artery Systolic Pressu 14.3 mmHg PV Peak Velocity 90.0 cm/s RV Acceleration Time 0.2 s RV Ejection Time 0.4 s RV AcT/ET 0.4 FINDINGS Left Ventricle Left ventricle is normal in size. LV systolic function is normal with EF 50 to 55%. No regional wall motion abnormalities seen. Grade 1 diastolic dysfunction. Right Ventricle Normal in size and function Right Atrium Normal in size Left Atrium Dilated Mitral Valve Mild mitral annular calcification. Mild mitral regurgitation. Aortic Valve Aortic valve is thickened. No significant aortic stenosis. Mild aortic regurgitation. Tricuspid Valve Mild tricuspid regurgitation. Pulmonary artery systolic pressure is normal. Pulmonic Valve Not well-visualized. Mild pulmonic regurgitation. Pericardium Normal Aorta Normal in size IVC Appears to be normal CONCLUSIONS LV systolic function is normal with EF 50 to 55%. Grade 1 diastolic dysfunction Left atrial dilation Mild mitral regurgitation Mild aortic regurgitation Mild tricuspid regurgitation Mild pulmonic regurgitation Compared to prior echocardiogram from 10/2021, LV systolic function is mildly decreased now Matthew Kinsey MD (Electronically Signed) Final Date: 28 October 2022 22:07 S
== END 2022-10-20 06:17 | disposition home or self-care (01) ==
LOC: RAD 06:19
PROVIDERS: PCP Family Medicine; Visit Provider Internal Medicine
DX: R06.02 Shortness of breath (principal); I08.3 Combined rheumatic disorders of mitral, aortic and tricuspid valves
CPT/HCPCS: 93306

== ENCOUNTER 2022-10-23 13:31 | Inpatient (IN) | payer MEDICARE, MEDICAID, SELFPAY ==
[2022-10-23] VITALS (50 sets, daily range): BP systolic 101–204; BP diastolic 58–125; PULSE 59–75; RESP 0–23; TEMP 36.5–36.8; O2SAT 91–99; BMI 29.2
--- NOTE | 2022-10-23 13:46 | ECG_ITS ---
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 Measurements Intervals [place] Rate: 58 P: 14 SD: 168 QRS: -26 QRSD: 78 T: -42 QT: 450 QTc: 443 Interpretive Statements SINUS BRADYCARDIA LOW QRS VOLTAGE IN PRECORDIAL LEADS [QRS DEFLECTION < 1.0 mV IN CHEST LEADS] POSSIBLE ANTERIOR MYOCARDIAL INFARCTION , OF INDETERMINATE AGE [30 ms Q WAVE IN V3/V4, OR R < 0.2 mV IN V4] MODERATE T-WAVE ABNORMALITY, CONSIDER LATERAL ISCHEMIA [-0.1+ mV T-WAVE IN I/aVL/V5/V6] Compared to ECG 09/26/2022 12:52:25 Low QRS voltage now present Sinus rhythm no longer present Sinus arrhythmia no longer present Myocardial infarct finding still present T-wave abnormality still present Possible ischemia still present Electronically Signed On 10-23-2022 22:07:25 BELLPERSON by Sary Lopez M.D. [id number]
--- NOTE | 2022-10-23 13:48 | ED_ITS ---
HPI - Chest Pain General: Chief Complaint: Chest Pain Stated Complaint: chest pain, nausea Time Seen by Provider: 10/23/22 13:48 History of Present Illness: Ms Eli is a 71-year-old lady with significant past medical history of CAD, history of STEMI, hypertension, hyperlipidemia, min imal-change disease, GERD presenting to the emergency department for epigastric discomfort and generalized malaise. She reports onset of symptoms approximately 3 days ago without known specific provoking event. Since that time she has had near constant pain and generalized malaise. At times she is short of breath. She reports similar episodes in the past including similar symptoms related to p rior [place]. No other specific changes in health, exacerbating, or alleviating factors identified. Onset (ago): day(s) Timing of current episode: constant Prior episodes: Yes Onset: during rest Pain location: epigastric Pain radiation: back Severity: moderate Quality: burning Relieving factors: nothing Exacerbating factors: nothing Associated symptoms: Reports no associated symptoms Review of Systems General: Reports: 10 or more systems reviewed and unremarkable except in HPI and below PFSH ED PFSH: Medical History (Updated 11/01/22 @ 05:44 by Rajiv Francis DO) Acute kidney injury Anemia Anxiety and depression CAD (coronary artery disease) Chest pain Chronic constipation COVID-19 Elevated brain natriuretic peptide (BNP) level Esophageal dysmotility Fatigue Generalized anxiety disorder GERD with esophagitis Goals of care, counseling/discussion High thyroid stimulating hormone (TSH) level Hypertension Hypoalbuminemia Hypokalemia Hyponatremia Hyponatremia Immunocompromised Kidney disease Minimal change disease Non-compliant patient Polycystic kidney Recent ST elevation myocardial infarction (STEMI) ST elevation myocardial infarction (STEMI) Uncontrolled hypertension Family History Father Cancer lung Sister Cancer 2 sisters; breast Mother Hypertension Social History Smoking and tobacco status: never smoked Second hand smoke exposure: No Alcohol intake: never Lives independently: Yes Household members: spouse Marital status: Current occupational status: retired Current gender identity: Female Female Reproductive History: Spontaneous abortions: No Physical Exam Const: COMMON NORMALS: alert GENERAL APPEARANCE: cooperative and well developed HENMT: COMMON NORMALS: normocephalic and atraumatic HEAD & SCALP: normocephalic and atraumatic Eye: COMMON NORMALS: conjunctivae normal CONJUNCTIVA: Yes conjunctivae normal SCLERA: sclerae normal Neck/C-Spine: COMMON NORMALS: supple GENERAL: Yes trachea midline Resp: COMMON NORMALS: clear to auscultation bilaterally EFFORT & INSPECTION: Yes able to speak in complete sentences AUSCULTATION: clear to auscultation bilaterally Cardio: COMMON NORMALS: regular rate and regular rhythm RATE: regular rate RHYTHM: regular rhythm GI: COMMON NORMALS: Soft to palpation PALPATION: Yes Soft to palpation and No Tenderness to palpation present (GI) Extremity: GENERAL: Yes normal exam except as noted and No edema Neuro: COMMON NORMALS: moves all extremities SENSORIUM/ORIENTATION: Yes alert and No Orientation impaired Psych: COMMON NORMALS: mental status grossly normal and Normal thought process present THOUGHT PROCESS: Normal thought process present Course Vital Signs: Vital signs: Vital Signs Temperature 98.1 F 10/26/22 11:59 Pulse Rate 67 10/26/22 11:59 Respiratory Rate 18 10/26/22 11:59 Blood Pressure 181/78 10/26/22 11:59 Pulse Oximetry 93 10/26/22 11:59 Oxygen Delivery Me thod 10/26/22 08:00 MDM - Chest Pain Medical Decision Making 71-year-old lady presenting with chest pain and abdominal pain. Exam as above. Patient is nontoxic. EKG notable for sinus rhythm with bradycardia. Diffuse ST segment abnormalities, no STEMI. Labs with no leukocytosis, similar hemoglobin to baseline, mild thrombocytosis. Metabolic panel with hyponatremia, CKD, elevated BNP. Initial troponin is elevated with negative range 2-hour delta. Chest x-ray with no lobar consolidation, no pneumothorax. Patient treated in the ER with hydralazine, GI cocktail, fluids, additional antihypertensives. Despite this symptoms continue. Discussed with cardiology, given continued symptoms patient is reasonable for inpatient evaluation for evaluation of stent patency. The results of ED evaluation were discussed with the patient including plan for admission due to requirement for level of care not available if discharged to prevent significant worsening/deterioration. Patient agreeable with plan. Discussed with hospitalist service who was agreeable to admit patient. Medical Records I reviewed the patient's medical records. Lab Data I reviewed the patient's lab results. 10/26/22 05:50 10/26/22 05:50 Radiology Impressions Chest X-Ray 10/23/22 13:56 IMPRESSION: 1. New right base infiltrate. 2. Stable infiltrate/density possibly chronic versus slightly improved in the left base. Laboratory Results WBC 6.7 10^3/uL (4.0-10.0) 10/23/22 14:09 RBC 4.34 10^6/uL (4.1-5.3) 10/23/22 14:09 Hgb 11.2 g/dL (11.5-15.3) L 10/23/22 14:09 Hct 35.4 % (37.0-47.0) L 10/23/22 14:09 MCV 81.6 fl (81-99) 10/23/22 14:09 MCH 25.8 pg (28.0-34.0) L 10/23/22 14:09 MCHC 31.6 g/dL (30.0-36.0) 10/23/22 14:09 RDW 16.0 % (12.1-15.1) H 10/23/22 14:09 Plt Count 429 10^3/cmm (130-400) H 10/23/22 14:09 MPV 9.2 fL (7.4-10.4) 10/23/22 14:09 Neut % (Auto) 55.9 % 10/23/22 14:09 Lymph % (Auto) 32.9 % 10/23/22 14:09 Catron % (Auto) 8.1 % 10/23/22 14:09 Eos % (Auto) 1.9 % 10/23/22 14:09 Baso % (Auto) 0.9 % 10/23/22 14:09 Neut # (Auto) 3.73 10^3/uL (1.8-7.7) 10/23/22 14:09 Lymph # (Auto) 2.2 10^3/uL (0.8-4.8) 10/23/22 14:09 Catron # (Auto) 0.5 10^3/uL (0.2-0.9) 10/23/22 14:09 Eos # (Auto) 0.1 10^3/uL (0.0-0.8) 10/23/22 14:09 Baso # (Auto) 0.1 10^3/uL (0.0-0.1) 10/23/22 14:09 Nucleated RBC % (auto) 0 % 10/23/22 14:09 Nucleated RBCs # 0.0 /100WBC 10/23/22 14:09 Sodium 125 mmol/L (136-145) L 10/23/22 14:09 Potassium 4.7 mmol/L (3.5-5.1) 10/23/22 14:09 Chloride 93 mmol/L (98-107) L 10/23/22 14:09 Carbon Dioxide 22 mmol/L (22-29) 10/23/22 14:09 Anion Gap 14.7 (5-19) 10/23/22 14:09 BUN 22 mg/dL (8-23) 10/23/22 14:09 Creatinine 1.5 mg/dL (0.5-0.9) H 10/23/22 14:09 GFR Calculation Not Reportable 10/23/22 14:09 Glucose 95 mg/dL (65-115) 10/23/22 14:09 Estimat Average Glucose 108 10/23/22 14:09 Hemoglobin A1c 5.4 % (4.0-6.0) 10/23/22 14:09 Calculated Osmolality 263 mOsm/kg (285-295) L 10/23/22 14:09 Calcium 8.9 mg/dL (8.5-10.5) 10/23/22 14:09 Iron 42 ug/dL (37-145) 10/23/22 14:48 TIBC 171 mcg/dl 10/23/22 14:48 % Saturation 24.5 % (20-50) 10/23/22 14:48 Unsat Iron Binding 129 ug/dL (112-347) 10/23/22 14:48 Ferritin 47 ng/mL (15-150) 10/23/22 14:48 Total Bilirubin 0.2 mg/dL (0.15-1.2) 10/23/22 14:09 AST 13 U/L (0-32) 10/23/22 14:09 ALT < 5 U/L (0-33) 10/23/22 14:09 Alkaline Phosphatase 115 U/L (35-105) H 10/23/22 14:09 Troponin T Baseline 65 ng/L (0-10) H 10/23/22 14:09 Troponin T 120 Minute 62.97 ng/L (0-10) H 10/23/22 14:48 Delta Troponin T -2.03 ABS# (0-10) L 10/23/22 14:48 NT-Pro-B Natriuret Pep 53303 pg/mL (0-125) H 10/23/22 14:09 Total Protein 5.3 g/dL (6.6-8.7) L 10/23/22 14:09 Albumin 2.7 g/dL (3.5-5.2) L 10/23/22 14:09 Globulin 2.6 g/dL (1.3-4.6) 10/23/22 14:09 Lipase 26 U/L (13-60) 10/23/22 14:09 TSH 10.25 uIU/mL (0.27-4.20) H 10/23/22 14:09 Free T4 1.15 ng/dL (0.82-1.77) 10/23/22 14:48 Urine Color Dark yellow (Yellow) 10/23/22 15:41 Urine Appearance Sl hazy (CLEAR) A 10/23/22 15:41 Urine pH 5 (5-7) 10/23/22 15:41 Ur Specific [place] 1.020 (1.005-1.030) 10/23/22 15:41 Urine Protein 3+ (Negative) H 10/23/22 15:41 Urine Glucose (UA) Norm (Normal) 10/23/22 15:41 Urine Ketones Negative (Negative) 10/23/22 15:41 Urine Blood 2+ (Negative) H 10/23/22 15:41 Urine Nitrate Negative (Negative) 10/23/22 15:41 Urine Bilirubin Neg (Negative) 10/23/22 15:41 Urine Urobilinogen Norm mg/dL (Negative) 10/23/22 15:41 Ur Leukocyte Esterase Negative (Negative) 10/23/22 15:41 Urine RBC 0-4 /hpf (0-2) H 10/23/22 15:41 Urine WBC Rare /hpf (0-5) 10/23/22 15:41 Ur Squamous Epith Cells 0-4 /hpf (0-5) H 10/23/22 15:41 Amorphous Sediment 3+ /hpf 10/23/22 15:41 Urine Bacteria Trace /hpf (NONE) 10/23/22 15:41 Influenza Type A Ag negative (Negative) 10/23/22 15:15 Influenza Type B Ag negative (Negative) 10/23/22 15:15 SARS-CoV-2 Ag (Rapid) negative (Negative) 10/23/22 15:15 Discharge Plan Discharge Patient Disposition: Placed in Observation Admit Provider: Zofia Reyes Clinical Impression: Chest pain, Hyponatremia, Kidney disease, Elevated brain natriuretic peptide (BNP) level Discharge Diet: GI Soft Discharge Activity: Increase activity as tolerated Coding Level of Care Code ED Chandelier Maker for Amira Solorzano
--- NOTE | 2022-10-23 13:56 | XRR_ITS ---
PROCEDURE INFORMATION: Exam: XR Chest Exam date and time: 10/23/2022 2:03 PM Age: 71 years old Clinical indication: Other: Abd pain; Prior surgery; Surgery date: 6+ months; Surgery type: Stent for mi; Additional info: Cp TECHNIQUE: Imaging protocol: Radiologic exam of the chest. Views: 1 view. COMPARISON: CR XR chest 1V portable [id number] 09/26/2022 1:10 PM FINDINGS: Lungs: Infiltrate, new, in the right upper lobe peripherally. Infiltrate which appears stable or slightly improved in the left base peripherally. Pleural spaces: Unremarkable. No pleural effusion. No pneumothorax. Heart/Mediastinum: The cardiomegaly. Bones/joints: Unremarkable. XR/XR chest 1V portable [id number] IMPRESSION: 1. New right base infiltrate. 2. Stable infiltrate/density possibly chronic versus slightly improved in the left base.
[2022-10-23 14:19] LABS: Basophils # 0.1 10^3/uL (0.0-0.1); Basophils % 0.9 %; Eosinophils # 0.1 10^3/uL (0.0-0.8); Eosinophils % 1.9 %; Hematocrit 35.4 % (37.0-47.0); Hemoglobin 11.2 g/dL (11.5-15.3); Lymphocytes # 2.2 10^3/uL (0.8-4.8); Lymphocytes % 32.9 %; Mean Corpuscular HGB Conc 31.6 g/dL (30.0-36.0); Mean Corpuscular Hemoglobin 25.8 pg (28.0-34.0); Mean Corpuscular Volume 81.6 fl (81-99); Mean Platelet Volume 9.2 fL (7.4-10.4); Monocytes # 0.5 10^3/uL (0.2-0.9); Monocytes % 8.1 %; Neutrophils # 3.73 10^3/uL (1.8-7.7); Neutrophils % 55.9 %; Nucleated Red Blood Cells % 0 %; Platelet Count 429 10^3/cmm (130-400); Red Blood Count 4.34 10^6/uL (4.1-5.3); White Blood Count 6.7 10^3/uL (4.0-10.0)
[2022-10-23] MEDS: hyDRALAzine 20 mg/mL INJ 1 mL 10 MG IVP (14:32)
[2022-10-23 14:41] LABS: Troponin(5th) Baseline 65 ng/L (0-10)
[2022-10-23 14:48] LABS: Alanine Aminotransferase < 5 U/L (0-33); Albumin Level 2.7 g/dL (3.5-5.2); Alkaline Phosphatase 115 U/L (35-105); Anion Gap 14.7 (5-19); Aspartate Amino Transferase 13 U/L (0-32); Blood Urea Nitrogen 22 mg/dL (8-23); Calcium 8.9 mg/dL (8.5-10.5); Carbon Dioxide 22 mmol/L (22-29); Chloride 93 mmol/L (98-107); Globulin 2.6 g/dL (1.3-4.6); Glucose 95 mg/dL (65-115); Lipase 26 U/L (13-60); NT Pro B Type Natriuretic Pept 14735 pg/mL (0-125); Osmolality Calculated 263 mOsm/kg (285-295); Potassium 4.7 mmol/L (3.5-5.1); Sodium 125 mmol/L (136-145); Total Bilirubin 0.2 mg/dL (0.15-1.2); Total Protein 5.3 g/dL (6.6-8.7)
--- NOTE | 2022-10-23 15:54 | PC.PHAR ---
pt states she takes care of her own medications-pt states she finished her cefdinir 300mg bid on monday10/21/22 rx filled 10/10/22 10d/s-pt states she stop taking aspirin 81mg daily in aug 2022 or sep 2022-pt states she has been buying otc kcl and taking daily with thermotabs daily-pt states she normally takes losartan 25mg daily but states today she took 50mg ext med history shows last filled 50mg daily on 08/01/22 90d/s-pt states she normally takes metoprolol tartrate 25mg bid pt states today she took 50mg this am ext med history shows last filled 50mg bid on 08/22/22 30d/s-notes are made in the pharmacy comments
--- NOTE | 2022-10-23 15:56 | ECG_ITS ---
[facility] Test Date: 2022-10-23 Pat Name: Nati Eli Department: Room: Gender: Female Early Childhood Assistant: : 1950 Requested By: Rolo Saenz Order Number: [id number] Lars MD: Sary Lopez M.D. Measurements Intervals [place] Rate: 58 P: 29 ME: 162 QRS: -18 QRSD: 81 T: -48 QT: 466 QTc: 461 Interpretive Statements SINUS BRADYCARDIA WITH SINUS ARRHYTHMIA LOW QRS VOLTAGE IN PRECORDIAL LEADS [QRS DEFLECTION < 1.0 mV IN CHEST LEADS] MODERATE T-WAVE ABNORMALITY, CONSIDER INFERIOR ISCHEMIA [-0.1+ mV T-WAVE IN II/aVF] Compared to ECG 10/23/2022 13:46:43 Myocardial infarct finding no longer present T-wave abnormality still present Possible ischemia still present Electronically Signed On 10-23-2022 22:20:45 HELIUM ARC WELDER by Sary Lopez M.D. [id number]
[2022-10-23 15:58] LABS: Influenza A by IFA negative (Negative); Influenza B by IFA negative (Negative)
[2022-10-23 15:59] LABS: SARS Covid-2 Antigen negative (Negative)
[2022-10-23 16:23] LABS: Add Urine Microscopic? YES; Bilirubin Urine Neg (Negative); Blood Urine 2+ (Negative); Glucose Urine UA Norm (Normal); Ketones Urine Negative (Negative); Leukocyte Esterase Urine Negative (Negative); Nitrate Urine Negative (Negative); Protein Urine 3+ (Negative); RBC Urine 0-4 /hpf (0-2); Squamous Epithelial Cell Urine 0-4 /hpf (0-5); Urine Appearance SL Hazy (CLEAR); Urine Color Dark Yellow (Yellow); Urobilinogen Urine Norm (Negative); WBC Urine RARE /hpf (0-5); pH Urine 5 (5-7)
[2022-10-23 16:24] LABS: Add Urine Culture? No; Amorphous Sediment Urine 3+ /hpf; Bacteria Urine TRACE /hpf
[2022-10-23 16:28] LABS: Troponin 5 2HR 62.97 ng/L (0-10)
[2022-10-23 16:29] LABS: Troponin 5 2HR Delta -2.03 ABS# (0-10)
--- NOTE | 2022-10-23 17:16 | P.HP_ITS ---
Providers/Chief Complaint Primary Care Provider: Rajiv Francis DO Chief Complaint: chest pain, nausea History of Present Illness Nati Eli is a 71 year old female with past medical history of hypertension, minimal-change disease of kidney, hyponatremia, uncontrolled hypertension, anxiety, depression, esophageal dysmotility, GERD, anemia presented to the hospital today with complaint of GERD symptoms. In August 2022 she had her inferior wall STEMI and underwent successful revascularization with drug-eluting stent to RCA. She saw cardiology September 14, 2022 and still complained of occasional chest discomfort with felt like acid reflux and had dyspnea on exertion. She reported that she was compliant to her medications however she revealed to me in the emergency room today that she was never compliant with her dual antiplatelet therapy. She states that she stopped the aspirin pretty much a week after she was placed on it in August because she thought it worsened her GERD. She also stopped her metoprolol around the same time. She has only been taking Plavix daily. She states that she has been having burning in the middle of her chest and feeling sore and nauseated also having cold sweats and having shortness of breath and worsening of GERD on exertion. She says she is also feels hot at the time. She feels tired and has to sit down. She feels weak when she exerts herself. She says she has a history of bad reflux and believes all her medications were worsening it therefore she stopped taking her tacrolimus, aspirin, metoprolol. She says she saw her fishery biologist recently and was asked to do an echo as an outpatient which she completed last week. She does not know the results of it yet. ER course: Blood pressure 202/125 on arrival, respiratory 16, pulse 62, tempera ture 97.7. Initial EKG did not show any acute ischemic changes however there was another 1 repeated and it did show T wave inversions in the inferior leads. Troponins negative x2. Third troponin which is 6-hour troponin is pending at this time. Patient was given hydralazine 10 for her blood pressure and her blood pressure dropped to 84/60. Later it spiked up again and she was given an oral Norvasc 10 mg recently. Patient appears depressed at this time. He states she lives alone and is from her however if anything happens to her she would like us to call her Brad messer [phone], we can also call her daughter Lyndsay Dunlap [phone]. She says in case she cannot make her own medical decisions she would give that already to her ex- and her daughter to do so. She is also on a salt tablet at home and takes it on and off. X-ray chest done today does show pulmonary vascular congestion. BNP 14,000. Patient was not compliance with Bumex at home either. She says she takes it as needed. Not on any oxygen at this time. Medications/Allergies Home Medications Medication Instructions Recorded Confirmed Last Taken Type docusate sodium 100 mg capsule 200 mg PO BEDTIME 10/05/21 10/23/22 11/29/21 09:00 History acetaminophen 500 mg tablet 500 - 1,000 mg PO Q6H PRN Pain 11/29/21 10/23/22 11/29/21 10:30 History potassium chloride 20 mEq 20 meq PO DAILY #90 tabs 08/01/22 10/23/22 10/20/22 Rx tablet,extended release(part/cryst) (Klor-Con M) lactulose 10 gram/15 mL oral 30 ml PO BEDTIME 08/21/22 10/23/22 Unknown History solution metoprolol tartrate 50 mg tablet 25 mg PO BID 09/14/22 10/23/22 10/23/22 History 50 mg bumetanide 2 mg tablet 1 mg PO DAILY 10/23/22 10/23/22 10/19/22 History 2 mg clopidogrel 75 mg tablet 75 mg PO QAM 10/23/22 10/23/22 10/23/22 History dexlansoprazole 60 mg 60 mg PO QAM 10/23/22 10/23/22 10/23/22 History capsule,biphase delayed release (Dexilant) esomeprazole magnesium 20 mg 20 mg PO DAILY PRN extra burning 10/23/22 10/23/22 Unknown History capsule,delayed release (Nexium not helped from dexilant 24HR) losartan 25 mg tablet 25 mg PO DAILY 10/23/22 10/23/22 10/23/22 History 50 mg nitroglycerin 0.4 mg sublingual 0.4 mg sublingual Q5M PRN Chest 10/23/22 10/23/22 Unknown History tablet (Nitrostat) Pain potassium gluconate 595 mg (99 mg) 595 mg PO DAILY 10/23/22 10/23/22 10/23/22 History tablet sodium chloride-potassium chloride 1 tab PO DAILY 10/23/22 10/23/22 10/23/22 History 287 mg-180 mg-15 mg tablet (Thermotabs) sucralfate 1 gram tablet 1 g PO QID 10/23/22 10/23/22 10/23/22 History tacrolimus 1 mg capsule, 2 mg PO Q12H 10/23/22 10/23/22 10/21/22 History immediate-release Allergies Allergy/AdvReac Type Severity Reaction Status Date / Time iodine Allergy Unknown Unknown Verified 10/23/22 15:41 Iodine and Iodide Containing Allergy Unknown ALGY-Hives Verified 10/23/22 15:41 Produc [Iodine and Iodide Containing Products] shellfish derived Allergy Unknown Unknown Verified 10/23/22 15:41 doxycycline Allergy severe Verified 10/23/22 15:41 dizziness NSAIDS (Non-Steroidal Allergy Unknown Verified 10/23/22 15:41 Anti-Inflamma Rqanocp-VXD-FeV Reductase Allergy ADR-Muscle Verified 10/23/22 15:41 Inhibitor Pain lisinopril AdvReac Intermediate COUGH Verified 10/23/22 15:41 PFSH Acute PFSH: Medical History Anemia Anxiety and depression Chronic constipation COVID-19 Esophageal dysmotility Generalized anxiety disorder GERD with esophagitis Hypertension Hyponatremia Polycystic kidney Uncontrolled hypertension Family History Father Cancer lung Sister Cancer 2 sisters; breast Mother Hypertension Social History Smoking and tobacco status: never smoked Second hand smoke exposure: No Alcohol intake: never Lives independently: Yes Household members: spouse Marital status: Current occupational status: retired Current gender identity: Female Female Reproductive History: Spontaneous abortions: No Vitals/I&O/Wt Last Vital Signs Temp 97.7 F 10/23/22 13:35 Pulse 75 10/23/22 16:09 Resp 16 10/23/22 13:54 BP 156/87 10/23/22 16:09 Pulse Ox 96 10/23/22 16:09 O2 Del Method 10/23/22 13:54 Weight last 48 hrs Weight 77.111 kg Physical Exam Narrative: General: Alert oriented x3, patient seen laying in bed appearing comfortable at this time however does appear anxious. No acute respiratory distress. No conversational dyspnea. On room air at this time. Blood pressure elevated 200/100. HEENT: Normocephalic, atraumatic, EOMI, Cardio: Regular rate rhythm, normal S1-S2, no gross murmurs. Muffled heart sounds due to body habitus. Respiratory: Mainly clear to auscultation bilaterally no apparent wheezes rhonchi or crackles at this time. GI: Abdomen soft, nontender, nondistended, bowel sounds + Behavior: Appears slightly anxious however cooperative. Extremities: Trace bilateral lower extremity edema. Data 10/23/22 14:09 10/23/22 14:09 A&P Assessment and plan (1) Chest pain: (2) Hyponatremia: (3) Kidney disease: (4) Elevated brain natriuretic peptide (BNP) level: (5) Anemia: Qualifiers: Anemia type: unspecified type Qualified Code(s): D64.9 - Anemia, unspecified (6) CAD (coronary artery disease): Qualifiers: Coronary Disease-Associated Artery/Lesion type: [place] artery [place] vs. transplanted heart: [place] heart Associated angina: without angina Qualified Code(s): I25.10 - Atherosclerotic heart disease of [place] coronary artery without angina pectoris (7) Uncontrolled hypertension: (8) Hypoalbuminemia: (9) Fatigue: (10) Recent ST elevation myocardial infarction (STEMI): (11) Non-compliant patient: (12) High thyroid stimulating hormone (TSH) level: (13) Acute kidney injury: (14) Goals of care, counseling/discussion: Plan #GERD/atypical chest pain #History of CAD, recent STEMI inferior with PCI and DEBORAH to RCA x2 #Hypertensive urgency #Anxiety #GERD #Hyponatremia #Polycystic kidney disease versus minimal-change disease. Patient cannot specify #ALONSO, possibly secondary to prerenal cardiorenal syndrome #Immunocompromise. Chronically on tacrolimus but noncompliant #Hypothyroidism, TSH high #Low albumin ? Patient presented with atypical chest pain GERD symptoms mid sternum. They have been going on for quite some weeks at this point. She did have a STEMI in August and received 2 stents to the RCA. Patient states that she was noncompliant to her dual antiplatelet therapy. She thought that aspirin and metoprolol were causing her worsening GERD symptoms therefore stopped them a week after they were started in August. She has only been on Plavix since then. She took tacrolimus Bumex and salt tablets as needed. She believes all the medications caused her to have GERD. She saw cardiology recently and complained of similar symptoms however did state that she was compliant to medications. Today she says that she was not. ? Due to conflicting history, recent stent placement, noncompliance to medications, clear T wave inversions in inferior leads on EKG I believe patient is probably not a candidate for stress test at this time and may benefit from a cardiac angiogram. Ekg was personally reviewed by me. ? Her symptoms can be attributed to hypertension as well however cardiac event cannot be ruled out ? I will place patient on heparin drip. First 2 troponins are negative. 6-hour troponin is pending at this time. ? Patient extremely sensitive to blood pressure medication. I will hold off on starting a nitroglycerin drip ? BNP 14,000 today. Echo checked last week shows 70% ejection fraction with diastolic dysfunction. We will recheck limited echo today to look for wall motion abnormalities. I reviewed chest xray myself and agree there is definitely pulmonary vascular congestion. ? I will place on Bumex 40 IV daily ? States that she has extreme GERD with aspirin. Continue Plavix for now. ? She reported a adverse effect of statins as well. ? Continue metoprolol 25 twice daily, Plavix -We will hold losartan due to ALONSO -Placed on hydralazine 5 IV every 4 hours ? Hyponatremia most likely attributed to fluid overload versus chronic hyponatremia due to kidney disease. Continue salt tablets 1 g daily ? Patient not on tacrolimus and has a ALONSO. Also has existing kidney disease. I will consult nephrology. ? We will check free T4. TSH is 10.25 ? Alkaline phosphatase 115. We will check abdominal ultrasound to rule out gallbladder pathology. ? Consult cardiology for input. -We will check serial EKGs and await 6-hour troponin. - place doe for accurate i/o - check ferritin, iron, tibc Full code DVT prophylaxis: On heparin drip at this time Goals of care discussion done. She is a full code. Would like us to talk to ex and daughter incase she cannot speak for herself. Attestations Medical Necessity Statement*: Will cross greater than 2 midnight for management of chest pain, hypertension, ALONSO and High Time for a total of 65 minutes, includes reviewing past or interval history, examining/interviewing patient, placing orders, counseling patient/family/other support, updating patient/family/other support, discussing plan of care with staff, communicating with other healthcare providers, documenting encounter and coordinating care Other Coding Information Focused coding review requested Diagnoses Chest pain R07.9 Hyponatremia E87.1 Kidney disease N28.9 Elevated brain natriuretic peptide (BNP) level R79.89 Anemia D64.9 Anemia type: unspecified type CAD (coronary artery disease) I25.10 Coronary Disease-Associated Artery/Lesion type: [place] artery [place] vs. transplanted heart: [place] heart Associated angina: without angina Uncontrolled hypertension I10 Hypoalbuminemia E88.[address] elevation myocardial infarction (STEMI) Non-compliant patient Z91.199 High thyroid stimulating hormone (TSH) level R79.89 Acute kidney injury N17.9 Goals of care, counseling/discussion Z71.89 Time Spent (min) 65
[2022-10-23] MEDS: amlodipine 10 mg Tablet PO (17:21)
[2022-10-23] MEDS: sodium chloride 0.9% 500 ML 999 ML IV (17:22)
[2022-10-23] MEDS: heparin 5,000 unit/mL INJ 1 mL 5000 UNIT SUBCUT (17:23)
--- NOTE | 2022-10-23 17:47 | USCV_ITS ---
Nati Eli Age: 71 Gender: F : 1950 Exam Date: 10/23/2022 18:00 Ordering Phys: Zofia Reyes MD Technologist: KENNETH Exam Location: [facility] [place] Indication: wall mation abnormalties BP: / HR: Rhythm: Sinus Technical Quality: Adequate MEASUREMENTS (Male / Female) Normal Values FINDINGS Left Ventricle Normal left ventricular size and systolic function, EF 55%. No gross wall motion normalities noted Right Ventricle Normal right ventricular size and systolic function. Right Atrium Normal right atrial size. Left Atrium Normal left atrial size. Mitral Valve Thickened mitral valve. Mild mitral annular calcification. Aortic Valve Thickened aortic valve. Tricuspid Valve No gross abnormalities noted Pulmonic Valve Pulmonic valve not well visualized. Pericardium Normal pericardium without effusion. Aorta Normal ascending aorta dimension. IVC Normal inferior vena cava. CONCLUSIONS Normal left ventricular size and systolic function, EF55%. No gross wall motion normalities noted. Thickened mitral valve. Mild mitral annular calcification. Normal cardiac chamber sizes. No pericardial effusion. No intracardiac masses. Compared to the study from 10/20/2022, there is slight improvement in the LV ejection fraction from 50% to 55% Dr Sary Lopez MD [facility] (Electronically Signed) Final Date: 23 October 2022 18:49 S
[2022-10-23 17:54] LABS: Estmated Average Glucose 108; Hemoglobin A1C 5.4 % (4.0-6.0)
[2022-10-23 17:57] LABS: Thyroid Stimulating Hormone 10.25 uIU/mL (0.27-4.20)
[2022-10-23] MEDS: heparin drip 25,000 UNIT/500 ML PREMIX 21 UNIT IV (18:23)
[2022-10-23 18:54] LABS: Ferritin 47 ng/mL (15-150); Iron 42 ug/dL (37-145); Percent Saturation 24.5 % (20-50); Total Iron Binding Capacity 171 mcg/dl; Unsaturated Iron Binding 129 ug/dL (112-347)
--- NOTE | 2022-10-23 19:31 | P.CONIM_ITS ---
Providers/Reason For Consult Consulting Physician/Specialty*: EVANGELINA Lopez MD/cardiology Reason for Consult*: Patient with recent ST elevation myocardial infarction, status post PCI of the right coronary artery, now presenting with persistent epigastric pain and features of heart failure with elevated troponin T Requesting Physician: Dr. Reyes Attending Physician: Zofia Reyes MD Primary Care Provider: Rajiv Francis DO History of Present Illness History of Present Illness Nati Eli is a 71 year old female with a history of coronary artery disease and recent myocardial infarction, no presenting with a prolonged episode of e pigastric pain, uncontrolled blood pressure and some features of diastolic heart failure. Cardiology consult is requested for further cardiac evaluation recommendations. This patient was admitted to the hospital on 20 August 2022 with features of an acute ST elevation myocardial infarction involving the right coronary artery. She had a coronary angiogram followed by PCI. She has a longstanding history of abdominal pain/gastroesophageal for disease. When she presented with the inferior wall myocardial infarction, she thought the pain was related to the acid reflux. According the patient even after the PCI, she continues to have similar pains. Usually the pain may last for 2 or 3 days and then goes away by her usual medications. This time the pain does not seems to be letting up. Her blood pressure has also has been staying high lately and kept going up at home. Systolic blood pressure was in the 170s which also made her concerned. The current epigastric pain started on Monday. She has been taking Nexium and Dexilant. She was recently placed on tacrolimus by the nuisance animal damage control agent. According the patient, her acid reflux symptoms are getting worse ever since. She had upper endoscopies in the past. But has not had any endoscopies for the last more than 5 years. 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 She is being followed by the nuisance animal damage control agent in [facility]. She was placed on dual platelet agent after the PCI. 2 weeks after that she had to stop taking the aspirin because of the worsening of the acid reflux symptoms. She continues to take Plavix. She was recently seen by Dr. Kinsey in the office. She was complaining of the acid reflux symptoms at that time. The plan was to consider a stress test to further evaluate her symptoms. Patient also has been having some amount of dyspnea on exertion, easy fatigability and cold chills for the last 1 week or so. No fever. No cough. No orthopnea or PND. No other specific complaints Review of Systems Narrative: CONSTITUTIONAL: Cold chills and fatigability as mentioned above EYES: No blurring of vision or other visual disturbances lately. [] ENT: No hoarseness of voice, auditory disturbances or sore throat. [] CARDIOVASCULAR: As mentioned above. RESPIRATORY: No significant cough. GASTROINTESTINAL: No hematemesis or melena. GENITOURINARY: Minimal-change disease of the kidney INTEGUMENTARY: No skin rashes or history of skin cancer. NEURO: No transient ischemic attacks or amaurosis. PSYCHIATRIC: History of anxiety/depressive illness HEMATOLOGIC: No bleeding disorders or significant anemia. ENDOCRINE: No history of polyuria or polydipsia. MUSCULOSKELETAL: No recent joint pain or swelling. ALLERGY/IMMUNOLOGY: As mentioned above. Medications/Allergies Home Medications Medication Instructions Recorded Confirmed Last Taken Type docusate sodium 100 mg capsule 200 mg PO BEDTIME 10/05/21 10/23/22 11/29/21 09:00 History acetaminophen 500 mg tablet 500 - 1,000 mg PO Q6H PRN Pain 11/29/21 10/23/22 11/29/21 10:30 History potassium chloride 20 mEq 20 meq PO DAILY #90 tabs 08/01/22 10/23/22 10/20/22 Rx tablet,extended release(part/cryst) (Klor-Con M) lactulose 10 gram/15 mL oral 30 ml PO BEDTIME 08/21/22 10/23/22 Unknown History solution metoprolol tartrate 50 mg tablet 25 mg PO BID 09/14/22 10/23/22 10/23/22 History 50 mg bumetanide 2 mg tablet 1 mg PO DAILY 10/23/22 10/23/22 10/19/22 History 2 mg clopidogrel 75 mg tablet 75 mg PO QAM 10/23/22 10/23/22 10/23/22 History dexlansoprazole 60 mg 60 mg PO QAM 10/23/22 10/23/22 10/23/22 History capsule,biphase delayed release (Dexilant) esomeprazole magnesium 20 mg 20 mg PO DAILY PRN extra burning 10/23/22 10/23/22 Unknown History capsule,delayed release (Nexium not helped from dexilant 24HR) losartan 25 mg tablet 25 mg PO DAILY 0210/23/22 10/23/22 History 50 mg nitroglycerin 0.4 mg sublingual 0.4 mg sublingual Q5M PRN Chest 10/23/22 10/23/22 Unknown History tablet (Nitrostat) Pain potassium gluconate 595 mg (99 mg) 595 mg PO DAILY 10/23/22 10/23/22 10/23/22 History tablet sodium chloride-potassium chloride 1 tab PO DAILY 10/23/22 10/23/22 10/23/22 History 287 mg-180 mg-15 mg tablet (Thermotabs) sucralfate 1 gram tablet 1 g PO QID 10/23/22 10/23/22 10/23/22 History tacrolimus 1 mg capsule, 2 mg PO Q12H 10/23/22 10/23/22 10/21/22 History immediate-release Allergies Allergy/AdvReac Type Severity Reaction Status Date / Time iodine Allergy Unknown Unknown Verified 10/23/22 15:41 Iodine and Iodide Containing Allergy Unknown ALGY-Hives Verified 10/23/22 15:41 Produc [Iodine and Iodide Containing Products] shellfish derived Allergy Unknown Unknown Verified 10/23/22 15:41 doxycycline Allergy severe Verified 10/23/22 15:41 dizziness NSAIDS (Non-Steroidal Allergy Unknown Verified 10/23/22 15:41 Anti-Inflamma Oycqjfh-ZVM-BtS Reductase Allergy ADR-Muscle Verified 10/23/22 15:41 Inhibitor Pain lisinopril AdvReac Intermediate COUGH Verified 10/23/22 15:41 Current Medications Generic Name Dose Route Start Last Admin Trade Name Freq PRN Reason Stop Dose Admin Heparin Sodium/Sodium Chloride 25,000 unit in 500 mls @ 0 mls/hr 10/23/22 18:00 10/23/22 18:23 Heparin Drip IV 13.62 unit/kg/hr .Q0M SUNSHINE 21 mls/hr Administration Protocol Per Protocol PFSH Acute PFSH: Medical History (Updated 10/23/22 @ 19:52 by Sary Lopez MD) Anemia Anxiety and depression Chronic constipation COVID-19 Esophageal dysmotility Generalized anxiety disorder GERD with esophagitis Hypertension Hyponatremia Polycystic kidney Uncontrolled hypertension Family History Father Cancer lung Sister Cancer 2 sisters; breast Mother Hypertension Social History Smoking and tobacco status: never smoked Second hand smoke exposure: No Alcohol intake: never Lives independently: Yes Household members: spouse Marital status: Current occupational status: retired Current gender identity: Female Female Reproductive History: Spontaneous abortions: No Vitals/I&O/Wt Last Vital Signs Temp 97.7 F 10/23/22 13:35 Pulse 63 10/23/22 18:34 Resp 16 10/23/22 18:34 BP 179/85 10/23/22 18:34 Pulse Ox 98 10/23/22 18:34 O2 Del Method 10/23/22 18:34 10/23/22 10/23/22 10/23/22 06:59 14:59 22:59 Intake Total 500 / 500 Balance 500 / 500 Weight last 48 hrs Weight 170 lb Physical Exam Narrative: GENERAL: The patient is alert and oriented times three. Not in any acute distress. HEENT: No significant pallor, icterus or lymphadenopathy.Oral cavity: There are no mucous membrane lesions. NECK: Trachea appears to be central. No masses noted. No JVD or thyromegaly appreciated. RESPIRATORY: Chest is symmetrical. No intercostals muscle retraction or any accessory muscle activation. Significant chest wall tenderness, more on the left costochondral junctions. Breath sounds are heard bilaterally. No rales or rhonchi heard. No evidence of any consolidation. BREASTS: Deferred. HEART: The heart sounds are normal. No S3 or S4. No significant murmurs. No pericardial rub ABDOMEN: No vessel pulsations or distention. Epigastric tenderness present. No organomegaly appreciated. Bowel sounds are normally heard. : Deferred. RECTAL: Deferred. LYMPHATIC: No lymphadenopathy noted in the neck. EXTREMITIES: Trace edema with no cyanosis no clubbing. MUSCULOSKELETAL: No acute joint deformities or swelling SKIN: There are no significant rashes or ecchymosis NEUROPSYCHIATRIC: The patient is alert and oriented x3. Appears to be in a good mood. No tremors or rigidity noted. Data 10/23/22 14:09 10/23/22 14:09 Cardiac catheterization: My impression: Cardiac catheterization the August * Left main 10 to 20% luminal irregularities gives rise to the LAD and the circumflex.? Normal anatomic takeoff engaged using a TIG 4 diagnostic catheter. ? * LAD with proximal and mid 30-40%. Diagonal branch #1 moderate size vessel with mid to distal 60 to 70% stenosis.? Small caliber vessel in this location not ideal for considerations of revascularization. ? * Circumflex with 20 to 30% luminal irregularities. ? * RCA with proximal 30 to 40% disease.? Mid severely calcified 60 to 70% stenosis.? Mid to distal hazy luminal filling defect consistent with potential ruptured plaque and thrombus nonocclusive.? PDA with ostial and proximal 90% disease.? ADELINE with mid 30 to 40% disease. Large dominant vessel engaged using a TIG 4 diagnostic catheter.. CXR: Radiologist's impression: 1. New right base infiltrate. 2. Stable infiltrate/density possibly chronic versus slightly improved in the left base. Echo: My impression: Normal left ventricular size and systolic function, EF55%.? No ?gross wall motion normalities noted. ?Thickened mitral valve. Mild mitral annular calcification. ?Normal cardiac chamber sizes. ?No pericardial effusion. ?No intracardiac masses. ?Compared to the study from 10/20/2022, there is slight ?improvement in the LV ejection fraction from 50% to 55% EKG 1: My Interpretation: Normal sinus rhythm with a left axis deviation. T inversions in the inferolateral leads. A&P Assessment and plan (1) Chest pain: Patient has epigastric pain and chest wall pain. It is difficult to say whether he has any underlying coronary ischemia or not. The EKG shows T wave changes in the inferior and anterolateral leads. The review of the previous EKG shows fluctuating anterolateral T wave changes since August of last year. (2) Recent ST elevation myocardial infarction (STEMI): Patient had a PCI of the distal RCA and the proximal PDA lesions. She was found to have around 60 to 70% calcified mid RCA lesion. Whether this is causing any ischemia at this point or not is not clear. For further evaluation, a Myocardial perfusion imaging would be appropriate. Because of her history of iron allergy and minimal-change kidney disease: The angiogram should be the last option. (3) GERD with esophagitis: Patient may require further work-up, if the current medications are not helping her symptoms. (4) Elevated brain natriuretic peptide (BNP) level: Patient seems to have acute on chronic diastolic heart failure. She will be carefully treated with IV diuretics. (5) Uncontrolled hypertension: Patient was given amlodipine in the emergency room. This may be continued. I may change the metoprolol to carvedilol 12.5 mg p.o. twice daily. I also may place her on Nitropaste 1 inch every 6 hours to the anterior chest wall. Her blood pressure needs to be closely monitored. She was given 15 mg of IV hydralazine in the emergency room. Her systolic blood pressure dropped from 200 to 90 mmHg after the IV dose. She might be very sensitive to this medication. Apparently she also had some kind of reactions to clonidine in the past Plan Other problems are Minimal-change kidney disease Hyponatremia Mild anemia History of hypothyroidism Anxiety/depressive illness . Iodide allergy History of anasarca If there is no significant delta on the 6-hour troponin T, we may go ahead and do a Myocardial perfusion imaging tomorrow to evaluate for any significant ischemia in the distribution of the left or descending artery/right coronary art wicho. Based on the results, further recommendations will be made. Dr. Kinsey will assume the care of this patient in the morning Consult Attestations Medical Necessity Statement: Patient requires continued hospital stay for close monitoring and further management Coding Level of Care Code 03464 Diagnoses Chest pain R07.[address] elevation myocardial infarction (STEMI) GERD with esophagitis K21.00 Elevated brain natriuretic peptide (BNP) level R79.89 Uncontrolled hypertension I10
[2022-10-23] MEDS: carvedilol 12.5 mg Tablet PO (20:00)
[2022-10-23 21:03] LABS: Troponin 5 6HR 61.36 ng/L (0-10)
[2022-10-23] MEDS: ondansetron 2 mg/ML SDV 2 mL 4 MG IVP (21:14)
--- NOTE | 2022-10-23 21:15 | ECG_ITS ---
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 Measurements Intervals [place] Rate: 68 P: 21 MT: 159 QRS: 68 QRSD: 89 T: 110 QT: 441 QTc: 472 Interpretive Statements SINUS RHYTHM LOW QRS VOLTAGE IN PRECORDIAL LEADS [QRS DEFLECTION < 1.0 mV IN CHEST LEADS] PATTERN CONSISTENT WITH PULMONARY DISEASE MODERATE T-WAVE ABNORMALITY, CONSIDER LATERAL ISCHEMIA [-0.1+ mV T-WAVE IN I/aVL/V5/V6] Compared to ECG 10/23/2022 15:09:43 Sinus bradycardia no longer present Sinus arrhythmia no longer present T-wave abnormality still present Possible ischemia still present Electronically Signed On 10-23-2022 22:21:51 [employer]UAL REAL[employer]IST by Sary Lopez M.D. [id number]
[2022-10-23] MEDS: bumetanide 0.25 mg/mL SDV 4 mL 1 MG IVP (21:16)
[2022-10-23] MEDS: sucralfate 1 gm Tablet PO (21:16)
[2022-10-23] MEDS: sodium chloride 1 gm Tablet PO (21:16)
[2022-10-23 21:25] LABS: Troponin 5 6HR Delta -3.64 ng/L (0-12)
[2022-10-23] MEDS: acetaminophen 325 mg Tablet 650 MG PO (23:15)
[2022-10-23 23:47] LABS: Anion Gap 16.1 (5-19); Blood Urea Nitrogen 23 mg/dL (8-23); Calcium 8.5 mg/dL (8.5-10.5); Carbon Dioxide 20 mmol/L (22-29); Chloride 97 mmol/L (98-107); Glucose 96 mg/dL (65-115); Osmolality Calculated 272 mOsm/kg (285-295); Potassium 4.1 mmol/L (3.5-5.1); Sodium 129 mmol/L (136-145)
[2022-10-24] VITALS (113 sets, daily range): BP systolic 95–178; BP diastolic 59–105; PULSE 49–96; RESP 0–33; TEMP 36.8–36.9; O2SAT 89–98
[2022-10-24 00:55] LABS: Free T4 Free Thyroxine 1.15 ng/dL (0.82-1.77)
[2022-10-24 01:36] LABS: Partial Thromboplastin Time 73.4 SECONDS (23.9-36.7)
[2022-10-24 05:32] LABS: Basophils # 0.1 10^3/uL (0.0-0.1); Eosinophils # 0.2 10^3/uL (0.0-0.8); Eosinophils % 2.6 %; Hemoglobin 9.4 g/dL (11.5-15.3); Lymphocytes # 2.2 10^3/uL (0.8-4.8); Mean Corpuscular HGB Conc 31.3 g/dL (30.0-36.0); Mean Corpuscular Hemoglobin 25.8 pg (28.0-34.0); Mean Corpuscular Volume 82.4 fl (81-99); Mean Platelet Volume 10.6 fL (7.4-10.4); Monocytes # 0.6 10^3/uL (0.2-0.9); Monocytes % 9.7 %; Neutrophils # 2.79 10^3/uL (1.8-7.7); Neutrophils % 48.5 %; Nucleated Red Blood Cells % 0 %; Platelet Count 295 10^3/cmm (130-400); Red Blood Count 3.64 10^6/uL (4.1-5.3); Red Cell Distribution Width 16.5 % (12.1-15.1); White Blood Count 5.8 10^3/uL (4.0-10.0)
[2022-10-24 05:51] LABS: Alanine Aminotransferase < 5 U/L (0-33); Albumin Level 2.1 g/dL (3.5-5.2); Alkaline Phosphatase 89 U/L (35-105); Anion Gap 14.2 (5-19); Aspartate Amino Transferase 10 U/L (0-32); Blood Urea Nitrogen 22 mg/dL (8-23); Calcium 8.2 mg/dL (8.5-10.5); Carbon Dioxide 21 mmol/L (22-29); Chloride 99 mmol/L (98-107); Globulin 2.6 g/dL (1.3-4.6); Glucose 98 mg/dL (65-115); Osmolality Calculated 273 mOsm/kg (285-295); Potassium 4.2 mmol/L (3.5-5.1); Sodium 130 mmol/L (136-145); Total Bilirubin 0.2 mg/dL (0.15-1.2); Total Protein 4.7 g/dL (6.6-8.7)
[2022-10-24] MEDS: clopidogrel 75 mg Tablet PO (06:08)
[2022-10-24] MEDS: sodium chloride 1 gm Tablet PO (08:26)
[2022-10-24] MEDS: carvedilol 12.5 mg Tablet PO ×2 (08:26→17:11)
[2022-10-24] MEDS: sucralfate 1 gm Tablet PO ×3 (08:26→20:17)
[2022-10-24] MEDS: pantoprazole DR 40 mg Tablet PO ×2 (08:27→17:12)
[2022-10-24 08:52] LABS: Partial Thromboplastin Time 73.9 SECONDS (23.9-36.7)
--- NOTE | 2022-10-24 10:51 | P.CONIM_ITS ---
Providers/Reason For Consult Consulting Physician/Specialty*: clemencia lucero md / telenephrology Reason for Consult*: htn, nephrotic syndrome Requesting Physician: DR Reyes and Dr Rajan Attending Physician: Karen Rajan MD Primary Care Provider: Rajiv Francis DO History of Present Illness History of Present Illness Nati Eli is a 71 year old female dx of htn, htn. seen by my me and my colleagues last year and tranferred for a renal biopsy to [facility] where she had a kidney biopsy. per pt she had minimal change disease on renal biopsy and was given 2 courses of steroids with out improvement and was recently started on tacrolimus. she is not taking any of above. Her course was complicated by GERD. ?In August 2022 she had her inferior wall STEMI and underwent successful revascularization with drug-eluting stent to RCA.??Pt presented yesterday w/ SARGENT, CP and uncontrolled HTN- 225 /125- pts bp was l abile in the ER- as low as 84/60. Renal called for BP issues, hyponatremia, and Cr of 1.5 mg/dl Review of Systems Narrative: as above, weak, sob, cp Medications/Allergies Home Medications Medication Instructions Recorded Confirmed Last Taken Type docusate sodium 100 mg capsule 200 mg PO BEDTIME 10/05/21 10/23/22 11/29/21 09: 00 History acetaminophen 500 mg tablet 500 - 1,000 mg PO Q6H PRN Pain 11/29/21 10/23/22 11/29/21 10:30 History potassium chloride 20 mEq 20 meq PO DAILY #90 tabs 08/01/22 10/23/22 10/20/22 Rx tablet,extended release(part/cryst) (Klor-Con M) lactulose 10 gram/15 mL oral 30 ml PO BEDTIME 08/21/22 10/23/22 Unknown History solution metoprolol tartrate 50 mg tablet 25 mg PO BID 09/14/22 10/23/22 10/23/22 History 50 mg bumetanide 2 mg tablet 1 mg PO DAILY 10/23/22 10/23/22 10/19/22 History 2 mg clopidogrel 75 mg tablet 75 mg PO QAM 10/23/22 10/23/22 10/23/22 History esomeprazole magnesium 20 mg 20 mg PO DAILY PRN extra burning 10/23/22 10/23/22 Unknown History capsule,delayed release (Nexium not helped from dexilant 24HR) losartan 25 mg tablet 25 mg PO DAILY 10/23/22 10/23/22 10/23/22 History 50 mg nitroglycerin 0.4 mg sublingual 0.4 mg sublingual Q5M PRN Chest 10/23/22 10/23/22 Unknown History tablet (Nitrostat) Pain potassium gluconate 595 mg (99 mg) 595 mg PO DAILY 10/23/22 10/23/22 10/23/22 History tablet sodium chloride-potassium chloride 1 tab PO DAILY 10/23/22 10/23/22 10/23/22 History 287 mg-180 mg-15 mg tablet (Thermotabs) sucralfate 1 gram tablet 1 g PO QID 10/23/22 10/23/22 10/23/22 History tacrolimus 1 mg capsule, 2 mg PO Q12H 10/23/22 10/23/22 10/21/22 History immediate-release dexlansoprazole 60 mg 60 mg PO DAILY #30 caps 10/24/22 Unknown Rx capsule,biphase delayed release (Dexilant) Allergies Allergy/AdvReac Type Severity Reaction Status Date / Time iodine Allergy Unknown Unknown Verified 10/23/22 15:41 Iodine and Iodide Containing Allergy Unknown ALGY-Hives Verified 10/23/22 15:41 Produc [Iodine and Iodide Containing Products] shellfish derived Allergy Unknown Unknown Verified 10/23/22 15:41 doxycycline Allergy severe Verified 10/23/22 15:41 dizziness NSAIDS (Non-Steroidal Allergy Unknown Verified 10/23/22 15:41 Anti-Inflamma Lzvgzro-WIA-AmJ Reductase Allergy ADR-Muscle Verified 10/23/22 15:41 Inhibitor Pain lisinopril AdvReac Intermediate COUGH Verified 10/23/22 15:41 Current Medications Generic Name Dose Route Start Last Admin Trade Name Freq PRN Reason Stop Dose Admin Acetaminophen 650 mg 10/23/22 17:16 10/23/22 23:15 Acetaminophen 325 Mg Tablet PO 650 mg Q6H PRN Administration Mild/Mod Pain Or Temp >/= 101 Bumetanide 1 mg 10/23/22 19:01 10/23/22 21:16 Bumetanide 0.25 Mg/Ml Sdv 4 Ml IVP 1 mg Q24H SUNSHINE Administration Carvedilol 12.5 mg 10/23/22 19:27 10/24/22 08:26 Carvedilol 12.5 Mg Tablet PO 12.5 mg BID SUNSHINE Administration Clopidogrel Bisulfate 75 mg 10/24/22 06:00 10/24/22 06:08 Clopidogrel 75 Mg Tablet PO 75 mg QAM SUNSHINE Administration Docusate Sodium 200 mg 10/23/22 21:00 10/23/22 21:17 Docusate Sodium 100 Mg Capsule PO Not Given BEDTIME SUNSHINE Heparin Sodium/Sodium Chloride 25,000 unit in 500 mls @ 0 mls/hr 10/23/22 18:00 10/23/22 18:23 Heparin Drip IV 13.62 unit/kg/hr .Q0M SUNSHINE 21 mls/hr Administration Protocol Per Protocol Lactulose 20 gm 10/23/22 21:00 10/23/22 21:17 Lactulose Oral Liq 20 Gm/30 Ml Udc PO Not Given BEDTIME SUNSHINE Ondansetron HCl 4 mg 10/23/22 17:16 10/23/22 21:14 Ondansetron 2 Mg/Ml Sdv 2 Ml IVP 4 mg Q8H PRN Administration vomiting, or N/V if npo Pantoprazole Sodium 40 mg 10/24/22 09:00 10/24/22 08:[address] 40 Mg Tablet PO 40 mg DAILY SUNSHINE Administration Sodium Chloride 1 gm 10/23/22 19:01 10/24/22 08:26 Sodium Chloride 1 Gm Tablet PO 1 gm DAILY SUNSHINE Administration Sucralfate 1 gm 10/23/22 21:00 10/24/22 08:26 Sucralfate 1 Gm Tablet PO 1 gm QID SUNSHINE Administration PFSH Acute PFSH: Medical History (Updated 10/23/22 @ 19:52 by Sary Lopez MD) Anemia Anxiety and depression Chronic constipation COVID-19 Esophageal dysmotility Generalized anxiety disorder GERD with esophagitis Hypertension Hyponatremia Polycystic kidney Uncontrolled hypertension Family History Father Cancer lung Sister Cancer 2 sisters; breast Mother Hypertension Social History Smoking and tobacco status: never smoked Second hand smoke exposure: No Alcohol intake: never Lives independently: Yes Household members: spouse Marital status: Current occupational status: retired Current gender identity: Female Female Reproductive History: Spontaneous abortions: No Vitals/I&O/Wt Last Vital Signs Temp 98.5 F 10/24/22 04:15 Pulse 72 10/24/22 09:30 Resp 18 10/24/22 09:30 BP 116/68 10/24/22 09:30 Pulse Ox 93 10/24/22 09:30 O2 Del Method 10/23/22 18:34 10/23/22 10/24/22 10/24/22 22:59 06:59 14:59 Intake Total 600 / 600 240 / 240 Output Total 600 / 600 Balance 600 / 600 -600 / 0 240 / 240 Weight last 48 hrs Weight 80.966 kg Weight 77.111 kg Physical Exam Narrative: obese in bed, ANRD vss heent- nc/at, eomi, anicteric neck supple lungs clear heart reg abd soft, nt, nd, + bs ext b/l edema neuro a,a, o x 3 Data 10/24/22 04:38 10/24/22 04:38 A&P Assessment and plan (1) Kidney disease: 71 yr old female CAD, htn, minimal change disease 1. ALONSO - baseline cr 0.8- now 1.5 mg/dl -ua 3+ prot, 2+ blood, amorphous sediment 3+ -urine microalbumin/ cr 3209 -in Oct 2021- she had 64811 mg/gm of protein / gm of cr -in march 2022- she improved to 162 mg/dl microalbumin/ cr- now she is at 3209 to 3531 -Can be ATN, BP effect or her minimal change disease -treatment is usually steroids or Calcineurin inhibitors- will restart tacrolimus at 2 mg bid. would consider a steroid bolus also -i am trying to get in touch w/ her lining closer to come up w/ a united plan -restart losartan and would add farxigia or jardiance 2. hyponatremia- unlikely adrenal insufficiency w/ htn -check urine electrolytes - tsh 10 - not high enoufgh to cause hyponatremia -check am cortisol level -hyponatremia can be from bumex -d/c salt tabs 3. anemia- Q GERD.. Q GIB. check iron studies 4. htn- add ARB 5. non AGMA- monitor seen and examined w/ RN - telehealth visit -check lipids major issue is compliance w/ meds informed consent for Telehealth obtained form pt time spent 1 hr Plan as above Consult Attestations Medical Necessity Statement: nephrotic syndrome Time Spent in Patient Care: Greater than 35 minutes (>than 50% of time spent in counselling and/or direct pt care on unit) . Coding Level of Care Code Acute Code for Chg Fwd Diagnoses Kidney disease N28.9
--- NOTE | 2022-10-24 11:10 | PM.PN ---
Subjective Subjective: Patient had epigastric pain after having breakfast. Vitals/I&O/Wt Last Vital Signs Temp 98.5 F 10/24/22 04:15 Pulse 72 10/24/22 09:30 Resp 18 10/24/22 09:30 BP 116/68 10/24/22 09:30 Pulse Ox 93 10/24/22 09:30 O2 Del Method 10/23/22 18:34 10/23/22 10/24/22 10/24/22 22:59 06:59 14:59 Intake Total 600 / 600 240 / 240 Output Total 600 / 600 Balance 600 / 600 -600 / 0 240 / 240 Weight last 48 hrs Weight 178 lb 8 oz Weight 170 lb Physical Exam Narrative: GENERAL: Patient is alert, awake and oriented x3. [] NECK: No jugular vein distension. [] HEENT: No cyanosis. No icterus. No pallor. [] HEART: Regular S1 and S2. No murmur, rub or gallop. [] LUNGS: Clear to auscultate bilaterally. [] CENTRAL NERVOUS SYSTEM: Grossly nonfocal. [] EXTREMITIES: Lower extremities with 1+ edema bilaterally. Pulses palpable in the lower extremities, both dorsalis pedis and posterior tibial. [] Data 10/24/22 04:38 10/24/22 04:38 A&P Assessment and plan (1) Chest pain: Chest pain is atypical and is associated with eating. Given her moderate to severe mid RCA lesions, will recommend stress test. It can be done after GI work-up (2) Recent ST elevation myocardial infarction (STEMI): Chest pain is atypical. Stress test recommended. (3) GERD with esophagitis: She will require work-up. (4) Elevated brain natriuretic peptide (BNP) level: Continue to monitor renal function closely. (5) Uncontrolled hypertension: Patient will need careful uptitration of antihypertensive medications. Plan Based on stress test results, will make further recommendations as at high risk of EMANUEL given renal dysfunction. Attestations Medical Necessity Statement*: Care expected to cross 2 midnights. Coding Level of Care Code Acute Code for Chg Fwd Diagnoses Chest pain R07.[address] elevation myocardial infarction (STEMI) GERD with esophagitis K21.00 Elevated brain natriuretic peptide (BNP) level R79.89 Uncontrolled hypertension I10
[2022-10-24] MEDS: losartan 50 mg Tablet 25 MG PO (12:05)
--- NOTE | 2022-10-24 12:07 | PC.CHAP ---
Pastoral Care Encounter/Spiritual Assessment Type of Contact [] Declined supervisor building maintenance visit [] Patient/Family/Request visit [] Outpatient visit [] Follow-up visit [] Physician referral [] Code/Alert [x] Routine visit [] Staff referral [] Actively dying [x] Patient sleeping [] Family support [] [] Out of room [] Palliative care [] [] Receiving care in room [] Pre-surgical visit [] Trauma [] Long length of stay [x] ICU visit [] Other: Relational/Emotional Strength [] Patient feels connected with others/family/visitors/staff [] Distress [] Loneliness/isolation [] Abandonment Spirituality of Patient [] Person of Padmini [] Attends Confucianism of their Padmini [] Believes in Prayer [] Reads Bible or Muslim materials [] There are Spiritual issues to be addressed Professional Engineer Interventions [x] Prayer [] Active listening [] Non-anxious presence [] Spiritual/emotional support [] Crisis/trauma care [] Spiritual counseling [] Bereavement support [] Provided bereavement packet [] Provided Bible/devotional materials [] Provided toy/stuffed animal, coloring book to patient or family member [] Provided Communion [] Anointing/Petroleum [] Salvation [x] Completed spiritual assessment [] Other: Impact on Illness or Injury [] Angry [] Fearful [] Anxious [] Often cries [] Exhaustion [] Unable to work [] Unable to attend quaker [] Unable to walk/stand [] Unable to read [] Unable to drive [] Unable to eat/drink [] Unable to sleep [] Unable to be with family [] Patient intubated [] Other: Summary Time spent with patient
[2022-10-24 12:41] LABS: Hepatitis C Virus Antibody Non-Reactive (Nonreactive)
--- NOTE | 2022-10-24 13:56 | PM.PN ---
Subjective Subjective: Patient is n.p.o. Active chest pain Started experiencing epigastric discomfort after eating her breakfast Plan for stress test tomorrow morning Patient has not been on steroids or tacrolimus which she stopped related to CAMPBELL She is willing to go for EGD during this visit if stress test comes back negative I will also follow-up with nephrology recommendations Vitals/I&O/Wt Last Vital Signs Temp 98.5 F 10/24/22 04:15 Pulse 72 10/24/22 09:30 Resp 18 10/24/22 09:30 BP 116/68 10/24/22 09:30 Pulse Ox 93 10/24/22 09:30 O2 Del Method 10/23/22 18:34 10/23/22 10/24/22 10/24/22 22:59 06:59 14:59 Intake Total 600 / 600 240 / 240 Output Total 600 / 600 Balance 600 / 600 -600 / 0 240 / 240 Weight last 48 hrs Weight 80.966 kg Weight 77.111 kg Physical Exam Narrative: Patient is euvolemic Awake and alert S1, S2 Abdomen soft Nonfocal neuro exam Hemoglobin PERRLA GCS 15 No active chest pain Pleasant and cooperative Data 10/24/22 04:38 10/24/22 04:38 A&P Assessment and plan (1) GERD with esophagitis: (2) Goals of care, counseling/discussion: (3) Acute kidney injury: (4) High thyroid stimulating hormone (TSH) level: (5) Non-compliant patient: (6) Recent ST elevation myocardial infarction (STEMI): (7) Chest pain: (8) Hyponatremia: (9) Kidney disease: (10) Immunocompromised: (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 after midnight Continue sucralfate and Protonix If stress test is negative patient is agreeable to go for an EGD Patient has used steroids for at least 1 year that can cause gastric ulcers Minimal-change disease, Not on steroids anymore She has stopped taking tacrolimus We will follow-up with further recommendations from nephrology, Dr. Goodson has recommended continuation of tacrolimus for now Hyponatremia: Slightly improved: Salt tablets discontinued as per nephro recommendations Patient is avoiding to eat in order to avoid epigastric pain Anemia of chronic disease: Stable Hypertension: Continue losartan, hydralazine, initiated by nephrology today Clinically euvolemic, hold Bumex Full code Plan diet DVT prophylaxis discontinue heparin Attestations Medical Necessity Statement*: Stress test tomorrow Coding Level of Care Code 07935 Diagnoses GERD with esophagitis K21.00 Goals of care, counseling/discussion Z71.89 Acute kidney injury N17.9 High thyroid stimulating hormone (TSH) level R79.89 Non-compliant patient Z91.[address] elevation myocardial infarction (STEMI) Chest pain R07.9 Hyponatremia E87.1 Kidney disease N28.9 Immunocompromised D84.9 Minimal change disease N05.0
[2022-10-24 15:44] LABS: Partial Thromboplastin Time 66.5 SECONDS (23.9-36.7)
[2022-10-24] MEDS: tacrolimus 0.5 mg Capsule 2 MG PO (17:12)
[2022-10-24] MEDS: bumetanide 0.25 mg/mL SDV 4 mL 1 MG IVP (18:24)
--- NOTE | 2022-10-24 19:32 | P.CONIM_ITS ---
Providers/Reason For Consult Consulting Physician/Specialty*: Hospitalist Reason for Consult*: Dyspepsia, gastritis Attending Physician: Karen Rajan MD Primary Care Provider: Rajiv Francis DO History of Present Illness History of Present Illness Nati Eli is a 71 year old female with a long history of abdominal pain. The patient's been on antireflux medications for more than 30 years. The patient is currently on Dexilant as well as Carafate. It is unclear exactly how well the patient's been adhering to her medication regiment. The patient also has coronary artery disease. The patient had elevated troponin. She had inverted T waves. The patient's scheduled to undergo a stress test tomorrow. We will talk with cardiology Medications/Allergies Home Medications Medication Instructions Recorded Confirmed Last Taken Type docusate sodium 100 mg capsule 200 mg PO BEDTIME 10/05/21 10/23/22 11/29/21 09:00 History acetaminophen 500 mg tablet 500 - 1,000 mg PO Q6H PRN Pain 11/29/21 10/23/22 11/29/21 10:30 History potassium chloride 20 mEq 20 meq PO DAILY #90 tabs 08/01/22 10/23/22 10/20/22 Rx tablet,extended release(part/cryst) (Klor-Con M) lactulose 10 gram/15 mL oral 30 ml PO BEDTIME 08/21/22 10/23/22 Unknown History solution metoprolol tartrate 50 mg tablet 25 mg PO BID 09/14/22 10/23/22 10/23/22 History 50 mg bumetanide 2 mg tablet 1 mg PO DAILY 10/23/22 10/23/22 10/19/22 History 2 mg clopidogrel 75 mg tablet 75 mg PO QAM 10/23/22 10/23/22 10/23/22 History esomeprazole magnesium 20 mg 20 mg PO DAILY PRN extra burning 10/23/22 10/23/22 Unknown History capsule,delayed release (Nexium not helped from dexilant 24HR) losartan 25 mg tablet 25 mg PO DAILY 10/23/22 10/23/22 10/23/22 History 50 mg nitroglycerin 0.4 mg sublingual 0.4 mg sublingual Q5M PRN Chest 10/23/22 10/23/22 Unknown History tablet (Nitrostat) Pain potassium gluconate 595 mg (99 mg) 595 mg PO DAILY 10/23/22 10/23/22 10/23/22 History tablet sodium chloride-potassium chloride 1 tab PO DAILY 10/23/22 10/23/22 10/23/22 History 287 mg-180 mg-15 mg tablet (Thermotabs) sucralfate 1 gram tablet 1 g PO QID 10/23/22 10/23/22 10/23/22 History tacrolimus 1 mg capsule, 2 mg PO Q12H 10/23/22 10/23/22 10/21/22 History immediate-release dexlansoprazole 60 mg 60 mg PO DAILY #30 caps 10/24/22 Unknown Rx capsule,biphase delayed release (Dexilant) Allergies Allergy/AdvReac Type Severity Reaction Status Date / Time iodine Allergy Unknown Unknown Verified 10/23/22 15:41 Iodine and Iodide Containing Allergy Unknown ALGY-Hives Verified 10/23/22 15:41 Produc [Iodine and Iodide Containing Products] shellfish derived Allergy Unknown Unknown Verified 10/23/22 15:41 doxycycline Allergy severe Verified 10/23/22 15:41 dizziness NSAIDS (Non-Steroidal Allergy Unknown Verified 10/23/22 15:41 Anti-Inflamma Owbjiap-IGT-SwS Reductase Allergy ADR-Muscle Verified 10/23/22 15:41 Inhibitor Pain lisinopril AdvReac Intermediate COUGH Verified 10/23/22 15:41 Current Medications Generic Name Dose Route Start Last Admin Trade Name Freq PRN Reason Stop Dose Admin Acetaminophen 650 mg 10/23/22 17:16 10/23/22 23:15 Acetaminophen 325 Mg Tablet PO 650 mg Q6H PRN Administration Mild/Mod Pain Or Temp >/= 101 Bumetanide 1 mg 10/23/22 19:01 10/24/22 18:24 Bumetanide 0.25 Mg/Ml Sdv 4 Ml IVP 1 mg Q24H SUNSHINE Administration Carvedilol 12.5 mg 10/23/22 19:27 10/24/22 17:11 Carvedilol 12.5 Mg Tablet PO 12.5 mg BID SUNSHINE Administration Clopidogrel Bisulfate 75 mg 10/24/22 06:00 10/24/22 06:08 Clopidogrel 75 Mg Tablet PO 75 mg QAM SUNSHINE Administration Docusate Sodium 200 mg 10/23/22 21:00 10/23/22 21:17 Docusate Sodium 100 Mg Capsule PO Not Given BEDTIME SUNSHINE Lactulose 20 gm 10/23/22 21:00 10/23/22 21:17 Lactulose Oral Liq 20 Gm/30 Ml Udc PO Not Given BEDTIME SUNSHINE Losartan Potassium 25 mg 10/24/22 11:30 10/24/22 12:05 Losartan 50 Mg Tablet PO 25 mg DAILY SUNSHINE Administration Ondansetron HCl 4 mg 10/23/22 17:16 10/23/22 21:14 Ondansetron 2 Mg/Ml Sdv 2 Ml IVP 4 mg Q8H PRN Administration vomiting, or N/V if npo Pantoprazole Sodium 40 mg 10/24/22 18:00 10/24/22 17:[address] 40 Mg Tablet PO 40 mg BID SUNSHINE Administration Tacrolimus 2 mg 10/24/22 18:00 10/24/22 17:12 Tacrolimus 0.5 Mg Capsule PO 2 mg BID SUNSHINE Administration PFSH Acute PFSH: Medical History (Updated 10/24/22 @ 13:58 by Karen Rajna MD) Anemia Anxiety and depression Chronic constipation COVID-19 Esophageal dysmotility Generalized anxiety disorder GERD with esophagitis Hypertension Hyponatremia Polycystic kidney Uncontrolled hypertension Family History Father Cancer lung Sister Cancer 2 sisters; breast Mother Hypertension Social History Smoking and tobacco status: never smoked Second hand smoke exposure: No Alcohol intake: never Lives independently: Yes Household members: spouse Marital status: Current occupational status: retired Current gender identity: Female Female Reproductive History: Spontaneous abortions: No Vitals/I&O/Wt Last Vital Signs Temp 98.5 F 10/24/22 04:15 Pulse 69 10/24/22 19:00 Resp 17 10/24/22 19:00 BP 130/74 10/24/22 19:00 Pulse Ox 94 10/24/22 19:00 O2 Del Method 10/23/22 18:34 10/24/22 10/24/22 10/24/22 06:59 14:59 22:59 Intake Total 240 / 240 685.9 / 925.9 Output Total 600 / 600 Balance -600 / 0 240 / 240 685.9 / 925.9 Weight last 48 hrs Weight 178 lb 8 oz Weight 170 lb Physical Exam Narrative: General: No acute distress. The patient was resting in the ICU HEENT is normocephalic atraumatic, pupils equal round reactive to light. Extraocular muscles intact. No palpable facial fractures. Oral and nasal passages clear Neck: Is free range of motion and nontender. The patient's trachea is midline. The patient has no thyromegaly Lungs: Clear to auscultation and percussion Heart: Is regular rate and rhythm. There is no S3 or S4 that I can appreciate. There is no rubs clicks or JVD noted. Abdomen: Somewhat obese, slight epigastric tenderness without rebound. There is no masses that I can appreciate. There is no hepatosplenomegaly. There are no hernias that I can appreciate. The patient has normal active bowel sounds. There are no rushes or tinkles. Pelvis: Stable both AP and medial compression Extremities: There is no obvious deformities. There is no point tenderness. The patient has no clubbing cyanosis or edema. The patient has 2+ dorsalis pedis and posterior tibialis pulses. The patient has good capillary refill in both her hands and feet Neurologic: The patient is awake, alert, oriented x3. The patient's Husam Coma Scale is 15. The patient moves all 4 extremities without difficulty. The patient sensations intact to light touch throughout. Data 10/24/22 04:38 10/24/22 04:38 A&P Assessment and plan (1) GERD with esophagitis: This an extremely complex patient who has cardiac disease as well as evidence of gastroesophageal reflux. It is unclear whether the patient's current medication regiment is helping her or not. I would prefer not to do an EGD with the patient having an active cardiac event. We will talk with a field application engineer in the morning. The patient is cleared by cardiology will perform an EGD. The patient, to my understanding, will undergo a stress test tomorrow. The patient does well with a stress test I think we could follow with an EGD either tomorrow or the day after. The patient is extremely anxious and would like to know if she currently has gastritis or gastric ulcer. I would stop the patient's aspirin. This of course would irritate the patient's stomach. The patient should be on Carafate. Agree with Protonix. This may be a better drug than Dexilant. Coding Level of Care Code 48166 Diagnoses GERD with esophagitis K21.00
[2022-10-24 20:54] LABS: Potassium, Radom Urine 21 mmol/L; Urine Random Chloride 65 mmol/L; Urine Random Sodium 67 mmol/L
[2022-10-24 21:01] LABS: Bacteria Urine 1+ /hpf; Bilirubin Urine Neg (Negative); Blood Urine 2+ (Negative); Glucose Urine UA Norm (Normal); Ketones Urine Negative (Negative); Leukocyte Esterase Urine Negative (Negative); Nitrate Urine Negative (Negative); Protein Urine 3+ (Negative); RBC Urine 0-4 /hpf (0-2); Urine Appearance Clear (CLEAR); Urine Color Light yellow (Yellow); Urobilinogen Urine Norm (Negative); WBC Urine 0-4 /hpf (0-5); pH Urine 5 (5-7)
[2022-10-24 21:02] LABS: Add Urine Culture? No; Amorphous Sediment Urine 1+ /hpf
[2022-10-25] VITALS (40 sets, daily range): BP systolic 93–191; BP diastolic 60–123; PULSE 49–85; RESP 2–26; TEMP 36.1–37; O2SAT 91–96
--- NOTE | 2022-10-25 | ECG_ITS ---
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 Interpretive Statements NAME OF STUDY: LEXISCAN SESTAMIBI STRESS TEST INDICATION: Angina, PROCEDURE: At the baseline, the EKG revealed normal sinus rhythm with a rate of 68 bpm. Poor R wave progression. Diffuse nonspecific T wave changes in the precordial leads and in the limb leads. The baseline heart was 88bpm with a blood pressue of 186/100 mm of Hg Lexiscan was infused over a period of 20 seconds. A total of 0.4 milligrams of Lexiscan was infused. The stress phase was continued for a total of 5 minutes. Heart rate at the end of the stress phase was 87 bpm with a blood pressure 118/77 mm of Hg. The EKG at the peak infusion revealed no significant changes. Sestamibi was injected 20 seconds after the Lexiscan infusion. Heart rate at the end of the recovery phase was 76 bpm with a blood pressure of 155/81 mm of Hg. CONCLUSION: 1. No significant EKG changes with the LexiScan infusion 2. No LexiScan induced chest pain or cardiac arrhythmia 3. Normal blood pressure and heart rate response 4. Sestamibi/sestamibi perfusion scan pending; see separate report. Electronically Signed On 11-05-2022 14:41:17 NAPHTHOL SOAPING MACHINE OPERATOR by Sary Lopez M.D. [id number]
[2022-10-25 05:01] LABS: Basophils # 0.1 10^3/uL (0.0-0.1); Basophils % 0.9 %; Eosinophils # 0.2 10^3/uL (0.0-0.8); Eosinophils % 3.2 %; Hemoglobin 9.4 g/dL (11.5-15.3); Lymphocytes % 35.9 %; Mean Corpuscular HGB Conc 31.3 g/dL (30.0-36.0); Mean Corpuscular Hemoglobin 25.7 pg (28.0-34.0); Mean Platelet Volume 9.8 fL (7.4-10.4); Monocytes # 0.6 10^3/uL (0.2-0.9); Monocytes % 10.4 %; Neutrophils # 2.77 10^3/uL (1.8-7.7); Neutrophils % 49.4 %; Nucleated Red Blood Cells % 0 %; Platelet Count 328 10^3/cmm (130-400); Red Blood Count 3.66 10^6/uL (4.1-5.3); Red Cell Distribution Width 16.3 % (12.1-15.1); White Blood Count 5.6 10^3/uL (4.0-10.0)
[2022-10-25 05:25] LABS: Alanine Aminotransferase < 5 U/L (0-33); Albumin Level 2.2 g/dL (3.5-5.2); Alkaline Phosphatase 89 U/L (35-105); Anion Gap 13.3 (5-19); Aspartate Amino Transferase 9 U/L (0-32); Blood Urea Nitrogen 20 mg/dL (8-23); Calcium 8.3 mg/dL (8.5-10.5); Carbon Dioxide 22 mmol/L (22-29); Chloride 101 mmol/L (98-107); Chol HDL Ratio 5.69 mg/dL (0.0-4.40); Cholesterol 279 mg/dL (0-200); Globulin 2.6 g/dL (1.3-4.6); Glucose 101 mg/dL (65-115); HDL Cholesterol 49 mg/dL (60-100); LDL Cholesterol Calculated 200 mg/dL (50-129); LDL HDL Ratio 4.08 RATIO (0.00-3.22); Osmolality Calculated 277 mOsm/kg (285-295); Phosphorus 3.8 mg/dL (2.5-4.5); Potassium 4.3 mmol/L (3.5-5.1); Sodium 132 mmol/L (136-145); Total Bilirubin 0.2 mg/dL (0.15-1.2); Total Protein 4.8 g/dL (6.6-8.7); Triglycerides 148 mg/dL (0-150)
[2022-10-25 05:32] LABS: Cortisol Random 11.76 ug/dL (2.47-19.5)
[2022-10-25] MEDS: clopidogrel 75 mg Tablet PO (06:07)
[2022-10-25 06:15] LABS: Ferritin 48 ng/mL (15-150); Iron 57 ug/dL (37-145); Percent Saturation 37.2 % (20-50); Total Iron Binding Capacity 153 mcg/dl; Unsaturated Iron Binding 96 ug/dL (112-347)
[2022-10-25 06:31] LABS: 25 Hydroxy Vitamin D 7 ng/mL (30-100)
--- NOTE | 2022-10-25 06:48 | PM.PN ---
Subjective Subjective: Epigastric pain Plan for stress test today We will touch base with general surgeon for EGD later today versus tomorrow Aspirin on hold She is getting Protonix and sucralfate Tacrolimus added by television repair teacher yesterday Systolic blood pressure in 140s today, she has been running hypertensive Vitals/I&O/Wt Last Vital Signs Temp 98.6 F 10/25/22 04:00 Pulse 60 10/25/22 05:30 Resp 13 10/25/22 05:30 BP 147/86 10/25/22 05:30 Pulse Ox 95 10/25/22 05:30 O2 Del Method 10/23/22 18:34 10/24/22 10/24/22 10/25/22 14:59 22:59 06:59 Intake Total 240 / 240 885.9 / 1125.9 0 / 1125.9 Output Total 300 / 300 500 / 800 Balance 240 / 240 585.9 / 825.9 -500 / 325.9 Weight last 48 hrs Weight 80.966 kg Weight 77.111 kg Physical Exam Narrative: Anxious appearing woman Epigastric pain Currently on room air Hemodynamic stable Pleasant and cooperative Abdomen soft Active chest pain S1, S2 GCS 15 Nonfocal neuro exam Data 10/25/22 04:29 10/25/22 04:29 A&P Assessment and plan (1) Immunocompromised: (2) GERD with esophagitis: (3) Goals of care, counseling/discussion: (4) Non-compliant patient: (5) Recent ST elevation myocardial infarction (STEMI): (6) Chest pain: (7) Hyponatremia: Plan Atypical chest pain Gastritis/epigastric pain Plan for stress test today EGD later today versus tomorrow Continue Plavix and Protonix along sucralfate Minimal-change disease, creatinine around baseline Previously creatinine has been around 3, creatinine currently is around 1.5 Tacrolimus restarted by television repair teacher Patient is taking steroids for at least a year in the past Hypertension: Adjust antihypertensive regimen, losartan added by television repair teacher yesterday Chronic anemia: Hemoglobin stable at this point Check FOBT No significant iron deficiency Likely anemia of chronic disease Hyponatremia: Improving, salt tablets discontinued Full code N.p.o. DVT prophylaxis on hold Recent PCI status post stent placement, aspirin on hold continue Plavix We will decide further after EGD report Attestations Medical Necessity Statement*: Continue medical management Coding Level of Care Code 04552 Diagnoses Immunocompromised D84.9 GERD with esophagitis K21.00 Goals of care, counseling/discussion Z71.89 Non-compliant patient Z91.[address] elevation myocardial infarction (STEMI) Chest pain R07.9 Hyponatremia E87.1
[2022-10-25] MEDS: ondansetron 2 mg/ML SDV 2 mL 4 MG IVP ×3 (07:45→18:23)
[2022-10-25] MEDS: regadenoson 0.4 Mg/5 ml Syringe IVP (07:45)
--- NOTE | 2022-10-25 07:50 | P.PN_ITS ---
Subjective Subjective: No significant ischemia on the stress test. EGD consistent with gastritis. Medical therapy Vitals/I&O/Wt Last Vital Signs Temp 98.6 F 10/25/22 04:00 Pulse 56 L 10/25/22 06:00 Resp 13 10/25/22 05:30 BP 147/86 10/25/22 05:30 Pulse Ox 95 10/25/22 05:30 O2 Del Method 10/23/22 18:34 10/24/22 10/25/22 10/25/22 22:59 06:59 14:59 Intake Total 885.9 / 1125.9 0 / 1125.9 Output Total 300 / 300 500 / 800 Balance 585.9 / 825.9 -500 / 325.9 Weight last 48 hrs Weight 178 lb 8 oz Weight 178 lb 8 oz Weight 170 lb Physical Exam Narrative: GENERAL: Patient is alert, awake and oriented x3. [] NECK: No jugular vein distension. [] HEENT: No cyanosis. No icterus. No pallor. [] HEART: Regular S1 and S2. No murmur, rub or gallop. [] LUNGS: Clear to auscultate bilaterally. [] CENTRAL NERVOUS SYSTEM: Grossly nonfocal. [] EXTREMITIES: Lower extremities with no edema Data 10/25/22 04:29 10/25/22 04:29 A&P Assessment and plan (1) Chest pain: Chest pain symptoms are atypical. Stress test not showing significant ischemia. Medical therapy. EGD showing gastritis. (2) Recent ST elevation myocardial infarction (STEMI): Medical therapy (3) GERD with esophagitis: EGD performed (4) Elevated brain natriuretic peptide (BNP) level: Monitor renal function (5) Uncontrolled hypertension: Can uptitrate coreg 25mg BID. Plan Medical therapy for CAD. Stress test not showing significant area of ischemia. Attestations Medical Necessity Statement*: Care expected to cross 2 midnights. Coding Level of Care Code Acute Code for [facility] Fwd Diagnoses Chest pain R07.[address] elevation myocardial infarction (STEMI) GERD with esophagitis K21.00 Elevated brain natriuretic peptide (BNP) level R79.89 Uncontrolled hypertension I10
--- NOTE | 2022-10-25 08:53 | NMCV_ITS ---
NM naima perf SPECT r/s* [id number] Nati Eli Age: 71 Gender: F : 1950 Exam Date: 10/25/2022 08:53 Ordering Phys: Karen Rajan MD Technologist: SHAYNE Ruiz Exam Location: [facility] Indications: CHEST PAIN STRESS TEST Please see separate stress test report [facility] for full findings IMAGE PROTOCOL Rest/Stress 1 Day Radiopharmaceutical Dose (mCi) Administration Site Administered by Rest: Tc-99m 10.8 IV SHAYNE Burris Sestamibi Stress:Tc-99m 32.9 IV SHAYNE Burris Sestamibi Rest: 25-Oct-2022 60 Discovery 630 Stress: 25-Oct-2022 30 Discovery 630 0.4mg Lexiscan. Supine position only as patient was unable to lay prone. SPECT RESULTS Technical Quality: Excellent Raw Data Analysis: Normal Image Corrections: No attenuation or motion correction applied Summed Stress Score: 11 Summed Rest Score: 10 Summed Difference Score: 2 PERFUSION FINDINGS There is a large sized, mostly fixed perfusion defect noted in inferior and inferolateral persaud with minimal reversibility. This is consistent with large sized prior infarct with minimal area of radha-infarct ischemia in RCA and left circumflex artery territories. FUNCTIONAL RESULTS (calculated via Gated SPECT) Stress Image LV EF (%): 66 Stress EDV (mL):105 TID: 1.07 Stress ESV (mL):36 FUNCTIONAL FINDINGS: There is normal left ventricular systolic function. IMPRESSIONS 1. Large sized prior infarct noted in RCA and left circumflex artery territories with minimal area of radha-infarct ischemia. 2. LV systolic function is normal Matthew Kinsey MD (Electronically Signed) Final Date: 25 October 2022 10:56 S
[2022-10-25] MEDS: losartan 50 mg Tablet 25 MG PO (09:12)
[2022-10-25] MEDS: carvedilol 12.5 mg Tablet PO ×2 (09:12→17:29)
[2022-10-25] MEDS: tacrolimus 0.5 mg Capsule 2 MG PO ×2 (09:13→17:29)
[2022-10-25] MEDS: pantoprazole DR 40 mg Tablet PO ×2 (09:13→17:29)
[2022-10-25] MEDS: sucralfate 1 gm Tablet PO ×2 (09:13→20:21)
--- NOTE | 2022-10-25 10:35 | P.PN_ITS ---
Subjective Subjective: plan fpr stress test and EGD today Medications: Reviewed: Yes Vitals/I&O/Wt Last Vital Signs Temp 98.6 F 10/25/22 04:00 Pulse 83 10/25/22 08:11 Resp 20 H 10/25/22 06:30 BP 167/80 10/25/22 09:12 Pulse Ox 93 10/25/22 09:00 O2 Del Method 10/23/22 18:34 10/24/22 10/25/22 10/25/22 22:59 06:59 14:59 Intake Total 885.9 / 1125.9 0 / 1125.9 Output Total 300 / 300 500 / 800 Balance 585.9 / 825.9 -500 / 325.9 Weight last 48 hrs Weight 80.966 kg Weight 80.966 kg Weight 77.111 kg Physical Exam Narrative: obese in bed, ANRD vss heent- nc/at, eomi, anicteric neck supple lungs clear heart reg abd soft, nt, nd, + bs ext b/l edema neuro a,a, o x 3 Data 10/25/22 04:29 10/25/22 04:29 A&P Assessment and plan (1) Kidney disease: 71 yr old female CAD, htn, minimal change disease 1. ALONSO - baseline cr 0.8- now 1.5 mg/dl -ua 3+ prot, 2+ blood, amorphous sediment 3+ -Has proteinuria : UPCR 3209 -in Oct 2021- she had 67506 mg/gm of protein / gm of cr -in march 2022- she improved to 162 mg/dl microalbumin/ cr- now she is at 3209 to 3531 -Can be ATN, BP effect or her minimal change disease -Treatment is usually steroids or Calcineurin inhibitors- will restart tacrolimus at 2 mg bid. Tacrolimus started 1 week ago , and has appointment with her Web Production Designer next week. Hold off on Steroids for now -i will try to speak w/ her manager filter to come up w/ a united plan -restart losartan and would add farxigia or jardiance 2. Hyponatremia- unlikely adrenal insufficiency w/ htn -check urine electrolytes - tsh 10 - not high enoufgh to cause hyponatremia -check am cortisol level -hyponatremia can be from bumex -d/c salt tabs 3. anemia- Q GERD.. Q GIB. plan for EGD 4. HTN - added ARB 5. non AGMA- monitor seen and examined w/ RN - telehealth visit -Chest pain/ NSTEMI : stress test today informed consent for Telehealth obtained form pt time spent 35 Min Plan as above Attestations Medical Necessity Statement*: Continue medical management Coding Level of Care Code Acute Code for Chg Fwd Diagnoses Kidney disease N28.9
[2022-10-25] MEDS: hyDRALAzine 20 mg/mL INJ 1 mL 5 MG IVP (13:34)
--- NOTE | 2022-10-25 14:04 | P.ANESASSM_ITS ---
Pre-Anesthetic Assessment Height/Weight: Height 1.63 m Weight 80.966 kg Temp Pulse Resp BP Pulse Ox O2 Del Method 98.6 F 67 17 180/91 94 10/25/22 04:00 10/25/22 11:30 10/25/22 11:30 10/25/22 12:00 10/25/22 11:30 10/23/22 18:34 Preop Diagnosis: GERD Operation Date: 10/25/22 11:15 Proposed Procedures p EGD(Not Applicable) - Lamont Weeks MD Familial anesthetic complications: None Was Beta Idania taken within 24 hours: N/A Was Clonidine taken within 24 hours: N/A Last intake: > 8hrs Water at 0900 Social No alcohol and No tobacco Exam alert, oriented x 3, clear to auscultation bilaterally and regular rate & rhythm Airway Mallampati: Class II Dentition: false CV/HEM Hypertension and Myocardial Infarction Stress test showing old changes only per Dr. Kinsey and Dr. Rajan (telephone) Chronic Renal Insufficiency chronic steroid use GI Gastroesophageal Reflux Disease Anesthetic Plan ASA status: 3 Anesthesia: MAC Risk of > 500 ml blood loss (7ml/kg in children): No Medications/Allergies Home Medications Medication Instructions Recorded Confirmed Last Taken Type docusate sodium 100 mg capsule 200 mg PO BEDTIME 10/05/21 10/23/22 11/29/21 09:00 History acetaminophen 500 mg tablet 500 - 1,000 mg PO Q6H PRN Pain 11/29/21 10/23/22 11/29/21 10:30 History potassium chloride 20 mEq 20 meq PO DAILY #90 tabs 08/01/22 10/23/22 10/20/22 Rx tablet,extended release(part/cryst) (Klor-Con M) lactulose 10 gram/15 mL oral 30 ml PO BEDTIME 08/21/22 10/23/22 Unknown History solution metoprolol tartrate 50 mg tablet 25 mg PO BID 09/14/22 10/23/22 10/23/22 History 50 mg bumetanide 2 mg tablet 1 mg PO DAILY 10/23/22 10/23/22 10/19/22 History 2 mg clopidogrel 75 mg tablet 75 mg PO QAM 10/23/22 10/23/22 10/23/22 History esomeprazole magnesium 20 mg 20 mg PO DAILY PRN extra burning 10/23/22 10/23/22 Unknown History capsule,delayed release (Nexium not helped from dexilant 24HR) losartan 25 mg tablet 25 mg PO DAILY 10/23/22 10/23/22 10/23/22 History 50 mg nitroglycerin 0.4 mg sublingual 0.4 mg sublingual Q5M PRN Chest 10/23/22 10/23/22 Unknown History tablet (Nitrostat) Pain potassium gluconate 595 mg (99 mg) 595 mg PO DAILY 10/23/22 10/23/22 10/23/22 History tablet sodium chloride-potassium chloride 1 tab PO DAILY 10/23/22 10/23/22 10/23/22 History 287 mg-180 mg-15 mg tablet (Thermotabs) sucralfate 1 gram tablet 1 g PO QID 10/23/22 10/23/22 10/23/22 History tacrolimus 1 mg capsule, 2 mg PO Q12H 10/23/22 10/23/22 10/21/22 History immediate-release dexlansoprazole 60 mg 60 mg PO DAILY #30 caps 10/24/22 Unknown Rx capsule,biphase delayed release (Dexilant) Allergies Allergy/AdvReac Type Severity Reaction Status Date / Time iodine Allergy Unknown Unknown Verified 10/23/22 15:41 Iodine and Iodide Containing Allergy Unknown ALGY-Hives Verified 10/23/22 15:41 Produc [Iodine and Iodide Containing Products] shellfish derived Allergy Unknown Unknown Verified 10/23/22 15:41 doxycycline Allergy severe Verified 10/23/22 15:41 dizziness NSAIDS (Non-Steroidal Allergy Unknown Verified 10/23/22 15:41 Anti-Inflamma Skcjxty-PFO-GbL Reductase Allergy ADR-Muscle Verified 10/23/22 15:41 Inhibitor Pain lisinopril AdvReac Intermediate COUGH Verified 10/23/22 15:41 Current Medications Generic Name Dose Route Start Last Admin Trade Name Freq PRN Reason Stop Dose Admin Acetaminophen 650 mg 10/23/22 17:16 10/23/22 23:15 Acetaminophen 325 Mg Tablet PO 650 mg Q6H PRN Administration Mild/Mod Pain Or Temp >/= 101 Bumetanide 1 mg 10/23/22 19:01 10/24/22 18:24 Bumetanide 0.25 Mg/Ml Sdv 4 Ml IVP 1 mg Q24H SUNSHINE Administration Carvedilol 12.5 mg 10/23/22 19:27 10/25/22 09:12 Carvedilol 12.5 Mg Tablet PO 12.5 mg BID SUNSHINE Administration Clopidogrel Bisulfate 75 mg 10/24/22 06:00 10/25/22 06:07 Clopidogrel 75 Mg Tablet PO 75 mg QAM SUNSHINE Administration Docusate Sodium 200 mg 10/23/22 21:00 10/24/22 20:17 Docusate Sodium 100 Mg Capsule PO Not Given BEDTIME SUNSHINE Hydralazine HCl 5 mg 10/23/22 18:11 10/25/22 13:34 Hydralazine 20 Mg/Ml Inj 1 Ml IVP 5 mg Q4H PRN Administration SBP > 180 Lactulose 20 gm 10/23/22 21:00 10/24/22 20:17 Lactulose Oral Liq 20 Gm/30 Ml Udc PO Not Given BEDTIME SUNSHINE Losartan Potassium 25 mg 10/24/22 11:30 10/25/22 09:12 Losartan 50 Mg Tablet PO 25 mg DAILY SUNSHINE Administration Ondansetron HCl 4 mg 10/23/22 17:16 10/23/22 21:14 Ondansetron 2 Mg/Ml Sdv 2 Ml IVP 4 mg Q8H PRN Administration vomiting, or N/V if npo Pantoprazole Sodium 40 mg 10/24/22 18:00 10/25/22 09:[address] 40 Mg Tablet PO 40 mg BID SUNSHINE Administration Sucralfate 1 gm 10/24/22 21:00 10/25/22 09:13 Sucralfate 1 Gm Tablet PO 1 gm TID SUNSHINE Administration Tacrolimus 2 mg 10/24/22 18:00 10/25/22 09:13 Tacrolimus 0.5 Mg Capsule PO 2 mg BID SUNSHINE Administration PFSH Anesthesia Medical History (Updated 10/24/22 @ 13:58 by Karen Rajan MD) Anemia Anxiety and depression Chronic constipation COVID-19 Esophageal dysmotility Generalized anxiety disorder GERD with esophagitis Hypertension Hyponatremia Polycystic kidney Uncontrolled hypertension Family History Father Cancer lung Sister Cancer 2 sisters; breast Mother Hypertension Social History Smoking and tobacco status: never smoked Second hand smoke exposure: No Alcohol intake: never Lives independently: Yes Household members: spouse Marital status: Current occupational status: retired Current gender identity: Female Female Reproductive History Spontaneous abortions: No Data Anesthesia 10/25/22 04:29 10/25/22 04:29 Short CBC 10/23/22 10/24/22 10/25/22 Range/Units 14:09 04:38 04:29 WBC 6.7 5.8 5.6 (4.0-10.0) 10^3/uL Hgb 11.2 L 9.4 L 9.4 L (11.5-15.3) g/dL Hct 35.4 L 30.0 L 30.0 L (37.0-47.0) % MCV 81.6 82.4 82.0 (81-99) fl Plt Count 429 H 295 D 328 (130-400) 10^3/cmm Neut % (Auto) 55.9 48.5 49.4 % Neut # (Auto) 3.73 2.79 2.77 (1.8-7.7) 10^3/uL BMP 10/23/22 10/23/22 10/24/22 14:09 23:07 04:38 Sodium 125 L 129 L 130 L Potassium 4.7 4.1 4.2 Chloride 93 L 97 L 99 Carbon Dioxide 22 20 L 21 L BUN 22 23 22 Creatinine 1.5 H 1.4 H 1.5 H Glucose 95 96 98 Calcium 8.9 8.5 8.2 L 10/25/22 04:29 Sodium 132 L Potassium 4.3 Chloride 101 Carbon Dioxide 22 BUN 20 Creatinine 1.5 H Glucose 101 Calcium 8.3 L Cardiac Enzymes 10/23/22 10/23/22 10/23/22 Range/Units 14:09 14:09 14:48 Troponin T Baseline 65 H (0-10) ng/L Troponin T 120 Minute 62.97 H (0-10) ng/L Delta Troponin T -2.03 L (0-10) ABS# Troponin T Hi Sens 6Hr (0-10) ng/L Troponin T Hi Sens 6Hr Delta (0-12) ng/L NT-Pro-B Natriuret Pep 80799 H (0-125) pg/mL 10/23/22 Range/Units 20:37 Troponin T Baseline (0-10) ng/L Troponin T 120 Minute (0-10) ng/L Delta Troponin T (0-10) ABS# Troponin T Hi Sens 6Hr 61.36 H (0-10) ng/L Troponin T Hi Sens 6Hr Delta -3.64 L (0-12) ng/L NT-Pro-B Natriuret Pep (0-125) pg/mL Liver Function 10/23/22 10/24/22 10/25/22 Range/Units 14:09 04:38 04:29 Total Bilirubin 0.2 0.2 0.2 (0.15-1.2) mg/dL AST 13 10 9 (0-32) U/L ALT < 5 < 5 < 5 (0-33) U/L Alkaline Phosphatase 115 H 89 89 (35-105) U/L Albumin 2.7 L 2.1 L 2.2 L (3.5-5.2) g/dL Urine 10/23/22 10/24/22 Range/Units 15:41 20:18 Urine Color Dark yellow Light yellow (Yellow) Urine Appearance Sl hazy A Clear (CLEAR) Urine pH 5 5 (5-7) Ur Specific [place] 1.020 1.010 (1.005-1.030) Urine Protein 3+ H 3+ H (Negative) Urine Glucose (UA) Norm Norm (Normal) Urine Ketones Negative Negative (Negative) Urine Nitrate Negative Negative (Negative) Urine Bilirubin Neg Neg (Negative) Ur Leukocyte Esterase Negative Negative (Negative) Urine RBC 0-4 H 0-4 H (0-2) /hpf Urine WBC Rare 0-4 H (0-5) /hpf COVID Results 10/23/22 15:15 SARS-CoV-2 Ag (Rapid) negative Coags 10/24/22 10/24/22 10/24/22 00:49 08:12 15:20 APTT 73.4 H 73.9 H 66.5 H Cardiac Studies: Echocardiogram 10/18/21 Echocardiogram Limited Views 10/23/22 Sestamibi Stress Test (Cardiology) 10/25
--- NOTE | 2022-10-25 16:00 | PC.NURSE ---
Patient brought back to ICU from GI on 2L NC. Tolerated well. Placed in bed with call light in reach.
--- NOTE | 2022-10-25 16:28 | ANE.PACU2 ---
Inpatient post-anesthesia follow up: Airway intact: Yes Vital signs: Temperature 97 F Pulse Rate 85 Respiratory Rate 20 Blood Pressure 168/89 Pulse Oximetry 95 Oxygen Delivery Me thod Room Air Oxygen Flow Rate Fraction of Inspir ed Oxygen Hydration adequate: Yes Nausea and vomiting: No Pain level: 1 Mental status: Baseline
--- NOTE | 2022-10-25 17:06 | PC.NURSE ---
Daughter called and stated that patiet had called her crying. This nurse entered room and when asked how she was feeling she stated, I don't know. I feel depressed. When asked she stated that she feels this way because of her current state of health. Notified.
[2022-10-25] MEDS: bumetanide 0.25 mg/mL SDV 4 mL 1 MG IVP (18:23)
[2022-10-25] MEDS: lactulose oral liq 20 gm/30 mL UDC PO (20:21)
[2022-10-25] MEDS: docusate sodium 100 mg Capsule 200 MG PO (20:21)
--- NOTE | 2022-10-25 22:01 | PC.NURSE ---
[id number] report called to medical-surgical manager [phone] patient transported to room 276-1 via wheelchair; patient states she will call her family in the morning to notify of room change
[2022-10-25] MEDS: sodium chloride 0.9% 1,000 ML 30 ML IV (22:10)
[2022-10-26] VITALS: BP 157/85; PULSE 73; RESP 16; TEMP 36.7; O2SAT 94
[2022-10-26 04:00] VITALS: BP 181/92; PULSE 70; RESP 18; TEMP 36.7; O2SAT 97
[2022-10-26] MEDS: clopidogrel 75 mg Tablet PO (05:41)
[2022-10-26 06:00] VITALS: PULSE 59
[2022-10-26 06:04] LABS: Basophils # 0.1 10^3/uL (0.0-0.1); Eosinophils # 0.2 10^3/uL (0.0-0.8); Eosinophils % 3.4 %; Hemoglobin 9.3 g/dL (11.5-15.3); Lymphocytes # 1.8 10^3/uL (0.8-4.8); Lymphocytes % 35.4 %; Mean Corpuscular Hemoglobin 25.7 pg (28.0-34.0); Mean Corpuscular Volume 82.9 fl (81-99); Mean Platelet Volume 9.1 fL (7.4-10.4); Monocytes # 0.6 10^3/uL (0.2-0.9); Monocytes % 12.7 %; Neutrophils # 2.35 10^3/uL (1.8-7.7); Neutrophils % 47.3 %; Nucleated Red Blood Cells % 0 %; Platelet Count 303 10^3/cmm (130-400); Red Blood Count 3.62 10^6/uL (4.1-5.3); Red Cell Distribution Width 16.5 % (12.1-15.1)
[2022-10-26 06:39] LABS: Alanine Aminotransferase < 5 U/L (0-33); Albumin Level 2.2 g/dL (3.5-5.2); Alkaline Phosphatase 91 U/L (35-105); Anion Gap 14.1 (5-19); Aspartate Amino Transferase 9 U/L (0-32); Blood Urea Nitrogen 20 mg/dL (8-23); Calcium 8.4 mg/dL (8.5-10.5); Carbon Dioxide 21 mmol/L (22-29); Chloride 102 mmol/L (98-107); Globulin 2.6 g/dL (1.3-4.6); Glucose 94 mg/dL (65-115); Osmolality Calculated 278 mOsm/kg (285-295); Phosphorus 4.1 mg/dL (2.5-4.5); Potassium 4.1 mmol/L (3.5-5.1); Sodium 133 mmol/L (136-145); Total Bilirubin 0.2 mg/dL (0.15-1.2); Total Protein 4.8 g/dL (6.6-8.7)
--- NOTE | 2022-10-26 06:39 | PM.PN ---
Subjective Subjective: s/p stress test and EGD. has gastritis on EGD. feels better. wants to go home. Medications: Reviewed: Yes Medication Review Details: Current Medications Acetaminophen (Acetaminophen 325 Mg Tablet) 650 mg PO Q6H PRN PRN Reason: Mild/Mod Pain Or Temp >/= 101 Last Admin: 10/23/22 23:15 Dose: 650 mg Bumetanide (Bumetanide 0.25 Mg/Ml Sdv 4 Ml) 1 mg IVP Q24H [facility] Last Admin: 10/25/22 18:23 Dose: 1 mg Carvedilol (Carvedilol 12.5 Mg Tablet) 12.5 mg PO BID [facility] Last Admin: 10/25/22 17:29 Dose: 12.5 mg Clopidogrel Bisulfate (Clopidogrel 75 Mg Tablet) 75 mg PO QAM [facility] Last Admin: 10/26/22 05:41 Dose: 75 mg Docusate Sodium (Docusate Sodium 100 Mg Capsule) 200 mg PO BEDTIME [facility] Last Admin: 10/25/22 20:21 Dose: 200 mg Hydralazine HCl (Hydralazine 20 Mg/Ml Inj 1 Ml) 5 mg IVP Q4H PRN PRN Reason: SBP > 180 Last Admin: 10/25/22 13:34 Dose: 5 mg Sodium Chloride (Sodium Chloride 0.9%) 1,000 mls @ 30 mls/hr IV .Q24H [facility] Stop: 10/26/22 15:29 Last Admin: 10/25/22 22:10 Dose: 30 mls/hr Lactulose (Lactulose Oral Liq 20 Gm/30 Ml Udc) 20 gm PO BEDTIME [facility] Last Admin: 10/25/22 20:21 Dose: 20 gm Lidocaine HCl (Lidocaine 2% Viscous 15 Ml Udc) 1 ml TOPICAL PRN PRN PRN Reason: Anesthetic prior to IV start Lidocaine HCl (Lidocaine 1% Inj 20 Ml) 0.1 ml INTRADERMA PRN PRN PRN Reason: anesthetic prior to IV start Stop: 10/26/22 15:20 Losartan Potassium (Losartan 50 Mg Tablet) 25 mg PO DAILY [facility] Last Admin: 10/25/22 09:12 Dose: 25 mg Midazolam HCl (Midazolam 1 Mg/Ml Inj 2 Ml) 2 mg IVP Q5M PRN PRN Reason: Preop Anxiety Morphine Sulfate (Morphine 4 Mg/Ml Sdv 1 Ml) 0 mg IVP Q5M PRN PRN Reason: Breakthrough Pain PACU PhaseII Ondansetron HCl (Ondansetron 2 Mg/Ml Sdv 2 Ml) 4 mg IVP Q8H PRN PRN Reason: vomiting, or N/V if npo Last Admin: 10/25/22 18:23 Dose: 4 mg Ondansetron HCl (Ondansetron 2 Mg/Ml Sdv 2 Ml) 4 mg IVP Q15M PRN PRN Reason: Nausea/Vomiting PACU PHASE II Pantoprazole Sodium (Pantoprazole Dr 40 Mg Tablet) 40 mg PO BID [facility] Last Admin: 10/25/22 17:29 Dose: 40 mg Sucralfate (Sucralfate 1 Gm Tablet) 1 gm PO TID [facility] Last Admin: 10/25/22 20:21 Dose: 1 gm Tacrolimus (Tacrolimus 0.5 Mg Capsule) 2 mg PO BID [facility] Last Admin: 10/25/22 17:29 Dose: 2 mg Vitals/I&O/Wt Last Vital Signs Temp 98.1 F 10/26/22 04:00 Pulse 59 L 10/26/22 06:00 Resp 18 10/26/22 04:00 BP 181/92 10/26/22 04:00 Pulse Ox 97 10/26/22 04:00 O2 Del Method 10/26/22 04:00 10/25/22 10/25/22 10/26/22 14:59 22:59 06:59 Intake Total 240 / 240 120 / 360 Balance 240 / 240 120 / 360 Weight last 48 hrs Weight 82.129 kg Weight 80.966 kg Physical Exam Narrative: obese in bed, ANRD vs noted- bp elevated heent- nc/at, eomi, anicteric neck supple lungs dull bases heart reg abd soft, nt, nd, + bs ext b/l edema neuro a,a, o x 3 Data 10/26/22 05:50 10/26/22 05:50 A&P Assessment and plan (1) Kidney disease: 71 yr old female CAD, htn, minimal change disease 1. ALONSO - baseline cr 0.8- now 1.5 mg/dl -ua 3+ prot, 2+ blood, amorphous sediment 3+ -Has proteinuria : UPCR 3209 -in Oct 2021- she had 05767 mg/gm of protein / gm of cr -in march 2022- she improved to 162 mg/dl microalbumin/ cr- now she is at 3209 to 3531 -Can be ATN, BP effect or her minimal change disease -Treatment is usually steroids or Calcineurin inhibitors- restarted tacrolimus at 2 mg bid. Tacrolimus started 1 week ago , and has appointment with her Rotating Equipment Engineer next week. Hold off on Steroids for now as has gastritis. however will likely need steroids -i will try to speak w/ her business development coordinator to come up w/ a united plan -increase losartan and would add farxigia or jardiance 2. Hyponatremia- unlikely adrenal insufficiency w/ htn -check urine electrolytes - tsh 10 - not high enough to cause hyponatremia -check am cortisol level- 11.76- consider cosyntropin stim test. or can give steroids- will also help minimal change disease -hyponatremia can be from bumex 3. anemia- gastritis on EGD -ferritin 48, % sat 37- would give iron 4. HTN - inc ARB can change bumex to 1 mg po daily on d/c 5. non AGMA- monitor seen and examined w/ RN - telehealth visit replace vit d -Chest pain/ NSTEMI : stress test normal per pt informed consent for Telehealth obtained form pt time spent 30+ Min Plan as above Attestations Medical Necessity Statement*: htn, nephrotic syndrome Time Spent in Patient Care: 16 - 35 minutes (>than 50% of time spent in counselling and/or direct pt care on unit). Coding Level of Care Code Acute Code for [facility] Diagnoses Kidney disease N28.9
[2022-10-26 08:00] VITALS: BP 181/78; PULSE 67; RESP 18; TEMP 36.7; O2SAT 93
[2022-10-26 08:48] VITALS: BP 181/78
[2022-10-26] MEDS: tacrolimus 0.5 mg Capsule 2 MG PO (08:48)
[2022-10-26] MEDS: losartan 50 mg Tablet PO (08:48)
[2022-10-26] MEDS: carvedilol 12.5 mg Tablet PO (08:49)
[2022-10-26] MEDS: pantoprazole DR 40 mg Tablet PO (08:49)
[2022-10-26] MEDS: sucralfate 1 gm Tablet PO (08:49)
[2022-10-26] MEDS: ferrous gluconate 324 mg Tablet PO (08:49)
--- NOTE | 2022-10-26 09:10 | P.PN_ITS ---
Subjective Subjective: Patient is doing well. Denies complaints of chest pain. Vitals/I&O/Wt Last Vital Signs Temp 98.1 F 10/26/22 08:00 Pulse 67 10/26/22 08:00 Resp 18 10/26/22 08:00 BP 181/78 10/26/22 08:48 Pulse Ox 93 10/26/22 08:00 O2 Del Method 10/26/22 08:00 10/25/22 10/26/22 10/26/22 22:59 06:59 14:59 Intake Total 240 / 240 120 / 360 Balance 240 / 240 120 / 360 Weight last 48 hrs Weight 181 lb 1 oz Weight 178 lb 8 oz Physical Exam Narrative: GENERAL: Patient is alert, awake and oriented x3. [] NECK: No jugular vein distension. [] HEENT: No cyanosis. No icterus. No pallor. [] HEART: Regular S1 and S2. No murmur, rub or gallop. [] LUNGS: Clear to auscultate bilaterally. [] CENTRAL NERVOUS SYSTEM: Grossly nonfocal. [] EXTREMITIES: Lower extremities with no edema Data 10/26/22 05:50 10/26/22 05:50 A&P Assessment and plan (1) Chest pain: Secondary to gastritis. No ischemia on stress test. Medical therapy (2) Recent ST elevation myocardial infarction (STEMI): Medical therapy (3) GERD with esophagitis: EGD performed (4) Elevated brain natriuretic peptide (BNP) level: Monitor renal function (5) Uncontrolled hypertension: Can uptitrate coreg 25mg BID. Plan Patient is stable to be discharged from cardiology standpoint. Attestations Medical Necessity Statement*: Care expected to cross 2 midnights. Coding Level of Care Code Acute Code for [facility] Fwd Diagnoses Chest pain R07.[address] elevation myocardial infarction (STEMI) GERD with esophagitis K21.00 Elevated brain natriuretic peptide (BNP) level R79.89 Uncontrolled hypertension I10
--- NOTE | 2022-10-26 10:08 | PC.SOCIAL ---
IMM update IMM updated with patient. Copy page 2 provided. Verbalized understanding. Initial,dated,timed and placed in chart.
--- NOTE | 2022-10-26 10:31 | PM.DCS ---
Discharge Providers Date of Admission: 10/23/22 17:13 Date of Discharge: October 26, 2022 Attending Provider at Admission: Zofia Reyes MD Attending Provider at Discharge: Karen Rajan MD Primary Care Provider: Rajiv Francis DO Diagnoses at Discharge Discharge Diagnosis (1) Chest pain: Status: Acute (2) Recent ST elevation myocardial infarction (STEMI): Status: Acute (3) GERD with esophagitis: Status: Acute (4) Elevated brain natriuretic peptide (BNP) level: Status: Acute (5) Uncontrolled hypertension: Status: Acute Reason for Visit Reason for Visit: chest pain, nausea Hospital Course Hospital Course 71-year female who was admitted for management evaluation of chest pain, cardiology was consulted who recommended stress test, she has stopped taking her aspirin because of her epigastric pain history of GERD, stress test was requested by the [facility] technical architect, stress test report showing old AR, general surgery was consulted for an EGD, which showed gastritis, no bleeding ulcer, patient has been advised to stop taking steroids and aspirin and continue Plavix, she will continue Carafate and Protonix as well. Hemoglobin remained stable. She be discharged home on antidepressant. For chronic kidney disease ux researcher was consulted who recommended continuation of tacrolimus he also had a losartan which I am holding for a few days until she follows up with her ux researcher outpatient. Physical Exam Narrative: Awake and alert Epigastric pain 1/10 Hemodynamically stable GCS 15 ER, PERRLA Nonfocal neuro exam S1, S2 Discharge Data Studies Completed and Pending Completed Studies During Hospitalization Category Date Time Status Sestamibi Stress Test Request Routine Exams 10/25/22 06:00 Draft XR chest 1V portable [id number] Stat Exams 10/23/22 13:56 Completed NM naima perf SPECT r/s* [id number] Routine Nuc Med 10/25/22 08:53 Completed CV. echo limited [id number] Stat Ultrasound 10/23/22 17:47 Completed Pending at discharge Category Date Time Status Complete Blood Count w/Auto AM LABS Lab 10/27/22 04:00 Ordered Comprehensive Metabolic Panel AM LABS Lab 10/27/22 04:00 Ordered Magnesium AM LABS Lab 10/27/22 04:00 Ordered Phosphorus AM LABS Lab 10/27/22 04:00 Ordered Vitamin D 1,25 Dihydroxy Routine Lab 10/24/22 04:38 Received Pathology: Surgical [PTH] Routine Pth 10/25/22 16:00 Received Radiology Impressions Chest X-Ray 10/23/22 13:56 IMPRESSION: 1. New right base infiltrate. 2. Stable infiltrate/density possibly chronic versus slightly improved in the left base. Laboratory Results WBC 5.0 10^3/uL (4.0-10.0) 10/26/22 05:50 RBC 3.62 10^6/uL (4.1-5.3) L 10/26/22 05:50 Hgb 9.3 g/dL (11.5-15.3) L 10/26/22 05:50 Hct 30.0 % (37.0-47.0) L 10/26/22 05:50 MCV 82.9 fl (81-99) 10/26/22 05:50 MCH 25.7 pg (28.0-34.0) L 10/26/22 05:50 MCHC 31.0 g/dL (30.0-36.0) 10/26/22 05:50 RDW 16.5 % (12.1-15.1) H 10/26/22 05:50 Plt Count 303 10^3/cmm (130-400) 10/26/22 05:50 MPV 9.1 fL (7.4-10.4) 10/26/22 05:50 Neut % (Auto) 47.3 % 10/26/22 05:50 Lymph % (Auto) 35.4 % 10/26/22 05:50 [place] % (Auto) 12.7 % 10/26/22 05:50 Eos % (Auto) 3.4 % 10/26/22 05:50 Baso % (Auto) 1.0 % 10/26/22 05:50 Neut # (Auto) 2.35 10^3/uL (1.8-7.7) 10/26/22 05:50 Lymph # (Auto) 1.8 10^3/uL (0.8-4.8) 10/26/22 05:50 [place] # (Auto) 0.6 10^3/uL (0.2-0.9) 10/26/22 05:50 Eos # (Auto) 0.2 10^3/uL (0.0-0.8) 10/26/22 05:50 Baso # (Auto) 0.1 10^3/uL (0.0-0.1) 10/26/22 05:50 Nucleated RBC % (auto) 0 % 10/26/22 05:50 Nucleated RBCs # 0.0 /100WBC 10/26/22 05:50 APTT 66.5 SECONDS (23.9-36.7) H 10/24/22 15:20 Sodium 133 mmol/L (136-145) L 10/26/22 05:50 Potassium 4.1 mmol/L (3.5-5.1) 10/26/22 05:50 Chloride 102 mmol/L (98-107) 10/26/22 05:50 Carbon Dioxide 21 mmol/L (22-29) L 10/26/22 05:50 Anion Gap 14.1 (5-19) 10/26/22 05:50 BUN 20 mg/dL (8-23) 10/26/22 05:50 Creatinine 1.9 mg/dL (0.5-0.9) H 10/26/22 05:50 GFR Calculation Not Reportable 10/26/22 05:50 Glucose 94 mg/dL (65-115) 10/26/22 05:50 Estimat Average Glucose 108 10/23/22 14:09 Hemoglobin A1c 5.4 % (4.0-6.0) 10/23/22 14:09 Calculated Osmolality 278 mOsm/kg (285-295) L 10/26/22 05:50 Lactic Acid 1.0 mmol/L (0.5-2.2) 10/23/22 17:46 Calcium 8.4 mg/dL (8.5-10.5) L 10/26/22 05:50 Phosphorus 4.1 mg/dL (2.5-4.5) 10/26/22 05:50 Magnesium 2.0 mg/dL (1.7-2.3) 10/26/22 05:50 Iron 57 ug/dL (37-145) 10/25/22 04:29 TIBC 153 mcg/dl 10/25/22 04:29 % Saturation 37.2 % (20-50) 10/25/22 04:29 Unsat Iron Binding 96 ug/dL (112-347) L 10/25/22 04:29 Ferritin 48 ng/mL (15-150) 10/25/22 04:29 Total Bilirubin 0.2 mg/dL (0.15-1.2) 10/26/22 05:50 AST 9 U/L (0-32) 10/26/22 05:50 ALT < 5 U/L (0-33) 10/26/22 05:50 Alkaline Phosphatase 91 U/L (35-105) 10/26/22 05:50 Troponin T Baseline 65 ng/L (0-10) H 10/23/22 14:09 Troponin T 120 Minute 62.97 ng/L (0-10) H 10/23/22 14:48 Delta Troponin T -2.03 ABS# (0-10) L 10/23/22 14:48 Troponin T Hi Sens 6Hr 61.36 ng/L (0-10) H 10/23/22 20:37 Troponin T Hi Sens 6Hr Delta -3.64 ng/L (0-12) L 10/23/22 20:37 NT-Pro-B Natriuret Pep 52939 pg/mL (0-125) H 10/23/22 14:09 Total Protein 4.8 g/dL (6.6-8.7) L 10/26/22 05:50 Albumin 2.2 g/dL (3.5-5.2) L 10/26/22 05:50 Globulin 2.6 g/dL (1.3-4.6) 10/26/22 05:50 Triglycerides 148 mg/dL (0-150) 10/25/22 04:29 Cholesterol 279 mg/dL (0-200) H 10/25/22 04:29 LDL Cholesterol, Calc 200 mg/dL (50-129) H 10/25/22 04:29 HDL Cholesterol 49 mg/dL (60-100) L 10/25/22 04:29 LDL/HDL Ratio 4.08 RATIO (0.00-3.22) H 10/25/22 04:29 Cholesterol/HDL Ratio 5.69 mg/dL (0.0-4.40) H 10/25/22 04:29 Lipase 26 U/L (13-60) 10/23/22 14:09 25-OH Vitamin D Total 7 ng/mL (30-100) L 10/25/22 04:29 TSH 10.25 uIU/mL (0.27-4.20) H 10/23/22 14:09 Free T4 1.15 ng/dL (0.82-1.77) 10/23/22 14:48 Random Cortisol 11.76 ug/dL (2.47-19.5) 10/25/22 04:29 Urine Color Light yellow (Yellow) 10/24/22 20:18 Urine Appearance Clear (CLEAR) 10/24/22 20:18 Urine pH 5 (5-7) 10/24/22 20:18 Ur Specific [place] 1.010 (1.005-1.030) 10/24/22 20:18 Urine Protein 3+ (Negative) H 10/24/22 20:18 Urine Glucose (UA) Norm (Normal) 10/24/22 20:18 Urine Ketones Negative (Negative) 10/24/22 20:18 Urine Blood 2+ (Negative) H 10/24/22 20:18 Urine Nitrate Negative (Negative) 10/24/22 20:18 Urine Bilirubin Neg (Negative) 10/24/22 20:18 Urine Urobilinogen Norm mg/dL (Negative) 10/24/22 20:18 Ur Leukocyte Esterase Negative (Negative) 10/24/22 20:18 Urine RBC 0-4 /hpf (0-2) H 10/24/22 20:18 Urine WBC 0-4 /hpf (0-5) H 10/24/22 20:18 Ur Squamous Epith Cells 5-10 /hpf (0-5) H 10/24/22 20:18 Amorphous Sediment 1+ /hpf 10/24/22 20:18 Urine Bacteria 1+ /hpf (NONE) H 10/24/22 20:18 Ur Random Sodium 67 mmol/L 10/24/22 20:18 Ur Random Potassium 21 mmol/L 10/24/22 20:18 Ur Random Chloride 65 mmol/L 10/24/22 20:18 Tacrolimus (FK 506) 1.2 mcg/L L 10/23/22 23:07 Hepatitis C Antibody Non-reactive (Nonreactive) 10/24/22 04:38 Influenza Type A Ag negative (Negative) 10/23/22 15:15 Influenza Type B Ag negative (Negative) 10/23/22 15:15 SARS-CoV-2 Ag (Rapid) negative (Negative) 10/23/22 15:15 Vitals Last Vital Signs Temp 98.1 F 10/26/22 08:00 Pulse 67 10/26/22 08:00 Resp 18 10/26/22 08:00 BP 181/78 10/26/22 08:48 Pulse Ox 93 10/26/22 08:00 O2 Del Method 10/26/22 08:00 Discharge Plan Discharge Patient Disposition: Home Condition: Stable Prescriptions: New Carafate 1 gram tablet 1 g PO Q6H 56 Days Qty: 224 0RF amlodipine 10 mg tablet 10 mg PO DAILY Qty: 60 0RF hydralazine 10 mg tablet 10 mg PO BID Qty: 60 0RF escitalopram oxalate 10 mg tablet 10 mg PO DAILY Qty: 90 1RF Continued metoprolol tartrate 50 mg tablet 25 mg PO BID Klor-Con M20 20 mEq tablet,ER particles/crystals 20 meq PO DAILY Qty: 90 1RF Rx Instructions: with bumex docusate sodium 100 mg Capsule 200 mg PO BEDTIME acetaminophen 500 mg Tablet 500 - 1,000 mg PO Q6H PRN (Reason: Pain) Nitrostat 0.4 mg Tablet, Sublingual 0.4 mg SUBLINGUAL Q5M PRN (Reason: Chest Pain) Rx Instructions: do not exceed 3 doses per episode tacrolimus 1 mg capsule 2 mg PO Q12H Thermotabs 287-180-15 mg Tablet 1 tab PO DAILY Dexilant 60 mg capsule,biphase delayed releas 60 mg PO DAILY Qty: 30 3RF lactulose 10 gram/15 mL solution 30 ml PO BEDTIME Changed bumetanide 2 mg tablet 1 mg PO DAILY PRN (Reason: oedema legs) Qty: 10 0RF clopidogrel 75 mg tablet 75 mg PO QAM Qty: 30 0RF Nexium 24HR 20 mg Capsule,Delayed Release(Dr/Ec) 20 mg PO BIDWMEAL PRN (Reason: extra burning not helped from dexilant) Qty: 120 3RF potassium gluconate 595 mg (99 mg) Tablet 595 mg PO DAILY PRN (Reason: with lasix only) Qty: 10 0RF Held losartan 25 mg tablet 25 mg PO DAILY Hold Instructions: Resume on 11/02/22. Discontinued sucralfate 1 gram tablet 1 g PO QID Discharge Orders: Discharge Order (Routine); Ordered 10/26/22 Ordered By: Karen Rajan Referrals: Rajiv Francis DO [Primary Care Provider] - 11/02/22 10:45 am Discharge Diet: GI Soft Discharge Activity: Increase activity as tolerated Patient Instructions: Sucralfate (By mouth), Hydralazine (By mouth), Amlodipine (By mouth), Escitalopram (By mouth), Esophagitis (GEN), GI Discharge Instructions, Opioid Safety Discharge Attestations Time Spent in Discharge Care*: less than 30 min Quality Metrics Clinical Quality Measures [ No reported AMI, CVA or VTE this stay] Coding Level of Care Code Acute Code for Chg Fwd Diagnoses Chest pain R07.[address] elevation myocardial infarction (STEMI) GERD with esophagitis K21.00 Elevated brain natriuretic peptide (BNP) level R79.89 Uncontrolled hypertension I10
[2022-10-26] MEDS: amlodipine 10 mg Tablet PO (11:22)
[2022-10-26 11:59] VITALS: BP 181/78; PULSE 67; RESP 18; TEMP 36.7; O2SAT 93
[2022-10-29 12:04] LABS: Vit D 1,25 (Oh)2, Total 15 pg/mL (18-72); Vit D2 1,25 (Oh)2 <8 pg/mL; Vit D3 1,25 (Oh)2 15 pg/mL
== END 2022-10-26 12:01 | disposition home or self-care (01) | DRG 392 ==
LOC: ER 17:12 → CSU 17:50 → ICU 18:01 → MEDSURG 10-25 21:55
PROVIDERS: Hospitalist; Internal Medicine; Internal Medicine Nephrology; Student in an Organized Health Care Education/Training Program; Surgery Surgical Critical Care; Admitting Provider Internal Medicine; Emergency Provider Emergency Medicine; PCP Family Medicine; Visit Provider Internal Medicine
PROC: 0DJ08ZZ Inspection of Upper Intestinal Tract, Via Natural or Artificial Opening Endoscopic (ICD-10-PCS; CPT 43235; principal; 2022-10-25 11:15)
DX: K29.70 Gastritis, unspecified, without bleeding (principal); I25.110 Atherosclerotic heart disease of native coronary artery with unstable angina pectoris; Q61.3 Polycystic kidney, unspecified; E87.1 Hypo-osmolality and hyponatremia; N17.9 Acute kidney failure, unspecified; I16.0 Hypertensive urgency; K21.00 Gastro-esophageal reflux disease with esophagitis, without bleeding; I25.2 Old myocardial infarction; N18.9 Chronic kidney disease, unspecified; I12.9 Hypertensive chronic kidney disease with stage 1 through stage 4 chronic kidney disease, or unspecified chronic kidney disease; Z95.5 Presence of coronary angioplasty implant and graft; T39.016A Underdosing of aspirin, initial encounter; T44.7X6A Underdosing of beta-adrenoreceptor antagonists, initial encounter; T45.1X6A Underdosing of antineoplastic and immunosuppressive drugs, initial encounter; T50.1X6A Underdosing of loop [high-ceiling] diuretics, initial encounter; Z91.128 Patient's intentional underdosing of medication regimen for other reason; Z88.8 Allergy status to other drugs, medicaments and biological substances; Z91.041 Radiographic dye allergy status; Z91.013 Allergy to seafood; F41.1 Generalized anxiety disorder; K59.09 Other constipation; Z86.16 Personal history of COVID-19; E03.9 Hypothyroidism, unspecified; K31.7 Polyp of stomach and duodenum
CPT/HCPCS: 12345; 36415; 43235; 71045; 78452; 80048; 80053; 80061; 80197; 81001; 82306; 82436; 82533; 82652; 82728; 83036; 83540; 83550; 83605; 83690; 83735; 83880; 84100; 84133; 84300; 84439; 84443; 84484; 85025; 85730; 86803; 87426; 87804; 88305; 93005; 93017; 93306; 93308; 96365; 96372; 96374; 96375; 96376; 99254; 99285; A9500; J0360; J1644; J2405; J2704; J2785; J3490; J7030; J7040; J7507; Q3014

== ENCOUNTER → 2022-11-10 09:07 | Outpatient (BNVA) | payer MEDICARE, MEDICAID, OTHER, SELFPAY | PROVIDERS: PCP Family Medicine; Visit Provider Nurse Practitioner Family | DX: I25.10 Atherosclerotic heart disease of native coronary artery without angina pectoris (principal); I10 Essential (primary) hypertension | CPT/HCPCS: 99214 ==

== ENCOUNTER 2022-12-13 09:32 | Outpatient (CLI) | payer MEDICARE, MEDICAID, OTHER, SELFPAY ==
[2022-12-13 10:48] LABS: Albumin Level 3.6 g/dL (3.5-5.2); Anion Gap 13.2 (5-19); Blood Urea Nitrogen 13 mg/dL (8-23); Calcium 9.1 mg/dL (8.5-10.5); Carbon Dioxide 25 mmol/L (22-29); Chloride 97 mmol/L (98-107); Glucose 99 mg/dL (65-115); Phosphorus 4.7 mg/dL (2.5-4.5); Potassium 4.2 mmol/L (3.5-5.1); Sodium 131 mmol/L (136-145)
[2022-12-13 10:53] LABS: Urine Creatinine 34 mg/dL (28-217); Urine Protein Random 6 mg/dL
[2022-12-13 10:58] LABS: UPRO/UCREAT Ratio 0.18 mg/mg CR
== END 2022-12-13 09:33 | disposition home or self-care (01) ==
PROVIDERS: PCP Family Medicine; Visit Provider Nurse Practitioner Family
DX: N05.0 Unspecified nephritic syndrome with minor glomerular abnormality (principal)
CPT/HCPCS: 36415; 80069; 80197; 82570; 84156

== ENCOUNTER → 2023-01-05 13:53 | Outpatient (BNVA) | payer MEDICARE, OTHER, MEDICAID, SELFPAY | PROVIDERS: PCP Family Medicine; Visit Provider Family Medicine | DX: N39.0 Urinary tract infection, site not specified (principal) | CPT/HCPCS: 81000 ==

== ENCOUNTER → 2023-01-11 12:57 | Outpatient (BNVA) | payer MEDICARE, MEDICAID, SELFPAY | PROVIDERS: PCP Family Medicine; Visit Provider Internal Medicine | DX: I25.10 Atherosclerotic heart disease of native coronary artery without angina pectoris (principal); I10 Essential (primary) hypertension | CPT/HCPCS: 99214 ==

== ENCOUNTER 2023-01-18 13:37 | Outpatient (CLI) | payer MEDICARE, OTHER, MEDICAID, SELFPAY ==
[2023-01-18 14:59] LABS: Albumin Level 3.7 g/dL (3.5-5.2); Anion Gap 18.4 (5-19); Blood Urea Nitrogen 21 mg/dL (8-23); Calcium 9.1 mg/dL (8.5-10.5); Carbon Dioxide 22 mmol/L (22-29); Chloride 88 mmol/L (98-107); Glucose 103 mg/dL (65-115); Phosphorus 4.3 mg/dL (2.5-4.5); Potassium 5.4 mmol/L (3.5-5.1); Sodium 123 mmol/L (136-145)
[2023-01-18 15:03] LABS: Creatinine Urine, Random 46 mg/dL (28-217); Microalbumin Random Urine 3 ug/dL (0-20)
[2023-01-18 15:11] LABS: Microalbum Creatinine Ratio Ur 65 mg/dL (0-20)
== END 2023-01-18 13:38 | disposition home or self-care (01) ==
LOC: LAB 13:42
PROVIDERS: PCP Family Medicine; Visit Provider Nurse Practitioner Family
DX: N05.0 Unspecified nephritic syndrome with minor glomerular abnormality (principal)
CPT/HCPCS: 80069; 80197; 81000; 82044; 87077; 87086; 87184

== ENCOUNTER → 2023-02-18 15:54 | Outpatient (BNVA) | payer MEDICARE, MEDICAID, SELFPAY | PROVIDERS: PCP Family Medicine; Visit Provider Emergency Medicine | DX: R39.9 Unspecified symptoms and signs involving the genitourinary system (principal); N30.01 Acute cystitis with hematuria | CPT/HCPCS: 81000; 87077; 87086; 87184 ==

== ENCOUNTER 2023-03-01 11:33 | Outpatient (CLI) | payer MEDICARE, MEDICAID, SELFPAY ==
[2023-03-01 12:56] LABS: Anion Gap 14.2 (5-19); Blood Urea Nitrogen 24 mg/dL (8-23); Calcium 8.8 mg/dL (8.5-10.5); Carbon Dioxide 21 mmol/L (22-29); Chloride 90 mmol/L (98-107); Glucose 91 mg/dL (65-115); Phosphorus 4.5 mg/dL (2.5-4.5); Potassium 5.2 mmol/L (3.5-5.1); Sodium 120 mmol/L (136-145)
[2023-03-01 13:04] LABS: Urine Creatinine 41 mg/dL (28-217); Urine Protein Random 7 mg/dL
[2023-03-01 13:14] LABS: UPRO/UCREAT Ratio 0.17 mg/mg CR
== END 2023-03-01 11:34 | disposition home or self-care (01) ==
LOC: LAB 11:37
PROVIDERS: PCP Family Medicine; Visit Provider Nurse Practitioner Family
DX: N05.0 Unspecified nephritic syndrome with minor glomerular abnormality (principal)
CPT/HCPCS: 36415; 80069; 80197; 82570; 84156

== ENCOUNTER → 2023-03-13 15:00 | Outpatient (BNVA) | payer MEDICARE, MEDICAID, SELFPAY | PROVIDERS: PCP Family Medicine; Visit Provider Nurse Practitioner Family | DX: R39.9 Unspecified symptoms and signs involving the genitourinary system (principal); N39.0 Urinary tract infection, site not specified | CPT/HCPCS: 81000; 81003; 87077; 87086; 87184 ==

== ENCOUNTER → 2023-03-23 10:34 | Outpatient (BNVA) | payer MEDICARE, MEDICAID, SELFPAY | PROVIDERS: PCP Family Medicine; Visit Provider Family Medicine | DX: N39.0 Urinary tract infection, site not specified (principal) | CPT/HCPCS: 81000 ==

== ENCOUNTER 2023-03-27 08:15 | Outpatient (CLI) | payer MEDICARE, MEDICAID, SELFPAY ==
[2023-03-27 09:23] LABS: Cortisol Random 13.98 ug/dL (2.47-19.5)
== END 2023-03-27 08:16 | disposition home or self-care (01) ==
PROVIDERS: PCP Family Medicine; Visit Provider Nurse Practitioner Family
DX: N05.0 Unspecified nephritic syndrome with minor glomerular abnormality (principal); E87.1 Hypo-osmolality and hyponatremia; Z79.621 Long term (current) use of calcineurin inhibitor
CPT/HCPCS: 36415; 82533

== ENCOUNTER → 2023-04-17 15:06 | Outpatient (BNVA) | payer MEDICARE, MEDICAID, SELFPAY | PROVIDERS: PCP Family Medicine; Visit Provider Family Medicine | DX: N18.9 Chronic kidney disease, unspecified (principal); E87.1 Hypo-osmolality and hyponatremia; E83.42 Hypomagnesemia; E55.9 Vitamin D deficiency, unspecified; E83.52 Hypercalcemia; M25.50 Pain in unspecified joint | CPT/HCPCS: 80048; 82306; 82607; 82728; 82746; 83735; 84100; 84443; 84550; 85025 ==

== ENCOUNTER 2023-05-05 08:51 | Outpatient (CLI) | payer MEDICARE, MEDICAID, SELFPAY ==
[2023-05-05 10:03] LABS: Albumin Level 4.1 g/dL (3.5-5.2); Anion Gap 14.4 (5-19); Blood Urea Nitrogen 16 mg/dL (8-23); Calcium 9.3 mg/dL (8.5-10.5); Carbon Dioxide 23 mmol/L (22-29); Chloride 98 mmol/L (98-107); Glucose 100 mg/dL (65-115); Phosphorus 4.1 mg/dL (2.5-4.5); Potassium 4.4 mmol/L (3.5-5.1); Sodium 131 mmol/L (136-145)
[2023-05-05 10:13] LABS: Urine Creatinine 42 mg/dL (28-217); Urine Protein Random 7 mg/dL
[2023-05-05 10:14] LABS: UPRO/UCREAT Ratio 0.17 mg/mg CR
== END 2023-05-05 08:52 | disposition home or self-care (01) ==
PROVIDERS: PCP Family Medicine; Visit Provider Nurse Practitioner Family
DX: D84.9 Immunodeficiency, unspecified (principal); N05.0 Unspecified nephritic syndrome with minor glomerular abnormality
CPT/HCPCS: 36415; 80069; 80197; 82570; 84156

== ENCOUNTER 2023-06-09 08:04 | Outpatient (CLI) | payer MEDICARE, MEDICAID, SELFPAY ==
[2023-06-09 08:24] LABS: Basophils % 0.6 %; Eosinophils % 0.6 %; Hematocrit 31.1 % (36-47); Lymphocytes # 2.8 10^3/uL (0.8-4.8); Lymphocytes % 42.8 %; Mean Corpuscular HGB Conc 32.5 g/dL (30-55); Mean Corpuscular Volume 83.2 fl (85-98); Mean Platelet Volume 8.4 fL (7.4-10.4); Monocytes # 0.6 10^3/uL (0.2-0.9); Monocytes % 9.4 %; Neutrophils # 3.07 10^3/uL (1.8-7.7); Neutrophils % 46.4 %; Nucleated Red Blood Cells % 0 %; Platelet Count 340 10^3/cmm (157-399); Red Blood Count 3.74 10^6/uL (3.85-5.65); Red Cell Distribution Width 15.5 % (12.1-15.1); White Blood Count 6.61 10^3/uL (3.29-11.43)
[2023-06-09 08:45] LABS: Albumin Level 4.3 g/dL (3.5-5.2); Anion Gap 13.9 (5-19); Blood Urea Nitrogen 20 mg/dL (8-23); Calcium 9.4 mg/dL (8.5-10.5); Carbon Dioxide 26 mmol/L (22-29); Chloride 97 mmol/L (98-107); Glucose 95 mg/dL (65-115); Phosphorus 3.4 mg/dL (2.5-4.5); Potassium 4.9 mmol/L (3.5-5.1); Sodium 132 mmol/L (136-145)
== END 2023-06-09 08:05 | disposition home or self-care (01) ==
PROVIDERS: PCP Family Medicine; Visit Provider Nurse Practitioner Family
DX: N05.0 Unspecified nephritic syndrome with minor glomerular abnormality (principal); D84.9 Immunodeficiency, unspecified
CPT/HCPCS: 36415; 80069; 80197; 85025

== ENCOUNTER → 2023-09-06 13:11 | Outpatient (BNVA) | payer MEDICARE, MEDICAID, SELFPAY | PROVIDERS: PCP Family Medicine; Visit Provider Family Medicine | DX: N18.9 Chronic kidney disease, unspecified (principal); E83.42 Hypomagnesemia; E78.00 Pure hypercholesterolemia, unspecified; I10 Essential (primary) hypertension; E87.1 Hypo-osmolality and hyponatremia; E55.9 Vitamin D deficiency, unspecified; E83.39 Other disorders of phosphorus metabolism; R79.89 Other specified abnormal findings of blood chemistry | CPT/HCPCS: 80053; 80061; 82306; 82607; 82746; 83735; 84100; 84443; 84550; 85025 ==

== ENCOUNTER 2023-09-20 10:11 | Emergency (ER) | payer MEDICARE, MEDICAID, SELFPAY ==
[2023-09-20 10:27] VITALS: BP 170/95; PULSE 73; RESP 16; TEMP 37.1; O2SAT 100; BMI 27.1
--- NOTE | 2023-09-20 10:42 | XR_ITS ---
WS: [id number] Exam: XR hip RT 2-3V wo/w pel* [id number] Date/Time of Exam: 09/20/2023 10:42 AM Reason For Exam: pain No acute fracture. Mild degenerative change of the acetabulum. The joint is preserved. Unremarkable s oft tissues. Large amount of stool in the transverse colon. IMPRESSION: 1. No fracture or dislocation. Mild DJD. Osteopenia.
--- NOTE | 2023-09-20 12:09 | ED_ITS ---
HPI - Extremity Problem General: Chief complaint: Extremity Problem,Nontraumatic Stated complaint: back and right hip pain Time Seen by Provider: 09/20/23 11:54 Source: patient Mode of arrival: ambulatory Limitations: no limitations History of Present Illness: 72-year-old female states that she has h ad low back pain for the last 2 days with pain radiating down her right leg. States she has had sciatica in the past this feels similar she denies any specific injury states she was lifting on Monday and believes she strained her back. Denies any bowel or bladder incontinence Associated symptoms: Deny chest pain, fever(s) or rash Review of Systems Const: Denies: fever(s), chills, body aches or change in appetite ENMT: Denies: throat pain or dental pain Card: Denies: chest pain Resp: Denies: dyspnea GI: Denies: abdominal pain, nausea, vomiting or diarrhea Musc: Reports: back pain; Denies: neck pain Skin/Breast: Denies: rash Neuro: Denies: headache(s) PFSH ED PFSH: Medical History CKD (chronic kidney disease) Immunocompromised Goals of care, counseling/discussion Acute kidney injury High thyroid stimulating hormone (TSH) level Non-compliant patient Recent ST elevation myocardial infarction (STEMI) Elevated brain natriuretic peptide (BNP) level Kidney disease Hyponatremia Chest pain CAD (coronary artery disease) ST elevation myocardial infarction (STEMI) Uncontrolled hypertension Hypokalemia Minimal change disease Hypoalbuminemia COVID-19 Hyponatremia Chronic constipation Generalized anxiety disorder GERD with esophagitis Anemia Polycystic kidney Esophageal dysmotility Hypertension Fatigue Anxiety and depression Family History Father Cancer lung Sister Cancer 2 sisters; breast Mother Hypertension Social History Smoking and tobacco/nicotine status: never used tobacco/nicotine Second hand smoke exposure: No Alcohol intake: never Substance/Drug Use: never Lives independently: Yes Household members: spouse Marital status: Current occupational status: retired Current gender identity: Female Female Reproductive History: Spontaneous abortions: No Physical Exam Const: COMMON NORMALS: no acute distress, patient oriented x3 and healthy appearing HENMT: COMMON NORMALS: normocephalic and atraumatic HEAD & SCALP: normocephalic and atraumatic Neck/C-Spine: COMMON NORMALS: full ROM and supple Chest: COMMONS NORMALS: normal inspection of the chest and normal palpation of entire chest wall Resp: COMMON NORMALS: normal respiratory effort Cardio: COMMON NORMALS: regular rate, regular rhythm and No murmurs present (Cardio) RATE: regular rate RHYTHM: regular rhythm Back/Pelvis: OTHER: Tenderness to right lower back no bowel or bladder incontinence Extremity: COMMON NORMALS: normal to inspection and full ROM Neuro: COMMON NORMALS: patient oriented x3, moves all extremities and no focal motor deficits Psych: COMMON NORMALS: mental status grossly normal, Normal thought process present and cooperative THOUGHT PROCESS: Normal thought process present Skin: COMMON NORMALS: no rashes or lesions noted and no wounds GENERAL SKIN EXAM: no rashes or lesions noted Course Vital Signs: Vital signs: Vital Signs Temperature 98.7 F 09/20/23 12:55 Pulse Rate 73 09/20/23 12:55 Respiratory Rate 16 09/20/23 12:55 Blood Pressure 170/95 09/20/23 12:55 Pulse Oximetry 100 09/20/23 12:55 Oxygen Delivery Me thod Room Air 09/20/23 10:27 MDM - Extremity (Nontraumatic) Medical Decision Making Patient presents here with hip pain along with sciatica x-ray here is normal we will place her on muscle relaxants along with steroids she is to follow-up with PCP and return if worsening she understands agrees to plan. Medical Records I reviewed the patient's medical records. All radiology interpretation(s) finalized by discharge Discharge Plan Discharge Patient Disposition: Home Clinical Impression: Low back pain Condition: Stable Prescriptions: New methocarbamol 750 mg tablet 750 mg PO Q6H PRN (Reason: spasms) Qty: 20 0RF Medrol (Andrew) 4 mg tablets,dose pack See Rx Instructions .ROUTE .COMPLEX Qty: 21 0RF Rx Instructions: orally per package directions No Action metoprolol tartrate 50 mg tablet 25 mg PO BID bumetanide 2 mg tablet 1 mg PO DAILY magnesium 250 mg tablet 500 mg PO DAILY cholecalciferol (vitamin D3) 125 mcg (5,000 unit) capsule 125 mcg PO DAILY esomeprazole magnesium [Nexium 24HR] 20 mg capsule,delayed release(DR/EC) 20 mg PO BIDWMEAL PRN (Reason: extra burning not helped from dexilant) Qty: 120 3RF potassium chloride [Klor-Con M20] 20 mEq tablet,ER particles/crystals 20 meq PO DAILY PRN (Reason: hypokalemia) Qty: 90 0RF Rx Instructions: Take one tablet by mouth daily with bumex lactulose 10 gram/15 mL solution See Rx Instructions .ROUTE .COMPLEX Qty: 2700 0RF Dose Instruction: TAKE 30ML BY MOUTH AT BEDTIME DIRECTED Rx Instructions: TAKE 30ML BY MOUTH AT BEDTIME DIRECTED dexlansoprazole [Dexilant] 60 mg capsule,biphase delayed releas See Rx Instructions .ROUTE .COMPLEX Qty: 90 1RF Dose Instruction: take 1 capsule BY MOUTH EVERY DAY Rx Instructions: take 1 capsule BY MOUTH EVERY DAY Repatha SureClick 140 mg/mL pen injector 140 mg SUBCUT .q2wks Qty: 2 5RF sucralfate 1 gram tablet See Rx Instructions .ROUTE .COMPLEX Qty: 60 2RF Dose Instruction: TAKE 1 TABLET BY MOUTH TWICE DAILY Rx Instructions: TAKE 1 TABLET BY MOUTH TWICE DAILY sucralfate [Carafate] 1 gram tablet 1 g PO Q6H 30 Days Qty: 120 2RF losartan 25 mg tablet 50 mg PO DAILY Qty: 180 2RF Hold Instructions: Resume on 11/02/22. hydrocodone-acetaminophen 5-325 mg tablet 1 tab PO Q8H PRN (Reason: pain) 7 Days Qty: 20 0RF clopidogrel 75 mg tablet See Rx Instructions .ROUTE .COMPLEX Qty: 30 3RF Dose Instruction: TAKE 1 TABLET BY MOUTH EVERY DAY Rx Instructions: TAKE 1 TABLET BY MOUTH EVERY DAY docusate sodium 100 mg Capsule 200 mg PO BEDTIME acetaminophen 500 mg Tablet 500 - 1,000 mg PO Q6H PRN (Reason: Pain) Nitrostat 0.4 mg Tablet, Sublingual 0.4 mg SUBLINGUAL Q5M PRN (Reason: Chest Pain) Rx Instructions: do not exceed 3 doses per episode Thermotabs 287-180-15 mg Tablet 1 tab PO DAILY potassium gluconate 595 mg (99 mg) Tablet 595 mg PO DAILY PRN (Reason: with lasix only) Qty: 10 0RF tacrolimus 1 mg capsule 1 mg PO Q12H Rx Instructions: 3mg in AM, 2mg in PM Discharge Orders: Discharge ED (Routine); Ordered 09/20/23 Ordered By: Kailee Montenegro Referrals: Rajiv Francis DO [Primary Care Provider] - 1-3 days Discharge Diet: Advance as tolerated Discharge Activity: Resume usual activity Patient Instructions: Sciatica (ED) Coding Level of Care Code ED [employer] Work[employer] for [employer]ine
[2023-09-20] MEDS: methocarbamol 750 mg Tablet 1500 MG PO (12:24)
[2023-09-20] MEDS: HYDROcodone-acetaminophen 7.5-325 mg Tablet 1 TAB PO (12:24)
[2023-09-20] MEDS: dexamethasone 10 mg/mL INJ IM (12:28)
[2023-09-20 12:55] VITALS: BP 170/95; PULSE 73; RESP 16; TEMP 37.1; O2SAT 100
== END 2023-09-20 12:45 | disposition home or self-care (01) ==
PROVIDERS: Emergency Provider Emergency Medicine; PCP Family Medicine
DX: M54.30 Sciatica, unspecified side (principal); M25.551 Pain in right hip
CPT/HCPCS: 73502; 96372; 99284; J1100

== ENCOUNTER → 2023-10-01 12:04 | Outpatient (BNVA) | payer MEDICARE, MEDICAID, SELFPAY | PROVIDERS: PCP Family Medicine; Visit Provider Nurse Practitioner | DX: R11.0 Nausea (principal); R30.0 Dysuria; N12 Tubulo-interstitial nephritis, not specified as acute or chronic | CPT/HCPCS: 81000 ==

== ENCOUNTER → 2023-10-09 10:48 | Outpatient (BNVA) | payer MEDICARE, MEDICAID, SELFPAY | PROVIDERS: PCP Family Medicine; Visit Provider Nurse Practitioner Family | DX: R30.0 Dysuria (principal); R39.9 Unspecified symptoms and signs involving the genitourinary system | CPT/HCPCS: 81000 ==

== ENCOUNTER 2023-10-11 09:56 | Outpatient (CLI) | payer MEDICARE, MEDICAID, SELFPAY ==
--- NOTE | 2023-10-11 09:59 | MM_ITS ---
WS: [id number] BILATERAL SCREENING DIGITAL TOMOSYNTHESIS MAMMOGRAM WITH CAD HISTORY: Z12.39 - Encounter for other screening for malignant neop... COMPARISON: 08/31/2020, 08/30/2019 Bilateral CC and MLO views with tomosynthesis and synthetic mammography submitted. Computer aided det ection analyzed. Breast composition: The breasts are heterogeneously dense, which may obscure small masses. No suspici ous masses, microcalcifications or architectural distortion. IMPRESSION: MM/[place] [id number] BI-RADS: 1-Negative FOLLOW UP: 1 Year Follow-up
== END 2023-10-11 09:57 | disposition home or self-care (01) ==
LOC: RAD 09:57
PROVIDERS: PCP Family Medicine; Visit Provider Family Medicine
DX: Z12.31 Encounter for screening mammogram for malignant neoplasm of breast (principal); R92.333 Mammographic heterogeneous density, bilateral breasts
CPT/HCPCS: 77063; 77067

== ENCOUNTER → 2023-10-17 12:11 | Outpatient (BNVA) | payer MEDICARE, MEDICAID, SELFPAY | PROVIDERS: PCP Family Medicine; Visit Provider Internal Medicine | DX: I12.9 Hypertensive chronic kidney disease with stage 1 through stage 4 chronic kidney disease, or unspecified chronic kidney disease (principal); N18.9 Chronic kidney disease, unspecified; I25.10 Atherosclerotic heart disease of native coronary artery without angina pectoris | CPT/HCPCS: 99214 ==

== ENCOUNTER → 2023-11-05 13:50 | Outpatient (BNVA) | payer MEDICARE, MEDICAID, SELFPAY | PROVIDERS: PCP Family Medicine; Visit Provider Emergency Medicine | DX: R39.9 Unspecified symptoms and signs involving the genitourinary system (principal) | CPT/HCPCS: 81000; 87077; 87086; 87184 ==

== ENCOUNTER 2023-11-09 08:06 | Outpatient (CLI) | payer MEDICARE, MEDICAID, SELFPAY ==
[2023-11-09 09:10] LABS: Alanine Aminotransferase 6 U/L (0-33); Albumin Level 4.1 g/dL (3.5-5.2); Alkaline Phosphatase 89 U/L (35-105); Anion Gap 16.7 (5-19); Aspartate Amino Transferase 12 U/L (0-32); Blood Urea Nitrogen 16 mg/dL (8-23); Calcium 9.3 mg/dL (8.5-10.5); Carbon Dioxide 23 mmol/L (22-29); Chloride 99 mmol/L (98-107); Globulin 3.3 g/dL (1.3-4.6); Glucose 99 mg/dL (65-115); Osmolality Calculated 279 mOsm/kg (285-295); Potassium 4.7 mmol/L (3.5-5.1); Sodium 134 mmol/L (136-145); Total Bilirubin 0.4 mg/dL (0.15-1.2); Total Protein 7.4 g/dL (6.6-8.7)
== END 2023-11-09 08:07 | disposition home or self-care (01) ==
LOC: LAB 08:09
PROVIDERS: PCP Family Medicine; Visit Provider Nurse Practitioner Family
DX: N05.0 Unspecified nephritic syndrome with minor glomerular abnormality (principal)
CPT/HCPCS: 36415; 80053

== ENCOUNTER → 2023-11-18 11:16 | Outpatient (BNVA) | payer MEDICARE, MEDICAID, SELFPAY | PROVIDERS: PCP Family Medicine; Visit Provider Registered Nurse Neonatal Intensive Care | DX: N39.0 Urinary tract infection, site not specified (principal); R31.9 Hematuria, unspecified | CPT/HCPCS: 81000; 87077; 87086; 87184 ==

== ENCOUNTER → 2023-12-15 10:36 | Outpatient (BNVA) | payer MEDICARE, MEDICAID, SELFPAY | PROVIDERS: PCP Family Medicine; Visit Provider Family Medicine | DX: N39.0 Urinary tract infection, site not specified (principal) | CPT/HCPCS: 81000 ==

== ENCOUNTER → 2024-01-30 09:57 | Outpatient (BNVA) | payer MEDICARE, MEDICAID, SELFPAY | PROVIDERS: PCP Family Medicine; Visit Provider Nurse Practitioner Family | DX: R39.9 Unspecified symptoms and signs involving the genitourinary system (principal); R52 Pain, unspecified | CPT/HCPCS: 73610; 81000 ==

== ENCOUNTER 2024-02-08 10:01 | Outpatient (CLI) | payer MEDICARE, SELFPAY ==
[2024-02-08 10:47] LABS: Basophils # 0.1 10^3/uL (0.0-0.1); Basophils % 0.6 %; Eosinophils # 0.1 10^3/uL (0.0-0.8); Eosinophils % 1.3 %; Hematocrit 32.2 % (36-47); Lymphocytes # 2.2 10^3/uL (0.8-4.8); Lymphocytes % 26.2 %; Mean Corpuscular HGB Conc 32.3 g/dL (30-55); Mean Corpuscular Hemoglobin 28.5 pg (27-33); Mean Corpuscular Volume 88.2 fl (85-98); Monocytes # 0.8 10^3/uL (0.2-0.9); Monocytes % 9.5 %; Neutrophils # 5.16 10^3/uL (1.8-7.7); Neutrophils % 62.2 %; Nucleated Red Blood Cells % 0 %; Platelet Count 382 10^3/cmm (157-399); Red Blood Count 3.65 10^6/uL (3.85-5.65); Red Cell Distribution Width 14.1 % (12.1-15.1); White Blood Count 8.31 10^3/uL (3.29-11.43)
[2024-02-08 10:49] LABS: Alanine Aminotransferase < 5 U/L (0-33); Albumin Level 3.8 g/dL (3.5-5.2); Alkaline Phosphatase 93 U/L (35-105); Anion Gap 17.7 (5-19); Aspartate Amino Transferase 9 U/L (0-32); Blood Urea Nitrogen 15 mg/dL (8-23); Calcium 9.2 mg/dL (8.5-10.5); Carbon Dioxide 22 mmol/L (22-29); Chloride 97 mmol/L (98-107); Globulin 3.4 g/dL (1.3-4.6); Glucose 98 mg/dL (65-115); Osmolality Calculated 275 mOsm/kg (285-295); Phosphorus 4.1 mg/dL (2.5-4.5); Potassium 4.7 mmol/L (3.5-5.1); Sodium 132 mmol/L (136-145); Total Bilirubin 0.5 mg/dL (0.15-1.2); Total Protein 7.2 g/dL (6.6-8.7)
[2024-02-08 17:57] LABS: Urine Creatinine 89 mg/dL (28-217); Urine Protein Random 19 mg/dL
[2024-02-08 17:58] LABS: UPRO/UCREAT Ratio 0.21 mg/mg CR
== END 2024-02-08 10:02 | disposition home or self-care (01) ==
LOC: LAB 10:07
PROVIDERS: PCP Family Medicine; Visit Provider Nurse Practitioner Family
DX: N05.0 Unspecified nephritic syndrome with minor glomerular abnormality (principal)
CPT/HCPCS: 36415; 80053; 80197; 82570; 84100; 84156; 85025

== ENCOUNTER 2024-02-09 07:07 | Emergency (ER) | payer MEDICARE, MEDICAID, SELFPAY ==
[2024-02-09 07:15] VITALS: BP 100/65; PULSE 74; RESP 16; TEMP 36.6; O2SAT 98
--- NOTE | 2024-02-09 07:49 | W.ED.FEMALGU ---
HPI - Female Genitourinary General: Chief complaint: Urogenital-Female Stated complaint: urinary issues Time Seen by Provider: 02/09/24 07:08 Source: patient Mode of arrival: ambulatory History of Present Illness: 73-year-old female MD elicited complaint: dysuria Onset (ago): week(s) Urinary symptoms: Difficulty Urinating and Dysuria Exacerbating factors: urination Relieving factors: none Associated symptoms: Deny abdominal pain Treatment prior to arrival: none Review of Systems Const: Reports: fever(s); Denies: chills Card: Denies: chest pain Resp: Denies: dyspnea GI: Denies: abdominal pain : Denies: dysuria, urinary frequency or urinary urgency Musc: Denies: neck pain or back pain Skin/Breast: Denies: rash PFSH ED PFSH: Medical History CKD (chronic kidney disease) Immunocompromised Goals of care, counseling/discussion Acute kidney injury High thyroid stimulating hormone (TSH) level Non-compliant patient Recent ST elevation myocardial infarction (STEMI) Elevated brain natriuretic peptide (BNP) level Kidney disease Hyponatremia Chest pain CAD (coronary artery disease) ST elevation myocardial infarction (STEMI) Uncontrolled hypertension Hypokalemia Minimal change disease Hypoalbuminemia COVID-19 Hyponatremia Chronic constipation Generalized anxiety disorder GERD with esophagitis Anemia Polycystic kidney Esophageal dysmotility Hypertension Fatigue Anxiety and depression Family History Father Cancer lung Sister Cancer 2 sisters; breast Mother Hypertension Social History Smoking and tobacco/nicotine status: never used tobacco/nicotine Second hand smoke exposure: No Alcohol intake: never Substance/Drug Use: never Lives independently: Yes Household members: spouse Marital status: Current occupational status: retired Current gender identity: Female Female Reproductive History: Spontaneous abortions: No Physical Exam Const: COMMON NORMALS: no acute distress GENERAL APPEARANCE: cooperative and comfortable ORIENTATION/CONSCIOUSNESS: Yes awake, Yes oriented to person, Yes oriented to place and Yes oriented to time HENMT: COMMON NORMALS: normocephalic, atraumatic and hearing grossly normal bilaterally HEAD & SCALP: normocephalic and atraumatic Resp: COMMON NORMALS: normal respiratory effort, No retractions, No use of accessory muscles and clear to auscultation bilaterally AUSCULTATION: clear to auscultation bilaterally Cardio: COMMON NORMALS: regular rate, regular rhythm and No murmurs present (Cardio) RATE: regular rate RHYTHM: regular rhythm GI: COMMON NORMALS: Soft to palpation and No hepatosplenomegaly present AUSCULTATION: Yes normoactive bowel sounds PALPATION: Yes Soft to palpation, No Tenderness to palpation present (GI), No Guarding due to palpation present (GI) and Yes No hepatosplenomegaly present Extremity: COMMON NORMALS: normal to inspection, capillary refill normal, no clubbing, cyanosis or edema, no calf tenderness and no pedal edema Neuro: SENSORIUM/ORIENTATION: Yes oriented to person, Yes oriented to place and Yes oriented to time Skin: COMMON NORMALS: no rashes or lesions noted GENERAL SKIN EXAM: no rashes or lesions noted Course Vital Signs: Vital signs: Vital Signs Temperature 97.9 F 02/09/24 07:15 Pulse Rate 50 L 02/09/24 08:37 Respiratory Rate 16 02/09/24 07:15 Blood Pressure 159/86 02/09/24 08:37 Pulse Oximetry 96 02/09/24 08:37 Oxygen Delivery Me thod Room Air 02/09/24 08:37 MDM - Female Medical Decision Making Patient is chronically anemic. As well as chronically hyponatremic no significant change in her other those clinically she appears well. There is no sign of UTI. Some of her symptoms may be a chronic anemia or her blood pressure. At her current blood pressure would not recommend changes in medication regimen from the ER visit. Encouraged her to follow-up with her primary care doctor return if is further problems. Medical Records I reviewed the patient's medical records. Lab Data I reviewed the patient's lab results. 02/09/24 07:47 02/09/24 07:47 Laboratory Results WBC 6.57 10^3/uL (3.29-11.43) 02/09/24 07:47 RBC 3.59 10^6/uL (3.85-5.65) L 02/09/24 07:47 Hgb 10.40 g/dL (11.27-16.99) L 02/09/24 07:47 Hct 31.3 % (36-47) L 02/09/24 07:47 MCV 87.2 fl (85-98) 02/09/24 07:47 MCH 29.0 pg (27-33) 02/09/24 07:47 MCHC 33.2 g/dL (30-55) 02/09/24 07:47 RDW 13.9 % (12.1-15.1) 02/09/24 07:47 Plt Count 355 10^3/cmm (157-399) 02/09/24 07:47 MPV 8.9 fL (7.4-10.4) 02/09/24 07:47 Neut % (Auto) 58.8 % 02/09/24 07:47 Lymph % (Auto) 28.0 % 02/09/24 07:47 [place] % (Auto) 10.5 % 02/09/24 07:47 Eos % (Auto) 2.0 % 02/09/24 07:47 Baso % (Auto) 0.5 % 02/09/24 07:47 Neut # (Auto) 3.87 10^3/uL (1.8-7.7) 02/09/24 07:47 Lymph # (Auto) 1.8 10^3/uL (0.8-4.8) 02/09/24 07:47 [place] # (Auto) 0.7 10^3/uL (0.2-0.9) 02/09/24 07:47 Eos # (Auto) 0.1 10^3/uL (0.0-0.8) 02/09/24 07:47 Baso # (Auto) 0.0 10^3/uL (0.0-0.1) 02/09/24 07:47 Nucleated RBC % (auto) 0 % 02/09/24 07:47 Nucleated RBCs # 0.0 /100WBC 02/09/24 07:47 Sodium 131 mmol/L (136-145) L 02/09/24 07:47 Potassium 4.3 mmol/L (3.5-5.1) 02/09/24 07:47 Chloride 96 mmol/L (98-107) L 02/09/24 07:47 Carbon Dioxide 23 mmol/L (22-29) 02/09/24 07:47 Anion Gap 16.3 (5-19) 02/09/24 07:47 BUN 15 mg/dL (8-23) 02/09/24 07:47 Creatinine 0.9 mg/dL (0.5-0.9) 02/09/24 07:47 GFR Calculation Not Reportable 02/09/24 07:47 Glucose 98 mg/dL (65-115) 02/09/24 07:47 Calculated Osmolality 273 mOsm/kg (285-295) L 02/09/24 07:47 Calcium 9.2 mg/dL (8.5-10.5) 02/09/24 07:47 Total Bilirubin 0.5 mg/dL (0.15-1.2) 02/09/24 07:47 AST 9 U/L (0-32) 02/09/24 07:47 ALT < 5 U/L (0-33) 02/09/24 07:47 Alkaline Phosphatase 93 U/L (35-105) 02/09/24 07:47 Total Protein 7.2 g/dL (6.6-8.7) 02/09/24 07:47 Albumin 3.8 g/dL (3.5-5.2) 02/09/24 07:47 Globulin 3.4 g/dL (1.3-4.6) 02/09/24 07:47 Urine Color Yellow (Yellow) 02/09/24 07:50 Urine Appearance Clear (CLEAR) 02/09/24 07:50 Urine pH 7 (5-7) 02/09/24 07:50 Ur Specific [place] 1.000 (1.005-1.030) L 02/09/24 07:50 Urine Protein Neg (Negative) 02/09/24 07:50 Urine Glucose (UA) Norm (Normal) 02/09/24 07:50 Urine Ketones Negative (Negative) 02/09/24 07:50 Urine Blood Neg (Negative) 02/09/24 07:50 Urine Nitrate Negative (Negative) 02/09/24 07:50 Urine Bilirubin Neg (Negative) 02/09/24 07:50 Urine Urobilinogen Norm mg/dL (Negative) 02/09/24 07:50 Ur Leukocyte Esterase Negative (Negative) 02/09/24 07:50 All radiology interpretation(s) finalized by discharge Discharge Plan Discharge Patient Disposition: Home Clinical Impression: Dysuria, Anemia, Benign essential HTN, LIZZIE (minimal change disease) Condition: Stable Prescriptions: No Action prednisone 20 mg tablet See Rx Instructions .Route .COMPLEX Qty: 11 0RF Rx Instructions: Take 2 tabs PO x 4 days, then 1 tab PO x 3 days. levofloxacin 500 mg tablet 500 mg PO DAILY Qty: 10 0RF levofloxacin 250 mg tablet 250 mg PO .COMPLEX 28 Days Qty: 12 2RF Rx Instructions: 1 tab by mouth on M, W, F for UTI prophylaxis. Start after 10 day course is completed. magnesium 250 mg tablet 500 mg PO DAILY cholecalciferol (vitamin D3) 125 mcg (5,000 unit) capsule 125 mcg PO DAILY amlodipine 5 mg tablet 5 mg PO DAILY Qty: 90 3RF nitrofurantoin monohyd/m-cryst [Macrobid] 100 mg capsule 100 mg PO BID 10 Days Qty: 20 0RF Rx Instructions: must administer with a meal/food losartan 25 mg tablet 50 mg PO DAILY Qty: 180 2RF Hold Instructions: Resume on 11/02/22. lactulose 10 gram/15 mL solution See Rx Instructions .ROUTE .COMPLEX Qty: 2700 3RF Dose Instruction: TAKE 30ML BY MOUTH AT BEDTIME DIRECTED Rx Instructions: TAKE 30ML BY MOUTH AT BEDTIME DIRECTED Repatha SureClick 140 mg/mL pen injector See Rx Instructions .ROUTE .COMPLEX Qty: 6 3RF Dose Instruction: INJECT 140MG UNDER THE SKIN EVERY 2 WEEKS Rx Instructions: INJECT 140MG UNDER THE SKIN EVERY 2 WEEKS sucralfate 1 gram tablet See Rx Instructions .ROUTE .COMPLEX Qty: 120 2RF Dose Instruction: TAKE 1 TABLET BY MOUTH EVERY 6 HOURS FOR ONE MONTH Rx Instructions: TAKE 1 TABLET BY MOUTH EVERY 6 HOURS FOR ONE MONTH omeprazole 40 mg capsule,delayed release(DR/EC) 40 mg PO DAILY Qty: 180 3RF hydrocodone-acetaminophen 5-325 mg tablet 1 tab PO Q8H PRN (Reason: pain) 30 Days Qty: 90 0RF clopidogrel 75 mg tablet See Rx Instructions .ROUTE .COMPLEX Qty: 30 2RF Dose Instruction: TAKE 1 TABLET BY MOUTH EVERY DAY Rx Instructions: TAKE 1 TABLET BY MOUTH EVERY DAY metoprolol tartrate 50 mg tablet See Rx Instructions .ROUTE .COMPLEX Qty: 90 0RF Dose Instruction: take 1/2 tablet BY MOUTH TWICE DAILY Rx Instructions: take 1/2 tablet BY MOUTH TWICE DAILY docusate sodium 100 mg Capsule 200 mg PO BEDTIME acetaminophen 500 mg Tablet 500 - 1,000 mg PO Q6H PRN (Reason: Pain) Nitrostat 0.4 mg Tablet, Sublingual 0.4 mg SUBLINGUAL Q5M PRN (Reason: Chest Pain) Rx Instructions: do not exceed 3 doses per episode potassium gluconate 595 mg (99 mg) Tablet 595 mg PO DAILY PRN (Reason: with lasix only) Qty: 10 0RF tacrolimus 1 mg capsule 1 mg PO Q12H Rx Instructions: 3mg in AM, 2mg in PM Discharge Orders: Discharge ED (Routine); Ordered 02/09/24 Ordered By: Saurabh Howell Referrals: Rajiv Francis DO [Primary Care Provider] - Patient Instructions: Opioid Safety, Pain Management Activity Restrictions/Additional Instructions: Thank you for choosing [facility] for your healthcare needs today. It is very important that you follow up as instructed or that you return to the Emergency Department should you have concerns or if your condition changes or worsens in any way. You were seen today with complaints of difficulty with urination weakness and mildly elevated blood pressure. Blood pressure is mildly elevated would continue to work with your primary care doctor. At its current level we do not recommend changes at this time. You are mildly anemic as well but in reviewing your old records this has been chronic. On the urine sample there is no sign of acute infection. Your sodium is slightly low But reviewing your old charts this is chronic your kidney function is normal. Some of your symptoms may be due to the anemia and possibly your blood pressure. Follow-up with your primary care doctor regarding these issues. Coding Level of Care Code ED Slate Splitter for Amira Solorzano
[2024-02-09 08:00] LABS: Basophils % 0.5 %; Eosinophils # 0.1 10^3/uL (0.0-0.8); Hematocrit 31.3 % (36-47); Lymphocytes # 1.8 10^3/uL (0.8-4.8); Mean Corpuscular HGB Conc 33.2 g/dL (30-55); Mean Corpuscular Volume 87.2 fl (85-98); Mean Platelet Volume 8.9 fL (7.4-10.4); Monocytes # 0.7 10^3/uL (0.2-0.9); Monocytes % 10.5 %; Neutrophils # 3.87 10^3/uL (1.8-7.7); Neutrophils % 58.8 %; Nucleated Red Blood Cells % 0 %; Platelet Count 355 10^3/cmm (157-399); Red Blood Count 3.59 10^6/uL (3.85-5.65); Red Cell Distribution Width 13.9 % (12.1-15.1); White Blood Count 6.57 10^3/uL (3.29-11.43)
[2024-02-09 08:01] VITALS: BP 165/78; PULSE 53; O2SAT 95
[2024-02-09 08:11] LABS: Alanine Aminotransferase < 5 U/L (0-33); Albumin Level 3.8 g/dL (3.5-5.2); Alkaline Phosphatase 93 U/L (35-105); Anion Gap 16.3 (5-19); Aspartate Amino Transferase 9 U/L (0-32); Blood Urea Nitrogen 15 mg/dL (8-23); Calcium 9.2 mg/dL (8.5-10.5); Carbon Dioxide 23 mmol/L (22-29); Chloride 96 mmol/L (98-107); Globulin 3.4 g/dL (1.3-4.6); Glucose 98 mg/dL (65-115); Osmolality Calculated 273 mOsm/kg (285-295); Potassium 4.3 mmol/L (3.5-5.1); Sodium 131 mmol/L (136-145); Total Bilirubin 0.5 mg/dL (0.15-1.2); Total Protein 7.2 g/dL (6.6-8.7)
[2024-02-09 08:37] VITALS: BP 159/86; PULSE 50; O2SAT 96
[2024-02-09 08:38] LABS: Add Urine Microscopic? NO; Charge for UA Resulting for Rev
[2024-02-09 08:50] LABS: Bilirubin Urine Neg (Negative); Blood Urine Neg (Negative); Glucose Urine UA Norm (Normal); Ketones Urine Negative (Negative); Leukocyte Esterase Urine Negative (Negative); Nitrate Urine Negative (Negative); Protein Urine Neg (Negative); Urine Appearance Clear (CLEAR); Urine Color Yellow (Yellow); Urobilinogen Urine Norm (Negative); pH Urine 7 (5-7)
[2024-02-09 09:00] VITALS: PULSE 50; O2SAT 97
[2024-02-09 10:00] VITALS: BP 151/57; PULSE 50; O2SAT 99
== END 2024-02-09 10:15 | disposition home or self-care (01) ==
PROVIDERS: Emergency Provider Family Medicine; PCP Family Medicine
DX: R30.0 Dysuria (principal); D64.9 Anemia, unspecified; N04.9 Nephrotic syndrome with unspecified morphologic changes; I12.9 Hypertensive chronic kidney disease with stage 1 through stage 4 chronic kidney disease, or unspecified chronic kidney disease; N18.9 Chronic kidney disease, unspecified; I25.2 Old myocardial infarction; I25.10 Atherosclerotic heart disease of native coronary artery without angina pectoris; Z79.02 Long term (current) use of antithrombotics/antiplatelets
CPT/HCPCS: 36415; 51798; 80053; 81003; 85025; 99283

== ENCOUNTER → 2024-03-21 14:43 | Outpatient (BNVA) | payer MEDICARE, MEDICAID, SELFPAY | PROVIDERS: PCP Family Medicine; Visit Provider Podiatrist Foot & Ankle Surgery | DX: M25.571 Pain in right ankle and joints of right foot (principal); G89.29 Other chronic pain; M79.671 Pain in right foot; M65.871 Other synovitis and tenosynovitis, right ankle and foot | CPT/HCPCS: 99203 ==

== ENCOUNTER → 2024-03-31 17:34 | Outpatient (BNVA) | payer MEDICARE, MEDICAID, SELFPAY | PROVIDERS: PCP Family Medicine; Visit Provider Emergency Medicine | DX: R39.9 Unspecified symptoms and signs involving the genitourinary system (principal); N10 Acute pyelonephritis | CPT/HCPCS: 81000; 87086 ==

== ENCOUNTER → 2024-04-15 15:19 | Outpatient (BNVA) | payer MEDICARE, MEDICAID, SELFPAY | PROVIDERS: PCP Family Medicine; Visit Provider Nurse Practitioner | DX: R30.0 Dysuria (principal); R39.9 Unspecified symptoms and signs involving the genitourinary system | CPT/HCPCS: 81000; 87086 ==

== ENCOUNTER → 2024-04-16 13:30 | Outpatient (BNVA) | payer MEDICARE, MEDICAID, SELFPAY | PROVIDERS: PCP Family Medicine; Visit Provider Internal Medicine | DX: I12.9 Hypertensive chronic kidney disease with stage 1 through stage 4 chronic kidney disease, or unspecified chronic kidney disease (principal); N18.9 Chronic kidney disease, unspecified; I25.10 Atherosclerotic heart disease of native coronary artery without angina pectoris | CPT/HCPCS: 99214 ==

== ENCOUNTER → 2024-04-30 11:11 | Outpatient (BNVA) | payer MEDICARE, MEDICAID, SELFPAY | PROVIDERS: PCP Family Medicine; Visit Provider Family Medicine | DX: N39.0 Urinary tract infection, site not specified (principal); E87.1 Hypo-osmolality and hyponatremia; E87.6 Hypokalemia | CPT/HCPCS: 80048; 81000 ==

== ENCOUNTER → 2024-08-12 12:43 | Outpatient (BNVA) | payer MEDICARE, MEDICAID, SELFPAY | PROVIDERS: PCP Family Medicine; Visit Provider Nurse Practitioner Family | DX: M17.11 Unilateral primary osteoarthritis, right knee (principal) | CPT/HCPCS: 73562 ==

== ENCOUNTER 2024-08-19 09:39 | Emergency (ER) | payer MEDICARE, MEDICAID, SELFPAY ==
[2024-08-19 10:04] VITALS: BP 155/79; PULSE 73; RESP 18; TEMP 36.9; O2SAT 98; BMI 25.9
--- NOTE | 2024-08-19 10:09 | XRR_ITS ---
PROCEDURE INFORMATION: Exam: XR Right Knee Exam date and time: 08/19/2024 10:33 AM Age: 73 years old Clinical indication: Injury or trauma; Fall; Blunt trauma; Knee; Right; Additional info: Knee swelling TECHNIQUE: Imaging protocol: Radiologic exam of the right knee. Views: 3 views. COMPARISON: CR XR knee RT 3V* [id number] 08/12/2024 12:44 PM FINDINGS: Bones/joints: No acute fracture. No dislocation. Mild medial joint space narrowing. Osteophytes along the medial aspect of the distal femur. Suprapatellar joint effusion. Soft tissues: Normal. Vasculature: Vascular calcifications. XR/XR knee RT 3V* [id number] IMPRESSION: Mild degenerative changes of the right knee without evidence of acute fracture. Small suprapatellar joint effusion.
--- NOTE | 2024-08-19 12:23 | W.ED.LOWEXIN ---
HPI - Extremity Injury (Lower) General: Chief Complaint: Extremity Injury, Lower Stated Complaint: body aches, knee pain Time Seen by Provider: 08/19/24 12:18 Source: patient Mode of arrival: ambulatory Limitations: no limitations History of Present Illness: Patient is a 73-year-old female presents to the ED today with complaint of pain and swelling to her right knee. Patient states approximately a month ago she fell directly onto both of her knees and sustained small abrasions. She states following the fall and over the course of the next week she continued to ambulate without difficulty or assistance. She states towards the beginning of August she began noticing more pain in the right knee. She states pain has continued to worsen and has now noticed swelling. She has no redness or warmth overlying the knee joint. She is not running fevers. She is ambulatory here without assistance. She feels like pain is throughout the knee joint and back behind the joint and radiating down into her calf. She does not complain of shortness of breath or difficulty breathing. MD complaint: knee injury Onset (ago): week(s) Injury: Right: knee Place: home Severity: severe Relieving factors: immobilization Exacerbating factors: weight bearing Associated symptoms: Reports no associated symptoms Other symptoms: none Related Data Home Medications Medication Instructions Recorded Confirmed docusate sodium 100 mg capsule 200 mg PO BEDTIME 10/05/21 08/12/24 acetaminophen 500 mg tablet 500 - 1,000 mg PO Q6H PRN Pain 11/29/21 08/12/24 nitroglycerin 0.4 mg sublingual 0.4 mg sublingual Q5M PRN Chest 10/23/22 08/12/24 tablet (Nitrostat) Pain cholecalciferol (vitamin D3) 125 125 mcg PO DAILY 01/11/23 08/12/24 mcg (5,000 unit) capsule magnesium 250 mg tablet 500 mg PO DAILY 01/11/23 08/12/24 tacrolimus 1 mg capsule, 1 mg PO Q12H 06/02/23 08/12/24 immediate-release sodium chloride-potassium chloride 4 tab PO DAILY PRN 04/30/24 08/12/24 287 mg-180 mg-15 mg tablet (Thermotabs) Previous Rx's Medication Instructions Recorded potassium gluconate 595 mg (99 mg) 595 mg PO DAILY PRN with lasix 10/26/22 tablet only #10 tabs lactulose 10 gram/15 mL oral See Rx Instructions .Route 10/10/23 solution .COMPLEX #2,700 mL amlodipine 5 mg tablet 5 mg PO DAILY #90 tabs 10/17/23 omeprazole 40 mg capsule,delayed 40 mg PO DAILY #180 caps 11/03/23 release sucralfate 1 gram tablet See Rx Instructions .Route 03/15/24 .COMPLEX #120 tabs losartan 25 mg tablet 25 mg PO DAILY #90 tabs 04/16/24 evolocumab 140 mg/mL subcutaneous See Rx Instructions .Route 04/30/24 pen injector (Repatha SureClick) .COMPLEX #6 mL nitrofurantoin 100 mg PO DAILY #30 caps 04/30/24 monohydrate/macrocrystals 100 mg capsule (Macrobid) hydrocodone 5 mg-acetaminophen 325 1 tab PO Q8H PRN pain 30 days #90 06/24/24 mg tablet tabs metoprolol tartrate 25 mg tablet 25 mg PO BID #180 tabs 08/07/24 clopidogrel 75 mg tablet See Rx Instructions .Route 08/16/24 .COMPLEX #30 tabs Allergies Allergy/AdvReac Type Severity Reaction Status Date / Time iodine Allergy Unknown Unknown Verified 08/12/24 12:22 Iodine and Iodide Containing Allergy Unknown ALGY-Hives Verified 08/12/24 12:22 Produc [Iodine and Iodide Containing Products] shellfish derived Allergy Unknown Unknown Verified 08/12/24 12:22 doxycycline Allergy severe Verified 08/12/24 12:22 dizziness NSAIDS (Non-Steroidal Allergy Unknown Verified 08/12/24 12:22 Anti-Inflamma Ijerltl-VFH-LcH Reductase Allergy ADR-Muscle Verified 08/12/24 12:22 Inhibitor Pain sulfamethoxazole Allergy ADR-Itching Verified 08/12/24 12:22 [From Bactrim] trimethoprim [From Bactrim] Allergy ADR-Itching Verified 08/12/24 12:22 lisinopril AdvReac Intermediate COUGH Verified 08/12/24 12:22 Review of Systems Const: Denies: fever(s), chills, body aches, fatigue or malaise Card: Denies: chest pain Resp: Denies: dyspnea or hemoptysis Musc: Reports: joint pain (R knee) and joint swelling (R knee); Denies: neck pain, back pain, extremity pain, extremity swelling, joint redness or joint warmth Neuro: Denies: numbness in extremities, weakness in extremities or sensory changes PFSH ED PFSH: Medical History Recurrent UTI on daily suppressive abx through urologist Minimal change disease kidney disease; on tacrolimus Vitamin D deficiency Generalized osteoarthritis of multiple sites on hydrocodone one per day; has kidney disease and can't take NSAIDs Encounter for chronic pain management Pain management contract signed signed 06.24.24 CKD (chronic kidney disease) Recent ST elevation myocardial infarction (STEMI) CAD (coronary artery disease) has had [address] elevation myocardial infarction (STEMI) Hypokalemia Chronic constipation Generalized anxiety disorder GERD with esophagitis Polycystic kidney Esophageal dysmotility Hypertension Anxiety and depression Surgical History Hx of tubal ligation Hx of foot surgery R ankle Hx of cholecystectomy Hx of cardiac cath X2 in 2021 Family History Father Cancer lung Sister Cancer 2 sisters; breast Mother Hypertension CAD (coronary artery disease) Social History Smoking and tobacco/nicotine status: never used tobacco/nicotine Second hand smoke exposure: No Alcohol intake: never Substance/Drug Use: never Lives independently: Yes Household members: spouse Marital status: Number of children: 3 Highest education level completed: High School Graduate Current occupational status: retired 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 Current gender identity: Female Female Reproductive History: Spontaneous abortions: No Physical Exam Const: COMMON NORMALS: no acute distress, average body habitus, patient oriented x3, no limitations, healthy appearing, alert and well nourished Resp: COMMON NORMALS: normal respiratory effort and clear to auscultation bilaterally AUSCULTATION: clear to auscultation bilaterally Cardio: COMMON NORMALS: regular rate and regular rhythm RATE: regular rate RHYTHM: regular rhythm Extremity: COMMON NORMALS: capillary refill normal, no clubbing, cyanosis or edema and no pedal edema GENERAL: Yes normal exam except as noted RIGHT LOWER EXTREMITY: Yes knee joint (anterior knee edema) Right knee: Yes inspection (no erythema/warmth), Yes ROM (fairly normal ROM; no pain out of proportion), Yes neurovascular exam (normal) and Yes other (pain popliteal and into calf) Neuro: COMMON NORMALS: patient oriented x3, moves all extremities, no focal motor deficits and no sensory deficits noted SENSORIUM/ORIENTATION: Yes alert Course Vital Signs: Vital signs: Vital Signs Temperature 98.4 F 08/19/24 10:04 Pulse Rate 86 08/19/24 13:32 Respiratory Rate 18 08/19/24 10:04 Blood Pressure 139/82 08/19/24 13:32 Pulse Oximetry 98 08/19/24 13:32 Oxygen Delivery Me thod Room Air 08/19/24 10:04 MDM - Extremity Injury (Lower) Medical Decision Making XR obtained several days ago at a walk-in clinic as well as here. She does have degenerative changes. Small suprapatellar joint effusion. No concern at this time for septic arthritis. US of her lower extremities negative for DVT/Bakers. Walk-in clinic referred to Ortho but she has not heard back from them regarding this appointment. Will place another referral. States she cannot take steroids or anti-inflammatories due to her kidneys. We discussed topical therapies. Will MARCELLE wrap. Recommend ice and elevation. She does have hydrocodone at home she can continue using. Medical Records I reviewed the patient's medical records. Lab Data Radiology Impressions Knee X-Ray 08/19/24 10:09 IMPRESSION: Mild degenerative changes of the right knee without evidence of acute fracture. Small suprapatellar joint effusion. XR interpretation done by ED provider, pending radiology final review (no DVT/Aranda's per Cyrus D US tech) Discharge Plan Discharge Patient Disposition: Home Clinical Impression: Pain and swelling of right knee Condition: Stable Prescriptions: No Action Thermotabs 287-180-15 mg tablet 4 tab PO DAILY PRN nitrofurantoin monohyd/m-cryst [Macrobid] 100 mg capsule 100 mg PO DAILY Qty: 30 5RF Rx Instructions: must administer with a meal/food magnesium 250 mg tablet 500 mg PO DAILY cholecalciferol (vitamin D3) 125 mcg (5,000 unit) capsule 125 mcg PO DAILY amlodipine 5 mg tablet 5 mg PO DAILY Qty: 90 3RF losartan 25 mg tablet 25 mg PO DAILY Qty: 90 3RF Hold Instructions: Resume on 11/02/22. hydrocodone-acetaminophen 5-325 mg tablet 1 tab PO Q8H PRN (Reason: pain) 30 Days Qty: 90 0RF lactulose 10 gram/15 mL solution See Rx Instructions .ROUTE .COMPLEX Qty: 2700 3RF Dose Instruction: TAKE 30ML BY MOUTH AT BEDTIME DIRECTED Rx Instructions: TAKE 30ML BY MOUTH AT BEDTIME DIRECTED omeprazole 40 mg capsule,delayed release(DR/EC) 40 mg PO DAILY Qty: 180 3RF sucralfate 1 gram tablet See Rx Instructions .ROUTE .COMPLEX Qty: 120 2RF Dose Instruction: TAKE 1 TABLET BY MOUTH EVERY 6 HOURS FOR ONE MONTH Rx Instructions: TAKE 1 TABLET BY MOUTH EVERY 6 HOURS FOR ONE MONTH Repatha SureClick 140 mg/mL pen injector See Rx Instructions .ROUTE .COMPLEX Qty: 6 3RF Dose Instruction: INJECT 140MG UNDER THE SKIN EVERY 2 WEEKS Rx Instructions: INJECT 140MG UNDER THE SKIN EVERY 2 WEEKS metoprolol tartrate 25 mg tablet 25 mg PO BID Qty: 180 3RF clopidogrel 75 mg tablet See Rx Instructions .ROUTE .COMPLEX Qty: 30 2RF Dose Instruction: TAKE 1 TABLET BY MOUTH EVERY DAY Rx Instructions: TAKE 1 TABLET BY MOUTH EVERY DAY docusate sodium 100 mg Capsule 200 mg PO BEDTIME acetaminophen 500 mg Tablet 500 - 1,000 mg PO Q6H PRN (Reason: Pain) Nitrostat 0.4 mg Tablet, Sublingual 0.4 mg SUBLINGUAL Q5M PRN (Reason: Chest Pain) Rx Instructions: do not exceed 3 doses per episode potassium gluconate 595 mg (99 mg) Tablet 595 mg PO DAILY PRN (Reason: with lasix only) Qty: 10 0RF tacrolimus 1 mg capsule 1 mg PO Q12H Rx Instructions: 3mg in AM, 2mg in PM Discharge Orders: Discharge ED (Routine); Ordered 08/19/24 Ordered By: Kaila Spears Referrals: Nikki Cavazos MD [Primary Care Provider] - Activity Restrictions/Additional Instructions: As we discussed, you have been referred to our orthopedic clinic for further evaluation. You should be contacted this week in regards to this appointment. You may wear your MARCELLE wrap in addition to ice and elevation to help with swelling. We spoke about topical medications you may use to help with discomfort as well. You may continue your hydrocodone as needed for severe pain. Coding Level of Care Code ED Ict Business Development Manager for Amira Solorzano
--- NOTE | 2024-08-19 12:32 | USCV_ITS ---
Nati Eli Age: 73 Gender: F : 1950 Exam Date: 08/19/2024 12:47 Ordering Phys: Kaila Spears Technologist: Exam Location: [facility] [place]_ Indication: RT LEG PAIN AND SWELLING PROCEDURES: Venous duplex imaging was performed in only the right lower extremity. The following venous structures were evaluated: common femoral vein, profunda vein, proximal portion of the greater saphenous vein, superficial femoral vein, and the popliteal vein. In addition, the posterior tibial and peroneal trunk were evaluated. FINDINGS: Normal 2-D Doppler and augmentation and compressibility throughout the lower extremity venous structures. Additional imaging through the proximal calf veins also reveals no thrombus. Limited evaluation of the greater saphenous vein is patent with no thrombus. CONCLUSIONS No evidence of right lower extremity DVT. Nadeem Rich MD (Electronically Signed) Final Date: 19 August 2024 15:07 S
[2024-08-19 13:32] VITALS: BP 139/82; PULSE 86; O2SAT 98
--- NOTE | 2024-08-20 07:28 | DCPLANNER ---
Message sent to Ortho for follow up on Rt Swollen painful knee
== END 2024-08-19 13:33 | disposition home or self-care (01) ==
PROVIDERS: Emergency Provider Physician Assistant; PCP Family Medicine
DX: M25.561 Pain in right knee (principal); Z79.02 Long term (current) use of antithrombotics/antiplatelets; I25.2 Old myocardial infarction; I12.9 Hypertensive chronic kidney disease with stage 1 through stage 4 chronic kidney disease, or unspecified chronic kidney disease; N18.9 Chronic kidney disease, unspecified; I25.10 Atherosclerotic heart disease of native coronary artery without angina pectoris
CPT/HCPCS: 73562; 93971; 99284

== ENCOUNTER 2024-09-05 07:11 | Outpatient (CLI) | payer MEDICAID, MEDICARE, SELFPAY ==
--- NOTE | 2024-09-05 07:00 | CT_ITS ---
WS: [id number] CT RIGHT KNEE, NONCONTRAST HISTORY: right knee pain, swelling, recent fall. Technique: All CT scans at [facility] use at least one of these dose optimization techniques: automated exposure control; mA and/or kV adjustment per patient size (includes targeted exams where dose is matched to clinical indication); or iterative reconstruction. DLP: 478.61 mGy.cm COMPARISON: Radiograph 08/19/2024 Mild diffuse osteopenia. Mild tricompartment joint space narrowing. Small marginal osteophytes. Corti ramon irregularity along the tibial plateau surface but no fracture identified. There is a very subtle area of sclerosis through the patella which could represent a trabecular injury from the recent fall. No definite fracture is identified or displacement. There is a large suprapatellar joint effusion. Scattered calcifications in the popliteal artery. CT/CT knee RT wo con* [id number] IMPRESSION: 1. No acute fractures identified. 2. Thin linear sclerotic line through the patella. This may represent a trabec ular injury with impaction along the fracture line. If pain continues consisten t with fracture consider MRI evaluation RIGHT knee to evaluate for marrow edema and occult fracture and additional soft tissue injury. 3. Large suprapatellar joint effusion.
== END 2024-09-05 07:12 | disposition home or self-care (01) ==
LOC: RAD 07:21
PROVIDERS: PCP Family Medicine; Visit Provider Nurse Practitioner Family
DX: M25.761 Osteophyte, right knee (principal); W19.XXXA Unspecified fall, initial encounter; Y92.009 Unspecified place in unspecified non-institutional (private) residence as the place of occurrence of the external cause; R93.89 Abnormal findings on diagnostic imaging of other specified body structures; M85.88 Other specified disorders of bone density and structure, other site; M25.861 Other specified joint disorders, right knee
CPT/HCPCS: 73700; 81000

== ENCOUNTER → 2024-09-06 17:33 | Outpatient (BNVA) | payer MEDICAID, MEDICARE, SELFPAY | PROVIDERS: PCP Family Medicine; Visit Provider Registered Nurse Neonatal Intensive Care | DX: R30.0 Dysuria (principal) | CPT/HCPCS: 87086 ==

== ENCOUNTER → 2024-09-18 15:02 | Outpatient (BNVA) | payer MEDICARE, MEDICAID, SELFPAY | PROVIDERS: PCP Family Medicine; Visit Provider Nurse Practitioner | DX: M25.561 Pain in right knee (principal); M17.12 Unilateral primary osteoarthritis, left knee; M25.461 Effusion, right knee; Z46.89 Encounter for fitting and adjustment of other specified devices | CPT/HCPCS: 73560; 73565 ==

== ENCOUNTER 2024-09-18 16:22 | Outpatient (CLI) | payer MEDICARE, MEDICAID, SELFPAY | END 2024-09-18 16:23 | disposition home or self-care (01) | LOC: SPT 16:23 | PROVIDERS: PCP Family Medicine; Visit Provider Nurse Practitioner | DX: Z46.89 Encounter for fitting and adjustment of other specified devices (principal); M25.561 Pain in right knee | CPT/HCPCS: 20610; 97760; J1100; J2795; J3301; L1812 ==

== ENCOUNTER → 2024-09-24 09:33 | Outpatient (BNVA) | payer MEDICARE, MEDICAID, SELFPAY | PROVIDERS: PCP Family Medicine; Visit Provider Family Medicine | DX: I10 Essential (primary) hypertension (principal); I25.10 Atherosclerotic heart disease of native coronary artery without angina pectoris; E78.00 Pure hypercholesterolemia, unspecified; E55.9 Vitamin D deficiency, unspecified; N18.9 Chronic kidney disease, unspecified; M15.9 Polyosteoarthritis, unspecified | CPT/HCPCS: 85025 ==

== ENCOUNTER → 2024-09-25 09:07 | Outpatient (BNVA) | payer MEDICARE, MEDICAID, SELFPAY | PROVIDERS: PCP Family Medicine; Visit Provider Family Medicine | DX: E55.9 Vitamin D deficiency, unspecified (principal); I10 Essential (primary) hypertension; I25.10 Atherosclerotic heart disease of native coronary artery without angina pectoris; E78.00 Pure hypercholesterolemia, unspecified; N18.9 Chronic kidney disease, unspecified; M15.9 Polyosteoarthritis, unspecified | CPT/HCPCS: 80048; 80053; 80061; 82306; 82607; 83540; 84443; 85025 ==

== ENCOUNTER 2024-09-30 07:14 | Outpatient (RCR) | payer MEDICARE, MEDICAID, SELFPAY | END 2024-10-04 23:59 | disposition home or self-care (01) | LOC: SPT 07:14 | PROVIDERS: PCP Family Medicine; Visit Provider Nurse Practitioner | DX: M25.561 Pain in right knee (principal) | CPT/HCPCS: 97110; 97161 ==

== ENCOUNTER 2024-10-05 06:30 | Outpatient (RCR) | payer MEDICARE, MEDICAID, SELFPAY | END 2024-10-28 08:22 | disposition home or self-care (01) | LOC: SPT 06:30 | PROVIDERS: PCP Family Medicine; Visit Provider Nurse Practitioner | DX: M25.561 Pain in right knee (principal) | CPT/HCPCS: 97110 ==

== ENCOUNTER → 2024-10-25 14:13 | Outpatient (BNVA) | payer MEDICARE, MEDICAID, SELFPAY | PROVIDERS: PCP Family Medicine; Visit Provider Internal Medicine | DX: I25.10 Atherosclerotic heart disease of native coronary artery without angina pectoris (principal); I12.9 Hypertensive chronic kidney disease with stage 1 through stage 4 chronic kidney disease, or unspecified chronic kidney disease; N18.9 Chronic kidney disease, unspecified | CPT/HCPCS: 99214 ==

== ENCOUNTER → 2024-10-30 12:02 | Outpatient (BNVA) | payer MEDICARE, MEDICAID, SELFPAY | PROVIDERS: PCP Family Medicine; Visit Provider Nurse Practitioner | DX: M17.11 Unilateral primary osteoarthritis, right knee (principal); M23.51 Chronic instability of knee, right knee; W19.XXXD Unspecified fall, subsequent encounter; Y92.009 Unspecified place in unspecified non-institutional (private) residence as the place of occurrence of the external cause | CPT/HCPCS: 99213 ==

== ENCOUNTER → 2024-12-09 13:36 | Outpatient (BNVA) | payer MEDICARE, MEDICAID, SELFPAY | PROVIDERS: PCP Family Medicine | DX: R39.9 Unspecified symptoms and signs involving the genitourinary system (principal) | CPT/HCPCS: 81000; 87086 ==

== ENCOUNTER → 2024-12-23 10:08 | Outpatient (BNVA) | payer MEDICARE, MEDICAID, SELFPAY | PROVIDERS: PCP Family Medicine; Visit Provider Family Medicine | DX: E87.1 Hypo-osmolality and hyponatremia (principal) | CPT/HCPCS: 80048 ==

== ENCOUNTER → 2024-12-30 10:37 | Outpatient (BNVA) | payer MEDICARE, MEDICAID, SELFPAY | PROVIDERS: PCP Family Medicine; Visit Provider Family Medicine | DX: E87.1 Hypo-osmolality and hyponatremia (principal) | CPT/HCPCS: 80048 ==

== ENCOUNTER → 2025-01-06 10:07 | Outpatient (BNVA) | payer MEDICARE, MEDICAID, SELFPAY | PROVIDERS: PCP Family Medicine; Visit Provider Family Medicine | DX: E87.1 Hypo-osmolality and hyponatremia (principal) | CPT/HCPCS: 80048 ==

== ENCOUNTER → 2025-01-14 09:05 | Outpatient (BNVA) | payer MEDICARE, MEDICAID, SELFPAY | PROVIDERS: PCP Family Medicine; Visit Provider Family Medicine | DX: E87.1 Hypo-osmolality and hyponatremia (principal) | CPT/HCPCS: 80048 ==

== ENCOUNTER → 2025-01-21 11:31 | Outpatient (BNVA) | payer MEDICARE, MEDICAID, SELFPAY | PROVIDERS: PCP Family Medicine; Visit Provider Family Medicine | DX: E87.1 Hypo-osmolality and hyponatremia (principal) | CPT/HCPCS: 80048 ==

== ENCOUNTER → 2025-01-28 10:00 | Outpatient (BNVA) | payer MEDICARE, MEDICAID, SELFPAY | PROVIDERS: PCP Family Medicine; Visit Provider Family Medicine | DX: E87.1 Hypo-osmolality and hyponatremia (principal) | CPT/HCPCS: 80048 ==

== ENCOUNTER → 2025-02-11 12:12 | Outpatient (BNVA) | payer MEDICARE, SELFPAY | PROVIDERS: PCP Family Medicine; Visit Provider Family Medicine | DX: I10 Essential (primary) hypertension (principal); E87.1 Hypo-osmolality and hyponatremia | CPT/HCPCS: 80048 ==

== ENCOUNTER → 2025-02-20 14:33 | Outpatient (BNVA) | payer MEDICARE, SELFPAY | PROVIDERS: PCP Family Medicine; Visit Provider Family Medicine | DX: E87.1 Hypo-osmolality and hyponatremia (principal); N18.9 Chronic kidney disease, unspecified; I10 Essential (primary) hypertension | CPT/HCPCS: 80048 ==

== ENCOUNTER → 2025-03-17 07:14 | Outpatient (BNVA) | payer MEDICARE, SELFPAY | PROVIDERS: PCP Family Medicine | DX: R35.0 Frequency of micturition (principal) | CPT/HCPCS: 81000 ==

== ENCOUNTER → 2025-03-24 16:16 | Outpatient (BNVA) | payer MEDICARE, SELFPAY | PROVIDERS: PCP Family Medicine; Visit Provider Family Medicine | DX: I10 Essential (primary) hypertension (principal); E87.1 Hypo-osmolality and hyponatremia; N18.9 Chronic kidney disease, unspecified; N05.0 Unspecified nephritic syndrome with minor glomerular abnormality; R30.0 Dysuria | CPT/HCPCS: 80048; 85025; 87086 ==

== ENCOUNTER 2025-04-07 09:49 | Outpatient (CLI) | payer MEDICARE, SELFPAY ==
[2025-04-07 10:59] LABS: C.Diff PCR (Lab) NEGATIVE (Negative)
== END 2025-04-07 09:50 | disposition home or self-care (01) ==
PROVIDERS: PCP Family Medicine; Visit Provider Emergency Medicine
DX: K52.9 Noninfective gastroenteritis and colitis, unspecified (principal)
CPT/HCPCS: 87045; 87427; 87449; 87493

== ENCOUNTER → 2025-04-17 15:04 | Outpatient (BNVA) | payer MEDICARE, MEDICAID, SELFPAY | PROVIDERS: PCP Family Medicine; Visit Provider Internal Medicine | DX: I12.9 Hypertensive chronic kidney disease with stage 1 through stage 4 chronic kidney disease, or unspecified chronic kidney disease (principal); N18.32 Chronic kidney disease, stage 3b; I25.118 Atherosclerotic heart disease of native coronary artery with other forms of angina pectoris; Z79.02 Long term (current) use of antithrombotics/antiplatelets; Z95.5 Presence of coronary angioplasty implant and graft; I25.2 Old myocardial infarction | CPT/HCPCS: 99214 ==